=== PATIENT | female | born 1940 | race Caucasian/White ===

== ENCOUNTER 2020-01-03 10:39 | Outpatient (CLI) | payer MEDICARE, OTHER, SELFPAY ==
--- NOTE | 2020-01-03 10:52 | MM_ITS ---
WS: [id number] BILATERAL DIGITAL SCREENING MAMMOGRAPHY WITH CAD CLINICAL INFORMATION: SCREEN HISTORY: Screening mammogram. No current complaints. COMPARISON: . TECHNIQUE: Bilateral CC and MLO views. FINDINGS: The breasts are composed of heterogeneous fibroglandular density tissue, which can limit the detectio n of small underlying mass lesions. No suspicious mass, asymmetry, calcifications, or architectural d istortion. No evidence of malignancy. Stable punctate and lucent centered calcifications. MM/[id number] IMPRESSION: BI-RADS: 2-Benign FOLLOW UP: 1 Year Follow-up Recommend return to annual screening mammography.
== END 2020-01-03 10:40 | disposition home or self-care (01) ==
LOC: RADSHAW 10:49
PROVIDERS: PCP Family Medicine; Visit Provider Family Medicine
DX: Z12.31 Encounter for screening mammogram for malignant neoplasm of breast (principal)
CPT/HCPCS: 77067

== ENCOUNTER → 2020-08-07 14:48 | Outpatient (BNVA) | payer MEDICARE, OTHER, SELFPAY | PROVIDERS: PCP Family Medicine; Visit Provider Nurse Practitioner Family | DX: R30.0 Dysuria (principal); B37.3 Candidiasis of vulva and vagina; B37.2 Candidiasis of skin and nail | CPT/HCPCS: 81000 ==

== ENCOUNTER → 2020-08-12 14:44 | Outpatient (BNVA) | payer MEDICARE, OTHER, SELFPAY | PROVIDERS: PCP Nurse Practitioner Family; Visit Provider Nurse Practitioner Family | DX: M79.602 Pain in left arm (principal) | CPT/HCPCS: 73030; 73080; 73110 ==

== ENCOUNTER → 2020-08-16 09:47 | Outpatient (BNVA) | payer MEDICARE, OTHER, SELFPAY | PROVIDERS: PCP Nurse Practitioner Family; Visit Provider Nurse Practitioner Family | DX: M25.522 Pain in left elbow (principal) | CPT/HCPCS: 73080 ==

== ENCOUNTER → 2020-08-21 14:17 | Outpatient (BNVA) | payer MEDICARE, OTHER, SELFPAY | PROVIDERS: PCP Nurse Practitioner Family; Visit Provider Family Medicine | DX: M25.522 Pain in left elbow (principal); M19.022 Primary osteoarthritis, left elbow | CPT/HCPCS: 73080 ==

== ENCOUNTER → 2020-08-26 11:18 | Outpatient (BNVA) | payer MEDICARE, OTHER, SELFPAY | PROVIDERS: PCP Nurse Practitioner Family; Visit Provider Specialist | DX: M19.022 Primary osteoarthritis, left elbow (principal); M25.522 Pain in left elbow | CPT/HCPCS: 73080 ==

== ENCOUNTER → 2020-09-10 12:02 | Outpatient (BNVA) | payer MEDICARE, OTHER, SELFPAY | PROVIDERS: PCP Nurse Practitioner Family; Visit Provider Nurse Practitioner Family | DX: K52.9 Noninfective gastroenteritis and colitis, unspecified (principal); R19.7 Diarrhea, unspecified | CPT/HCPCS: 80053; 85025; 87506 ==

== ENCOUNTER → 2020-09-16 14:28 | Outpatient (BNVA) | payer MEDICARE, OTHER, SELFPAY | PROVIDERS: PCP Nurse Practitioner Family; Visit Provider Nurse Practitioner Family | DX: K52.9 Noninfective gastroenteritis and colitis, unspecified (principal) | CPT/HCPCS: 82272 ==

== ENCOUNTER → 2020-11-22 11:00 | Outpatient (BNVA) | payer MEDICARE, OTHER, SELFPAY | PROVIDERS: PCP Nurse Practitioner Family; Visit Provider Nurse Practitioner Family | DX: R39.11 Hesitancy of micturition (principal); I10 Essential (primary) hypertension; F41.9 Anxiety disorder, unspecified; M79.604 Pain in right leg; M79.605 Pain in left leg; E03.9 Hypothyroidism, unspecified; Z13.6 Encounter for screening for cardiovascular disorders | CPT/HCPCS: 80053; 80061; 81000; 84443; 85025 ==

== ENCOUNTER → 2020-12-25 12:09 | Outpatient (BNVA) | payer MEDICARE, OTHER, SELFPAY | PROVIDERS: PCP Nurse Practitioner Family; Visit Provider Nurse Practitioner Family | DX: R39.11 Hesitancy of micturition (principal); I10 Essential (primary) hypertension; F41.9 Anxiety disorder, unspecified; M79.604 Pain in right leg; M79.605 Pain in left leg; E03.9 Hypothyroidism, unspecified; Z13.6 Encounter for screening for cardiovascular disorders; R07.89 Other chest pain | CPT/HCPCS: 80053; 84484; 85025 ==

== ENCOUNTER → 2021-01-17 11:36 | Outpatient (BNVA) | payer MEDICARE, OTHER, SELFPAY | PROVIDERS: PCP Nurse Practitioner Family; Visit Provider Nurse Practitioner Family | DX: J02.9 Acute pharyngitis, unspecified (principal); R50.9 Fever, unspecified; Z11.52 Encounter for screening for COVID-19 | CPT/HCPCS: 87071; 87635; 87880 ==

== ENCOUNTER → 2021-05-09 11:23 | Outpatient (BNVA) | payer MEDICARE, OTHER, SELFPAY | PROVIDERS: PCP Nurse Practitioner Family; Visit Provider Nurse Practitioner Family | DX: Z20.822 Contact with and (suspected) exposure to COVID-19 (principal) | CPT/HCPCS: 87635 ==

== ENCOUNTER → 2021-06-16 14:12 | Outpatient (BNVA) | payer MEDICARE, OTHER, SELFPAY | PROVIDERS: PCP Nurse Practitioner Family; Visit Provider Nurse Practitioner Family | DX: E03.9 Hypothyroidism, unspecified (principal); R01.1 Cardiac murmur, unspecified; R06.2 Wheezing; G47.9 Sleep disorder, unspecified | CPT/HCPCS: 80053; 80061; 84443; 85025 ==

== ENCOUNTER 2021-06-25 14:33 | Outpatient (CLI) | payer MEDICARE, OTHER, SELFPAY ==
--- NOTE | 2021-06-25 14:45 | USCV_ITS ---
Diana Dewitt Age: 81 Gender: F : 1940 Exam Date: 06/25/2021 14:59 Ordering Phys: Constance PhilippeP-Dominique Technologist: [place] [facility] [place]: murmur BP: 124 / 76 HR: 75 Rhythm: Sinus Technical Quality: MEASUREMENTS (Male / Female) Normal Values 2D ECHO LV Diastolic Diameter PLAX 3.9 cm 4.2 - 5.9 / 3.9 - 5.3 cm LV Systolic Diameter PLAX 2.4 cm IVS Diastolic Thickness 1.1 cm 0.6 - 1.0 / 0.6 - 0.9 cm IVS Systolic Thickness 1.4 cm LVPW Diastolic Thickness 1.1 cm 0.6 - 1.0 / 0.6 - 0.9 cm LVPW Systolic Thickness 1.6 cm LVOT Diameter 2.0 cm LV Ejection Fraction 2D Teich 70.0 % LV Ejection Fraction MOD 2C 72.0 % LV Ejection Fraction 2C AL 69.9 % LA Diameter 3.8 cm Aorta at Sinotubular Diameter 2.6 cm M-MODE Aortic Annulus Diameter 3.1 cm LA Ao Ratio MM 1.3 MV E Point Septal Separation 1.5 cm DOPPLER AV Peak Velocity 346.0 cm/s LVOT Peak Velocity 104.0 cm/s AV Area Cont Eq vti 1.0 cm squared AV Area Cont Eq pk 1.0 cm squared MV Area PHT 5.0 cm squared Mitral E to A Ratio 1.3 MV E' Velocity 110.5 cm/s Mitral E to MV E' Ratio 27.0 Mitral E to LV E' Lateral Ratio 30.9 Mitral E to LV E' Septal Ratio 24.0 TR Peak Velocity 295.3 cm/s TR Peak Gradient 34.9 mmHg TV Peak E Velocity 83.0 cm/s Right Atrial Pressure 3.0 mmHg Pulmonary Artery Systolic Pressu 37.9 mmHg PV Peak Velocity 95.0 cm/s RV Acceleration Time 0.1 s FINDINGS Left Ventricle Normal left ventricular size. LV systolic function is normal with EF of 55-60%. No regional wall motion abnormalities. Diastolic function is normal Right Ventricle The right ventricle is normal in size and function. Right Atrium The right atrium is normal in size. Left Atrium The left atrium is normal in size. Mitral Valve Severe mitral annular calcification is seen. Mild to moderate mitral stenosis with mean gradient across mitral valve of 4.9mmHg. There is mild mitral regurgitation. Aortic Valve Aortic valve is thickened and calcified. Moderate aortic stenosis with aortic valve area of 1.2cm2 and mean gradient across the aortic valve of 17mmHg. There is moderate aortic regurgitation. Tricuspid Valve Structurally normal tricuspid valve without significant stenosis, Mild tricuspid regurgitation. Insufficient TR jet to calculate RVSP Pulmonic Valve Structurally normal pulmonic valve without significant stenosis. There is no pulmonic regurgitation. Pericardium Normal pericardium without effusion. Aorta Normal ascending aorta dimension. CONCLUSIONS LV systolic function is normal with EF 55 to 60%. Diastolic function is normal. Severe mitral annular calcification is seen. Mild to moderate mitral stenosis with mean gradient across mitral valve of 4.9 mmHg. Mild mitral regurgitation. Aortic valve is thickened and calcified. Moderate aortic stenosis with aortic valve area 1.2 cm squared and mean gradient across the valve of 17 mmHg. Moderate aortic regurgitation. Mild tricuspid regurgitation. Compared to prior echocardiogram from 11/06/2014, mitral stenosis is now present. Aortic regurgitation has progressed and is now moderate. Patient also now has moderate aortic stenosis. Darrius Turner MD (Electronically Signed) Final Date: 25 June 2021 18:35 S
== END 2021-06-25 14:34 | disposition home or self-care (01) ==
LOC: RAD 14:34
PROVIDERS: PCP Nurse Practitioner Family; Visit Provider Nurse Practitioner Family
DX: I08.2 Rheumatic disorders of both aortic and tricuspid valves (principal); R01.1 Cardiac murmur, unspecified
CPT/HCPCS: 93306

== ENCOUNTER 2021-07-10 13:56 | Outpatient (CLI) | payer MEDICARE, OTHER, SELFPAY ==
--- NOTE | 2021-07-10 14:12 | MM_ITS ---
WS: [id number] BILATERAL 3D TOMOSYNTHESIS DIGITAL SCREENING MAMMOGRAPHY WITH CAD CLINICAL INFORMATION: SCREENING HISTORY: Screening mammogram. No current complaints. COMPARISON: January 03, 2020 TECHNIQUE: Bilateral CC and MLO views. FINDINGS: Scattered fibroglandular densities bilaterally. Punctate and lucent centered calcifications. A few se cretory calcifications. Stable calcifications upper outer LEFT breast. No suspicious focal mass, asym metry, calcifications, or architectural distortion. No evidence of malignancy. MM/[place] [id number] IMPRESSION: BI-RADS: 2-Benign FOLLOW UP: 1 Year Follow-up Recommend return to annual screening mammography.
== END 2021-07-10 13:57 | disposition home or self-care (01) ==
LOC: RAD 13:59
PROVIDERS: PCP Nurse Practitioner Family; Visit Provider Nurse Practitioner Family
DX: Z12.31 Encounter for screening mammogram for malignant neoplasm of breast (principal)
CPT/HCPCS: 77063; 77067

== ENCOUNTER 2021-07-12 06:26 | Emergency (ER) | payer MEDICARE, OTHER, SELFPAY ==
[2021-07-12 06:32] VITALS: BP 140/64; PULSE 76; RESP 18; TEMP 36.8; O2SAT 96; BMI 29.0
[2021-07-12 06:41] VITALS: PULSE 74
--- NOTE | 2021-07-12 06:48 | W.ED.EXTPRO ---
HPI - Extremity Problem General: Chief complaint: Extremity Injury, Upper Stated complaint: left arm pain partial numbness Time Seen by Provider: 07/12/21 06:48 Source: patient Mode of arrival: EMS Limitations: no limitations History of Present Illness: 81-year-old female presents to the emergency room with complaints of left arm and left facial numbness that began around 430 this morning and woke her up. She has not had pain like this before she has no known history of coronary disease he has some con commitment chest discomfort. She has no known history of coronary disease not previously had any stress test or angiograms. Onset (ago): minute(s) Pain Consistency: constant Location: left and upper extremity Quality: aching and other (numbness) Radiation: distal Relieving factors: nothing Exacerbating factors: nothing Associated symptoms: Reports chest pain; Deny arthralgias, fever(s), myalgias, rash or short of breath Review of Systems Const: Denies: fever(s) ENMT: Denies: throat pain, ear or mastoid pain, nasal discharge or nasal congestion Card: Reports: chest pain; Denies: palpitations, irregular heart rhythm, edema, swelling of feet/ankles, lightheadedness, syncope or dyspnea on exertion Resp: Denies: dyspnea, productive cough or non-productive cough GI: Denies: abdominal pain, nausea, vomiting, hematemesis, coffee ground emesis, diarrhea, constipation, bloating, hematochezia or melena : Denies: flank pain, difficulty voiding, dysuria, urinary frequency or urinary urgency Skin/Breast: Denies: rash PFSH ED PFSH: Medical History Amira infection GERD (gastroesophageal reflux disease) Hypothyroid Surgical History History of hysterectomy Family History Father No problems noted. Family/Other Diabetes Chronic kidney disease (CKD) Social History Smoking and tobacco status: never smoked Second hand smoke exposure: No Smoking risk assessment/counseling performed?: No Alcohol intake: never Desire information about alcohol rehabilitation?: No Counseling given: No Desire information about substance/drug rehabilitation?: No Counseling given: No Adopted: No Caregiver/support person: No Lives independently: Yes Household members: spouse Housing: House Marital status: Number of children: 0 service: No Physical Exam Const: GENERAL APPEARANCE: cooperative and comfortable ORIENTATION/CONSCIOUSNESS: Yes awake, Yes oriented to person, Yes oriented to place and Yes oriented to time HENMT: COMMON NORMALS: normocephalic, atraumatic and hearing grossly normal bilaterally HEAD & SCALP: normocephalic and atraumatic Neck/C-Spine: COMMON NORMALS: no JVD Resp: COMMON NORMALS: normal respiratory effort, No retractions, No use of accessory muscles and clear to auscultation bilaterally AUSCULTATION: clear to auscultation bilaterally Cardio: COMMON NORMALS: no JVD, regular rate, regular rhythm and No murmurs present (Cardio) RATE: regular rate RHYTHM: regular rhythm GI: COMMON NORMALS: Soft to palpation and No hepatosplenomegaly present AUSCULTATION: Yes normoactive bowel sounds PALPATION: Yes Soft to palpation, No Tenderness to palpation present (GI), No Guarding due to palpation present (GI) and Yes No hepatosplenomegaly present Extremity: COMMON NORMALS: normal to inspection, capillary refill normal, no clubbing, cyanosis or edema, no calf tenderness and no pedal edema Neuro: SENSORIUM/ORIENTATION: Yes oriented to person, Yes oriented to place and Yes oriented to time Skin: COMMON NORMALS: no rashes or lesions noted GENERAL SKIN EXAM: no rashes or lesions noted Course Vital Signs: Vital signs: Vital Signs Temperature 98.2 F 07/12/21 06:32 Pulse Rate 75 07/12/21 09:09 Respiratory Rate 20 H 07/12/21 09:09 Blood Pressure 138/69 07/12/21 09:09 Pulse Oximetry 95 07/12/21 09:09 MDM - Extremity (Nontraumatic) Medical Decision Making CT head negative. Neuro exam normal no sign of stroke. Patient has no further symptoms EKG and troponins are normal. Will discharge home blood pressure is mildly elevated will add isosorbide mononitrate 30 mg daily and asked her to take baby aspirin daily set her up for an outpatient Lexiscan sestamibi stress test Medical Records I reviewed the patient's medical records. Lab Data I reviewed the patient's lab results. : 07/12/21 06:40 07/12/21 07:[address] 07/12/21 06:49 IMPRESSION: No acute intracranial abnormality. Humerus X-Ray 07/12/21 07:00 IMPRESSION: No acute findings. Laboratory Results WBC 5.0 10^3/uL (4.0-10.0) 07/12/21 06:40 RBC 4.04 10^6/uL (4.1-5.3) L 07/12/21 06:40 Hgb 12.4 g/dL (11.5-15.3) 07/12/21 06:40 Hct 37.1 % (37.0-47.0) 07/12/21 06:40 MCV 91.8 fl (81-99) 07/12/21 06:40 MCH 30.7 pg (28.0-34.0) 07/12/21 06:40 MCHC 33.4 g/dL (30.0-36.0) 07/12/21 06:40 RDW 11.9 % (12.1-15.1) L 07/12/21 06:40 Plt Count 342 10^3/cmm (130-400) 07/12/21 06:40 MPV 9.3 fL (7.4-10.4) 07/12/21 06:40 Neut % (Auto) 39.3 % 07/12/21 06:40 Lymph % (Auto) 41.2 % 07/12/21 06:40 [place] % (Auto) 11.7 % 07/12/21 06:40 Eos % (Auto) 7.0 % 07/12/21 06:40 Baso % (Auto) 0.8 % 07/12/21 06:40 Neut # (Auto) 1.98 10^3/uL (1.8-7.7) 07/12/21 06:40 Lymph # (Auto) 2.1 10^3/uL (0.8-4.8) 07/12/21 06:40 [place] # (Auto) 0.6 10^3/uL (0.2-0.9) 07/12/21 06:40 Eos # (Auto) 0.4 10^3/uL (0.0-0.8) 07/12/21 06:40 Baso # (Auto) 0.0 10^3/uL (0.0-0.1) 07/12/21 06:40 Nucleated RBC % (auto) 0 % 07/12/21 06:40 Nucleated RBCs # 0.0 /100WBC 07/12/21 06:40 Sodium 141 mmol/L (136-145) 07/12/21 07:27 Potassium 4.1 mmol/L (3.5-5.1) 07/12/21 07:27 Chloride 103 mmol/L (98-107) 07/12/21 07:27 Carbon Dioxide 27 mmol/L (22-29) 07/12/21 07:27 Anion Gap 15.1 (5-19) 07/12/21 07:27 BUN 9 mg/dL (8-23) 07/12/21 07:27 Creatinine 0.6 mg/dL (0.5-0.9) 07/12/21 07:27 GFR Calculation Not Reportable 07/12/21 07:27 Glucose 130 mg/dL (65-115) H 07/12/21 07:27 Calculated Osmolality 292 mOsm/kg (285-295) 07/12/21 07:27 Calcium 9.4 mg/dL (8.5-10.5) 07/12/21 07:27 Troponin T Baseline 10 ng/L (0-10) 07/12/21 07:27 Troponin T 120 Minute 8.30 ng/L (0-10) 07/12/21 09:34 Delta Troponin T -1.7 ABS# (0-10) L 07/12/21 09:34 Discharge Plan Discharge Patient Disposition: Home Clinical Impression: Atypical chest pain Condition: Stable Prescriptions: New isosorbide mononitrate 30 mg tablet extended release 24 hr 30 mg PO DAILY Qty: 30 0RF No Action levothyroxine 100 mcg tablet 100 mcg PO DAILY 0RF mupirocin 2 % ointment 1 applic topical BID Qty: 15 0RF levalbuterol tartrate [Xopenex HFA] 45 mcg/actuation HFA aerosol inhaler 2 inh inhalation Q6H Qty: 15 0RF prednisone 20 mg tablet 20 mg PO DAILY Qty: 3 0RF nystatin 100,000 unit/gram powder 1 applic topical TID 30 Days Qty: 60 5RF nitroglycerin 0.4 mg tablet, sublingual 0.4 mg sublingual Q5M PRN (Reason: chest pain) Qty: 30 2RF Rx Instructions: do not exceed 3 doses per episode pantoprazole [Protonix] 40 mg tablet,delayed release (DR/EC) 40 mg PO DAILY Qty: 30 0RF melatonin 10 mg capsule 10 mg PO BEDTIME Qty: 30 5RF Senior Probiotic 15 billion cell capsule 15,000 mmu cells PO DAILY Qty: 30 5RF Rx Instructions: administer with a meal Discharge Orders: Discharge ED (Routine); Ordered 07/12/21 Ordered By: Adria Houser Referrals: Constance Philippe FNP-C [Primary Care Provider] - Discharge Diet: Usual diet Discharge Activity: Limit activity as instructed Patient Instructions: Opioid Safety Activity Restrictions/Additional Instructions: His media relations manager will call to set up an outpatient Antoni sesgrabielmibi stress test Coding Level of Care Code ED Training And Development Director for Laci Fwchristopher Exam Comprehensive
--- NOTE | 2021-07-12 06:49 | CTR_ITS ---
PROCEDURE INFORMATION: Exam: CT Head Without Contrast Exam date and time: 07/12/2021 7:17 AM Age: 81 years old Clinical indication: Injury or trauma; Fall; Blunt trauma (contusions or hematomas); Without loss of consciousness; Additional info: Arm numbness TECHNIQUE: Imaging protocol: Computed tomography of the head without contrast. Radiation optimization: All CT scans at this facility use at least one of these dose optimization techniques: automated exposure control; mA and/or kV adjustment per patient size (includes targeted exams where dose is matched to clinical indication); or iterative reconstruction. COMPARISON: No relevant prior studies available. RADIATION DOSE METRICS: Total DLP (mGy-cm): 770.75 FINDINGS: Brain: No hemorrhage. No edema, mass effect or midline shift. Periventricular and deep white matter hypodensities compatible with chronic microvascular ischemic changes. Cerebral ventricles: No ventriculomegaly. Paranasal sinuses: Visualized sinuses are unremarkable. No fluid levels. Mastoid air cells: No mastoid effusion. Bones/joints: No acute fracture. Soft tissues: Unremarkable. CT/CT head wo con* [id number] IMPRESSION: No acute intracranial abnormality.
--- NOTE | 2021-07-12 06:50 | ECG_ITS ---
[facility] Test Date: 2021-07-12 Pat Name: Diana Dewitt Department: Room: Gender: Female Plc Programmer: : 1940 Requested By: Adria Hernandes Order Number: [id number] Leila MD: Paramjit Nieto M.D. Measurements Intervals [place] Rate: 71 P: 54 MT: 152 QRS: 48 QRSD: 81 T: 68 QT: 397 QTc: 433 Interpretive Statements SINUS RHYTHM WITH OCCASIONAL SUPRAVENTRICULAR PREMATURE COMPLEXES No previous ECG available for comparison Electronically Signed On 07-12-2021 11:33:03 CDT by Paramjit Nieto M.D. [email or web address] point mature adult care unitii4bpromedica [facility].[employer]/store/Ov/[id number]
--- NOTE | 2021-07-12 07:00 | XRR_ITS ---
PROCEDURE INFORMATION: Exam: XR Left Humerus Exam date and time: 07/12/2021 7:08 AM Age: 81 years old Clinical indication: Pain; Upper arm; Left TECHNIQUE: Imaging protocol: XR Left humerus. Views: 2 or more views. COMPARISON: No relevant prior studies available. FINDINGS: Bones/joints: No acute fracture. No dislocation. Soft tissues: No edema. XR/[id number] IMPRESSION: No acute findings.
[2021-07-12 07:01] LABS: Basophils % 0.8 %; Eosinophils # 0.4 10^3/uL (0.0-0.8); Hematocrit 37.1 % (37.0-47.0); Hemoglobin 12.4 g/dL (11.5-15.3); Lymphocytes # 2.1 10^3/uL (0.8-4.8); Lymphocytes % 41.2 %; Mean Corpuscular HGB Conc 33.4 g/dL (30.0-36.0); Mean Corpuscular Hemoglobin 30.7 pg (28.0-34.0); Mean Corpuscular Volume 91.8 fl (81-99); Mean Platelet Volume 9.3 fL (7.4-10.4); Monocytes # 0.6 10^3/uL (0.2-0.9); Monocytes % 11.7 %; Neutrophils # 1.98 10^3/uL (1.8-7.7); Neutrophils % 39.3 %; Nucleated Red Blood Cells % 0 %; Platelet Count 342 10^3/cmm (130-400); Red Blood Count 4.04 10^6/uL (4.1-5.3); Red Cell Distribution Width 11.9 % (12.1-15.1)
[2021-07-12 07:40] VITALS: PULSE 81; RESP 29; O2SAT 97
[2021-07-12 07:53] LABS: Anion Gap 15.1 (5-19); Blood Urea Nitrogen 9 mg/dL (8-23); Calcium 9.4 mg/dL (8.5-10.5); Carbon Dioxide 27 mmol/L (22-29); Chloride 103 mmol/L (98-107); Glucose 130 mg/dL (65-115); Osmolality Calculated 292 mOsm/kg (285-295); Potassium 4.1 mmol/L (3.5-5.1); Sodium 141 mmol/L (136-145)
[2021-07-12 07:54] LABS: Troponin(5th) Baseline 10 ng/L (0-10)
--- NOTE | 2021-07-12 08:58 | ECG_ITS ---
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 Measurements Intervals [place] Rate: 69 P: 64 AK: 158 QRS: 57 QRSD: 84 T: 71 QT: 404 QTc: 433 Interpretive Statements SINUS RHYTHM Compared to ECG 07/12/2021 06:36:00 No significant changes Electronically Signed On 07-12-2021 11:38:05 CDT by Paramjit Nieto M.D. [email or web address] daughters medical centerOrthodatapromedica flower hospital.[employer]/store/OM/[id number]
[2021-07-12 09:09] VITALS: BP 138/69; PULSE 75; RESP 20; O2SAT 95
[2021-07-12 10:48] LABS: Troponin 5 2HR Delta -1.7 ABS# (0-10)
[2021-07-12 11:40] VITALS: PULSE 83; RESP 16; O2SAT 96
--- NOTE | 2021-07-14 13:00 | DCPLANNER ---
Addendum entered by Maryanne Pantoja 12/26/21 13:26: Patient had a stress test scheduled - patient did attend appointment. Original Note: customer success manager had message to schedule an outpatient stress test for patient. customer success manager spoke with patient to confirm that she still wanted to have the test ordered and to confirm who she sees for her primary care. Patient stated that she did want the stress test ordered and that she sees Constance Philippe for primary care. customer success manager faxed signed order to centralized scheduling, who will call patient with appointment information.
== END 2021-07-12 11:36 | disposition home or self-care (01) ==
PROVIDERS: Emergency Provider Family Medicine; PCP Nurse Practitioner Family
DX: R07.89 Other chest pain (principal)
CPT/HCPCS: 36415; 70450; 73060; 80048; 84484; 85025; 93005; 99284

== ENCOUNTER → 2021-07-17 13:50 | Outpatient (BNVA) | payer MEDICARE, OTHER, SELFPAY | PROVIDERS: PCP Nurse Practitioner Family; Visit Provider Internal Medicine Cardiovascular Disease | DX: Z09 Encounter for follow-up examination after completed treatment for conditions other than malignant neoplasm (principal); I35.2 Nonrheumatic aortic (valve) stenosis with insufficiency; I05.0 Rheumatic mitral stenosis; R07.89 Other chest pain | CPT/HCPCS: 99203; 99213 ==

== ENCOUNTER 2021-08-18 11:30 | Outpatient (CLI) | payer MEDICARE, OTHER, SELFPAY ==
--- NOTE | 2021-08-18 12:45 | USCV_ITS ---
Diana Dewitt Age: 81 Gender: F : 1940 Exam Date: 08/18/2021 12:09 Ordering Phys: Constance Philippe NURSING STUDENT-C Technologist: Apryl Ingram Exam Location: [facility] [place] Indication: DIZZINESS AND GIDDINESS Risk Factors: Unknown Previous Vascular Surgery: None Right Brachial BP: / Left Brachial BP: / Right Left Velocity (cm/s) Spectral Plaque Velocity (cm/s) Spectral Plaque Syst/Diast Broadening Syst/Diast Broadening 110.30/25.40 Prox CCA 83.10 / 23.30 92.60/ 20.90 Mid CCA 80.80 / 16.30 71.70/ 16.50 Distal CCA 71.50 / 17.90 62.80/ 16.50 Prox ICA 80.00 / 18.60 71.70/ 25.40 Mid ICA 86.20 / 21.80 82.70/ 29.80 Distal ICA 92.40 / 31.10 86.00 ECA 90.10 0.89 ICA/CCA 1.14 Antegrade Vertebral Antegrade 55.10/ 12.10 cm/s 67.60/ 23.30 cm/s Bi Subclavian Bi 94.00 104.0 0 FINDINGS Comparison:. 02/06/16. No significant elevation of systolic or diastolic velocities. Waveforms are normal. Mild diffuse carotid atherosclerosis. CONCLUSIONS Bilateral ICA stenosis less than 50%. No interval change in stenosis since prior exam. Dr. Lucero Leblanc DO (Electronically Signed) Final Date: 18 Aug 2021 14:09 S
== END 2021-08-18 11:31 | disposition home or self-care (01) ==
LOC: RAD 11:31
PROVIDERS: PCP Nurse Practitioner Family; Visit Provider Nurse Practitioner Family
DX: R42 Dizziness and giddiness (principal); G45.9 Transient cerebral ischemic attack, unspecified; R20.0 Anesthesia of skin
CPT/HCPCS: 93880

== ENCOUNTER → 2021-10-06 11:07 | Outpatient (BNVA) | payer MEDICARE, OTHER, SELFPAY | PROVIDERS: PCP Nurse Practitioner Family; Visit Provider Internal Medicine Cardiovascular Disease | DX: R07.9 Chest pain, unspecified (principal); I35.2 Nonrheumatic aortic (valve) stenosis with insufficiency; I05.0 Rheumatic mitral stenosis; E03.9 Hypothyroidism, unspecified; K21.9 Gastro-esophageal reflux disease without esophagitis | CPT/HCPCS: 93005; 99214 ==

== ENCOUNTER → 2021-10-20 15:12 | Outpatient (BNVA) | payer MEDICARE, OTHER, SELFPAY | PROVIDERS: PCP Nurse Practitioner Family; Visit Provider Nurse Practitioner Family | DX: R04.0 Epistaxis (principal) | CPT/HCPCS: 85025 ==

== ENCOUNTER 2021-12-25 07:42 | Outpatient (CLI) | payer MEDICARE, OTHER, SELFPAY ==
[2021-12-25 08:29] VITALS: BMI 28.1
--- NOTE | 2021-12-25 08:32 | ECG_ITS ---
[facility] Test Date: 2021-12-25 Pat Name: Diana Dewitt Department: Room: Gender: Female Training Executive: : 1940 Requested By: Vasu White Order Number: [id number] Leila MD: Ema Sol M.D. Interpretive Statements NAME OF STUDY: LEXISCAN SESTAMIBI STRESS TEST INDICATION: Chest Pain PROCEDURE: At the baseline, the blood pressure was 137/63 mmHg with a heart rate of 67 bpm. The electrocardiogram showed normal sinus rhythm, normal axis with normal ST and T's. The Lexiscan was infused over a period of 20 seconds. A total of 0.4 milligrams of Lexiscan was infused. The stress phase was continued for a total of 5 minutes. Heart rate at the end of the stress phase was 90 beats per minute with a blood pressure of 135/61 mmHg. The EKG at the peak infusion revealed sinus rhythm with no significant ST-T wave changes. The study was terminated due to protocol completion. Sestamibi was injected 20 seconds after the Lexiscan infusion. Blood pressure at the end of the recovery phase was 145/61 mmHg with a heart rate of 84 beats per minute. CONCLUSION: 1. No significant EKG changes with the LexiScan infusion. 2. No LexiScan induced chest pain or cardiac arrhythmia. 3. Normal blood pressure and heart rate response. 4. Sestamibi/sestamibi perfusion scan pending; see separate report. RESULTS TO DR WHITE Electronically Signed On 12-26-2021 11:44:06 CDT by Ema Sol M.D. [email or web address]/store/OM/[id number]
--- NOTE | 2021-12-25 08:33 | NMCV_ITS ---
NM odin perf SPECT r/s* [id number] Diana Dewitt Age: 81 Gender: F : 1940 Exam Date: 12/25/2021 09:30 Ordering Phys: Vasu Goldman MD ([email or web address]) Technologist: PATRICK Tobin Exam Location: [facility] Indications: CHEST PAIN STRESS TEST Please see separate stress test report in [facility] for full findings IMAGE PROTOCOL Rest/Stress 1 Lexiscan Day Radiopharmaceutical Dose (mCi) Administration Site Administered by Rest: Tc-99m 10.6 IV PATRICK Carmichael Sestamibi Stress:Tc-99m 32.3 IV PATRICK Carmichael Sestamibi Rest: 25-Dec-2021 60 Discovery 630 Stress: 25-Dec-2021 30 Discovery 630 0.4mg Lexiscan. Images obtained in supine and prone position. SPECT RESULTS Technical Quality: Excellent Raw Data Analysis: Normal Image Corrections: No attenuation or motion correction applied Summed Stress Score: 1 Summed Rest Score: 0 Summed Difference Score: 1 PERFUSION FINDINGS SPECT images demonstrate homogeneous tracer distribution throughout the myocardium. FUNCTIONAL RESULTS (calculated via Gated SPECT) Stress Image LV EF (%): 81 Stress EDV (mL):74 TID: 1.09 Stress ESV (mL):14 FUNCTIONAL FINDINGS: The left ventricle is normal in size. Transient Ischemia Dilatation of 1.1. There is normal left ventricular systolic function. The left ventricular ejection fraction is normal with a value of 81%. There is normal left ventricular wall thickening. IMPRESSIONS 1. Myocardial perfusion imaging is normal. 2. Overall left ventricular systolic function is normal without regional wall motion abnormalities, LVEF=81%. 3. EKG portion of the study will be reported separately. Ema Sol MD (Electronically Signed) Final Date: 25 December 2021 13:05 S
[2021-12-25] MEDS: regadenoson 0.4 Mg/5 ml Syringe IVP (10:01)
[2021-12-25 10:21] VITALS: BP 142/68; PULSE 68
== END 2021-12-25 07:43 | disposition home or self-care (01) ==
LOC: CDL 07:44
PROVIDERS: PCP Nurse Practitioner Family; Visit Provider Internal Medicine Cardiovascular Disease
DX: R07.9 Chest pain, unspecified (principal)
CPT/HCPCS: 78452; 93017; A9500; J2785

== ENCOUNTER → 2022-01-26 12:01 | Outpatient (BNVA) | payer MEDICARE, OTHER, SELFPAY | PROVIDERS: PCP Nurse Practitioner Family; Visit Provider Nurse Practitioner Family | DX: E03.9 Hypothyroidism, unspecified (principal); I10 Essential (primary) hypertension; F41.9 Anxiety disorder, unspecified; R04.0 Epistaxis; R07.9 Chest pain, unspecified | CPT/HCPCS: 80053; 80061; 84443; 85025 ==

== ENCOUNTER → 2022-04-20 11:51 | Outpatient (BNVA) | payer MEDICARE, SELFPAY | PROVIDERS: PCP Nurse Practitioner Family; Visit Provider Nurse Practitioner Family | DX: R14.0 Abdominal distension (gaseous) (principal); E03.9 Hypothyroidism, unspecified; R19.7 Diarrhea, unspecified; R14.3 Flatulence | CPT/HCPCS: 74018; 80053; 80061; 84443; 85025 ==

== ENCOUNTER → 2022-05-26 10:38 | Outpatient (BNVA) | payer MEDICARE, SELFPAY | PROVIDERS: PCP Nurse Practitioner Family; Visit Provider Internal Medicine Cardiovascular Disease | DX: I35.2 Nonrheumatic aortic (valve) stenosis with insufficiency (principal); E03.9 Hypothyroidism, unspecified; R03.0 Elevated blood-pressure reading, without diagnosis of hypertension | CPT/HCPCS: 99214 ==

== ENCOUNTER → 2022-05-26 13:05 | Outpatient (BNVA) | payer MEDICARE, SELFPAY | PROVIDERS: PCP Nurse Practitioner Family; Visit Provider Surgery | DX: R14.0 Abdominal distension (gaseous) (principal); R11.0 Nausea; R19.7 Diarrhea, unspecified | CPT/HCPCS: 99203 ==

== ENCOUNTER → 2022-06-01 13:48 | Outpatient (BNVA) | payer MEDICARE, SELFPAY | PROVIDERS: PCP Nurse Practitioner Family; Visit Provider Nurse Practitioner Family | DX: R14.0 Abdominal distension (gaseous) (principal); R19.7 Diarrhea, unspecified | CPT/HCPCS: 87506 ==

== ENCOUNTER 2022-06-26 11:44 | Outpatient (CLI) | payer MEDICARE, SELFPAY ==
--- NOTE | 2022-06-26 12:45 | USCV_ITS ---
Diana Dewitt Age: 82 Gender: F : 1940 Exam Date: 06/26/2022 13:04 Ordering Phys: Vasu Goldman MD ([email or web address]) Technologist: ROBIN Exam Location: [facility] [place] Indication: ASA/MS, SHORTNESS OF BREATH BP: 141 / 76 HR: 70 Rhythm: Sinus Technical Quality: Adequate MEASUREMENTS (Male / Female) Normal Values 2D ECHO LVOT Diameter 2.0 cm LV Ejection Fraction MOD 2C 74.6 % LV Ejection Fraction 2C AL 76.2 % LA Diameter 3.6 cm LA Width 3.5 cm LA Height 4.1 cm RA Width 3.4 cm RA Height 4.1 cm Aorta at Sinotubular Diameter 2.0 cm IVC Diameter 1.7 cm M-MODE Aortic Annulus Diameter 2.5 cm LA Ao Ratio MM 1.6 MV E Point Septal Separation 1.1 cm DOPPLER AV Peak Velocity 327.2 cm/s LVOT Peak Velocity 113.0 cm/s AV Area Cont Eq vti 0.9 cm squared AV Area Cont Eq pk 1.1 cm squared MV Peak Velocity 193.0 cm/s MV Area PHT 1.8 cm squared Mitral E to A Ratio 1.2 MV E' Velocity 91.5 cm/s Mitral E to MV E' Ratio 21.0 Mitral E to LV E' Lateral Ratio 25.6 Mitral E to LV E' Septal Ratio 17.8 TR Peak Velocity 232.4 cm/s TR Peak Gradient 21.6 mmHg TR Mean Velocity 194.4 cm/s TR Mean Gradient 17.7 mmHg TR Velocity Time Integral 79.4 cm TV Peak E Velocity 39.0 cm/s Right Atrial Pressure 3.0 mmHg Pulmonary Artery Systolic Pressu 24.6 mmHg PV Peak Velocity 179.0 cm/s RV Acceleration Time 0.1 s RV Ejection Time 0.2 s RV AcT/ET 0.5 FINDINGS Left Ventricle Normal left ventricular size and systolic function, EF 73 %. Mild left ventricular hypertrophy. No regional wall motion abnormalities. Right Ventricle The right ventricle is normal in size and function. Right Atrium The right atrium is normal in size. Left Atrium Mildly increased left atrial size. Mitral Valve Thickened mitral valve. Moderate mitral annular calcification. Mild mitral valve stenosis. Mitral valve mean gradient is 7.8 mmHg. The valve area is currently to be 1.55cm squared by pressure half-time. Aortic Valve Severe low gradient aortic valve stenosis, mean gradient 27 mmHg, OMAR 0.85cm squared. Mild aortic valve regurgitation. Peak velocity of 3.8 mm/s with a peak gradient of 55 mmHg. Tricuspid Valve Mild tricuspid valve regurgitation. Estimated pulmonary artery peak systolic pressure 25 mmHg Pulmonic Valve No gross abnormalities noted Pericardium No pericardial effusion. Aorta Normal aortic annulus size. IVC Normal inferior vena cava. CONCLUSIONS Normal left ventricular size and systolic function, EF 73 %. Mild left ventricular hypertrophy. No regional wall motion abnormalities. Mild mitral valve stenosis. Mitral valve mean gradient is 7.8 mmHg. The valve area is currently to be 1.55cm squared by pressure half-time. Severe low gradient aortic valve stenosis, mean gradient 27 mmHg, OMAR 0.85cm squared. Mild aortic valve regurgitation. Peak velocity of 3.8 mm/s with a peak gradient of 55 mmHg. Mildly increased left atrial size. Mild tricuspid valve regurgitation. Estimated pulmonary artery peak systolic pressure 25 mmHg. There is no pericardial effusion. There are no intracardiac masses. Compared to the study from 06/25/2021, there is some worsening of the aortic valve stenosis. Dr Vasu Goldman MD [facility] (Electronically Signed) Final Date: 27 June 2022 15:41 S
== END 2022-06-26 11:45 | disposition home or self-care (01) ==
LOC: RAD 11:49
PROVIDERS: PCP Nurse Practitioner Family; Visit Provider Internal Medicine Cardiovascular Disease
DX: R06.02 Shortness of breath (principal); I08.3 Combined rheumatic disorders of mitral, aortic and tricuspid valves
CPT/HCPCS: 93306; 99214

== ENCOUNTER 2022-07-02 10:16 | Outpatient (CLI) | payer MEDICARE, SELFPAY ==
--- NOTE | 2022-07-02 10:27 | CTR_ITS ---
PROCEDURE INFORMATION: Exam: CT Abdomen And Pelvis With Contrast Exam date and time: 07/02/2022 11:38 AM Age: 82 years old Clinical indication: Abdominal pain; Localized; Prior surgery; Surgery type: Hysterectomy; Patient HX: Lower abd pain, gas and bloating after eating; Additional info: Lower abdominal pain TECHNIQUE: Imaging protocol: Computed tomography of the abdomen and pelvis with contrast. Radiation optimization: All CT scans at this facility use at least one of these dose optimization techniques: automated exposure control; mA and/or kV adjustment per patient size (includes targeted exams where dose is matched to clinical indication); or iterative reconstruction. Contrast material: OMNI 350; Contrast volume: 100 ml; Contrast route: INTRAVENOUS (IV); REPORTING DATA: Count of CT and Cardiac NM exams in prior 12 months: This patient has received 2 known CTs and 0 known cardiac nuclear medicine studies in the 12 months prior to the current study. COMPARISON: CT abdomen pelvis w con* [id number] 12/01/2018 2:32 PM RADIATION DOSE METRICS: Total DLP (mGy-cm): 465.73 FINDINGS: Lungs: Lung bases are clear. Liver: The liver is normal. Gallbladder and bile ducts: The gallbladder is normal. There is no biliary dilation. Pancreas: There is moderate atrophy of the pancreas. Spleen: The spleen is unremarkable. Adrenal glands: The adrenal glands are unremarkable. Kidneys and ureters: The kidneys are unremarkable. No hydronephrosis or stones. No ureteral dilation. Stomach and bowel: The stomach is unremarkable. The small bowel is nondilated. There is luminal decompression without wall thickening in the proximal ascending colon. The remainder of the ascending and transverse colon is mildly stool distended. The descending and sigmoid colon are decompressed. The rectum is unremarkable. There is no sign of colitis. Appendix: The appendix is absent. Distended appendiceal stump containing stool is unchanged in appearance since 12/01/2018. Intraperitoneal space: There is no free air or significant intraperitoneal free fluid. Vasculature: There is moderate aortic atherosclerotic disease. The portal, splenic and superior mesenteric veins are patent. Lymph nodes: There is no lymphadenopathy in the retroperitoneum, mesentery, pelvis or inguinal regions. Urinary bladder: The urinary bladder is unremarkable. Reproductive: The uterus is absent. There is no adnexal mass or large cyst. Bones/joints: There is moderate degenerative disease in the lumbar spine. The pelvis and hips are unremarkable. Soft tissues: The abdominal wall is intact. CT/CT abdomen pelvis w con* [id number] IMPRESSION: 1. No acute findings. 2. Incidental findings above.
[2022-07-02] MEDS: iohexol 350 mg/mL 500 mL Btl (per mL) IV (10:42)
[2022-07-02] MEDS: iohexol 350 mg/mL 500 mL Btl (per mL) PO (10:42)
== END 2022-07-02 10:17 | disposition home or self-care (01) ==
PROVIDERS: PCP Nurse Practitioner Family; Visit Provider Internal Medicine
DX: R10.30 Lower abdominal pain, unspecified (principal)
CPT/HCPCS: 74177; Q9967

== ENCOUNTER 2022-07-16 12:18 | Outpatient (CLI) | payer MEDICARE, SELFPAY ==
--- NOTE | 2022-07-16 | ECG_ITS ---
[facility] Test Date: 2022-07-16 Pat Name: Diana Dewitt Department: Room: Gender: Female Falafel Cart Cook: Judy Mohr : 1940 Requested By: Vasu Goldman Order Number: [id number] Leila MD: Vasu Goldman M.D. Interpretive Statements NAME OF STUDY: DOBUTAMINE STRESS ECHOCARDIOGRAM INDICATION: Aortic Stenosis, FINDINGS: 1. At the baseline, the patient's blood pressure was 115/60 with a heart rate of 72 per minute. The electrocardiogram showed normal sinus rhythm with normal ST-Ts. The chest examination revealed normal breath sounds with no rales or rhonchi. The CVS examination revealed normal heart sounds with no S3 or S4. 2. The Dobutamine was infused over 15 minutes and 12 seconds . The peak dobutamine infusion was 10 mics per KG per minute. The maximum heart rate obtained was 112 per minute. The patient attained 80% of the maximum predicted heart rate. The blood pressure at the end of the infusion was 108/52 mmHg. Patient did not have any chest pain or any significant electrocardiogram changes with the Dobutamine infusion. The physical examination remained unchanged. No arrhythmias were seen on the monitor. Echocardiogram was performed at the baseline and at each stage of the dobutamine fusion. The flow across the LV outflow tract, cardiac output, gradient across the aortic valve, aortic valve area etc. were measured at each stage. CONCLUSIONS: 1. Normal electrocardiogram response to Dobutamine infusion. 2. No dobutamine induced chest pain or cardiac arrhythmia. 3. Please see separate report for echocardiographic response to dobutamine infusion Electronically Signed On 07-26-2022 13:29:48 CDT by Vasu Goldman M.D. [id number]
[2022-07-16 12:49] VITALS: BMI 28.1
--- NOTE | 2022-07-16 12:51 | USCV_ITS ---
Diana Dewitt Age: 82 Gender: F : 1940 Exam Date: 07/16/2022 13:29 Ordering Phys: Vasu White MD ([email or web address]) Technologist: Andie Singh [place]am Location[place] [facility] [place] Indication: AORTIC STENOSIS Rhythm: Atrial fibrillation Patient History: AORTIC STENOSIS Cardiac Medications: LONG ACTING NITRATE Medications in past 24 hours: NONE Contrast: Total Dose (mL): Stress Results Protocol: Pharmacologic Peak Dose (???g/kg/min): 10 Duration (min:sec): 15:12 Atropine:(mg) Target HR: 119 Double Product: [id number] Resting HR: 105 Resting BP: 115 / 60 Peak HR: 112 Peak BP: 145 / 75 Max Predicted HR: 140 80 % Max Predicted HR Stress Summary: PER DR WHITE PROTOCOL BP Response: NORMAL Reason for Termination: PROTOCOL COMPLETE Cardiac Symptoms: NONE ECG Analysis Resting EKG: Please see separate report Stress EKG: Please see separate report Arrhythmia: Please see separate report MEASUREMENTS (Male/Female) Normal Values 2D ECHO LVOT Diameter 2.0 cm LV Ejection Fraction MOD 2C 58.8 % LV Ejection Fraction 2C AL 59.4 % LA Diameter 3.6 cm Aorta at Sinotubular Diameter 2.1 cm DOPPLER AV Peak Velocity 300.2 cm/s LVOT Peak Velocity 142.8 cm/s AV Area Cont Eq vti 1.4 cm squared AV Area Cont Eq pk 1.5 cm squared FINDINGS The baseline aortic valve velocity was 2.53 m/s with a peak gradient of 27 and a mean gradient of 16.5. The valve area was 1.17 cm squared. The LV ejection fraction was 59%. With a peak dobutamine infusion, the valve velocity of 3.23 m/s with a peak gradient of 41 and a mean gradient of 21 mmHg. The valve area is 1.86 cm squared. The stroke-volume index was 55 mL/m squared The baseline echocardiogram will normal LV size and ejection fraction. At the peak dobutamine infusion-10 mics per KG per minute, there was good augmentation of all the segments with no dobutamine induced wall motion abnormalities CONCLUSIONS 1. Normal flow low gradient aortic valve stenosis 2. Normal echocardiographic response to dobutamine infusion suggesting no significant coronary ischemia(patient attained 80% maximum relative heart rate) 3. For the EKG response to relative infusion, please see separate report Dr Vasu White MD [facility] (Electronically Signed) Final Date: 17 July 2022 17:03 S
[2022-07-16] MEDS: DOBUTtamine 200 MG in sodium chloride 0.9% 34 ML IV (13:40)
[2022-07-16 14:09] VITALS: BP 135/69; PULSE 68
== END 2022-07-16 12:19 | disposition home or self-care (01) ==
PROVIDERS: PCP Nurse Practitioner Family; Visit Provider Internal Medicine Cardiovascular Disease
DX: I35.0 Nonrheumatic aortic (valve) stenosis (principal); I48.91 Unspecified atrial fibrillation
CPT/HCPCS: 36415; 93017; 93350; J1250; J7050

== ENCOUNTER 2022-09-16 11:33 | Outpatient (CLI) | payer MEDICARE, SELFPAY ==
--- NOTE | 2022-09-16 11:41 | MM_ITS ---
WS: [id number] Bilateral screening 3D tomosynthesis digital mammogram, 09/16/2022 Clinical Data: SCREENING Comparison: 07/10/2021, 01/03/2020, 08/02/2018, 07/19/2018, 06/28/2017, 05/27/2016, 07/02/2015, 10/31/2014, 02/2014, 10/07/2012, 08/04/2011, 07/03/2010, 05/15/2009, 02/08/2008. Findings: The breast parenchymal pattern shows heterogeneous density. No spiculated masses or clustered calcifi cations are seen. There are no secondary signs of carcinoma. There are scattered benign calcification s in both breasts. MM/[place] [id number] Impression: 1. Negative bilateral mammogram unchanged. 2. Recommend annual screening mammograms. BIRADS: 1-Negative FOLLOW UP: 1 Year Follow-up The CAD checkering machine operator was used.
== END 2022-09-16 11:34 | disposition home or self-care (01) ==
LOC: RAD 11:36
PROVIDERS: PCP Nurse Practitioner Family; Visit Provider Nurse Practitioner Family
DX: Z12.31 Encounter for screening mammogram for malignant neoplasm of breast (principal)
CPT/HCPCS: 77063; 77067

== ENCOUNTER 2022-10-05 11:41 | Outpatient (CLI) | payer MEDICARE, SELFPAY ==
--- NOTE | 2022-10-05 11:50 | XR_ITS ---
WS: [id number] RIGHT ANKLE: 3 VIEW(S) TECHNIQUE: AP, oblique(s) and lateral. HISTORY: R ankle truamatic fall COMPARISON: None available. Nondisplaced acute fracture involving the distal fibula. Distal tibia is intact. Mild narrowing of the tibiotalar joint. Moderate soft tissue edema surrounding the ankle, greatest laterally. XR/XR ankle RT min 3V* [id number] IMPRESSION: 1. Nondisplaced acute distal fibula fracture. 2. Moderate soft tissue edema laterally.
== END 2022-10-05 11:42 | disposition home or self-care (01) ==
PROVIDERS: PCP Nurse Practitioner Family; Visit Provider Nurse Practitioner Family
DX: S82.831A Other fracture of upper and lower end of right fibula, initial encounter for closed fracture (principal); X58.XXXA Exposure to other specified factors, initial encounter; R60.0 Localized edema; M25.571 Pain in right ankle and joints of right foot
CPT/HCPCS: 73610

== ENCOUNTER → 2022-10-07 10:04 | Outpatient (BNVA) | payer MEDICARE, SELFPAY | PROVIDERS: PCP Nurse Practitioner Family; Visit Provider Podiatrist Foot & Ankle Surgery | DX: S82.831A Other fracture of upper and lower end of right fibula, initial encounter for closed fracture (principal); W19.XXXA Unspecified fall, initial encounter; Y92.009 Unspecified place in unspecified non-institutional (private) residence as the place of occurrence of the external cause | CPT/HCPCS: 99203 ==

== ENCOUNTER → 2022-11-04 15:00 | Outpatient (BNVA) | payer MEDICARE, SELFPAY | PROVIDERS: PCP Nurse Practitioner Family; Visit Provider Podiatrist Foot & Ankle Surgery | DX: S82.831A Other fracture of upper and lower end of right fibula, initial encounter for closed fracture (principal); W19.XXXA Unspecified fall, initial encounter; Y92.009 Unspecified place in unspecified non-institutional (private) residence as the place of occurrence of the external cause | CPT/HCPCS: 73610; 99213 ==

== ENCOUNTER → 2022-11-23 13:41 | Outpatient (BNVA) | payer MEDICARE, SELFPAY | PROVIDERS: PCP Nurse Practitioner Family; Visit Provider Podiatrist Foot & Ankle Surgery | DX: S82.831A Other fracture of upper and lower end of right fibula, initial encounter for closed fracture (principal); W19.XXXA Unspecified fall, initial encounter; Y92.009 Unspecified place in unspecified non-institutional (private) residence as the place of occurrence of the external cause; Z46.89 Encounter for fitting and adjustment of other specified devices | CPT/HCPCS: 73610; 97760; 99213; L1902 ==

== ENCOUNTER 2022-11-23 14:57 | Outpatient (CLI) | payer MEDICARE, SELFPAY | END 2022-11-23 14:58 | disposition home or self-care (01) | LOC: SPT 14:58 | PROVIDERS: PCP Nurse Practitioner Family; Visit Provider Podiatrist Foot & Ankle Surgery | DX: Z46.89 Encounter for fitting and adjustment of other specified devices (principal); S82.831D Other fracture of upper and lower end of right fibula, subsequent encounter for closed fracture with routine healing; W19.XXXD Unspecified fall, subsequent encounter; Z98.890 Other specified postprocedural states | CPT/HCPCS: 97760; 99213; L1902 ==

== ENCOUNTER → 2022-12-01 13:18 | Outpatient (BNVA) | payer MEDICARE, SELFPAY | PROVIDERS: PCP Nurse Practitioner Family; Visit Provider Internal Medicine Cardiovascular Disease | DX: I35.2 Nonrheumatic aortic (valve) stenosis with insufficiency (principal); I05.0 Rheumatic mitral stenosis; E03.9 Hypothyroidism, unspecified; Z87.898 Personal history of other specified conditions; Z87.891 Personal history of nicotine dependence | CPT/HCPCS: 99214 ==

== ENCOUNTER → 2022-12-07 12:55 | Outpatient (BNVA) | payer MEDICARE, SELFPAY | PROVIDERS: PCP Nurse Practitioner Family; Visit Provider Podiatrist Foot & Ankle Surgery | DX: S82.831A Other fracture of upper and lower end of right fibula, initial encounter for closed fracture (principal); W19.XXXA Unspecified fall, initial encounter; Y92.009 Unspecified place in unspecified non-institutional (private) residence as the place of occurrence of the external cause | CPT/HCPCS: 73610; 99213 ==

== ENCOUNTER 2022-12-24 12:00 | Observation (INO) | payer MEDICARE, SELFPAY ==
[2022-12-24] VITALS (7 sets, daily range): BP systolic 108–167; BP diastolic 57–92; PULSE 69–96; RESP 17–23; TEMP 36.6–37.2; O2SAT 90–97
--- NOTE | 2022-12-24 12:04 | XR_ITS ---
WS: [id number] Exam: XR chest 1V portable [id number] Date/Time of Exam: 12/24/2022 12:21 PM Reason For Exam: weakness Comparison 03/30/2013. The lungs are fully expanded. There are chronic interstitial changes noted bilaterally. No consolidat ing infiltrates. No pleural effusion. Normal cardiomediastinal silhouette. IMPRESSION: 1. Chronic interstitial changes. No acute process noted.
--- NOTE | 2022-12-24 12:25 | ECG_ITS ---
[facility] Test Date: 2022-12-24 Pat Name: Diana Dewitt Department: Room: Gender: Female Criminal Researcher: : 1940 Requested By: Stevo Damon Order Number: [id number] Leila MD: Paramjit Nieto M.D. Measurements Intervals [place] Rate: 75 P: 59 CO: 154 QRS: 64 QRSD: 77 T: 72 QT: 364 QTc: 407 Interpretive Statements SINUS RHYTHM Compared to ECG 07/12/2021 09:01:41 No significant changes Electronically Signed On 12-24-2022 19:25:34 CDT by Paramjit Nieto M.D. [id number]
[2022-12-24 12:38] LABS: Basophils # 0.1 10^3/uL (0.0-0.1); Basophils % 0.9 %; Eosinophils # 0.2 10^3/uL (0.0-0.8); Eosinophils % 3.7 %; Lymphocytes # 1.1 10^3/uL (0.8-4.8); Lymphocytes % 19.8 %; Mean Corpuscular HGB Conc 33.3 g/dL (30-55); Mean Corpuscular Hemoglobin 30.3 pg (27-33); Mean Corpuscular Volume 90.9 fl (85-98); Mean Platelet Volume 8.7 fL (7.4-10.4); Monocytes # 0.6 10^3/uL (0.2-0.9); Monocytes % 10.7 %; Neutrophils # 3.63 10^3/uL (1.8-7.7); Neutrophils % 64.7 %; Nucleated Red Blood Cells % 0 %; Platelet Count 373 10^3/cmm (157-399); Red Blood Count 4.29 10^6/uL (3.85-5.65); Red Cell Distribution Width 11.9 % (12.1-15.1); White Blood Count 5.61 10^3/uL (3.29-11.43)
[2022-12-24 12:55] LABS: Alanine Aminotransferase 7 U/L (0-33); Albumin Level 4.4 g/dL (3.5-5.2); Alkaline Phosphatase 102 U/L (35-105); Anion Gap 13.2 (5-19); Aspartate Amino Transferase 16 U/L (0-32); Blood Urea Nitrogen 13 mg/dL (8-23); Calcium 9.1 mg/dL (8.5-10.5); Carbon Dioxide 28 mmol/L (22-29); Chloride 101 mmol/L (98-107); Globulin 3.1 g/dL (1.3-4.6); Glucose 116 mg/dL (65-115); Osmolality Calculated 287 mOsm/kg (285-295); Potassium 4.2 mmol/L (3.5-5.1); Sodium 138 mmol/L (136-145); Total Bilirubin 0.6 mg/dL (0.15-1.2); Total Protein 7.5 g/dL (6.6-8.7)
[2022-12-24 13:35] LABS: Add Urine Microscopic? YES; Bilirubin Urine Neg (Negative); Blood Urine Neg (Negative); Glucose Urine UA Norm (Normal); Ketones Urine Negative (Negative); Leukocyte Esterase Urine 2+ (Negative); Nitrate Urine Negative (Negative); Protein Urine Neg (Negative); Specific Gravity, Urine 1.015 (1.005-1.030); Urine Appearance Hazy (CLEAR); Urine Color Yellow (Yellow); Urobilinogen Urine Norm (Negative); pH Urine 5 (5-7)
[2022-12-24 13:36] LABS: RBC Urine 0-4 /hpf (0-2)
[2022-12-24 13:36] LABS: NT Pro B Type Natriuretic Pept 983 pg/mL (0-450)
[2022-12-24 13:37] LABS: Add Urine Culture? Yes; Bacteria Urine TRACE /hpf; Squamous Epithelial Cell Urine 0-4 /hpf (0-5); WBC Urine 25-40 /hpf (0-5)
--- NOTE | 2022-12-24 13:57 | W.ED.SOB ---
HPI - SOB/Dyspnea General: Chief Complaint: Shortness of Breath/Dyspnea Stated Complaint: low bp, sob, sent from clinic Time Seen by Provider: 12/24/22 12:58 History of Present Illness: HPI Narrative: 82-year-old female with complex medical history including hypertension, mood disorder, heart murmur due to aortic stenosis, hypothyroidism and GERD presents emergency room with shortness of breath on and off for about 2 months. Patient noticed increased shortness of breath today while she was seeing a local physician. Patient was sent to the emergency room for evaluation and treatment. Patient reveals symptoms with exertion. Patient has any cough, coughing up blood or vomiting blood. No calf tenderness or leg swelling. Patient with some chills but denies any dysuria, hematuria or urine frequency. No known sick contacts or recent foreign travel. Associated symptoms: Deny abdominal pain, chest pain, diaphoresis, fever(s), nausea, palpitations, polydipsia, polyuria or vomiting Review of Systems General: Reports: 10 or more systems reviewed and unremarkable except in HPI and below Const: Reports: chills; Denies: fever(s), body aches, change in appetite, change in weight, fatigue, malaise or diaphoresis Eyes: Denies: change in vision, blurry vision, blind spots, photophobia, eye discomfort, eye discharge, eye redness or yellow eyes Card: Denies: chest pain, palpitations or irregular heart rhythm GI: Denies: abdominal pain, nausea, vomiting, coffee ground emesis, dysphagia, early satiety, diarrhea or constipation Skin/Breast: Denies: rash, pruritus, erythema, skin pain, skin tenderness or skin swelling Endo: Denies: polyuria, polydipsia, tired all the time, cold intolerance, excessive sweating, flushing, hot flashes or deepening of the voice PFS ED PFSH: Medical History Anxiety 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 Family/Other Diabetes Chronic kidney disease (CKD) Bleeding disorder Aunt CAD (coronary artery disease) Aunt - heart valve x 2 Cancer Dementia Grandfather Dementia Mother Cancer Lung disease Denies family history of Clotting disorder Suicide Anesthesia complication Stroke Social History Smoking and tobacco status: never smoked Second hand smoke exposure: No Smoking risk assessment/counseling performed?: No Alcohol intake: never Desire information about alcohol rehabilitation?: No Counseling given: No Substance/Drug Use: never Desire information about substance/drug rehabilitation?: No Counseling given: No Adopted: No Caregiver/support person: No Lives independently: Yes Household members: spouse Housing: House Marital status: Number of children: 0 service: No Physical Exam Const: COMMON NORMALS: no acute distress, average body habitus, patient oriented x3, no limitations, healthy appearing, alert and well nourished Eye: COMMON NORMALS: Equal, round and reactive pupils present, EOMs intact bilaterally, conjunctivae normal, no scleral icterus, no papilledema, normal visual magaña by confrontation and fundi normal bilaterally CONJUNCTIVA: Yes conjunctivae normal PUPIL: Yes Equal, round and reactive pupils present DIRECT OPHTHALMOSCOPY: Yes no papilledema and Yes fundi normal bilaterally Chest: COMMONS NORMALS: normal inspection of the chest, normal palpation of entire chest wall, normal inspection of the breasts and normal palpation of the breasts Breast/axilla inspection: Yes normal inspection of the breasts BREAST/AXILLA PALPATION: Yes normal palpation of the breasts Resp: COMMON NORMALS: normal respiratory effort, No retractions, No use of accessory muscles, clear to auscultation bilaterally and percussion normal AUSCULTATION: clear to auscultation bilaterally PERCUSSION: percussion normal Cardio: COMMON NORMALS: regular rate and S1 normal heart sound present RATE: regular rate HEART SOUNDS: S1 normal heart sound present and Murmur heart sound present Extremity: COMMON NORMALS: normal to inspection, full ROM, capillary refill normal, no joint enlargement, no clubbing, cyanosis or edema, no calf tenderness and no pedal edema Neuro: COMMON NORMALS: patient oriented x3 SENSORIUM/ORIENTATION: Yes alert Skin: COMMON NORMALS: no rashes or lesions noted, no wounds, turgor normal, no jaundice, no petechiae and no mottling GENERAL SKIN EXAM: no rashes or lesions noted and turgor normal Course Reevaluation(s): Reevaluation #1: Upon evaluation patient appeared to be stable without any acute distress. Consultations: Consultation #1: Discussed patient with the hospitalist. Will admit patient for further evaluation and treatment. Vital Signs: Vital signs: Vital Signs Temperature 98.0 F 12/24/22 12:14 Pulse Rate 73 12/24/22 14:35 Respiratory Rate 17 12/24/22 12:14 Blood Pressure 130/69 12/24/22 14:35 Pulse Oximetry 97 12/24/22 14:35 Oxygen Delivery Me thod Room Air 12/24/22 14:35 MDM - SOB/Dyspnea Medical Decision Making Patient made comfortable emergency room. Patient extensive work-up to include CBC, CMP, chest x-ray, troponin. Review old records including echocardiogram done in June of this year. I discussed lab finding and disposition plan with patient and family. Discussed patient with hospitalist. Differential Diagnosis Likely acute exacerbation of chronic obstructive airways disease, congestive heart failure, community acquired pneumonia, asthma with exacerbation and pulmonary embolism Lab Data 12/24/22 12:33 12/24/22 12:33 Labs/Radiology: Laboratory Results WBC 5.61 10^3/uL (3.29-11.43) 12/24/22 12:33 RBC 4.29 10^6/uL (3.85-5.65) 12/24/22 12:33 Hgb 13.00 g/dL (11.27-16.99) 12/24/22 12:33 Hct 39.0 % (36-47) 12/24/22 12:33 MCV 90.9 fl (85-98) 12/24/22 12:33 MCH 30.3 pg (27-33) 12/24/22 12:33 MCHC 33.3 g/dL (30-55) 12/24/22 12:33 RDW 11.9 % (12.1-15.1) L 12/24/22 12:33 Plt Count 373 10^3/cmm (157-399) 12/24/22 12:33 MPV 8.7 fL (7.4-10.4) 12/24/22 12:33 Neut % (Auto) 64.7 % 12/24/22 12:33 Lymph % (Auto) 19.8 % 12/24/22 12:33 [place] % (Auto) 10.7 % 12/24/22 12:33 Eos % (Auto) 3.7 % 12/24/22 12:33 Baso % (Auto) 0.9 % 12/24/22 12:33 Neut # (Auto) 3.63 10^3/uL (1.8-7.7) 12/24/22 12:33 Lymph # (Auto) 1.1 10^3/uL (0.8-4.8) 12/24/22 12:33 [place] # (Auto) 0.6 10^3/uL (0.2-0.9) 12/24/22 12:33 Eos # (Auto) 0.2 10^3/uL (0.0-0.8) 12/24/22 12:33 Baso # (Auto) 0.1 10^3/uL (0.0-0.1) 12/24/22 12:33 Nucleated RBC % (auto) 0 % 12/24/22 12:33 Nucleated RBCs # 0.0 /100WBC 12/24/22 12:33 Sodium 138 mmol/L (136-145) 12/24/22 12:33 Potassium 4.2 mmol/L (3.5-5.1) 12/24/22 12:33 Chloride 101 mmol/L (98-107) 12/24/22 12:33 Carbon Dioxide 28 mmol/L (22-29) 12/24/22 12:33 Anion Gap 13.2 (5-19) 12/24/22 12:33 BUN 13 mg/dL (8-23) 12/24/22 12:33 Creatinine 0.7 mg/dL (0.5-0.9) 12/24/22 12:33 GFR Calculation Not Reportable 12/24/22 12:33 Glucose 116 mg/dL (65-115) H 12/24/22 12:33 Calculated Osmolality 287 mOsm/kg (285-295) 12/24/22 12:33 Lactic Acid 1.0 mmol/L (0.5-2.2) 12/24/22 12:33 Calcium 9.1 mg/dL (8.5-10.5) 12/24/22 12:33 Magnesium 2.0 mg/dL (1.7-2.3) 12/24/22 12:33 Total Bilirubin 0.6 mg/dL (0.15-1.2) 12/24/22 12:33 AST 16 U/L (0-32) 12/24/22 12:33 ALT 7 U/L (0-33) 12/24/22 12:33 Alkaline Phosphatase 102 U/L (35-105) 12/24/22 12:33 Troponin T Baseline 8 ng/L (0-10) 12/24/22 12:33 Troponin T 120 Minute 8.64 ng/L (0-10) 12/24/22 14:42 Delta Troponin T 0.64 ABS# (0-10) 12/24/22 14:42 NT-Pro-B Natriuret Pep 983 pg/mL (0-450) H 12/24/22 12:33 Total Protein 7.5 g/dL (6.6-8.7) 12/24/22 12:33 Albumin 4.4 g/dL (3.5-5.2) 12/24/22 12:33 Globulin 3.1 g/dL (1.3-4.6) 12/24/22 12:33 Urine Color Yellow (Yellow) 12/24/22 13:17 Urine Appearance Hazy (CLEAR) A 12/24/22 13:17 Urine pH 5 (5-7) 12/24/22 13:17 Ur Specific [place] 1.015 (1.005-1.030) 12/24/22 13:17 Urine Protein Neg (Negative) 12/24/22 13:17 Urine Glucose (UA) Norm (Normal) 12/24/22 13:17 Urine Ketones Negative (Negative) 12/24/22 13:17 Urine Blood Neg (Negative) 12/24/22 13:17 Urine Nitrate Negative (Negative) 12/24/22 13:17 Urine Bilirubin Neg (Negative) 12/24/22 13:17 Urine Urobilinogen Norm mg/dL (Negative) 12/24/22 13:17 Ur Leukocyte Esterase 2+ (Negative) H 12/24/22 13:17 Urine RBC 0-4 /hpf (0-2) H 12/24/22 13:17 Urine WBC 25-40 /hpf (0-5) H 12/24/22 13:17 Ur Squamous Epith Cells 0-4 /hpf (0-5) H 12/24/22 13:17 Amorphous Sediment Not Reportable 12/24/22 13:17 Urine Bacteria Trace /hpf (NONE) 12/24/22 13:17 Coronavirus 229E (PCR) Not detected (NOT DETECT) 12/24/22 13:19 SARS-CoV-2 (PCR) Not detected (NOT DETECT) 12/24/22 13:19 EKG Data EKG 2: Interpretation: Sinus rhythm rate of [address] or T wave elevation. Computer Generated Interpretation: Sinus rhythm rate of [address] changes. TX interval 169 QT 396 Discharge Plan Discharge Patient Disposition: Placed in Observation Admit Provider: Shaun Bermudez Clinical Impression: Aortic insufficiency with aortic stenosis, Acute dyspnea, UTI (urinary tract infection) Coding Level of Care Code ED Finance Business Partner for Laci Dalton
--- NOTE | 2022-12-24 14:06 | ECG_ITS ---
[facility] Test Date: 2022-12-24 Pat Name: Diana Dewitt Department: Room: Gender: Female Hyperion Essbase Developer: : 1940 Requested By: Tirso Hallman Order Number: [id number] Reading MD: Paramjit Nieto M.D. Measurements Intervals [place] Rate: 70 P: 63 WV: 169 QRS: 64 QRSD: 81 T: 67 QT: 396 QTc: 428 Interpretive Statements SINUS RHYTHM Compared to ECG 12/24/2022 12:25:33 No significant changes Electronically Signed On 12-24-2022 19:25:50 CDT by Paramjit Nieto M.D. [id number]
[2022-12-24] MEDS: levofloxacin-dextrose 5 % 500 MG/100 ML PREMIX 100 MG IV (14:31)
[2022-12-24] MEDS: FUROsemide 10 mg/mL SDV 2mL 20 MG IVP (14:32)
[2022-12-24 14:44] LABS: Troponin(5th) Baseline 8 ng/L (0-10)
[2022-12-24 15:19] LABS: Adenovirus Not Detected (NOT DETECT); Chlamydia Pneumoniae Not Detected (NOT DETECT); Coronavirus 229E,HKU1,NL63,OC4 Not Detected (NOT DETECT); Human Metapneumovirus Not Detected (NOT DETECT); Human Rhinovirus/Enterovirus Not Detected (NOT DETECT); Influenza A Not Detected (NOT DETECT); Influenza A H1 Not Detected (NOT DETECT); Influenza A H1-2009 Not Detected (NOT DETECT); Influenza A H3 Not Detected (NOT DETECT); Influenza B Not Detected (NOT DETECT); Mycoplasma Pneumoniae Not Detected (NOT DETECT); Parainfluenza Virus Type 1 Not Detected (NOT DETECT); Parainfluenza Virus Type 2 Not Detected (NOT DETECT); Parainfluenza Virus Type 3 Not Detected (NOT DETECT); Parainfluenza Virus Type 4 Not Detected (NOT DETECT); Respiratory Syncytial Virus A Not Detected (NOT DETECT); Respiratory Syncytial Virus B Not Detected (NOT DETECT); SARS-COV-2 Not Detected (NOT DETECT)
[2022-12-24 15:30] LABS: Troponin 5 2HR 8.64 ng/L (0-10); Troponin 5 2HR Delta 0.64 ABS# (0-10)
--- NOTE | 2022-12-24 15:52 | PM.HP ---
Providers/Chief Complaint Admitting Physician: Shaun Bermudez Primary Care Provider: RACHELE Maki Chief Complaint: low bp, sob, sent from clinic History of Present Illness Diana Dewitt is a 82 year old female with history of aortic stenosis, severe low-flow aortic stenosis on TTE in June, had dobutamine stress echo in July, no cardiac ischemia, normal flow gradient aortic stenosis, normally follows with Dr. Goldman. Came in due to progressive exertional dyspnea, now getting winded/out of energy even while talking, at rest she does okay. At PCP office today blood pressure noted low down to 90 systolic. Denies orthopnea. Denies peripheral edema. In ER chest x-ray with some chronic interstitial changes. She has some minimal cough. NT proBNP 983. In ER also noted abnormal UA suggestive of UTI. Given a dose of Levaquin. COVID-19 PCR panel negative. No chest pain with exertion. Some left-sided chest wall discomfort laying on the left side. Review of Systems Const: Denies: fever(s), chills, body aches or malaise Eyes: Denies: change in vision ENMT: Denies: throat pain, oral sores or ear or mastoid pain Card: Reports: dyspnea on exertion; Denies: edema or pre-syncope Resp: Reports: non-productive cough; Denies: productive cough, change in phlegm color or hemoptysis GI: Denies: abdominal pain, nausea, vomiting, diarrhea, constipation, hematochezia or melena : Denies: flank pain, urinary frequency or hematuria Musc: Denies: back pain, joint swelling or joint redness Skin/Breast: Denies: rash or new lesions Neuro: Denies: headache(s), numbness in extremities, weakness in extremities, dizziness, confusion or seizure-like activity Medications/Allergies Home Medications Medication Instructions Recorded Confirmed Last Taken Type ketoconazole 2 % topical cream 1 applic topical BID #30 grams 11/06/21 12/24/22 Unknown Rx polyethylene glycol 3350 17 17 g PO DAILY #510 grams 04/30/22 12/24/22 Unknown Rx gram/dose oral powder (Miralax) amlodipine 2.5 mg tablet 2.5 mg PO DAILY #90 tabs 06/26/22 12/24/22 12/24/22 Rx isosorbide mononitrate 30 mg 30 mg PO DAILY #90 tabs 07/27/22 12/24/22 12/24/22 Rx tablet,extended release 24 hr fluoxetine 20 mg capsule 20 mg PO DAILY #30 caps 09/24/22 12/24/22 12/24/22 Rx levothyroxine 100 mcg tablet 100 mcg PO DAILY #30 tabs 09/24/22 12/24/22 12/24/22 Rx ASO to the right #1 ea 11/23/22 12/24/22 Unknown Rx loratadine 10 mg capsule 10 mg PO DAILY 12/24/22 12/24/22 12/24/22 History nitroglycerin 0.4 mg sublingual 0.4 mg sublingual Q5M PRN Chest 12/24/22 12/24/22 Unknown History tablet (Nitrostat) Pain Allergies Allergy/AdvReac Type Severity Reaction Status Date / Time albuterol Allergy ADR/ALGY-Pa Verified 12/24/22 12:18 lpitations cefaclor [From Ceclor] Allergy ALGY-Difficulty Verified 12/24/22 12:18 Breathing nitrofurantoin Allergy ADR-Irritab Verified 12/24/22 12:18 [From Macrobid] le Sulfa (Sulfonamide Allergy ADR-Agitate Verified 12/24/22 12:18 Antibiotics) d Penicillins AdvReac Intermediate Shakes and Verified 12/24/22 12:18 chills PFSH Acute PFSH: Medical History Anxiety 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 Family/Other Diabetes Chronic kidney disease (CKD) Bleeding disorder Aunt CAD (coronary artery disease) Aunt - heart valve x 2 Cancer Dementia Grandfather Dementia Mother Cancer Lung disease Denies family history of Clotting disorder Suicide Anesthesia complication Stroke Social History Smoking and tobacco status: never smoked Second hand smoke exposure: No Smoking risk assessment/counseling performed?: No Alcohol intake: never Desire information about alcohol rehabilitation?: No Counseling given: No Substance/Drug Use: never Desire information about substance/drug rehabilitation?: No Counseling given: No Adopted: No Caregiver/support person: No Lives independently: Yes Household members: spouse Housing: House Marital status: Number of children: 0 service: No Vitals/I&O/Wt Last Vital Signs Temp 98.0 F 12/24/22 12:14 Pulse 96 12/24/22 15:34 Resp 17 12/24/22 12:14 BP 167/65 12/24/22 15:34 Pulse Ox 95 12/24/22 15:34 O2 Del Method Room Air 12/24/22 15:34 Weight last 48 hrs Weight 77.111 kg Physical Exam Const: COMMON NORMALS: patient oriented x3 and alert GENERAL APPEARANCE: cooperative ORIENTATION/CONSCIOUSNESS: Yes awake HENMT: COMMON NORMALS: oropharynx normal Neck/C-Spine: COMMON NORMALS: no JVD Resp: COMMON NORMALS: normal respiratory effort and clear to auscultation bilaterally AUSCULTATION: clear to auscultation bilaterally Cardio: COMMON NORMALS: no JVD, regular rhythm, S1 normal heart sound present and S2 normal heart sound present RHYTHM: regular rhythm HEART SOUNDS: S1 normal heart sound present, S2 normal heart sound present and Murmur heart sound present systolic GI: COMMON NORMALS: Normal to inspection, nondistended, normoactive bowel sounds present, Soft to palpation and non-tender PALPATION: Yes Soft to palpation Extremity: COMMON NORMALS: no joint enlargement and no pedal edema Neuro: COMMON NORMALS: patient oriented x3 and moves all extremities SENSORIUM/ORIENTATION: Yes alert Skin: COMMON NORMALS: no rashes or lesions noted GENERAL SKIN EXAM: no rashes or lesions noted Data 12/24/22 12:33 12/24/22 12:33 A&P Assessment and plan (1) Exertional dyspnea: Progressive exertional dyspnea, currently severe, gets short of breath even while speaking. Affecting her functional capacity. Trace if any peripheral edema, no orthopnea. Some interstitial pulm changes on chest x-ray. Reviewed chemistry, renal function, BNP -983. Some mild dry cough. History of aortic stenosis, severe, low gradient stenosis noted on TTE in June, does not appear as bad on stress echo in July. However, discussed with her consideration of possible progression. She is a former smoker, has not smoked in over 30 years, denies history of known lung disease. Reviewed chest x-ray, reviewed COVID-19 PCR panel, noted negative. Obtain D-dimer. Obtain limited TTE, assess aortic valve, assess LV function, pericardial effusion, etc. Discussed with cardiology, appreciate consultation with regards to concern for progression of aortic valve stenosis. With appearance of some decompensation of diastolic CHF, received Lasix in ER, for now continue Lasix as per discussion with cardiology, continue IV Lasix 20 mg IV daily, monitor CRISTINO, weights. Monitor electrolytes, at risk of electro abnormality, at risk of arrhythmia, monitor on telemetry. Complete troponin KG series, baseline troponin noted normal. On my interpretation of EKG I do not see signs of AMI. (2) UTI (urinary tract infection): Received Levaquin in ER. Mild cough. Some interstitial changes seen on chest x-ray, some possibility of atypical pneumonia, although less likely. We will continue with Levaquin for now to give coverage for both. Follow-up urine culture. (3) Goals of care, counseling/discussion: She would want attempted resuscitation in case of cardiopulmonary arrest. Would not want to be kept on life support in case he was not recovering. Otherwise would want to make it to help support and be part of her daughter's life. Plan Aortic stenosis GERD Hypothyroidism: Continue thyroxine Constipation: Continue bowel regimen Prior cardiac documentation reviewed. ER documentation reviewed, discussed with ER physician and home sales service professional. Attestations Medical Necessity Statement*: Place in observation for additional assessment of progressive/now severe exertional intolerance/dyspnea. In a lady of advanced age with aortic stenosis, additional underlying comorbidities, concern for decompensation of diastolic CHF. UTI. Diagnoses Exertional dyspnea R06.09 UTI (urinary tract infection) N39.0 Goals of care, counseling/discussion Z71.89
--- NOTE | 2022-12-24 16:25 | PC.NURSE ---
Patient up to the restroom at this time. Patient taken back to room and placed on monitors. No further needs noted.
--- NOTE | 2022-12-24 17:10 | USCV_ITS ---
Diana Dewitt Age: 82 Gender: F : 1940 Exam Date: 12/24/2022 18:13 Ordering Phys: Shaun Bermudez MD Technologist: LISSETTE Exam Location: [facility] – [place] Indication: SOB, LUO, weakness x 2 months. hx , hx MS, last echo 06/26/22 BP: 145 / 92 HR: 67 Rhythm: Sinus Technical Quality: Adequate MEASUREMENTS (Male / Female) Normal Values 2D ECHO LV Diastolic Diameter PLAX 2.3 cm 4.2 - 5.9 / 3.9 - 5.3 cm LV Systolic Diameter PLAX 1.6 cm IVS Diastolic Thickness 1.4 cm 0.6 - 1.0 / 0.6 - 0.9 cm IVS Systolic Thickness 1.8 cm LVPW Diastolic Thickness 1.8 cm 0.6 - 1.0 / 0.6 - 0.9 cm LVPW Systolic Thickness 1.4 cm LVOT Diameter 2.1 cm LV Ejection Fraction 2D Teich 60.6 % LV Ejection Fraction MOD 2C 72.0 % LV Ejection Fraction 2C AL 71.7 % LA Diameter 3.7 cm LA Width 5.3 cm LA Height 5.3 cm RA Width 3.1 cm RA Height 3.5 cm Aorta at Sinotubular Diameter 2.7 cm IVC Diameter 1.5 cm M-MODE Aortic Annulus Diameter 3.1 cm LA Ao Ratio MM 1.2 MV E Point Septal Separation 2.2 cm DOPPLER AV Peak Velocity 287.0 cm/s LVOT Peak Velocity 121.0 cm/s AV Area Cont Eq vti 1.6 cm squared AV Area Cont Eq pk 1.5 cm squared MV Peak Velocity 248.0 cm/s MV Area PHT 1.7 cm squared Mitral E to A Ratio 1.4 MV E' Velocity 121.0 cm/s Mitral E to MV E' Ratio 41.4 Mitral E to LV E' Lateral Ratio 37.5 Mitral E to LV E' Septal Ratio 47.2 TR Peak Velocity 289.5 cm/s TR Peak Gradient 33.5 mmHg TV Peak E Velocity 46.0 cm/s Right Atrial Pressure 10.0 mmHg Pulmonary Artery Systolic Pressu 43.5 mmHg PV Peak Velocity 111.0 cm/s RV Acceleration Time 0.1 s RV Ejection Time 0.4 s RV AcT/ET 0.3 FINDINGS Left Ventricle Normal left ventricular size and systolic function, EF 71 %. Moderate left ventricular hypertrophy. No regional wall motion abnormalities. Right Ventricle The right ventricle is normal in size and function. Right Atrium The right atrium is normal in size. Left Atrium Mildly increased left atrial size. Mitral Valve Thickened mitral valve. Moderate mitral annular calcification. Mild mitral valve stenosis. Aortic Valve Mild aortic valve stenosis, mean gradient 18 mmHg, OMAR 1.6 cm squared. Moderate aortic valve calcification. Tricuspid Valve Mild tricuspid valve regurgitation. Estimated pulmonary artery peak systolic pressure 47 mmHg Pulmonic Valve Pulmonic valve not well visualized. Pericardium Normal pericardium without effusion. Aorta Normal ascending aorta dimension. IVC The inferior vena cava appears normal. CONCLUSIONS Normal left ventricular size and systolic function, EF 71 %. Moderate left ventricular hypertrophy. No regional wall motion abnormalities. Mildly increased left atrial size. Mild aortic valve stenosis, mean gradient 18 mmHg, OMAR 1.6 cm squared. Moderate aortic valve calcification. Mild tricuspid valve regurgitation. Estimated pulmonary artery peak systolic pressure 47 mmHg. Compared to the study from 06/26/2022, there may not be a significant change Dr Vasu Goldman MD [facility] (Electronically Signed) Final Date: 25 December 2022 14:05 S
--- NOTE | 2022-12-24 18:31 | P.CONIM_ITS ---
Providers/Reason For Consult Consulting Physician/Specialty*: Shahla Goldman MD/cardiology Reason for Consult*: Patient with shortness of breath and aortic valve disease Requesting Physician: Dr. Bermudez Attending Physician: Shaun Bermudez Primary Care Provider: RACHELE Maki History of Present Illness History of Present Illness Diana Dewitt is a 82 year old female, is admitted to hospital emergency room, where she presented with complaints of progressive shortness of breath and generalized weakness. This patient is known to have possibly moderate aortic valve stenosis and mild mitral stenosis. She has a history of atypical chest pain and had an unremarkable Myocardial perfusion imaging. House is known to have high blood pressure. She had a recent fracture of the right fibula for which she was on a cast for a while followed by wearing a brace. Now she is off the brace and started walking more. She started experiencing the shortness of breath with exertion. She also was finding it difficult to carry a conversation because of the shortness of breath. the symptoms are progressively getting worse. she also was found to have a low blood pressure in the primary care provider's office today. For these complaints, she was evaluated in the emergency room and subsequently got admitted. she seems to think that she may have a low-grade fever. Also has a dry cough. She has been compliant with her medications. No abdominal pain or any dysuria. However she was found to have some features of UTI in the emergency room. She has been having pain on the left side of the chest especially when she tries to lie on that side. She seems to think that this is related to arthritis. Review of Systems Narrative: CONSTITUTIONAL:Possible low-grade fever, generalized weakness EYES: No blurring of vision or other visual disturbances lately. ENT: No hoarseness of voice, auditory disturbances or sore throat. CARDIOVASCULAR: As mentioned above. RESPIRATORY: Shortness of breath as mentioned above GASTROINTESTINAL: No hematemesis or melena. GENITOURINARY: No dysuria or hematuria. INTEGUMENTARY: No skin rashes or history of skin cancer. NEURO: No transient ischemic attacks or amaurosis. PSYCHIATRIC: No history of psychosis or major depression. HEMATOLOGIC: No bleeding disorders or significant anemia. ENDOCRINE: No history of polyuria or polydipsia. MUSCULOSKELETAL: as mentioned above ALLERGY/IMMUNOLOGY: As mentioned above. Medications/Allergies Home Medications Medication Instructions Recorded Confirmed Last Taken Type ketoconazole 2 % topical cream 1 applic topical BID #30 grams 11/06/21 12/24/22 Unknown Rx polyethylene glycol 3350 17 17 g PO DAILY #510 grams 04/30/22 12/24/22 Unknown Rx gram/dose oral powder (Miralax) amlodipine 2.5 mg tablet 2.5 mg PO DAILY #90 tabs 06/26/22 12/24/22 12/24/22 Rx isosorbide mononitrate 30 mg 30 mg PO DAILY #90 tabs 07/27/22 12/24/22 12/24/22 Rx tablet,extended release 24 hr fluoxetine 20 mg capsule 20 mg PO DAILY #30 caps 09/24/22 12/24/22 12/24/22 Rx levothyroxine 100 mcg tablet 100 mcg PO DAILY #30 tabs 09/24/22 12/24/22 12/24/22 Rx ASO to the right #1 ea 11/23/22 12/24/22 Unknown Rx loratadine 10 mg capsule 10 mg PO DAILY 12/24/22 12/24/22 12/24/22 History nitroglycerin 0.4 mg sublingual 0.4 mg sublingual Q5M PRN Chest 12/24/22 12/24/22 Unknown History tablet (Nitrostat) Pain pantoprazole 40 mg tablet,delayed 40 mg PO DAILY 12/24/22 12/24/22 12/23/22 History release (Protonix) Allergies Allergy/AdvReac Type Severity Reaction Status Date / Time albuterol Allergy ADR/ALGY-Pa Verified 12/24/22 12:18 lpitations cefaclor [From Ceclor] Allergy ALGY-Difficulty Verified 12/24/22 12:18 Breathing nitrofurantoin Allergy ADR-Irritab Verified 12/24/22 12:18 [From Macrobid] le Sulfa (Sulfonamide Allergy ADR-Agitate Verified 12/24/22 12:18 Antibiotics) d Penicillins AdvReac Intermediate Shakes and Verified 12/24/22 12:18 chills PFSH Acute PFSH: Medical History Anxiety 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 Family/Other Diabetes Chronic kidney disease (CKD) Bleeding disorder Aunt CAD (coronary artery disease) Aunt - heart valve x 2 Cancer Dementia Grandfather Dementia Mother Cancer Lung disease Denies family history of Clotting disorder Suicide Anesthesia complication Stroke Social History Smoking and tobacco status: never smoked Second hand smoke exposure: No Smoking risk assessment/counseling performed?: No Alcohol intake: never Desire information about alcohol rehabilitation?: No Counseling given: No Substance/Drug Use: never Desire information about substance/drug rehabilitation?: No Counseling given: No Adopted: No Caregiver/support person: No Lives independently: Yes Household members: spouse Housing: House Marital status: Number of children: 0 service: No Vitals/I&O/Wt Last Vital Signs Temp 98 F 12/24/22 17:10 Pulse 72 12/24/22 17:10 Resp 17 12/24/22 12:14 BP 145/92 12/24/22 17:10 Pulse Ox 97 12/24/22 17:10 O2 Del Method Room Air 12/24/22 17:10 12/24/22 12/24/22 12/24/22 06:59 14:59 22:59 Intake Total 100 / 100 Balance 100 / 100 Weight last 48 hrs Weight 170 lb Physical Exam Narrative: GENERAL: The patient is alert and oriented times three. Not in any acute distress. HEENT: No significant pallor, icterus or lymphadenopathy.Oral cavity: There are no mucous membrane lesions. NECK: Trachea appears to be central. No masses noted. No JVD or thyromegaly appreciated. RESPIRATORY: Chest is symmetrical. No intercostals muscle retraction or any accessory muscle activation. There is no chest wall tenderness. Breath sounds are heard bilaterally. No rales or rhonchi heard. No evidence of any consolidation. BREASTS: Deferred. HEART: The heart sounds are normal. No S3 or S4. No significant murmurs. No pericardial rub ABDOMEN: No vessel pulsations or distention. No tenderness. No organomegaly appreciated. Bowel sounds are normally heard. : Deferred. RECTAL: Deferred. LYMPHATIC: No lymphadenopathy noted in the neck. EXTREMITIES: No edema or cyanosis. No clubbing. MUSCULOSKELETAL: No acute joint deformities or swelling SKIN: There are no significant rashes or ecchymosis NEUROPSYCHIATRIC: The patient is alert and oriented x3. Appears to be in a good mood. No tremors or rigidity noted. Data 12/24/22 12:33 12/24/22 12:33 Other Labs: Laboratory Last Values WBC 5.61 10^3/uL (3.29-11.43) 12/24/22 12:33 RBC 4.29 10^6/uL (3.85-5.65) 12/24/22 12:33 Hgb 13.00 g/dL (11.27-16.99) 12/24/22 12:33 Hct 39.0 % (36-47) 12/24/22 12:33 MCV 90.9 fl (85-98) 12/24/22 12:33 MCH 30.3 pg (27-33) 12/24/22 12:33 MCHC 33.3 g/dL (30-55) 12/24/22 12:33 RDW 11.9 % (12.1-15.1) L 12/24/22 12:33 Plt Count 373 10^3/cmm (157-399) 12/24/22 12:33 MPV 8.7 fL (7.4-10.4) 12/24/22 12:33 Neut % (Auto) 64.7 % 12/24/22 12:33 Lymph % (Auto) 19.8 % 12/24/22 12:33 [place] % (Auto) 10.7 % 12/24/22 12:33 Eos % (Auto) 3.7 % 12/24/22 12:33 Baso % (Auto) 0.9 % 12/24/22 12:33 Neut # (Auto) 3.63 10^3/uL (1.8-7.7) 12/24/22 12:33 Lymph # (Auto) 1.1 10^3/uL (0.8-4.8) 12/24/22 12:33 [place] # (Auto) 0.6 10^3/uL (0.2-0.9) 12/24/22 12:33 Eos # (Auto) 0.2 10^3/uL (0.0-0.8) 12/24/22 12:33 Baso # (Auto) 0.1 10^3/uL (0.0-0.1) 12/24/22 12:33 Nucleated RBC % (auto) 0 % 12/24/22 12:33 Nucleated RBCs # 0.0 /100WBC 12/24/22 12:33 D-Dimer 0.80 ug/mLFEU (0-0.59) H 12/24/22 12:32 Sodium 138 mmol/L (136-145) 12/24/22 12:33 Potassium 4.2 mmol/L (3.5-5.1) 12/24/22 12:33 Chloride 101 mmol/L (98-107) 12/24/22 12:33 Carbon Dioxide 28 mmol/L (22-29) 12/24/22 12:33 Anion Gap 13.2 (5-19) 12/24/22 12:33 BUN 13 mg/dL (8-23) 12/24/22 12:33 Creatinine 0.7 mg/dL (0.5-0.9) 12/24/22 12:33 GFR Calculation Not Reportable 12/24/22 12:33 Glucose 116 mg/dL (65-115) H 12/24/22 12:33 Calculated Osmolality 287 mOsm/kg (285-295) 12/24/22 12:33 Lactic Acid 1.0 mmol/L (0.5-2.2) 12/24/22 12:33 Calcium 9.1 mg/dL (8.5-10.5) 12/24/22 12:33 Magnesium 2.0 mg/dL (1.7-2.3) 12/24/22 12:33 Total Bilirubin 0.6 mg/dL (0.15-1.2) 12/24/22 12:33 AST 16 U/L (0-32) 12/24/22 12:33 ALT 7 U/L (0-33) 12/24/22 12:33 Alkaline Phosphatase 102 U/L (35-105) 12/24/22 12:33 Troponin T Baseline 8 ng/L (0-10) 12/24/22 12:33 Troponin T 120 Minute 8.64 ng/L (0-10) 12/24/22 14:42 Delta Troponin T 0.64 ABS# (0-10) 12/24/22 14:42 NT-Pro-B Natriuret Pep 983 pg/mL (0-450) H 12/24/22 12:33 Total Protein 7.5 g/dL (6.6-8.7) 12/24/22 12:33 Albumin 4.4 g/dL (3.5-5.2) 12/24/22 12:33 Globulin 3.1 g/dL (1.3-4.6) 12/24/22 12:33 Urine Color Yellow (Yellow) 12/24/22 13:17 Urine Appearance Hazy (CLEAR) A 12/24/22 13:17 Urine pH 5 (5-7) 12/24/22 13:17 Ur Specific [place] 1.015 (1.005-1.030) 12/24/22 13:17 Urine Protein Neg (Negative) 12/24/22 13:17 Urine Glucose (UA) Norm (Normal) 12/24/22 13:17 Urine Ketones Negative (Negative) 12/24/22 13:17 Urine Blood Neg (Negative) 12/24/22 13:17 Urine Nitrate Negative (Negative) 12/24/22 13:17 Urine Bilirubin Neg (Negative) 12/24/22 13:17 Urine Urobilinogen Norm mg/dL (Negative) 12/24/22 13:17 Ur Leukocyte Esterase 2+ (Negative) H 12/24/22 13:17 Urine RBC 0-4 /hpf (0-2) H 12/24/22 13:17 Urine WBC 25-40 /hpf (0-5) H 12/24/22 13:17 Ur Squamous Epith Cells 0-4 /hpf (0-5) H 12/24/22 13:17 Amorphous Sediment Not Reportable 12/24/22 13:17 Urine Bacteria Trace /hpf (NONE) 12/24/22 13:17 Coronavirus 229E (PCR) Not detected (NOT DETECT) 12/24/22 13:19 SARS-CoV-2 (PCR) Not detected (NOT DETECT) 12/24/22 13:19 CXR: My impression: Borderline cardiac silhouette. Chronic interstitial changes. No acute pathology noted EKG 1: My Interpretation: The EKG showed a normal sinus rhythm with a normal ST Ts. A&P Assessment and plan (1) SOB (shortness of breath): The etiology of her shortness of breath is not clear at this time. Patient has some features of diastolic heart failure. This could be contributing factor. Possibility of PE causing this ulcer is a consideration. This needs to be further evaluated. No evidence of myocardial injury. (2) Aortic insufficiency with aortic stenosis: The echocardiogram today revealed mild to moderate aortic valve stenosis. Mild mitral stenosis. The valve lesions may not explain the symptoms that she has. (3) Mitral stenosis: Appears to be mild. (4) Benign essential HTN: Currently the blood pressures are stage II Plan Other problems are 1. UTI 2. Recent fracture of the fibula patient may be carefully treated with IV diuretics. A CTA of the chest to rule out PE would be appropriate. Possibility of pneumonia cannot be excluded but my clinical suspicion may be low Based on the clinical progress, further recommendations will be made. Thank you for the opportunity to evaluate this patient and make these recommendations Consult Attestations Medical Necessity Statement: Patient requires continued hospital stay for close monitoring and further manag ement Coding Level of Care Code Acute Code for Chg Fwd Diagnoses SOB (shortness of breath) R06.02 Aortic insufficiency with aortic stenosis I35.2 Mitral stenosis I05.0 Benign essential HTN I10
--- NOTE | 2022-12-24 18:45 | CTR_ITS ---
PROCEDURE INFORMATION: Exam: CTA Chest With Contrast Exam date and time: 12/24/2022 9:02 PM Age: 82 years old Clinical indication: Other: Rios, exertional intolerance TECHNIQUE: Imaging protocol: Computed tomographic angiography of the chest with contrast. Exam focused on the arteries. 3D rendering (Not supervised by radiologist): MIP and/or 3D reconstructed images were created by the technologist. Radiation optimization: All CT scans at this facility use at least one of these dose optimization techniques: automated exposure control; mA and/or kV adjustment per patient size (includes targeted exams where dose is matched to clinical indication); or iterative reconstruction. Contrast material: OMNI 350; Contrast volume: 80 ml; Contrast route: INTRAVENOUS (IV); REPORTING DATA: Count of CT and Cardiac NM exams in prior 12 months: This patient has received 2 known CTs and 0 known cardiac nuclear medicine studies in the 12 months prior to the current study. COMPARISON: CR XR chest 1V portable [id number] 12/24/2022 12:30 PM RADIATION DOSE METRICS: Total DLP (mGy-cm): 383.15 FINDINGS: Pulmonary arteries: Normal. No pulmonary emboli. Aorta: Unremarkable. No aortic aneurysm. No aortic dissection. Lungs: Emphysematous changes. Bilateral dependent atelectasis. Pleural spaces: Unremarkable. No pneumothorax. No pleural effusion. Heart: Cardiomegaly. Coronary arteries: Coronary artery atherosclerotic calcifications. Lymph nodes: Scattered prominent mediastinal lymph nodes measuring up to 12 mm short axis, nonspecific. Bones/joints: Unremarkable. No acute fracture. Soft tissues: Unremarkable. CT/CT angio chest PE protcl [id number] IMPRESSION: 1. Negative for pulmonary embolus. 2. Scattered prominent mediastinal lymph nodes measuring up to 12 mm short axis, nonspecific. 3. Cardiomegaly. 4. Coronary artery atherosclerotic calcifications. 5. Emphysematous changes. 6. Bilateral dependent atelectasis.
[2022-12-24] MEDS: enoxaparin 40 mg/0.4 mL Syringe SUBCUT (18:48)
[2022-12-24] MEDS: ketoconazole Cream 15 gm 1 APPLIC TOPICAL (20:55)
[2022-12-24] MEDS: iohexol 350 mg/mL 500 mL Btl (per mL) IV (21:08)
[2022-12-25] VITALS (7 sets, daily range): BP systolic 125–133; BP diastolic 58–68; PULSE 66–82; RESP 17–18; TEMP 36.4–37; O2SAT 91–93
[2022-12-25] MEDS: acetaminophen 325 mg Tablet 650 MG PO (05:07)
[2022-12-25 05:23] LABS: Eosinophils # 0.2 10^3/uL (0.0-0.8); Eosinophils % 5.5 %; Hematocrit 37.2 % (36-47); Lymphocytes # 1.2 10^3/uL (0.8-4.8); Lymphocytes % 28.1 %; Mean Corpuscular HGB Conc 32.8 g/dL (30-55); Mean Corpuscular Volume 91.6 fl (85-98); Mean Platelet Volume 9.1 fL (7.4-10.4); Monocytes # 0.6 10^3/uL (0.2-0.9); Monocytes % 14.7 %; Neutrophils % 50.5 %; Nucleated Red Blood Cells % 0 %; Platelet Count 331 10^3/cmm (157-399); Red Blood Count 4.06 10^6/uL (3.85-5.65); Red Cell Distribution Width 11.8 % (12.1-15.1); White Blood Count 4.16 10^3/uL (3.29-11.43)
[2022-12-25 05:49] LABS: Anion Gap 13.6 (5-19); Blood Urea Nitrogen 16 mg/dL (8-23); Carbon Dioxide 29 mmol/L (22-29); Chloride 102 mmol/L (98-107); Creatinine Clr Calc Pharmacy 60.4205; Glucose 100 mg/dL (65-115); Osmolality Calculated 291 mOsm/kg (285-295); Potassium 4.6 mmol/L (3.5-5.1); Sodium 140 mmol/L (136-145)
[2022-12-25] MEDS: fluoxetine 20 mg Capsule PO (08:32)
[2022-12-25] MEDS: levothyroxine 100 mcg Tablet PO (08:32)
[2022-12-25] MEDS: isosorbide mononitrate ER 30 mg Tablet PO (08:32)
[2022-12-25] MEDS: FUROsemide 10 mg/mL SDV 2mL 20 MG IVP (08:32)
[2022-12-25] MEDS: polyethylene glycol 3350 Pkt 17 gm PO (08:39)
--- NOTE | 2022-12-25 09:33 | PC.CHAP ---
Pastoral Care Encounter/Spiritual Assessment Type of Contact [] Declined sports announcer visit [] Patient/Family/Request visit [] Outpatient visit [] Follow-up visit [] Physician referral [] Code/Alert [x] Routine visit [] Staff referral [] Actively dying [] Patient sleeping [] Family support [] [] Out of room [] Palliative care [] [] Receiving care in room [] Pre-surgical visit [] Trauma [] Long length of stay [] ICU visit [] Other: Relational/Emotional Strength [x] Patient feels connected with others/family/visitors/staff [] Distress [] Loneliness/isolation [] Abandonment Spirituality of Patient [x] Person of Tia [] Attends Roman Catholic of their Tia [x] Believes in Prayer [] Reads Bible or Restorationism materials [] There are Spiritual issues to be addressed [place] Automatic Interventions [x] Prayer [x] Active listening [x] Non-anxious presence [] Spiritual/emotional support [] Crisis/trauma care [] Spiritual counseling [] Bereavement support [] Provided bereavement packet [] Provided Bible/devotional materials [] Provided toy/stuffed animal, coloring book to patient or family member [] Provided Communion [] Anointing/[place] [] Salvation [x] Completed spiritual assessment [] Other: Impact on Illness or Injury [] Angry [] Fearful [] Anxious [] Often cries [] Exhaustion [] Unable to work [] Unable to attend judaism [] Unable to walk/stand [] Unable to read [] Unable to drive [] Unable to eat/drink [] Unable to sleep [] Unable to be with family [] Patient intubated [] Other: Summary Time spent with patient 5 min
--- NOTE | 2022-12-25 13:39 | P.PN_ITS ---
Subjective Subjective: Patient had a CTA of the chest yesterday and was found to have no evidence of pulmonary embolism. Her shortness of breath has responded to diuretic. She is feeling much better. She is wanting to go home. Medications: Medication Review Details: Current Medications Acetaminophen (Acetaminophen 325 Mg Tablet) 650 mg PO Q6H PRN PRN Reason: Mild/Mod Pain Or Temp >/= 101 Last Admin: 12/25/22 05:07 Dose: 650 mg Enoxaparin Sodium (Enoxaparin 40 Mg/0.4 Ml Syringe) 40 mg SUBCUT Q24H [facility] Last Admin: 12/24/22 18:48 Dose: 40 mg Fluoxetine HCl (Fluoxetine 20 Mg Capsule) 20 mg PO DAILY [facility] Last Admin: 12/25/22 08:32 Dose: 20 mg Furosemide (Furosemide 10 Mg/Ml Sdv 2ml) 20 mg IVP BREAKFAST [facility] Last Admin: 12/25/22 08:32 Dose: 20 mg Levofloxacin/Dextrose (Levaquin-D5w) 500 mg in 100 mls @ 100 mls/hr IV Q24H [facility]; Protocol Isosorbide Mononitrate (Isosorbide Mononitrate Er 30 Mg Tablet) 30 mg PO DAILY [facility] Last Admin: 12/25/22 08:32 Dose: 30 mg Ketoconazole (Ketoconazole Cream 15 Gm) 1 applic TOPICAL BID [facility] Last Admin: 12/24/22 20:55 Dose: 1 applic Levothyroxine Sodium (Levothyroxine 100 Mcg Tablet) 100 mcg PO DAILY [facility] Last Admin: 12/25/22 08:32 Dose: 100 mcg Nitroglycerin (Nitroglycerin 0.4 Mg Sublingual Tablet) 0.4 mg SUBLINGUAL Q5M PRN PRN Reason: Chest Pain Ondansetron HCl (Ondansetron 2 Mg/Ml Sdv 2 Ml) 4 mg IVP Q8H PRN PRN Reason: vomiting, or N/V if npo Polyethylene Glycol (Polyethylene Glycol 3350 Pkt 17 Gm) 17 gm PO DAILY [facility] Last Admin: 12/25/22 08:39 Dose: 17 gm Vitals/I&O/Wt Last Vital Signs Temp 97.6 F 12/25/22 11:31 Pulse 75 12/25/22 11:31 Resp 17 12/25/22 04:00 BP 129/58 12/25/22 11:31 Pulse Ox 92 12/25/22 11:31 O2 Del Method Room Air 12/25/22 11:31 12/24/22 12/25/22 12/25/22 22:59 06:59 14:59 Intake Total 340 / 340 480 / 820 720 / 720 Balance 340 / 340 480 / 820 720 / 720 Weight last 48 hrs Weight 172 lb 6.4 oz Weight 170 lb Physical Exam Narrative: GENERAL: The patient is alert and oriented times three. Not in any acute distress. HEENT: No significant pallor, icterus or lymphadenopathy.Oral cavity: There are no mucous membrane lesions. NECK: Trachea appears to be central. No masses noted. No JVD or thyromegaly appreciated. RESPIRATORY: Chest is symmetrical. No intercostals muscle retraction or any accessory muscle activation. There is no chest wall tenderness. Breath sounds are heard bilaterally. No rales or rhonchi heard. No evidence of any consolidation. BREASTS: Deferred. HEART: The heart sounds are normal. No S3 or S4. No significant murmurs. No pericardial rub ABDOMEN: No vessel pulsations or distention. No tenderness. No organomegaly appreciated. Bowel sounds are normally heard. : Deferred. RECTAL: Deferred. LYMPHATIC: No lymphadenopathy noted in the neck. EXTREMITIES: No edema or cyanosis. No clubbing. MUSCULOSKELETAL: No acute joint deformities or swelling SKIN: There are no significant rashes or ecchymosis NEUROPSYCHIATRIC: The patient is alert and oriented x3. Appears to be in a good mood. No tremors or rigidity noted. Data 12/25/22 04:42 12/25/22 04:42 Other Labs: Laboratory Last Values WBC 4.16 10^3/uL (3.29-11.43) 12/25/22 04:42 RBC 4.06 10^6/uL (3.85-5.65) 12/25/22 04:42 Hgb 12.20 g/dL (11.27-16.99) 12/25/22 04:42 Hct 37.2 % (36-47) 12/25/22 04:42 MCV 91.6 fl (85-98) 12/25/22 04:42 MCH 30.0 pg (27-33) 12/25/22 04:42 MCHC 32.8 g/dL (30-55) 12/25/22 04:42 RDW 11.8 % (12.1-15.1) L 12/25/22 04:42 Plt Count 331 10^3/cmm (157-399) 12/25/22 04:42 MPV 9.1 fL (7.4-10.4) 12/25/22 04:42 Neut % (Auto) 50.5 % 12/25/22 04:42 Lymph % (Auto) 28.1 % 12/25/22 04:42 [place] % (Auto) 14.7 % 12/25/22 04:42 Eos % (Auto) 5.5 % 12/25/22 04:42 Baso % (Auto) 1.0 % 12/25/22 04:42 Neut # (Auto) 2.10 10^3/uL (1.8-7.7) 12/25/22 04:42 Lymph # (Auto) 1.2 10^3/uL (0.8-4.8) 12/25/22 04:42 [place] # (Auto) 0.6 10^3/uL (0.2-0.9) 12/25/22 04:42 Eos # (Auto) 0.2 10^3/uL (0.0-0.8) 12/25/22 04:42 Baso # (Auto) 0.0 10^3/uL (0.0-0.1) 12/25/22 04:42 Nucleated RBC % (auto) 0 % 12/25/22 04:42 Nucleated RBCs # 0.0 /100WBC 12/25/22 04:42 D-Dimer 0.80 ug/mLFEU (0-0.59) H 12/24/22 12:32 Sodium 140 mmol/L (136-145) 12/25/22 04:42 Potassium 4.6 mmol/L (3.5-5.1) 12/25/22 04:42 Chloride 102 mmol/L (98-107) 12/25/22 04:42 Carbon Dioxide 29 mmol/L (22-29) 12/25/22 04:42 Anion Gap 13.6 (5-19) 12/25/22 04:42 BUN 16 mg/dL (8-23) 12/25/22 04:42 Creatinine 0.8 mg/dL (0.5-0.9) 12/25/22 04:42 GFR Calculation Not Reportable 12/25/22 04:42 Glucose 100 mg/dL (65-115) 12/25/22 04:42 Calculated Osmolality 291 mOsm/kg (285-295) 12/25/22 04:42 Lactic Acid 1.0 mmol/L (0.5-2.2) 12/24/22 12:33 Calcium 9.0 mg/dL (8.5-10.5) 12/25/22 04:42 Magnesium 2.0 mg/dL (1.7-2.3) 12/25/22 04:42 Total Bilirubin 0.6 mg/dL (0.15-1.2) 12/24/22 12:33 AST 16 U/L (0-32) 12/24/22 12:33 ALT 7 U/L (0-33) 12/24/22 12:33 Alkaline Phosphatase 102 U/L (35-105) 12/24/22 12:33 Troponin T Baseline 8 ng/L (0-10) 12/24/22 12:33 Troponin T 120 Minute 8.64 ng/L (0-10) 12/24/22 14:42 Delta Troponin T 0.64 ABS# (0-10) 12/24/22 14:42 Troponin T Hi Sens 6Hr 9.20 ng/L (0-10) 12/24/22 20:27 Troponin T Hi Sens 6Hr Delta 1.20 ng/L (0-12) 12/24/22 20:27 NT-Pro-B Natriuret Pep 983 pg/mL (0-450) H 12/24/22 12:33 Total Protein 7.5 g/dL (6.6-8.7) 12/24/22 12:33 Albumin 4.4 g/dL (3.5-5.2) 12/24/22 12:33 Globulin 3.1 g/dL (1.3-4.6) 12/24/22 12:33 Urine Color Yellow (Yellow) 12/24/22 13:17 Urine Appearance Hazy (CLEAR) A 12/24/22 13:17 Urine pH 5 (5-7) 12/24/22 13:17 Ur Specific [place] 1.015 (1.005-1.030) 12/24/22 13:17 Urine Protein Neg (Negative) 12/24/22 13:17 Urine Glucose (UA) Norm (Normal) 12/24/22 13:17 Urine Ketones Negative (Negative) 12/24/22 13:17 Urine Blood Neg (Negative) 12/24/22 13:17 Urine Nitrate Negative (Negative) 12/24/22 13:17 Urine Bilirubin Neg (Negative) 12/24/22 13:17 Urine Urobilinogen Norm mg/dL (Negative) 12/24/22 13:17 Ur Leukocyte Esterase 2+ (Negative) H 12/24/22 13:17 Urine RBC 0-4 /hpf (0-2) H 12/24/22 13:17 Urine WBC 25-40 /hpf (0-5) H 12/24/22 13:17 Ur Squamous Epith Cells 0-4 /hpf (0-5) H 12/24/22 13:17 Amorphous Sediment Not Reportable 12/24/22 13:17 Urine Bacteria Trace /hpf (NONE) 12/24/22 13:17 Coronavirus 229E (PCR) Not detected (NOT DETECT) 12/24/22 13:19 SARS-CoV-2 (PCR) Not detected (NOT DETECT) 12/24/22 13:19 A&P Assessment and plan (1) SOB (shortness of breath): Most likely from the diastolic heart failure. Currently she seems to be feeling much better. (2) Aortic insufficiency with aortic stenosis: The echocardiogram today revealed mild to moderate aortic valve stenosis. Mild mitral stenosis. We will continue on the current management. (3) Mitral stenosis: Appears to be mild. We will have a follow-up evaluation next year. (4) Benign essential HTN: The blood pressure seems to be under control. Plan Other problems are 1. UTI 2. Recent fracture of the fibula If the patient condition remained stable, may be discharged home today. May go home with a low-dose of Lasix 20 mg p.o. daily with potassium 8 milliequivalents p.o. daily Attestations Medical Necessity Statement*: Possible discharge home today Coding Level of Care Code 71710 Diagnoses SOB (shortness of breath) R06.02 Aortic insufficiency with aortic stenosis I35.2 Mitral stenosis I05.0 Benign essential HTN I10
--- NOTE | 2022-12-25 13:41 | PM.DCS ---
Discharge Providers Date of Admission: 12/24/22 14:12 Date of Discharge: December 25, 2022 Attending Provider at Admission: Shaun Bermudez Attending Provider at Discharge: Shaun Bermudez Primary Care Provider: RACHELE Maki Diagnoses at Discharge Discharge Diagnosis (1) SOB (shortness of breath): Status: Acute (2) Aortic insufficiency with aortic stenosis: Status: Acute (3) Mitral stenosis: Status: Acute (4) Benign essential HTN: Status: Acute Reason for Visit Reason for Visit: low bp, sob, sent from clinic Brief History: Diana Dewitt is a 82 year old female with history of aortic stenosis, severe low-flow aortic stenosis on TTE in June, had dobutamine stress echo in July, no cardiac ischemia, normal flow gradient aortic stenosis, normally follows with Dr. Goldman.? Came in due to progressive exertional dyspnea, now getting winded/out of energy even while talking, at rest she does okay.? At PCP office today blood pressure noted low down to 90 systolic.? Denies orthopnea.? Denies peripheral edema.? In ER chest x-ray with some chronic interstitial changes.? She has some minimal cough.? NT proBNP 983.? In ER also noted abnormal UA suggestive of UTI.? Given Levaquin. COVID-19 PCR panel negative. Hospital Course Hospital Course With concern for possible worsening of aortic stenosis previously noted severe, was reassessed by TTE, seen by cardiology. Recently with some immobilization, cast, some abnormality of D-dimer underwent assessment by CTA chest which showed no PE, no focal consolidation. Found to have emphysema, with prior smoking history, suspected undiagnosed COPD. Does report intermittent wheezing. Incidentally noted intrathoracic lymphadenopathy. Please follow-up. She did receive appears there was a component of diastolic CHF for which she received Lasix yesterday and this morning, with improvement in respiratory symptoms. No recurrence of hypotension noted in the hospital with concern for hypotension at outpatient office visit. Amlodipine and Imdur were held in the hospital. She is asked to discontinue amlodipine for now, continue to monitor blood pressures at home, hold Imdur in case of soft blood pressure. Repeat echocardiogram showed moderate aortic stenosis, and as per cardiology evaluation not likely contributing to her recent significant dyspnea. This likely may have been combination of both some fluid overload, but caution with diuresis given aortic stenosis, risk of hypotension, as well as appears undiagnosed COPD from prior smoking. She is started on albuterol, Spiriva as well. Once she is back to baseline please refer for pulmonary function testing. Short course of Levaquin for both UTI, please follow-up urine culture, as well as mild exacerbation of suspected undiagnosed COPD. Physical Exam Const: COMMON NORMALS: patient oriented x3 and alert GENERAL APPEARANCE: cooperative ORIENTATION/CONSCIOUSNESS: Yes awake HENMT: COMMON NORMALS: oropharynx normal Neck/C-Spine: COMMON NORMALS: no JVD Resp: COMMON NORMALS: normal respiratory effort and clear to auscultation bilaterally AUSCULTATION: clear to auscultation bilaterally Cardio: COMMON NORMALS: no JVD, regular rhythm, S1 normal heart sound present, S2 normal heart sound present and No murmurs present (Cardio) RHYTHM: regular rhythm HEART SOUNDS: S1 normal heart sound present, S2 normal heart sound present and Murmur heart sound present systolic GI: COMMON NORMALS: Normal to inspection, nondistended, normoactive bowel sounds present, Soft to palpation and non-tender PALPATION: Yes Soft to palpation Extremity: COMMON NORMALS: no joint enlargement and no pedal edema Neuro: COMMON NORMALS: patient oriented x3 and moves all extremities SENSORIUM/ORIENTATION: Yes alert Skin: COMMON NORMALS: no rashes or lesions noted GENERAL SKIN EXAM: no rashes or lesions noted Discharge Data Studies Completed and Pending Completed Studies During Hospitalization Category Date Time Status CTA chest [CT angio chest PE protcl [id number]] Routine Cat Scan 12/24/22 18:45 Completed XR chest 1V portable [id number] Stat Exams 12/24/22 12:04 Completed Pending at discharge Category Date Time Status Basic Metabolic Panel AM LABS Lab 12/26/22 04:00 Ordered Basic Metabolic Panel AM LABS Lab 12/27/22 04:00 Ordered Urine Culture Stat Lab 12/24/22 13:17 Received CV. echo limited [id number] Routine Ultrasound 12/24/22 17:10 Taken Radiology Impressions Chest CTA 12/24/22 18:45 IMPRESSION: 1. Negative for pulmonary embolus. 2. Scattered prominent mediastinal lymph nodes measuring up to 12 mm short axis, nonspecific. 3. Cardiomegaly. 4. Coronary artery atherosclerotic calcifications. 5. Emphysematous changes. 6. Bilateral dependent atelectasis. Laboratory Results WBC 4.16 10^3/uL (3.29-11.43) 12/25/22 04:42 RBC 4.06 10^6/uL (3.85-5.65) 12/25/22 04:42 Hgb 12.20 g/dL (11.27-16.99) 12/25/22 04:42 Hct 37.2 % (36-47) 12/25/22 04:42 MCV 91.6 fl (85-98) 12/25/22 04:42 MCH 30.0 pg (27-33) 12/25/22 04:42 MCHC 32.8 g/dL (30-55) 12/25/22 04:42 RDW 11.8 % (12.1-15.1) L 12/25/22 04:42 Plt Count 331 10^3/cmm (157-399) 12/25/22 04:42 MPV 9.1 fL (7.4-10.4) 12/25/22 04:42 Neut % (Auto) 50.5 % 12/25/22 04:42 Lymph % (Auto) 28.1 % 12/25/22 04:42 [place] % (Auto) 14.7 % 12/25/22 04:42 Eos % (Auto) 5.5 % 12/25/22 04:42 Baso % (Auto) 1.0 % 12/25/22 04:42 Neut # (Auto) 2.10 10^3/uL (1.8-7.7) 12/25/22 04:42 Lymph # (Auto) 1.2 10^3/uL (0.8-4.8) 12/25/22 04:42 [place] # (Auto) 0.6 10^3/uL (0.2-0.9) 12/25/22 04:42 Eos # (Auto) 0.2 10^3/uL (0.0-0.8) 12/25/22 04:42 Baso # (Auto) 0.0 10^3/uL (0.0-0.1) 12/25/22 04:42 Nucleated RBC % (auto) 0 % 12/25/22 04:42 Nucleated RBCs # 0.0 /100WBC 12/25/22 04:42 D-Dimer 0.80 ug/mLFEU (0-0.59) H 12/24/22 12:32 Sodium 140 mmol/L (136-145) 12/25/22 04:42 Potassium 4.6 mmol/L (3.5-5.1) 12/25/22 04:42 Chloride 102 mmol/L (98-107) 12/25/22 04:42 Carbon Dioxide 29 mmol/L (22-29) 12/25/22 04:42 Anion Gap 13.6 (5-19) 12/25/22 04:42 BUN 16 mg/dL (8-23) 12/25/22 04:42 Creatinine 0.8 mg/dL (0.5-0.9) 12/25/22 04:42 GFR Calculation Not Reportable 12/25/22 04:42 Glucose 100 mg/dL (65-115) 12/25/22 04:42 Calculated Osmolality 291 mOsm/kg (285-295) 12/25/22 04:42 Lactic Acid 1.0 mmol/L (0.5-2.2) 12/24/22 12:33 Calcium 9.0 mg/dL (8.5-10.5) 12/25/22 04:42 Magnesium 2.0 mg/dL (1.7-2.3) 12/25/22 04:42 Total Bilirubin 0.6 mg/dL (0.15-1.2) 12/24/22 12:33 AST 16 U/L (0-32) 12/24/22 12:33 ALT 7 U/L (0-33) 12/24/22 12:33 Alkaline Phosphatase 102 U/L (35-105) 12/24/22 12:33 Troponin T Baseline 8 ng/L (0-10) 12/24/22 12:33 Troponin T 120 Minute 8.64 ng/L (0-10) 12/24/22 14:42 Delta Troponin T 0.64 ABS# (0-10) 12/24/22 14:42 Troponin T Hi Sens 6Hr 9.20 ng/L (0-10) 12/24/22 20:27 Troponin T Hi Sens 6Hr Delta 1.20 ng/L (0-12) 12/24/22 20:27 NT-Pro-B Natriuret Pep 983 pg/mL (0-450) H 12/24/22 12:33 Total Protein 7.5 g/dL (6.6-8.7) 12/24/22 12:33 Albumin 4.4 g/dL (3.5-5.2) 12/24/22 12:33 Globulin 3.1 g/dL (1.3-4.6) 12/24/22 12:33 Urine Color Yellow (Yellow) 12/24/22 13:17 Urine Appearance Hazy (CLEAR) A 12/24/22 13:17 Urine pH 5 (5-7) 12/24/22 13:17 Ur Specific [place] 1.015 (1.005-1.030) 12/24/22 13:17 Urine Protein Neg (Negative) 12/24/22 13:17 Urine Glucose (UA) Norm (Normal) 12/24/22 13:17 Urine Ketones Negative (Negative) 12/24/22 13:17 Urine Blood Neg (Negative) 12/24/22 13:17 Urine Nitrate Negative (Negative) 12/24/22 13:17 Urine Bilirubin Neg (Negative) 12/24/22 13:17 Urine Urobilinogen Norm mg/dL (Negative) 12/24/22 13:17 Ur Leukocyte Esterase 2+ (Negative) H 12/24/22 13:17 Urine RBC 0-4 /hpf (0-2) H 12/24/22 13:17 Urine WBC 25-40 /hpf (0-5) H 12/24/22 13:17 Ur Squamous Epith Cells 0-4 /hpf (0-5) H 12/24/22 13:17 Amorphous Sediment Not Reportable 12/24/22 13:17 Urine Bacteria Trace /hpf (NONE) 12/24/22 13:17 Coronavirus 229E (PCR) Not detected (NOT DETECT) 12/24/22 13:19 SARS-CoV-2 (PCR) Not detected (NOT DETECT) 12/24/22 13:19 Vitals Last Vital Signs Temp 97.6 F 12/25/22 11:31 Pulse 75 12/25/22 11:31 Resp 17 12/25/22 04:00 BP 129/58 12/25/22 11:31 Pulse Ox 92 12/25/22 11:31 O2 Del Method Room Air 12/25/22 11:31 Discharge Plan Discharge Patient Disposition: Home Condition: Stable Prescriptions: New levofloxacin 500 mg tablet 500 mg PO DAILY 4 Days Qty: 4 0RF levalbuterol tartrate 45 mcg/actuation HFA aerosol inhaler 1 inh inhalation Q6H PRN (Reason: shortness of breath or wheezing) Qty: 15 2RF Spiriva Respimat 1.25 mcg/actuation mist 2 inh inhalation DAILY Qty: 4 0RF Continued ketoconazole 2 % cream 1 applic topical BID Qty: 30 3RF Rx Instructions: Apply to affected areas in skin folds x3 weeks then prn for flares (DME) ASO to the right See Rx Instructions .Route .MEDSUPPLY Qty: 1 0RF Rx Instructions: As directed polyethylene glycol 3350 [Miralax] 17 gram/dose powder 17 g PO DAILY Qty: 510 5RF isosorbide mononitrate 30 mg tablet extended release 24 hr 30 mg PO DAILY Qty: 90 3RF Hold Instructions: Home Medication placed on hold at Doctor's office fluoxetine 20 mg capsule 20 mg PO DAILY Qty: 30 2RF levothyroxine 100 mcg tablet 100 mcg PO DAILY Qty: 30 2RF Nitrostat 0.4 mg Tablet, Sublingual 0.4 mg SUBLINGUAL Q5M PRN (Reason: Chest Pain) Rx Instructions: do not exceed 3 doses per episode loratadine 10 mg Capsule 10 mg PO DAILY Protonix 40 mg Tablet,Delayed Release (Dr/Ec) 40 mg PO DAILY Discontinued amlodipine 2.5 mg tablet 2.5 mg PO DAILY Qty: 90 3RF Discharge Orders: Discharge Order (Routine); Ordered 12/25/22 Ordered By: Shaun Bermudez Referrals: Constance Philippe FNP-C [Primary Care Provider] - 4-7 days Estefani Fox FNP [Nurse Practitioner] - 1 week Discharge Diet: Cardiac Patient Instructions: Albuterol (By breathing), Levofloxacin (By mouth) (Levaquin, Levaquin Leva-yenifer), Levalbuterol (By breathing) (Xopenex, Xopenex HFA, Xopenex Pediatric), Tiotropium (By breathing), Urinary Tract Infection in Women (GEN), Emphysema (GEN), COPD (Chronic Obstructive Pulmonary Disease) (GEN) Activity Restrictions/Additional Instructions: Follow-up with your primary doctor regarding emphysema, suspected COPD, please have your primary doctor refer you for pulmonary function testing once you recover from acute condition. It is suspected that your lung condition/suspected undiagnosed COPD is contributing more to your shortness of breath than aortic heart valve. Continue follow-up with cardiology regarding aortic valve, with noted moderate stenosis without worsening. Follow-up with your primary doctor for assessment after urinary tract infection, complete antibiotic course. Please have your primary doctor follow-up urine culture which is pending. Monitor your blood pressures 3 times daily. Please do not continue amlodipine for now, with noted low blood pressure in the outpatient office, we have not seen this in the hospital, however, amlodipine and Imdur were not given in the hospital. Moderate aortic stenosis may put you at risk of softer blood pressure, which can also make you feel more tired. Avoid very low blood pressures. Hold Imdur in case your blood pressure is less than 110 mmHg top number (systolic) or 60 mmHg bottom number. Follow-up with your primary provider regarding incidentally seen lymph nodes in your chest. Return to the hospital in case of any worsening or new concerning symptoms. Discharge Attestations Time Spent in Discharge Care*: greater than 30 min Quality Metrics Clinical Quality Measures [ No reported AMI, CVA or VTE this stay] Coding Level of Care Code 19794 Total time (in minutes) for Discharge: 45 Diagnoses SOB (shortness of breath) R06.02 Aortic insufficiency with aortic stenosis I35.2 Mitral stenosis I05.0 Benign essential HTN I10
== END 2022-12-25 15:31 | disposition home or self-care (01) ==
LOC: ER 14:11 → CSU 15:35
PROVIDERS: Emergency Medicine; Admitting Provider Internal Medicine; Emergency Provider Family Medicine; PCP Nurse Practitioner Family; Visit Provider Internal Medicine
DX: R06.02 Shortness of breath (principal); I35.2 Nonrheumatic aortic (valve) stenosis with insufficiency; I05.0 Rheumatic mitral stenosis; I10 Essential (primary) hypertension; N39.0 Urinary tract infection, site not specified; S82.409D Unspecified fracture of shaft of unspecified fibula, subsequent encounter for closed fracture with routine healing; X58.XXXD Exposure to other specified factors, subsequent encounter; I25.10 Atherosclerotic heart disease of native coronary artery without angina pectoris; E03.9 Hypothyroidism, unspecified; Z87.891 Personal history of nicotine dependence; Z85.828 Personal history of other malignant neoplasm of skin
CPT/HCPCS: 36415; 71045; 71275; 80048; 80053; 81001; 81015; 83605; 83735; 83880; 84484; 85025; 85378; 87086; 87635; 93005; 93308; 96365; 96372; 96375; 96376; 99285; G0378; J1650; J1940; J1956; Q9967

== ENCOUNTER → 2023-01-08 09:42 | Outpatient (BNVA) | payer MEDICARE, SELFPAY | PROVIDERS: PCP Family Medicine; Visit Provider Nurse Practitioner Family | DX: I35.0 Nonrheumatic aortic (valve) stenosis (principal); Z87.891 Personal history of nicotine dependence | CPT/HCPCS: 99213 ==

== ENCOUNTER → 2023-01-28 14:36 | Outpatient (BNVA) | payer MEDICARE, SELFPAY | PROVIDERS: PCP Family Medicine; Visit Provider Dermatology | DX: L73.8 Other specified follicular disorders (principal); D23.112 Other benign neoplasm of skin of right lower eyelid, including canthus; L81.4 Other melanin hyperpigmentation; D18.01 Hemangioma of skin and subcutaneous tissue; L30.4 Erythema intertrigo | CPT/HCPCS: 99214 ==

== ENCOUNTER → 2023-06-10 09:27 | Outpatient (BNVA) | payer MEDICARE, SELFPAY | PROVIDERS: PCP Family Medicine; Visit Provider Internal Medicine Cardiovascular Disease | DX: I35.2 Nonrheumatic aortic (valve) stenosis with insufficiency (principal); I10 Essential (primary) hypertension; R42 Dizziness and giddiness; E03.9 Hypothyroidism, unspecified | CPT/HCPCS: 99214 ==

== ENCOUNTER → 2023-07-08 14:22 | Outpatient (BNVA) | payer MEDICARE, SELFPAY | PROVIDERS: PCP Family Medicine; Visit Provider Internal Medicine Cardiovascular Disease | DX: R07.9 Chest pain, unspecified (principal); Z79.01 Long term (current) use of anticoagulants; R06.02 Shortness of breath; R53.83 Other fatigue; I32 Pericarditis in diseases classified elsewhere; I10 Essential (primary) hypertension; R00.2 Palpitations | CPT/HCPCS: 36415; 83880; 84443; 85025; 93005; 99214 ==

== ENCOUNTER → 2023-07-14 09:30 | Outpatient (BNVA) | payer MEDICARE, SELFPAY | PROVIDERS: PCP Family Medicine; Visit Provider Internal Medicine Cardiovascular Disease | DX: R06.02 Shortness of breath (principal); I49.1 Atrial premature depolarization; I49.3 Ventricular premature depolarization | CPT/HCPCS: 93246 ==

== ENCOUNTER 2023-07-27 10:37 | Outpatient (CLI) | payer MEDICARE, SELFPAY ==
[2023-07-27 11:27] LABS: Blood Urea Nitrogen 13 mg/dL (8-23); Carbon Dioxide 26 mmol/L (22-29); Chloride 104 mmol/L (98-107); Glucose 186 mg/dL (65-115); NT Pro B Type Natriuretic Pept 686 pg/mL (0-450); Osmolality Calculated 293 mOsm/kg (285-295); Sodium 139 mmol/L (136-145)
== END 2023-07-27 10:38 | disposition home or self-care (01) ==
PROVIDERS: PCP Family Medicine; Visit Provider Internal Medicine Cardiovascular Disease
DX: R06.00 Dyspnea, unspecified (principal); I10 Essential (primary) hypertension
CPT/HCPCS: 36415; 80048; 83880

== ENCOUNTER → 2023-09-14 13:00 | Outpatient (BNVA) | payer MEDICARE, SELFPAY | PROVIDERS: PCP Family Medicine; Visit Provider Nurse Practitioner Family | DX: L57.0 Actinic keratosis (principal); L30.4 Erythema intertrigo; L91.8 Other hypertrophic disorders of the skin; D23.112 Other benign neoplasm of skin of right lower eyelid, including canthus; L73.8 Other specified follicular disorders | CPT/HCPCS: 17000; 99214 ==

== ENCOUNTER 2023-09-23 10:45 | Outpatient (CLI) | payer MEDICARE, SELFPAY ==
--- NOTE | 2023-09-23 10:51 | MM_ITS ---
WS: [id number] BILATERAL SCREENING DIGITAL TOMOSYNTHESIS MAMMOGRAM WITH CAD HISTORY: SCREENING COMPARISON: 09/16/2022, 07/10/2021 Bilateral CC and MLO views with tomosynthesis and synthetic mammography submitted. Computer aided det ection analyzed. Breast composition: The breasts are heterogeneously dense, which may obscure small masses. No suspici ous masses, microcalcifications or architectural distortion. Benign calcifications and nodules in eac h breast. MM/[place] [id number] IMPRESSION: BI-RADS: 2-Benign FOLLOW UP: 1 Year Follow-up
== END 2023-09-23 10:46 | disposition home or self-care (01) ==
LOC: RAD 10:48
PROVIDERS: PCP Family Medicine; Visit Provider Family Medicine
DX: Z12.31 Encounter for screening mammogram for malignant neoplasm of breast (principal); R92.333 Mammographic heterogeneous density, bilateral breasts; R92.1 Mammographic calcification found on diagnostic imaging of breast; D24.2 Benign neoplasm of left breast; D24.1 Benign neoplasm of right breast
CPT/HCPCS: 77063; 77067

== ENCOUNTER → 2024-01-03 14:27 | Outpatient (BNVA) | payer MEDICARE, SELFPAY | PROVIDERS: PCP Family Medicine; Visit Provider Nurse Practitioner Family | DX: I35.2 Nonrheumatic aortic (valve) stenosis with insufficiency (principal); I10 Essential (primary) hypertension; Z87.891 Personal history of nicotine dependence | CPT/HCPCS: 99214 ==

== ENCOUNTER 2024-07-05 06:00 | Outpatient (CLI) | payer MEDICARE, SELFPAY | END 2024-07-05 06:01 | disposition home or self-care (01) | LOC: LAB 07-11 13:43 | PROVIDERS: PCP Family Medicine; Visit Provider Internal Medicine Cardiovascular Disease | DX: R07.9 Chest pain, unspecified (principal); R93.1 Abnormal findings on diagnostic imaging of heart and coronary circulation; R07.89 Other chest pain; I35.2 Nonrheumatic aortic (valve) stenosis with insufficiency; R53.83 Other fatigue; I10 Essential (primary) hypertension; R06.09 Other forms of dyspnea | CPT/HCPCS: 36415; 80048; 83880; 93005; 99214 ==

== ENCOUNTER 2024-08-15 12:47 | Outpatient (CLI) | payer MEDICARE, SELFPAY ==
--- NOTE | 2024-08-15 12:45 | USCV_ITS ---
Diana Dewitt Age: 84 Gender: F : 1940 Exam Date: 08/15/2024 13:01 Ordering Phys: Vasu Goldman MD ([email or web address]) Technologist: Exam Location: [facility] [place] Indication: as ai mr BP: 120 / 72 HR: 75 Rhythm: Sinus Technical Quality: Adequate MEASUREMENTS (Male / Female) Normal Values 2D ECHO LV Diastolic Diameter PLAX 4.0 cm 4.2 - 5.9 / 3.9 - 5.3 cm IVS Diastolic Thickness 1.3 cm 0.6 - 1.0 / 0.6 - 0.9 cm IVS Systolic Thickness 1.7 cm LVPW Diastolic Thickness 1.3 cm 0.6 - 1.0 / 0.6 - 0.9 cm LVPW Systolic Thickness 1.7 cm LVOT Diameter 2.0 cm LV Ejection Fraction 2D Teich 65.9 % LV Ejection Fraction MOD 4C 71.6 % LV Ejection Fraction MOD 2C 70.9 % LV Ejection Fraction 2C AL 71.3 % LA Diameter 3.8 cm RA Systolic Volume 4C AL 27.9 ml RA Systolic Volume 4C MOD 25.8 ml LA Sys Volume AL 54.2 cm cubed LA Sys Volume Index AL 30.3 cm cubed/m squared Aorta at Sinotubular Diameter 3.4 cm M-MODE LA Ao Ratio MM 1.3 AV Cusp Separation MM 0.8 cm DOPPLER AV Peak Velocity 341.7 cm/s LVOT Peak Velocity 98.0 cm/s AV Area Cont Eq vti 1.1 cm squared AV Area Cont Eq pk 0.9 cm squared MV Peak Velocity 234.0 cm/s MV Area PHT 1.9 cm squared Mitral E to A Ratio 1.1 TV Peak Velocity 254.0 cm/s TR Peak Velocity 279.0 cm/s TR Peak Gradient 31.1 mmHg TV Peak E Velocity 63.0 cm/s PV Peak Velocity 183.0 cm/s FINDINGS Left Ventricle Mild to moderate concentric left ventricular hypertrophy.normal left ventricular size and systolic function, EF 71%.Grade II/IV diastolic dysfunction, moderately elevated filling pressures. Right Ventricle The right ventricle is normal in size and function. Right Atrium The right atrium is normal in size. Left Atrium Mildly increased left atrial size. Mitral Valve Moderate to heavy mitral annular calcification. Mild mitral valve stenosis with a valve area 1.9 cm squared and a mean gradient of 9 mm ofHg. Aortic Valve Moderate aortic valve stenosis, mean gradient 23.7 mmHg, OMAR 1.1 cm squared. Peak velocity of 3.3 m/s with a peak gradient of 43.87 mmHg.mild aortic valve regurgitation. Tricuspid Valve Trace tricuspid valve regurgitation. Estimated pulmonary artery peak systolic pressure 34 mmHg Pulmonic Valve Pulmonic valve not well visualized. Pericardium No pericardial effusion. Aorta Normal aortic annulus size. IVC Inferior vena cava not visualized. CONCLUSIONS Mild to moderate concentric left ventricular hypertrophy.normal left ventricular size and systolic function, EF 71%.Grade II/IV diastolic dysfunction, moderately elevated filling pressures. Mildly increased left atrial size. Mild mitral valve stenosis with a valve area 1.9 cm squared and a mean gradient of 9 mm ofHg. Moderate to heavy mitral annular calcification. Moderate aortic valve stenosis, mean gradient 23.7 mmHg, OMAR 1.1 cm squared. Peak velocity of 3.3 m/s with a peak gradient of 43.87 mmHg. Mild aortic valve regurgitation Trace tricuspid valve regurgitation. Estimated pulmonary artery peak systolic pressure 34 mmHg. There is no pericardial effusion. There are no intracardiac masses. Compared to the study from 12/24/2022, there is some worsening of the aortic valve stenosis Dr Vasu Goldman MD [facility] (Electronically Signed) Final Date: 20 Aug 2024 08:23 S
== END 2024-08-15 12:48 | disposition home or self-care (01) ==
LOC: RAD 12:49
PROVIDERS: PCP Family Medicine; Visit Provider Internal Medicine Cardiovascular Disease
DX: R06.09 Other forms of dyspnea (principal); R93.1 Abnormal findings on diagnostic imaging of heart and coronary circulation; I05.0 Rheumatic mitral stenosis; I35.0 Nonrheumatic aortic (valve) stenosis; I35.1 Nonrheumatic aortic (valve) insufficiency
CPT/HCPCS: 36415; 80048; 83880; 93005; 93306; 99214

== ENCOUNTER 2024-10-29 09:13 | Inpatient (IN) | payer MEDICARE, SELFPAY ==
[2024-10-29] VITALS (11 sets, daily range): BP systolic 121–152; BP diastolic 65–81; PULSE 77–101; RESP 15–19; TEMP 36.4–36.8; O2SAT 90–97; BMI 30.4
--- OUTSIDE RECORDS SUMMARY | 2024-10-29 09:19 | XMS_ITS | Patient Health Record ---
Author Organization [facility] Address [address] [place] [address] Care Team Providers Care Technical Operations Specialist Name Role Phone Asa Rodriguez Primary Care Provider Allergies Allergen (clinical drug ingredient) Drug/Non Drug Allergy documented on EMR Reaction Allergy Type Onset Date Status albuterol Albuterol Unknown Drug Allergy Active cefaclor Cefaclor Unknown Drug Allergy Active nitrofurantoin Nitrofurantoin Unknown Drug Allergy Active Penicillin Unknown Drug Allergy Active sulfacetamide Sulfacetamide Unknown Drug Allergy Active Reason For Referral No Information Medications Medication SIG (Take, Route, Frequency, Duration) Notes Start Date End Date Status Melatonin 1 MG Tablet 1 tablet at bedtim e as needed Orally Once a day Active Nitroglycerin 0.4 MG Tablet Sublingual as directed Sublingual Activ e Ketoconazole 2 % Cream 1 application Ext ernally Once a day Active Levothyroxine Sodium 100 MCG Tablet 1 tablet in the morning on an empty stomach Orally Once a day Active Vitamin C 500 MG Capsule as directed Orally Active Aspirin 81 81 MG Tablet Delayed Release 1 tablet Orally Once a day Active Polyethylene Glycol 3350 Liquid as directed Active Triamcinolone Acetonide 0.1 % Cream 1 application Externally Two times a Week Active Furosemide 20 MG Tablet 1 tablet Orally Once a day Active Isosorbide Mononitrate ER 30 MG Tablet Extended Release 24 Hour 1 tablet in the morning Orally Once a day Active Fluoxetine 20 MG Capsule 1 capsule Orall y Once a day Active Social History Tobacco Use: Social History Observation Description Date Details (start date - stop date) Never Smoker NA - NA Social History Drugs/Alcohol: Social Info Question Answer Notes Alcohol Screen (Audit-C) Did you have a drink containing alcohol in the past year? No Points 0 Interpretation Negative Tobacco Use: Social Info Question Answer Notes xTobacco Use/Smoking Are you a nonsmoker Problems Problem Type SNOMED Code ICD Code Onset Dates Problem Status W/U Status Risk Notes Problem Lower abdominal pain (50158992) Lower abdominal pain (R10.30) Active confirmed Problem Obstipation (308801317) Obstipation (K59.00) Active confirmed Problem Chronic constipation with overflow incontinence (K59.09) Active confirmed Plan Of Treatment No Information Insurance Providers Payer Name Payer Address Payer Phone Subscriber Number Group Number Insured Name Patient Relationship to Insured Coverage Start Date Coverage End Date [facility] [employer] [address] [address] [place] [phone] [id number] Diana Dewitt Self - patient is the insured [place] Medicare [address] [place] [phone] [id number] Diana Dewitt Self - patient is the insured Medical (General) History Medical History History ICD Code Anxiety F41.9 GERD (gastroesophageal reflux disease) K 21.9 Hypothyroid E03.9 Amira infection B37.9 Surgical History Surgery Date(Month/Year) both feet hysterectomy tonsilectomy caterak surgery Hospitalization History Reason Date(Month/Year) see surgical hx
--- OUTSIDE RECORDS SUMMARY | 2024-10-29 09:20 | XMS_ITS | Patient Health Record ---
Author Organization [facility] Address [address] [place], [place] [id number] Care Team Providers Care Glass Carrier Name Role Phone Vin Vieyra MD Unavailable [phone] Abdirahman Smalls DO Unavailable Unavailable Allergies Allergen (clinical drug ingredient) Drug/Non Drug Allergy documented on EMR Reaction Allergy Type Onset Date Status Sulfa (uncoded) Unknown Allergy Acti ve Ceclor Unknown Drug Allergy Active moxifloxacin Avelox Unknown Drug Allergy Acti ve Reason For Referral No Information Medications Medication SIG (Take, Route, Frequency, Duration) Notes Start Date End Date Status Caltrate 600 with D (obsolete) 600 mg-400 intl units 1 tab(s) orally 2 times a day for 30 day(s) Active Centrum Silver Therapeutic Multiple Vitamins with Minerals 1 tab(s) orally once a day for 30 day(s) Active levothyroxine 88 mcg (0.088 mg) 1 tab(s) orally once a day for 30 day(s) Active acetaminophen 500 mg 1 cap(s) orally BID for 3 day(s) Active Premarin 0.45 mg 1 tab(s) orally once a day for 21 day(s) Active alfentanil 500 mcg/ml 1-2 ml intravenous may repeat PRN for procedural anxiety/ pain 08/13/2008 Active raNITIdine 150 mg 1 cap(s) orally 2 ti mes a day for 30 day(s) Active FLUoxetine 20 mg 1 cap(s) orally once a day for 30 day(s) Active lovastatin 20 mg 1 tab(s) orally once a day for 30 day(s) Active fentanyl 50 mcg/ml 1-2 ml intravenous m ay repeat PRN for procedural anxiety/ pain 08/13/2008 Active docusate sodium 100 mg 2 cap(s) orally 2 times a day for 30 day(s) Active midazolam 1 mg/ml 1-2 mg intravenous m ay repeat PRN for procedural anxiety 08/13/2008 Active glucosamine 1000 mg 2 cap(s) orally BID for 30 day(s) Active aspirin 81 mg 1 tab(s) orally once a day for 30 day(s) Active Plan Of Treatment No Information Insurance Providers Payer Name Payer Address Payer Phone Subscriber Number Group Number Insured Name Patient Relationship to Insured Coverage Start Date Coverage End Date [employer] Part B Claims Department [address] [address] [place] [address] [id number] Diana Dewitt Self - patient is the insured [employer] [facility] Claims Dept [address] [place] [address] [phone] [id number] Diana Dewitt Self - patient is the insured Medical (General) History Medical History History ICD Code Chronic pain syndrome Rheumatic fever (history of) DJD-right knee Hypothyroid Neck pain Surgical History Surgery Date(Month/Year) Hysterectomy-complete Feet Tonsillectomy Teeth extraction Left breast biopsy Hospitalization History Reason Date(Month/Year) Pneumonia Irregular heart beats Numbness in face
--- OUTSIDE RECORDS SUMMARY | 2024-10-29 09:20 | XMS_ITS | Data Portability ---
Author Organization MARSHALL Tucker [facility] Address [address] [place] [address] [address] [place] [address] Care Team Providers Care Etiquette Coach Name Role Phone JUSTINE BACK Primary Care Provider [phone] Assessment No assessment recorded. Plan of Treatment Reminders Order Date Submit Date Provider Last Modified By Organization Details Last Modified Time Details Appointments RECHECK 15 2024 02:30P Huma Back MD Not available Not available Not available Lab urinalysi s, dipstick 2024 025 [email or web address] [facility] ([facility]), [address] [place], [address], 05/17/2024 12:17:57 culture, urine 2024 025 COM DEV [facility], [address] [place] [address], [facility] [address] [place], [address], 05/19/2024 00:03:24 CMP, serum or plasma 2023 024 [facility], [address] [facility] [address], [address], [place], [address], 03/27/2024 13:56:08 lipid panel, blood 2023 024 [facility], [address], [address], [place], [address], 03/27/2024 13:56:10 CBC 2023 024 [facility], [address], [address], [place], [address], 03/27/2024 12:39:55 thyrotrop in, QN, serum or plasma 2023 024 [email or web address] [facility], [address], [address], [place], [address], 04/10/2024 09:56:57 Referral None recorded. Procedures None recorded. Surgeries None recorded. Imaging None recorded. Medication Orders levalbute rol HFA 45 mcg/actua tion aerosol inhaler 2024 025 [facility] #[id number], [address], [address], [place], [address], 09/25/2024 17:51:47 fluoxetin e 20 mg capsule 2024 025 [facility] #[id number], [address], [address], [place], [address], 07/19/2024 14:39:28 fosfomyci n trometham ine 3 gram oral packet 2024 025 [facility] #[id number], [address], [address], [place], [address], 05/17/2024 11:39:40 doxycycli ne hyclate 100 mg capsule 2023 025 [facility] #[id number], [address], [address], [place], [address], 05/17/2024 11:09:41 Patient TargetsNo targets recorded. Patient Instructions Encounter Date Encounter Id Patient Instructions Last Modified By Organization Details Last Modified Time 09/25/2024 [id number] discussed possible mammograms. SHe has never had an abnormal mammogram. WIll hold off on more mammograms at this time. [email or web address] Not available 09/25/2024 17:45:10 Reason for Referral None Reported. Results Created Date Observation Date Name Description Value Unit Range Abnormal Flag Note LastModifiedBy Organization Detail LastModifiedTime 03/01/20 24 03/01/2024 SARS CoV 2 RNA, QL, nasop haryn x COVID negati ve Not Available [facility] ([facility]) [address] [place], [address], 03/01/2024 11:25:32 03/27/20 24 03/27/2024 CBC WBC 4.4 x10 4.0-10 .5 Not Available [facility] [address] [facility] [address], [place], [address], 03/27/2024 12:39:55 03/27/2003/27/2024 CBC RBC 4.06 x10 3.50-5 .50 Not Available [facility] [address] [facility], [place], [address], 03/27/2024 12:39:55 03/27/20 24 03/27/2024 CBC HGB 12.3 g/dL 12.0-1 6.0 Not Available [facility] [address] [facility] [address], [place], [address], 03/27/2024 12:39:55 03/27/20 24 03/27/2024 CBC HCT 36.3 % 37.0-4 7.0 low Not Available [facility] [address] [facility], [place], [address], 03/27/2024 12:39:55 03/27/20 24 03/27/2024 CBC MCV 89.4 fL 80.0-9 9.9 Not Available [facility] [address] [facility] Mire [facility], [place], [address], 03/27/2024 12:39:55 03/27/20 24 03/27/2024 CBC MCH 30.2 pg 27.0-3 2.0 Not Available [facility] [address] [facility], [place], [address], 03/27/2024 12:39:55 03/27/20 24 03/27/2024 CBC MCHC 33.8 g/dL 32.0-3 6.0 Not Available [facility] [address] [facility] [address], [place], [address], 03/27/2024 12:39:55 03/27/20 24 03/27/2024 CBC RDW 13.1 % 11.5-1 4.5 Not Available [facility] [address] [facility] [address], [place], [address], 03/27/2024 12:39:55 03/27/20 24 03/27/2024 CBC plt 276.2 x10 140.0- 451.0 Not Available [facility] [address] [facility] [address], [place], [address], 03/27/2024 12:39:55 03/27/20 24 03/27/2024 CBC lymphocytes % 30.2 % 20.0-5 0.0 Not Available [facility] [address] [facility] [address], [place], [address], 03/27/2024 12:39:55 03/27/20 24 03/27/2024 CBC granulcytes % 48.4 % 30.0-7 0.0 Not Available [facility] [address] [facility] [address], [place], [address], 03/27/2024 12:39:55 03/27/20 24 03/27/2024 CBC monocytes % 14.7 % 2.0-16 .0 Not Available [facility] [address] [facility], [place], [address], 03/27/2024 12:39:55 03/27/20 24 03/27/2024 CBC granulcytes# 2.1 x10 Not Beatrice ilable [facility] [address] [facility], [place], [address], 03/27/2024 12:39:55 03/27/20 24 03/27/2024 CBC lymphocytes # 1.3 x10 Not Available [facility] [address] [address], [place], [address], 03/27/2024 12:39:55 03/27/20 24 03/27/2024 CBC monocytes # 0.6 x10 Not Avai lable [facility] [address] [address], [place], [address], 03/27/2024 12:39:55 03/27/20 24 03/27/2024 CMP (FEMA LE) glucose 116.0 mg/dL 60.0-9 9.0 high Not Available [facility] [address] [address], [place], [address], 03/27/2024 13:56:08 03/27/20 24 03/27/2024 CMP (FEMA LE) BUN (blood urea nitrogen) 10.0 mg/dL 10.0-2 6.0 Not Available [facility] [address] [address], [place], [address], 03/27/2024 13:56:08 03/27/20 24 03/27/2024 CMP (FEMA LE) creatinine (serum) 0.7 mg/dL 0.4-1. 5 Not Available [facility] [address] [facility] [address] [address], [place], [address], 03/27/2024 13:56:08 03/27/20 24 03/27/2024 CMP (FEMA LE) BUN/creatini ne ratio 14.29 ratio Not Available [facility] [address], [place], [address], 03/27/2024 13:56:08 03/27/20 24 03/27/2024 CMP (FEMA LE) eGFR calculated 85.4 Not Available [facility] [address] [facility], [place], [address], 03/27/2024 13:56:08 03/27/20 24 03/27/2024 CMP (FEMA LE) total protein 7.8 g/dL 6.0-8. 5 Not Available [facility] [address] [facility], [place], [address], 03/27/2024 13:56:08 03/27/20 24 03/27/2024 CMP (FEMA LE) total bilirubin 0.7 mg/dL 0.2-1. 3 Not Available [facility] [address] [facility], [place], [address], 03/27/2024 13:56:08 03/27/20 24 03/27/2024 CMP (FEMA LE) albumin 4.4 g/dL 3.5-5. 5 Not Available [facility] [address] [facility], [place], [address], 03/27/2024 13:56:08 03/27/20 24 03/27/2024 CMP (FEMA LE) globulin 3.4 calc Not Available [facility] [address] [facility] Dai [facility], [place], [address], 03/27/2024 13:56:08 03/27/20 24 03/27/2024 CMP (FEMA LE) AST (SGOT) 31.0 U/L 0.0-46 .0 Not Available [facility] [address] [facility], [place], [address], 03/27/2024 13:56:08 03/27/20 24 03/27/2024 CMP (FEMA LE) altv (SGPT) 19.0 U/L 13.0-6 9.0 normal Not Available [facility] [address] [facility], [place], [address], 03/27/2024 13:56:08 03/27/20 24 03/27/2024 CMP (FEMA LE) A/G ratio 1.3 ratio Not Available [facility] [address] [facility], [place], [address], 03/27/2024 13:56:08 03/27/20 24 03/27/2024 CMP (FEMA LE) ALP phos 76.0 U/L 30.0-1 40.0 normal Not Available [facility] [address] [facility], [place], [address], 03/27/2024 13:56:08 03/27/20 24 03/27/2024 CMP (FEMA LE) calcium 9.1 mg/dL 8.4-10 .5 Not Available [facility] [address] [facility], [place], [address], 03/27/2024 13:56:08 03/27/20 24 03/27/2024 CMP (FEMA LE) sodium 136.0 mmol/ L 136.0- 145.0 Not Available [facility] [address] [facility], [place], [address], 03/27/2024 13:56:08 03/27/20 24 03/27/2024 CMP (FEMA LE) potassium 4.1 mmol/ L 3.5-5. 1 Not Available [facility] [address] [facility], [place], [address], 03/27/2024 13:56:08 03/27/20 24 03/27/2024 CMP (FEMA LE) chloride 98.0 mmol/ L 98.0-1 10.0 normal Not Available [facility] [address] [facility], [place], [address], 03/27/2024 13:56:08 03/27/20 24 03/27/2024 CMP (FEMA LE) C02 29.0 mmol/ L 22.0-3 1.0 Not Available [facility] [address] [facility], [place], [address], 03/27/2024 13:56:08 03/27/20 24 03/27/2024 CMP (FEMA LE) anion gap 9.0 calc Not Available [facility] [address] [facility] [address], [place], [address], 03/27/2024 13:56:08 03/27/20 24 03/27/2024 CMP (FEMA LE) osmolality 281.1 calc Not Available [facility] [address] [facility], [place], [address], 03/27/2024 13:56:08 03/27/20 24 03/27/2024 LIPID PROFI LE (FEMA LE) cholesterol 191.0 mg/dL 0.0-20 0.0 Not Available [facility] [address] [facility], [place], [address], 03/27/2024 13:56:10 03/27/20 24 03/27/2024 LIPID PROFI LE (FEMA LE) trig 175.0 mg/dL 0.0-15 0.0 high Not Available [facility] [address] [facility], [place], [address], 03/27/2024 13:56:10 03/27/20 24 03/27/2024 LIPID PROFI LE (FEMA LE) HDL - direct 36.0 mg/dL >40.0 low Not Available [facility] [address] [facility], [place], [address], 03/27/2024 13:56:10 03/27/20 24 03/27/2024 LIPID PROFI LE (FEMA LE) VLDL - direct 35.0 mg/dL Not Available [facility] [address] [facility], [place], [address], 03/27/2024 13:56:10 03/27/20 24 03/27/2024 LIPID PROFI LE (FEMA LE) LDL - direct 120.0 mg/dL 0.0-13 0.0 Not Available [facility] [address] [facility], [place], [address], 03/27/2024 13:56:10 03/27/20 24 03/28/2024 TSH TSH 2.50 mIU/L 0.40-4 .50 normal Not Available [facility] [address] [place], [address], 03/28/2024 11:13:54 05/17/19 25 05/18/2024 CULTU RE, URINE , ROUTI NE culture, urine, routine SEE NOTE CULTU RE, URINE , ROUTI NE Micro Numbe r: [id number] Test Statu s: Final Speci men Sourc e: Urine Speci men Quali ty: Adequ ate Resul t: Less than 10,00 0 CFU/m L of singl e Gram negat claude organ ism isola jermain. No furth er testi ng will be perfo rmed. If clini eliud indic ated, recol lecti on using a metho d to minim ize conta minat ion, with promp t trans akira to Urine Cultu re Trans port Tube, is recom farzaneh d. Not Available [facility] [address] [place], [address], 05/19/2024 00:03:24 05/17/19 25 05/17/2024 urina lysis , dipst ick Leukocytes Large Not Available [facility] [address] [place], [address], 05/17/2024 11:11:30 05/17/19 25 05/17/2024 urina lysis , dipst ick Nitrite negati ve Not Available [facility] ([facility]) [address] [place], [address], 05/17/2024 11:11:30 05/17/19 25 05/17/2024 urina lysis , dipst ick Urobilinogen .2 Not Available [facility] ([facility]) [address] [place], [address], 05/17/2024 11:11:30 05/17/19 25 05/17/2024 urina lysis , dipst ick Protein Negati ve Not Available [facility] ([facility]) [address] [place], [address], 05/17/2024 11:11:30 05/17/19 25 05/17/2024 urina lysis , dipst ick pH 5.5 Not Available [facility]) [address] [place], [address], 05/17/2024 11:11:30 05/17/19 25 05/17/2024 urina lysis , dipst ick Blood Modera te Not Available [facility] ([facility]) [address] [place], [address], 05/17/2024 11:11:30 05/17/19 25 05/17/2024 urina lysis , dipst ick Specific [place] 1.015 Not Available [facility] ( [facility]) [address] [place], [address], 05/17/2024 11:11:30 05/17/19 25 05/17/2024 urina lysis , dipst ick Ketone Negati ve Not Available [facility] ([facility]) [address] [place], [address], 05/17/2024 11:11:30 05/17/19 25 05/17/2024 urina lysis , dipst ick Bilirubin Negati ve Not Available [facility] ([facility]) [address] [place], [address], 05/17/2024 11:11:30 05/17/19 25 05/17/2024 urina lysis , dipst ick Glucose Negati ve Not Available [facility] ([facility]) [address] [place], [address], 05/17/2024 11:11:30 05/17/19 25 05/17/2024 urina lysis , dipst ick Appearance Slight ly Cloudy Not Available [facility] ([facility]) [address] [place], [address], 05/17/2024 11:11:30 05/17/19 25 05/17/2024 urina lysis , dipst ick Color Yellow Not Available [facility] ([facility]) [address] [place], [address], 05/17/2024 11:11:30 Result Notes None recorded. Problems Name Problem SNOMED Code Status Onset Date Resolution Date Notes Provider Name and Address Organization Details Recorded Time Graves' disease 277289449 Active 2020 Graves' Disease ; 021 12:37PM by Lincoln Guerrero , Office Visit; Promote d; acuity set as *; GRACE hubbard [facility] 17:26:26 Hypothyroidis m 59043025 Active 2022 GRACE hubbard [facility] 17:26:26 Essential hypertension 11402459 [facility] 2022 [facility] 17:26:26 Chronic obstructive pulmonary disease 35060244 Active 2022 [facility] 17:26:26 Moderate aortic valve stenosis 167323122 Active 2022 [facility] 17:26:26 Chronic systolic heart failure 368768657 Active 2022 GRACE TORI [facility] 5 17:26:26 Cardiac arrhythmia 528667571 Active 2023 [facility] 17:26:26 Generalized anxiety disorder 03725553 Active 2023 GRACE TORI [facility] 5 17:26:26 Allergic asthma 528375993 Active 2023 GRACE TORI [facility] 5 17:26:26 Contusion of multiple sites 670171629 Active 2024 GRACE TORI [facility] 5 17:26:26 Chronic low back pain 346521880 Active 2024 Justine Back MD [address] [place] [address], [address] [place] [address], L.L.C. 5 17:41:28 Problem Notes None recorded. Medical Equipment None Reported. Allergies Allergen ID Allergen Name Allergen Category Reaction Reaction Severity Criticality Documentation Date Start Date Code Code System Note Provider Name and Address Organization Details Recorded Time 48449 amoxicill in medicatio n diarrhea Not available Not available 11/07/2022 723 RxNorm React ion: Diarr hea; Comme nt: Recor ded 09/24 12:37 PM by Megea n Frazi er, Offic e Visit ; Promo jermain; Signi fican ce: *; Reaso n: Drug aller gy; ; Not Available [facility] 3 12:36:35 35075 Avelox medicatio n rash Not available Not available 11/07/2022 52648 6 RxNorm React ion: Rash, Laryn geal spasm ; Comme nt: Recor ded 09/24 12:37 PM by Megea n Frazi er, Offic e Visit ; Promo jermain; Signi fican ce: *; ; Not Available [facility] 3 02:27:03 61004 nitrofura ntoin medicatio n Not available Not available Not available 11/07/2022 7454 RxNorm Comme nt: Recor ded 09/24 12:37 PM by Megea n Frazi er, Offic e Visit ; Promo jermain; Signi fican ce: *; Reaso n: Drug aller gy; ; Not Available [facility] 3 02:27:03 26212 Substance with sulfonami de structure and antibacte rial mechanism of action (substanc e) medicatio n Not available Not available Not available 11/07/2022 05628 8003 SNOMED Comme nt: Recor ded 09/24 12:37 PM by Megea n Frazi er, Offic e Visit ; Promo jermain; Signi fican ce: *; ; Not Available [facility] 3 02:27:03 79054 albuterol sulfate medicatio n Not available Not available Not available 11/07/2022 18218 3 RxNorm Comme nt: Recor ded 09/24 12:37 PM by Megea n Frazi er, Offic e Visit ; Promo jermain; Signi fican ce: *; Reaso n: Drug aller gy; ; Not Available [facility] 3 02:27:03 96202 Ceclor medicatio n Not available Not available Not available 11/07/2022 48258 5 RxNorm Comme nt: Recor ded 09/24 12:37 PM by Megea n Frazi er, Offic e Visit ; Promo jermain; Signi fican ce: *; ; Not Available [facility] 3 02:27:03 Medications Name Sig Start Date Stop Date Status Note LastModified by Organization Details LastModified Time promethaz ine-DM 6.25 mg-15 mg/5 mL oral syrup TAKE ONE TO TWO TEASPOON FULS ( 5 TO 10 ML'S ) BY MOUTH EVERY 6 HOURS NEEDED FOR COUGH 01/01 completed Not Available Not Available Not Available doxycycli ne hyclate 100 mg capsule Take 1 capsule twice a day by oral route for 7 days. 05/17 completed Not Available Not Available Not Available cefuroxim e axetil 250 mg tablet TAKE 1 TABLET BY MOUTH EVERY 12 HOURS FOR 5 DAYS 10/04 completed Not Available Not Available Not Available clindamyc in HCl 300 mg capsule TAKE 1 CAPSULE BY MOUTH THREE TIMES A DAY FOR 7 DAYS 11/23 completed Not Available Not Available Not Available albuterol sulfate 2.5 mg/3 mL (0.083 %) solution for nebulizat ion USE 1 VIAL VIA NEBULIZE R EVERY 4 HOURS NEEDED FOR 30 DAYS. 09/25 completed Not Available Not Available Not Available cetirizin e 10 mg tablet TAKE 1 TABLET BY MOUTH EVERY DAY FOR 30 DAYS 11/01 completed Not Available Not Available Not Available azithromy elizabeth 250 mg tablet TAKE 2 TABLETS BY MOUTH TODAY, THEN TAKE 1 TABLET DAILY FOR 4 DAYS DIRECTED 03/27 completed Not Available Not Available Not Available fosfomyci n trometham ine 3 gram oral packet TAKE 1 PACKET DAILY BY MOUTH FOR 1 DAY active Not Available Not Available No t Available prednison e 20 mg tablet TAKE ONE TABLET BY MOUTH TWICE DAILY 01/01 completed Not Available Not Available Not Available isosorbid e mononitra te ER 30 mg tablet,ex tended release 24 hr TAKE 1 TABLET BY MOUTH EVERY DAY active Not Available Not Available No t Available Doc-Q-Lac e 100 mg capsule daily 11/13 completed 0; Recorded 09/25/19 21 12:37PM by Lincoln Guerrero, Office Visit; Not Available Not Available Not Available amlodipin e 2.5 mg tablet TAKE 1 TABLET BY MOUTH TWICE A DAY NEEDED FOR BLOOD PRESSURE ABOVE 145 SYSTOLIC active Not Available Not Available No t Available triamcino lone acetonide 0.1 % topical cream as needed 12/24 completed vo RM/CC; 9; Recorded 07/31/19 21 11:12AM by Cherie Ellington LPN (Authori randa through Justine Back MD), Refill Request; Refill Quantity : 30; Gram; Not Available Not Available Not Available levothyro xine 75 mcg tablet TAKE 1 TABLET EVERY DAY BY MOUTH FOR 90 DAYS, FOR THYROID DISORDER . active Not Available Not Available No t Available levothyro xine 100 mcg tablet TAKE 1 TABLET BY MOUTH EVERY DAY 08/23 completed Not Available Not Available Not Available isosorbid e dinitrate 30 mg tablet Take 1 tablet every day by oral route. 01/01 completed Not Available Not Available Not Available potassium chloride ER 8 mEq tablet,ex tended release TAKE 1 TABLET BY MOUTH EVERY DAY active Not Available Not Available No t Available Nitrostat 0.4 mg sublingua l tablet Place by sublingu al route. active Not Available Not Available No t Available meclizine 25 mg tablet TAKE ONE TABLET BY MOUTH TWICE DAILY NEEDED FOR DIZZINES S 01/01 completed Not Available Not Available Not Available pantopraz ole 40 mg tablet,de layed release TAKE 1 TABLET BY MOUTH EVERY DAY active Not Available Not Available No t Available erythromy elizabeth 5 mg/gram (0.5 %) eye ointment APPLY 3 TIMES PER DAY DIRECTED 03/17 completed Not Available Not Available Not Available triamcino lone acetonide 0.1 % topical ointment APPLY TOPICALL Y TO THE AFFECTED AREA TWICE DAILY 01/01 completed Not Available Not Available Not Available fluoxetin e 10 mg capsule TAKE 1 CAPSULE BY MOUTH EVERY DAY 09/25 completed Not Available Not Available Not Available mupirocin 2 % topical ointment APPLY TOPICALL Y TO THE AFFECTED AREA TWICE DAILY 03/01 completed Not Available Not Available Not Available furosemid e 20 mg tablet TAKE 1 TABLET BY MOUTH EVERY DAY active Not Available Not Available No t Available levofloxa elizabeth 500 mg tablet TAKE 1 TABLET BY MOUTH EVERY 24 HOURS FOR 5 DAYS 03/17 completed Not Available Not Available Not Available albuterol sulfate HFA 90 mcg/actua tion aerosol inhaler TAKE 2 PUFFS BY MOUTH EVERY 4 HOURS 09/25 completed Not Available Not Available Not Available ketoconaz ole 2 % topical cream USE TWICE DAILY TO AFFECTED AREAS IN SKIN FOLDS NEEDED FOR FLARES. active Not Available Not Available No t Available fluoxetin e 20 mg capsule TAKE 1 CAPSULE BY MOUTH EVERY DAY active Not Available Not Available No t Available levalbute rol HFA 45 mcg/actua tion aerosol inhaler INHALE 2 PUFFS BY MOUTH EVERY 6 HOURS active Not Available Not Available No t Available loratadin e daily 12/24 completed 0; Recorded 09/25/19 12:37PM by Lincoln Guerrero, Office Visit; Not Available Not Available Not Available Vitamin B-12 daily 11/13 completed 0; Recorded 09/25/19 12:37PM by Lincoln Guerrero, Office Visit; Not Available Not Available Not Available nystatin two times daily, as needed 12/24 completed vo RM/CC; 9; Recorded 07/31/19 11:14AM by Cherie Ellington LPN (Authori randa through Justine Back MD), Refill Request; Refill Quantity : 30; Gram; Not Available Not Available Not Available Flonase as needed 12/24 completed 0; Recorded 09/25/19 12:37PM by Lincoln Guerrero, Office Visit; Not Available Not Available Not Available vitamin E daily 11/13 completed 0; Recorded 09/25/19 12:37PM by Lincoln Guerrero, Office Visit; Not Available Not Available Not Available B Complex Super daily 12/24 completed 0; Recorded 09/25/19 12:37PM by Lincoln Guerrero, Office Visit; Not Available Not Available Not Available Fish Oil daily 11/13 completed 0; Recorded 09/25/19 12:37PM by Lincoln Guerrero, Office Visit; Not Available Not Available Not Available Aspirin EC daily 11/13 completed 0; Recorded 09/25/19 12:37PM by Lincoln Guerrero, Office Visit; Not Available Not Available Not Available amlodipin e 2.5MG TABLET DAILY 12/24 completed Not Available Not Available Not Available Multivita mins daily 12/24 completed 0; Recorded 09/25/19 12:37PM by Lincoln Guerrero, Office Visit; Not Available Not Available Not Available [facility] Levothyro xine Sodium daily 12/24 completed RM/CC; 9; Recorded 06/24/19 9:37AM by Cherie Ellington LPN (Authori randa through Justine Back MD), Refill Request; Refill Quantity : 30; Tablet; Not Available Not Available Not Available Vitamin-C DAILY 11/13 completed 0; Recorded 09/25/19 12:37PM by Lincoln Guerrero, Office Visit; Not Available Not Available Not Available Mucinex 1,200 mg tablet, extended release TAKE ONE TABLET BY MOUTH TWICE DAILY 01/01 completed Not Available Not Available Not Available Gavilax 17 gram/dose oral powder MIX 17 GRAMS ACCORDIN G TO DIRECTIO NS AND DRINK BY MOUTH DAILY 01/01 completed Not Available Not Available Not Available levothyro xine 100 mcg capsule Take 1 capsule every day by oral route. 01/01 completed Not Available Not Available Not Available loratadin e 10 mg capsule Take by oral route as needed. active Not Available Not Available No t Available melatonin 10 mg capsule TAKE ONE CAPSULE BY MOUTH DAILY 01/01 completed Not Available Not Available Not Available Incruse Ellipta 62.5 mcg/actua tion powder for inhalatio n 1 puff daily 10/04 completed Not Available Not Available Not Available Spiriva Respimat 1.25 mcg/actua tion solution for inhalatio n INHALE 2 PUFFS BY MOUTH EVERY DAY 2023 active Not Available Not Available Not Avai lable Vitals Date Recorded Body height Body mass index (BMI) Body weight Oxygen saturation Oxygen saturation in Arterial blood by Pulse oximetry Heart rate Respiratory rate Body temperature Systolic And Diastolic Provider Name and Address Organization Details Last Updated DateTime 5 170.18 cm 29.1 kg/m2 24296.1 8 g 95 % 95 % 86 /min 16 /min 98.2 [degF] 160/70 mm[Hg] Jocelyn Palacio [facility] 5 11:14:30 Date Recorded Body height Body mass index (BMI) Body weight Respiratory rate Oxygen saturation Oxygen saturation in Arterial blood by Pulse oximetry Heart rate Body temperature Systolic And Diastolic Provider Name and Address Organization Details Last Updated DateTime 5 170.18 cm 29.5 kg/m2 64001.1 7 g 17 /min 95 % 95 % 94 /min 97.9 [degF] 128/70 mm[Hg] JAMES AREVALO [facility] 5 10:56:09 Date Recorded Body height Body mass index (BMI) Body weight Oxygen saturation Oxygen saturation in Arterial blood by Pulse oximetry Heart rate Systolic And Diastolic Provider Name and Address Organization Details Last Updated DateTime 5 170.18 cm 29 kg/m2 78751.5 9 g 95 % 95 % 86 /min 130/68 mm[Hg] GRACE VALLE [facility] 5 14:14:12 Date Recorded Body height Body mass index (BMI) Body weight Heart rate Systolic And Diastolic Provider Name and Address Organization Details Last Updated DateTime 09/25/2024 170.18 cm 29 kg/m2 12006.59 g 82 /min 148/68 mm[Hg] ASIF SOTO [facility] 5 17:06:18 Date Recorded Body height Body mass index (BMI) Body weight Oxygen saturation Oxygen saturation in Arterial blood by Pulse oximetry Heart rate Systolic And Diastolic Provider Name and Address Organization Details Last Updated DateTime 4 170.18 cm 29 kg/m2 80526.5 9 g 95 % 95 % 80 /min 132/60 mm[Hg] GRACE VALLE [facility] 4 11:32:51 Social History Question Answer Notes LastModified by Organizat ion Details LastModified Time Tobacco Smoking Status Never Smoker GRACE hubbard [facility] 11/13/2022 16:03:07 What Was The Date Of Your Most Recent Tobacco Screening? 09/25/2024 [email or web address] Information not available 09/25/2024 Sex: Unknown Functional Status Question Answer Note LastModified by Organizat ion Details LastModified Time Do you use any illicit or recreational drugs? No [email or web address] Information not available 11/13/2022 What is your level of alcohol consumption? None [email or web address] Information not available 11/13/2022 Mental Status None recorded. Family History Relationship Description Onset Age of this Age Resolved Age Notes LastModified by Organization Details LastModified Time Father No current problems or disability [email or web address] Not available 09/10 17:08:05 Mother No current problems or disability [email or web address] Not available 09/10 17:08:05 Medical History No medical history recorded. Gynecological HistoryNo gynecological history recorded. Obstetrics History GPAL:G 0 P 0 0 0 0 Immunizations Vaccine Type Date Status Note Provider Nam e and Address Organization Details Recorded Time Influenza, split virus, trivalent, preservative 7 completed GRACE hubbard [facility] 03/17/2023 13:55:10 Influenza, split virus, trivalent, preservative 6 completed GRACE hubbard [facility] 03/17/2023 13:55:10 zoster recombinant 3 completed GRACE hubbard [facility] 03/17/2023 13:55:10 zoster recombinant 2 completed GRACE hubbard [facility] 03/17/2023 13:55:10 Influenza, high-dose, quadrivalent, PF 2 completed GRACE hubbard [facility] 03/17/2023 13:55:10 COVID-19, mRNA, LNP-S, PF, 100 mcg/0.5mL dose or 50 mcg/0.25mL dose 2 completed GRACE hubbard [facility] 03/17/2023 13:55:10 COVID-19, mRNA, LNP-S, PF, 100 mcg/0.5mL dose or 50 mcg/0.25mL dose 1 completed [facility] 03/17/2023 13:55:10 COVID-19, mRNA, LNP-S, PF, 100 mcg/0.5mL dose or 50 mcg/0.25mL dose 1 completed [facility] 03/17/2023 13:55:10 COVID-19, mRNA, LNP-S, bivalent, PF, 50 mcg/0.5 mL or 25mcg/0.25 mL dose 2 completed [facility] 03/17/2023 13:55:10 pneumococcal polysaccharide PPV23 9 completed [facility] 03/17/2023 13:55:10 Pneumococcal conjugate PCV 13 2 completed [facility] 03/17/2023 13:55:10 Pneumococcal conjugate PCV 13 6 completed [facility] 03/17/2023 13:55:10 COVID-19, mRNA, LNP-S, PF, 50 mcg/0.5 mL 3 completed [facility] 03/17/2023 13:55:10 COVID-19, mRNA, LNP-S, PF, 50 mcg/0.5 mL 4 completed [facility] 03/27/2024 11:22:57 Influenza, high-dose, trivalent, PF 4 completed GRACE VALLE [facility] 03/27/2024 11:22:58 RSV, recombinant, protein subunit RSVpreF, adjuvant reconstituted, 0.5 mL, PF 4 completed Not Available [facility] 09/25/2024 16:07:33 Influenza, adjuvanted, quadrivalent, PF 3 completed GRACE VALLE [facility] [place] 01/04/2023 09:20:20 Past Encounters Encounter ID Performer Location Encounter Start Date Encounter Closed Date Diagnosis/Indication Diagnosis SNOMED-CT Code Diagnosis ICD10 Code Diagnosis Note [id number] Justine Back MD [facility] ([facility]) [address] [place] [address] [id number] 11/13/2022 14:14:21 11/13/2022 17:14:37 Active or passive immunization 584395440 Z23 Adult heal th examination 145551725 Z00.00 Hypothyroidism 02591154 E03.9 Essential hypertension 54370004 I10 [id number] RACHELE JUNG [facility] ([facility]) [address] [place] [address] [id number] 5 12/24/2022 11:40:28 12/24/2022 13:27:22 Muscle weakness 55124384 M62.81 Dyspnea on exertion 6084 5006 R06.09 Chest pain 77646283 R07. 9 Due to chest pain, increased SOB, and new onset weakness, patient being referred to ED today for further evaluation . Patient is agreeable to go. Will go via private vehicle driven by daughter Andie. Report was called to [facility] ED by QUENTIN Belcher and spoke with LEA Hahn. [id number] Justine Back MD [facility] ([facility]) [address] [place] [address] [id number] 5 01/01/2023 16:18:09 01/01/2023 17:57:05 Acute urinary tract infection 997730133 N39.0 Chronic ob structive pulmonary disease 85360407 J44.9 Moderate a ortic valve stenosis 053998097 I35.0 moderate to severe aortic stenosis. Followed by Cardiology (Dr. Goldman). Chronic sy stolic heart failure 599545159 I50.22 [id number] RACHELE JUNG [facility] ([facility]) [address] [place] [address] [id number] 5 02/24/2023 12:46:08 04/19/2023 14:41:43 Hordeolum externum of lower eyelid of right eye 2754300305 05712 H00.012 Start eye ointment three times daily today. Encouraged good hand hygiene. Can use warm compresses for comfort. If worsening condition or no improvemen t in 5-7 days, return for further evaluation . If severe eye pain occurs, go to ED. Patient verbalized understand ing. [id number] QUENTIN LEWIS [facility] ([facility]) [address] [place] [address] [id number] 5 03/03/2023 11:22:05 03/03/2023 14:38:59 Acute urinary tract infection 945973576 N39.0 Patient has taken this in the past for infection. Will contact her with culture results. [id number] Justine Back MD [facility] ([facility]) [address] [place] [address] [id number] 5 03/17/2023 13:47:10 03/17/2023 14:34:40 Hypothyroidism 95472944 E03.9 Depressive disorder 3548 9007 F32.9 Essential hypertension 29625732 I10 Chronic ob structive pulmonary disease 81398109 J44.9 stable. [id number] Justine Back MD [facility] ([facility]) [address] [place] [address] [id number] 5 07/21/2023 14:40:15 07/21/2023 16:03:16 Hypothyroidism 80558674 E03.9 recent TSH was low at 0.22 done at [facility]. Chronic ob structive pulmonary disease 50730103 J44.9 stable. Cardiac arrhythmia 69218 7007 I49.9 Allergic rhinitis 802726 04 J30.9 Generalize d anxiety disorder 67528529 F41.1 Moderate a ortic valve stenosis 004515150 I35.0 moderate to severe aortic stenosis. Followed by Cardiology (Dr. Goldman). Had recent fluid retention and on Furosemide . [id number] Justine Back MD [facility] ([facility]) [address] [place] [address] [id number] 5 08/24/2023 14:13:56 08/24/2023 17:18:30 Dysuria 56741909 R30.0 Chronic ob structive pulmonary disease 88244089 J44.9 stable. Chronic sy stolic heart failure 711618513 I50.22 Essential hypertension 86697302 I10 Generalize d anxiety disorder 99255245 F41.1 [id number] Justine Back MD [facility] ([facility]) [address] [place] [address] 5 10/05/2023 14:56:13 10/06/2023 12:59:28 Chronic obstructive pulmonary disease 63406193 J44.9 stable. Allergic asthma 53459341 6 J45.909 Essential hypertension 02745201 I10 Generalize d anxiety disorder 46750967 F41.1 stable. [id number] Justine Back MD [facility] ([facility]) [address] [place] [address] 5 11/02/2023 15:48:10 11/02/2023 16:34:29 Acute pharyngitis 986887483 J02.9 Pain of le ft temporomandibular joint 5807119862 1617516 M26.622 possibly due to poor fitting dentures. She has an upcoming appt. with a dentist. [id number] Justine Back MD [facility] ([facility]) [address] [place] [address] 5 11/24/2023 14:09:07 11/26/2023 11:42:05 Pain of left temporomandibular joint 8549192327 4658413 M26.622 This pain is resolved. Chronic ob structive pulmonary disease 63506668 J44.9 stable. Generalize d anxiety disorder 91464384 F41.1 stable. Hypothyroidism 30583644 E03.9 stable Cardiac arrhythmia 36725 7007 I49.9 Essential hypertension 40912603 I10 Chronic sy stolic heart failure 600358472 I50.22 [id number] QUENTIN MONSIVAIS [facility] ([facility]) [address] [place] [address] [id number] 5 03/01/2024 11:01:03 03/02/2024 14:32:48 Fever 145193387 R50.9 Acute bact erial bronchitis 297508356 J20.9 Discussed use of otc medication s for symptom management .Push oral fluids and rest.If you develop fever, sob, or start feeling worse then return for re-evaluat ion. [id number] Justine Back MD [facility] ([facility]) [address] [place] [address] [id number] 5 03/27/2024 10:55:08 03/28/2024 11:23:42 Hypothyroidism 52818331 E03.9 stable Chronic ob structive pulmonary disease 12329307 J44.9 stable. Acute bronchitis 8511127 2 J20.9 Essential hypertension 60886225 I10 [id number] QUENTIN GAY [facility] ([facility]) [address] [place] [address] [id number] 5 05/17/2024 11:04:22 05/17/2024 13:54:22 Dysuria 65263054 R30.0 Discussed to take antibiotic as prescribed until completedU rine culture ordered - will notify of any resultsEdu cated patient on increasing PO fluids of water, decreasing caffeine (coffee) and sugary drinks.Dis cussed if developmen t of abdominal pain, flank pain, fever, vomiting, worsening symptoms return to walk-in, PCP or ED for re-evaluat ion. Return to clinic if any changes, any worsening, any concernsPa tient verbalized understand ing of plan. [id number] Shaun Bolaños MD [facility] ([facility]) [address] [place] [address] [id number] 5 06/15/2024 10:47:50 06/15/2024 11:44:00 Contusion of multiple sites 370167365 T07.XXXA Patient has multiple contusions . No significan t evidence of severe injury patient reassured. Discussed conservati ve care including ice/heat and relative rest. Recommend following up with PCP if symptoms are not improving. Fall in home 86577027 Y9 2.292 [id number] Justine Back MD [facility] ([facility]) [address] [place] [address] [id number] 5 07/19/2024 14:01:06 07/20/2024 08:15:52 Chronic obstructive pulmonary disease 26244235 J44.9 stable. Essential hypertension 82972936 I10 stable. Moderate a ortic valve stenosis 848774412 I35.0 moderate to severe aortic stenosis. Followed by Cardiology (Dr. Goldman). Generalize d anxiety disorder 13527001 F41.1 A little worse. [id number] Justine Back MD [facility] ([facility]) [address] [place] [address] [id number] 5 09/25/2024 16:04:47 09/26/2024 08:47:34 Fall in home 94211132 W19.XXXA Y92.009 She has a bruising of left buttocks area. Will observe for now. Chronic low back pain 27 3117515 M54.50 G89.29 stable Allergic asthma 82442504 6 J45.909 switch to levalbuter ol for better tolerance. Chronic ob structive pulmonary disease 75254666 J44.9 stable. Essential hypertension 13736140 I10 stable. Moderate a ortic valve stenosis 770957558 I35.0 moderate to severe aortic stenosis. Followed by Cardiology (Dr. Goldman). Nonsurgica l at this time. Health Concerns Section Related Observation LastModified by Organization Detai ls LastModified Time None Recorded Concern Status LastModified by Organization Details LastModified Time None Recorded Advance Directives Directive None Recorded Payers Insurance Date Sequence Insurance Name Policy Number Policy Slater Covered Member ID Slater Member ID Guarantor Name 05/17/2024 1 [employer] (MEDICARE REPLACEMENT/A DVANTAGE - PPO) [id number] Diana Dewitt [id number] Diana Dewitt 09/23/2024 1 [id number] - [place]) [id number] Diana Dewitt [id number] Diana Dewitt 05/17/[address] [facility] (MEDICARE REPLACEMENT/A DVANTAGE - PPO) [id number] Diana Dewitt [id number] Diana Dewitt 05/17/2024 1 [place] Diana Dewitt [id number] Diana Dewitt Notes Date Note Type Note Provider Name and Address Organization Details Recorded Time 4 text/html COPDReported bypatient.Onset/Timing:inte rmittent Duration:chronic Associated Symptoms:dyspnea during exertion;coughing up sputumCoughReported bypatient.Quality:productiv e Severity:mild Duration:intermittent Associated Symptoms:no chills;fever(low grade.);nasal dischargeHypertension IM/FMReported bypatient.Quality:here for check-up Onset/Timing:gradual onset Alleviating Factors:medication Associated Symptoms:no shortness of breath; no palpitations; no chest painHypothyroidReported bypatient.Reason for Visit:general check-up Associated Symptoms:no weakness; no lightheadedness Treatment:taking medication as prescribed Justine Back MD [address] [place] [address], [phone], [facility] 03/27/2024 11:56:57 5 text/html walk in patientpatient is here today for urinary frequency, fatigue, and urgency that started a couple of days ago QUENTIN GAY [address] [place] [address], [phone], [facility], [facility] 05/17/2024 13:49:05 5 text/html Joint PainReported bypatient.Quality:dull Timing:constant Context:trauma Aggravating factors:movement/positionin g Patient states Wednesday she tripped and fell over a metal bucket. She landed on her left side. Her left ribs are sore. Her left thigh is sore and has two large bruises. Area on her leg is swollen. Shaun Bolaños MD [address] [place] [address], [phone], [facility] 06/18/2024 17:30:44 5 text/html COPDReported bypatient.Onset/Timing:inte rmittent Duration:chronic Associated Symptoms:dyspnea;dyspnea during exertion;wheezing;chest tightnessSleep ProblemsReported bypatient.Insomnia:difficul ty falling asleep;awakening in the middle of the night; naps Onset/Timing:gradual onset Prescribed Sleep Medications:not taking medication to help sleep Has been having some episodes to where her head feels heavy and she has to lay down.Also has been getting a heavy chest when you lay down.Has not been able to sleep the last few nights.Has noticed that her heart beats louder than usual, notices when she lays down. Justine Back MD [address] [place] [address], [phone], [facility], [place] 07/19/2024 14:41:48 text/html Back PainReported bypatient.Location:lumbar Quality:dull Severity:unchanged Associated Symptoms:no fever; no weakness; no numbness; no tingling; no shortness of breath uJstine Back MD [address] [place], [phone], [facility], [place] 09/25/2024 17:54:16 OBGyn Episode No OBEpisode recorded.
--- NOTE | 2024-10-29 09:28 | XRR_ITS ---
PROCEDURE INFORMATION: Exam: XR Chest Exam date and time: 10/29/2024 9:44 AM Age: 84 years old Clinical indication: Pre-operative exam; Respiratory screening exam; Pre op clearance; Lt hip pain post fall TECHNIQUE: Imaging protocol: Radiologic exam of the chest. Views: 1 view. COMPARISON: CT angio chest PE protcl [id number] 12/24/2022 9:02 PM FINDINGS: Lungs: Diffuse interstitial opacities may reflect a component of congestion versus infectious/inflammatory process. No lobar consolidation. Pleural spaces: Unremarkable. No pleural effusion. No pneumothorax. Heart/Mediastinum: Unremarkable. No cardiomegaly. Bones/joints: Unremarkable. XR/XR chest 1V portable [id number] IMPRESSION: As above.
--- NOTE | 2024-10-29 09:28 | XRR_ITS ---
PROCEDURE INFORMATION: Exam: XR Left Femur Exam date and time: 10/29/2024 9:44 AM Age: 84 years old Clinical indication: Left; Lt hip pain post fall TECHNIQUE: Imaging protocol: Radiologic exam of the left femur. Views: 2 views. COMPARISON: CT abdomen pelvis w con* [id number] 07/02/2022 11:38 AM FINDINGS: Bones/joints: Angulated left femoral neck fracture. Fracture noted of the remaining femur. Moderate degenerative changes of the left knee joint. No dislocation. Soft tissues: Unremarkable. Vasculature: Vascular calcifications XR/XR femur LT min 2V* [id number] IMPRESSION: As above
--- NOTE | 2024-10-29 09:28 | XRR_ITS ---
PROCEDURE INFORMATION: Exam: XR Pelvis Exam date and time: 10/29/2024 9:44 AM Age: 84 years old Clinical indication: Left hip; Lt hip pain post fall TECHNIQUE: Imaging protocol: Radiologic exam of the pelvis. Views: 1 or 2 view. COMPARISON: CT abdomen pelvis w con* [id number] 07/02/2022 11:38 AM FINDINGS: Bones/joints: Left femoral neck fracture. No dislocation . Diffusely decreased bone mineralization. Mild degenerative changes of the right hip joint. Enthesopathic changes of the greater trochanter Soft tissues: Unremarkable. XR/XR pelvis 1-2V* [id number] IMPRESSION: As above
--- NOTE | 2024-10-29 09:45 | W.ED.EXTPRO ---
HPI - Extremity Problem General: Chief complaint: Extremity Injury, Lower Stated complaint: left hip pain s/p fall Time Seen by Provider: 10/29/24 09:23 History of Present Illness: This patient is an 84 year old presenting by EMS with hip pain after a fall. She reports that she was outside trying to get a limb out of a weedy area so she could mow it. She pulled on the limb and it broke, causing her to fall onto her left hip. She is unable to move her leg and couldn't get up. She was with another woman who called 911. She only complains of left hip pain currently. She is not on a blood thinner. She says that she sees Dr. Goldman because of a valve problem. She denies other medical problems. She also fell several months ago and hit her tail bone. She says that she had just gotten back to where she was able to walk without a cane. Related Data Home Medications ?Medication ?Instructions ?Recorded ?Confirmed loratadine 10 mg capsule 10 mg PO DAILY 12/24/22 10/29/24 pantoprazole 40 mg tablet,delayed 40 mg PO DAILY 12/24/22 10/29/24 release (Protonix) levothyroxine 75 mcg tablet 75 mcg PO QAM 07/05/24 10/29/24 amlodipine 2.5 mg tablet 2.5 mg PO BID 10/29/24 10/29/24 fluoxetine 20 mg capsule 20 mg PO DAILY 10/29/24 10/29/24 levalbuterol tartrate 45 2 puff inhalation Q6H 10/29/24 10/29/24 mcg/actuation aerosol inhaler Previous Rx's ?Medication ?Instructions ?Recorded ketoconazole 2 % topical cream 1 applic topical BID #30 grams 11/06/21 ASO to the right #1 ea 11/23/22 furosemide 20 mg tablet (Lasix) 20 mg PO DAILY #90 tabs 06/01/24 isosorbide mononitrate 30 mg 30 mg PO DAILY #90 tabs 06/01/24 tablet,extended release 24 hr potassium chloride 8 mEq 8 meq PO DAILY #90 tabs 06/20/24 tablet,extended release Allergies Allergy/AdvReac Type Severity Reaction Status Date / Time albuterol Allergy ADR/ALGY-Pa Verified 07/05/24 11:40 lpitations cefaclor (From Ceclor) Allergy ALGY-Difficulty Verified 07/05/24 11:40 Breathing nitrofurantoin (From Allergy ADR-Irritab Verified 07/05/24 11:40 Macrobid) le Sulfa (Sulfonamide Allergy ADR-Agitate Verified 07/05/24 11:40 Antibiotics) d Penicillins AdvReac Intermediate Shakes and Verified 07/05/24 11:40 chills PFSH ED PFSH: Medical History (Updated 10/29/24 @ 18:17 by Jennifer Bales MD) Anxiety Former smoker History of nonmelanoma skin cancer Mitral stenosis TTE 12/24/22: mild Aortic insufficiency with aortic stenosis GERD (gastroesophageal reflux disease) Amira infection Hypothyroid Surgical History Hx of tonsillectomy History of bunionectomy History of hysterectomy Family History Father No problems noted. Family/Other Diabetes Chronic kidney disease (CKD) Bleeding disorder Aunt CAD (coronary artery disease) Aunt - heart valve x 2 Cancer Dementia Grandfather Dementia Mother Cancer Lung disease Denies family history of Clotting disorder Suicide Anesthesia complication Stroke Social History Smoking and tobacco/nicotine status: former use of tobacco/nicotine Second hand smoke exposure: No Alcohol intake: never Substance/Drug Use: never Adopted: No Caregiver/support person: No Lives independently: Yes Household members: spouse Housing: House Marital status: Number of children: 0 service: No Physical Exam Const: COMMON NORMALS: no acute distress, patient oriented x3, no limitations and alert GENERAL APPEARANCE: cooperative and comfortable HENMT: HEAD & SCALP: normal to inspection FACE & SINUS: normal facial exam Eye: GENERAL EYE: appearance normal, both eyes and all related structures Neck/C-Spine: COMMON NORMALS: supple and no meningeal signs Chest: COMMONS NORMALS: normal inspection of the chest Resp: COMMON NORMALS: normal respiratory effort, No use of accessory muscles and clear to auscultation bilaterally AUSCULTATION: clear to auscultation bilaterally Cardio: COMMON NORMALS: regular rate and regular rhythm RATE: regular rate RHYTHM: regular rhythm HEART SOUNDS: Murmur heart sound present systolic Location: left sternal border and right sternal border Intensity: IV/ Characteristics: blowing GI: COMMON NORMALS: Normal to inspection, nondistended, normoactive bowel sounds present, Soft to palpation and non-tender INSPECTION: Yes normal to inspection AUSCULTATION: Yes normoactive bowel sounds PALPATION: Yes Soft to palpation Back/Pelvis: COMMON NORMALS: thoracic and lumbar spine normal to inspection Extremity: NARRATIVE EXTREMITY EXAM: Left hip is held flexed - painful to palpation around the entire joint. She complains of numbness in the entire leg but she says she thinks that is due to the pain medicine the paramedics gave her. Neuro: COMMON NORMALS: patient oriented x3, moves all extremities, no focal motor deficits and no sensory deficits noted SENSORIUM/ORIENTATION: Yes alert MENINGEAL SIGNS: Yes no meningeal signs Psych: COMMON NORMALS: mental status grossly normal, cooperative and normal affect Skin: COMMON NORMALS: no rashes or lesions noted and turgor normal GENERAL SKIN EXAM: no rashes or lesions noted and turgor normal Course Vital Signs: Vital signs: Vital Signs Temperature 97.5 F L 10/29/24 09:23 Pulse Rate 101 H 10/29/24 16:57 Respiratory Rate 16 10/29/24 14:32 Blood Pressure 147/81 10/29/24 16:57 Pulse Oximetry 93 10/29/24 16:57 Oxygen Delivery Me thod Nasal Cannula 10/29/24 16:57 Oxygen Flow Rate 3 10/29/24 16:57 MDM - Extremity (Nontraumatic) Medical Decision Making Fall and hip pain - likely fractured. Xray - left femoral neck fracture - somewhat displaced. CXR with interstitial markings suggesting fluid overload. BNP was added and was somewhat elevated. I spoke to Dr. Morris who will plan for surgery probably tomorrow. I spoke with the hospitalist who will admit her and get a cardiology consult prior to surgery. Lab Data 10/29/24 10:02 10/29/24 10:02 Radiology Impressions Chest X-Ray 10/29/24 09:28 IMPRESSION: As above. Femur X-Ray 10/29/24 09:28 IMPRESSION: As above Pelvis X-Ray 10/29/24 09:28 IMPRESSION: As above Laboratory Results WBC 5.50 10^3/uL (3.29-11.43) 10/29/24 10:02 RBC 3.84 10^6/uL (3.85-5.65) L 10/29/24 10:02 Hgb 11.70 g/dL (11.27-16.99) 10/29/24 10:02 Hct 34.5 % (36-47) L 10/29/24 10:02 MCV 89.8 fl (85-98) 10/29/24 10:02 MCH 30.5 pg (27-33) 10/29/24 10:02 MCHC 33.9 g/dL (30-55) 10/29/24 10:02 RDW 12.3 % (12.1-15.1) 10/29/24 10:02 Plt Count 278 10^3/cmm (157-399) 10/29/24 10:02 MPV 8.9 fL (7.4-10.4) 10/29/24 10:02 Neut % (Auto) 80.0 % 10/29/24 10:02 Lymph % (Auto) 9.6 % 10/29/24 10:02 Gosper % (Auto) 7.5 % 10/29/24 10:02 Eos % (Auto) 2.0 % 10/29/24 10:02 Baso % (Auto) 0.4 % 10/29/24 10:02 Neut # (Auto) 4.40 10^3/uL (1.8-7.7) 10/29/24 10:02 Lymph # (Auto) 0.5 10^3/uL (0.8-4.8) L 10/29/24 10:02 Gosper # (Auto) 0.4 10^3/uL (0.2-0.9) 10/29/24 10:02 Eos # (Auto) 0.1 10^3/uL (0.0-0.8) 10/29/24 10:02 Baso # (Auto) 0.0 10^3/uL (0.0-0.1) 10/29/24 10:02 Nucleated RBC % (auto) 0 % 10/29/24 10:02 Nucleated RBCs # 0.0 /100WBC 10/29/24 10:02 PT 14.70 SECONDS (12.1-14.9) 10/29/24 10:02 INR 1.07 (0.8-1.2) 10/29/24 10:02 APTT 32.8 SECONDS (23.9-36.7) 10/29/24 10:02 Sodium 133 mmol/L (136-145) L 10/29/24 10:02 Potassium 3.7 mmol/L (3.5-5.1) 10/29/24 10:02 Chloride 97 mmol/L (98-107) L 10/29/24 10:02 Carbon Dioxide 26 mmol/L (22-29) 10/29/24 10:02 Anion Gap 13.7 (5-19) 10/29/24 10:02 BUN 7 mg/dL (8-23) L 10/29/24 10:02 Creatinine 0.7 mg/dL (0.5-0.9) 10/29/24 10:02 GFR Calculation Not Reportable 10/29/24 10:02 Glucose 140 mg/dL (65-115) H 10/29/24 10:02 Calculated Osmolality 276 mOsm/kg (285-295) L 10/29/24 10:02 Calcium 8.7 mg/dL (8.5-10.5) 10/29/24 10:02 Total Bilirubin 0.6 mg/dL (0.15-1.2) 10/29/24 10:02 AST 23 U/L (0-32) 10/29/24 10:02 ALT 17 U/L (0-33) 10/29/24 10:02 Alkaline Phosphatase 134 U/L (35-105) H 10/29/24 10:02 NT-Pro-B Natriuret Pep 1064 pg/mL (0-450) H 10/29/24 10:02 Total Protein 6.9 g/dL (6.6-8.7) 10/29/24 10:02 Albumin 3.8 g/dL (3.5-5.2) 10/29/24 10:02 Globulin 3.1 g/dL (1.3-4.6) 10/29/24 10:02 Blood Type O Positive 10/29/24 10:02 Rho(D) Type Rh positive 10/29/24 10:02 Antibody Screen Negative 10/29/24 10:02 All radiology interpretation(s) finalized by discharge Discharge Plan Discharge Patient Disposition: Admitted As Inpatient Admit Provider: Rhona,Patience C Clinical Impression: Fracture of femoral neck, left, Aortic stenosis, CHF (congestive heart failure) Condition: Stable Coding Level of Care Code ED Line Supply for Laci Dalton
[2024-10-29] MEDS: morphine 4 mg/mL SDV 1 mL IVP ×2 (10:00→14:32)
[2024-10-29 10:14] LABS: Hematocrit 34.5 % (36-47); Hemoglobin 11.70 g/dL (11.27-16.99); Mean Corpuscular HGB Conc 33.9 g/dL (30-55); Mean Corpuscular Hemoglobin 30.5 pg (27-33); Mean Corpuscular Volume 89.8 fl (85-98); Nucleated Red Blood Cells % 0 %; Platelet Count 278 10^3/cmm (157-399); Red Blood Count 3.84 10^6/uL (3.85-5.65); White Blood Count 5.50 10^3/uL (3.29-11.43)
[2024-10-29 10:26] LABS: INR 1.07 (0.8-1.2); Prothrombin Time 14.70 SECONDS (12.1-14.9)
[2024-10-29 10:34] LABS: Alanine Aminotransferase 17 U/L (0-33); Albumin Level 3.8 g/dL (3.5-5.2); Alkaline Phosphatase 134 U/L (35-105); Anion Gap 13.7 (5-19); Aspartate Amino Transferase 23 U/L (0-32); Blood Urea Nitrogen 7 mg/dL (8-23); Calcium 8.7 mg/dL (8.5-10.5); Carbon Dioxide 26 mmol/L (22-29); Chloride 97 mmol/L (98-107); Creatinine Clr Calc Pharmacy 59.8974; Globulin 3.1 g/dL (1.3-4.6); Glucose 140 mg/dL (65-115); Osmolality Calculated 276 mOsm/kg (285-295); Potassium 3.7 mmol/L (3.5-5.1); Sodium 133 mmol/L (136-145); Total Protein 6.9 g/dL (6.6-8.7)
[2024-10-29 10:45] LABS: Partial Thromboplastin Time 32.8 SECONDS (23.9-36.7)
[2024-10-29 11:24] LABS: NT Pro B Type Natriuretic Pept 1064 pg/mL (0-450)
--- NOTE | 2024-10-29 13:24 | PC.NURSE ---
patient asked for nurse to call and update her daughter of her condition and admission. attempted to call daughter with no answer.
--- NOTE | 2024-10-29 15:05 | PM.HP ---
Providers/Chief Complaint Admitting Physician: Saundra Melgoza MD admitted during the day Primary Care Provider: Jose C Back MD Chief Complaint: left hip pain s/p fall History of Present Illness Diana Dewitt is a 84 year old female who is basically very healthy and had just sustained a mechanical fall to the left hip fracturing the femoral neck. Patient was brought to the emergency room for care and optimization. She had been in excruciating pain. Emergency room doctor had called the orthopedics who will be following through with repair of the fractured lip. Orthopedics will like to have the patient admitted by the hospitalist and we will plan on doing a repair of the left hip fracture in another day or 2. Patient was not going to be going for surgery today. And tomorrow is a possibility but not very clear. Patient does have moderate aortic stenosis with near valve area of 1.1. Patient also was noted to have pulmonary vascular congestion at presentation labeled as CHF but no symptomatology no complaints of chest pain no shortness of breath. I have discussed patient with Dr. Taylor today because I would like cardiology to be on the case on a patient who is going to be undergoing surgical procedure and with a moderate aortic stenosis with a valve area of 1.1. He will come the consult. Review of Systems Narrative: Generally patient upon being evaluated 10 organ systems were unremarkable except for musculoskeletal region because of fracture from a mechanical fall to the left hip. Otherwise unremarkable. Medications/Allergies Home Medications ?Medication ?Instructions ?Recorded ?Confirmed ?Last Taken ?Type ketoconazole 2 % topical cream 1 applic topical BID #30 grams 11/06/21 10/29/24 Unknown Rx ASO to the right #1 ea 11/23/22 10/29/24 Unknown Rx loratadine 10 mg capsule 10 mg PO DAILY 12/24/22 10/29/24 10/29/24 History pantoprazole 40 mg tablet,delayed 40 mg PO DAILY 12/24/22 10/29/24 10/29/24 History release (Protonix) furosemide 20 mg tablet (Lasix) 20 mg PO DAILY #90 tabs 06/01/24 10/29/24 10/29/24 07:00 Rx isosorbide mononitrate 30 mg 30 mg PO DAILY #90 tabs 06/01/24 10/29/24 10/29/24 07:00 Rx tablet,extended release 24 hr potassium chloride 8 mEq 8 meq PO DAILY #90 tabs 06/20/24 10/29/24 10/29/24 Rx tablet,extended release levothyroxine 75 mcg tablet 75 mcg PO QAM 07/05/24 10/29/24 10/29/24 05:00 History amlodipine 2.5 mg tablet 2.5 mg PO BID 10/29/24 10/29/24 10/29/24 07:00 History fluoxetine 20 mg capsule 20 mg PO DAILY 10/29/24 10/29/24 10/29/24 07:00 History levalbuterol tartrate 45 2 puff inhalation Q6H 10/29/24 10/29/24 Unknown History mcg/actuation aerosol inhaler Allergies Allergy/AdvReac Type Severity Reaction Status Date / Time albuterol Allergy ADR/ALGY-Pa Verified 07/05/24 11:40 lpitations cefaclor (From Ceclor) Allergy ALGY-Difficulty Verified 07/05/24 11:40 Breathing nitrofurantoin (From Allergy ADR-Irritab Verified 07/05/24 11:40 Macrobid) le Sulfa (Sulfonamide Allergy ADR-Agitate Verified 07/05/24 11:40 Antibiotics) d Penicillins AdvReac Intermediate Shakes and Verified 07/05/24 11:40 chills PFSH Acute PFSH: Medical History (Updated 10/29/24 @ 22:26 by Saundra Melgoza MD) Anxiety Former smoker History of nonmelanoma skin cancer Mitral stenosis TTE 12/24/22: mild Aortic insufficiency with aortic stenosis GERD (gastroesophageal reflux disease) Amira infection Hypothyroid Surgical History Hx of tonsillectomy History of bunionectomy History of hysterectomy Family History Father No problems noted. Family/Other Diabetes Chronic kidney disease (CKD) Bleeding disorder Aunt CAD (coronary artery disease) Aunt - heart valve x 2 Cancer Dementia Grandfather Dementia Mother Cancer Lung disease Denies family history of Clotting disorder Suicide Anesthesia complication Stroke Social History Smoking and tobacco/nicotine status: former use of tobacco/nicotine Second hand smoke exposure: No Alcohol intake: never Substance/Drug Use: never Adopted: No Caregiver/support person: No Lives independently: Yes Household members: spouse Housing: House Marital status: Number of children: 0 service: No Vitals/I&O/Wt Last Vital Signs Temp 97.5 F L 10/29/24 09:23 Pulse 88 10/29/24 14:39 Resp 16 10/29/24 14:32 BP 121/74 10/29/24 14:39 Pulse Ox 97 10/29/24 14:39 O2 Del Method Nasal Cannula 10/29/24 14:39 O2 Flow Rate 2 10/29/24 14:39 Weight last 48 hrs Weight 82.554 kg Physical Exam Narrative: HEENT normocephalic/atraumatic neck neck is supple cardiovascular heart is regular lungs are pretty much clear abdomen soft nontender nondistended unremarkable extremities are significant for a left hip pain and tenderness. There is no swelling much in the area. Neurology no focality patient is pretty much very pleasant but has been in much apparent distress with left hip pain patient is being treated with Dilaudid. She Data 10/29/24 10:02 10/29/24 10:02 A&P Assessment and plan 1. CHF (congestive heart failure): CHF is likely secondary to moderate aortic stenosis patient is asymptomatic patient is on room air with no issues no complaint of shortness of breath no chest pain. Patient is undergoing a vascular surgery will like to have cardiology on consult because of aortic stenosis. Dr. Lemon has been consulted 2. Aortic stenosis: Patient had moderate aortic stenosis with valve area of 1.1 - Keep patient euvolemic 3. Fracture of femoral neck, left: Patient sustained femoral neck fracture through a mechanical fall that is accidental. 4. Accident due to mechanical fall without injury: 5. Left hip pain: PDMP PDMP Reviewed: Last Reviewed 10/29/24 22:29 by Saundra Melgoza MD Attestations Medical Necessity Statement*: Patient need at least 2 midnights to allow optimization of care with a fractured hip and a history of aortic stenosis undergoing surgery. Cardiology consulted to be on the case. Coding Level of Care Code 76233 Diagnoses CHF (congestive heart failure) I50.9 Aortic stenosis I35.0 Fracture of femoral neck, left S72.002A Accident due to mechanical fall without injury W19.XXXA Left hip pain M25.552 Time Spent (min) 30
--- NOTE | 2024-10-29 18:33 | PC.NURSE ---
PATIENT ATE APPROX 50% OF DINNER TRAY AND DRANK SMALL ORANGE JUICE.
[2024-10-30] VITALS (10 sets, daily range): BP systolic 104–157; BP diastolic 59–83; PULSE 75–124; RESP 16–26; TEMP 36.6–37.2; O2SAT 92–98
--- NOTE | 2024-10-30 02:30 | ECG_ITS ---
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 Measurements Intervals [place] Rate: 132 P: 221 RI: 187 QRS: 79 QRSD: 94 T: 60 QT: 289 QTc: 429 Interpretive Statements SINUS TACHYCARDIA MODERATE ST DEPRESSION [0.05+ mV ST DEPRESSION] Compared to ECG 07/05/2024 12:31:15 ST (T wave) deviation now present Sinus rhythm no longer present Electronically Signed On 10-30-2024 17:00:41 CDT by Vasu Goldman M.D. [email or web address]
--- NOTE | 2024-10-30 02:30 | XRR_ITS ---
PROCEDURE INFORMATION: Exam: XR Chest Exam date and time: 10/30/2024 2:40 AM Age: 84 years old Clinical indication: Shortness of breath; SOB with hypoxia TECHNIQUE: Imaging protocol: Radiologic exam of the chest. Views: 1 view. COMPARISON: CR XR chest 1V portable [id number] 10/29/2024 9:44 AM FINDINGS: Lungs: Increased bilateral mid and lower lung zone interstitial opacities. Pleural spaces: Unremarkable. No pleural effusion. No pneumothorax. Heart/Mediastinum: Unremarkable. No cardiomegaly. Bones/joints: Unremarkable. XR/XR chest 1V portable [id number] IMPRESSION: Worsened interstitial edema.
[2024-10-30] MEDS: FUROsemide 10 mg/mL SDV 2mL 20 MG IVP (02:56)
[2024-10-30 03:08] LABS: Troponin(5th) Baseline 8 ng/L (0-10)
[2024-10-30 05:05] LABS: Troponin 5 2HR 13.80 ng/L (0-10); Troponin 5 2HR Delta 5.80 ABS# (0-10)
--- NOTE | 2024-10-30 05:43 | ECG_ITS ---
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 Measurements Intervals [place] Rate: 105 P: 67 DE: 167 QRS: 76 QRSD: 90 T: 62 QT: 353 QTc: 468 Interpretive Statements SINUS TACHYCARDIA ABNORMAL RHYTHM ECG Compared to ECG 10/30/2024 02:30:26 ST (T wave) deviation no longer present Electronically Signed On 10-30-2024 17:13:48 CDT by Vasu Goldman M.D. [id number]
[2024-10-30] MEDS: morphine 4 mg/mL SDV 1 mL 2 MG IVP (05:54)
--- NOTE | 2024-10-30 08:48 | ECG_ITS ---
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 Measurements Intervals [place] Rate: 75 P: 48 MO: 150 QRS: 61 QRSD: 88 T: 66 QT: 409 QTc: 457 Interpretive Statements SINUS RHYTHM MINIMAL ST DEPRESSION [0.025+ mV ST DEPRESSION] Compared to ECG 10/30/2024 05:43:26 ST (T wave) deviation now present Sinus tachycardia no longer present Electronically Signed On 10-30-2024 17:12:01 CDT by Vasu Goldman M.D. [email or web address] [id number]
[2024-10-30] MEDS: FUROsemide 10 mg/mL SDV 4mL 40 MG IVP ×2 (09:06→22:10)
[2024-10-30 09:17] LABS: Troponin 5 6HR 13.97 ng/L (0-10); Troponin 5 6HR Delta 5.97 ng/L (0-12)
--- NOTE | 2024-10-30 12:44 | P.CONIM_ITS ---
<Statement entered by Keyana Lemon MD - 10/30/24 21:33> Patient was evaluated and cared for in conjunction with an advanced practice practitioner. I personally examined the patient and reviewed the chart and all pertinent data including imaging, telemetry, and laboratory results. I discussed the patient in detail with the advanced practice practitioner. Please see their note for complete H&P testing result and agreed upon plan of care for the patient. 84-year-old female past medical history significant for valvular disorder including moderate aortic valve stenosis presented with hip fracture and volume overload status we have been asked to assess her perioperative risk. Currently denies any chest pain. Patient was diuresed overnight for pulmonary edema. GENERAL: Patient is alert, awake and oriented x3. HEART: Regular S1 and S2.2/6 systolic murmur, rub or gallop. LUNGS: Clear to auscultate bilaterally. CENTRAL NERVOUS SYSTEM: Grossly nonfocal. EXTREMITIES: Lower extremities with out edema bilaterally. Assessment and plan Preop clearance for left hip surgery Moderate aortic valve stenosis CHF with diastolic heart failure acute on chronic decompensated Patient appeared to be in decompensated state of heart failure, continue IV diuresis with 40 mg IV once a day Repeat echocardiogram to assess mitral and aortic valve along with LV function Patient will be moderate to high risk for surgery in the setting of fixed valvular abnormality which requires close hemodynamic monitoring preferably with [place] catheter to assess hemodynamics and need for diuresis versus IV fluid volume during surgery. However requiring and given patient status of hip fracture once achieved euvolemia hopefully by tomorrow patient can proceed with surgery under moderate risk for anesthesia and surgery. Providers/Reason For Consult 2 Consulting Physician/Specialty*: Dr Slime Lemon, cardiology Reason for Consult*: preoperative assessment, moderate aortic stenosis Requesting Physician: Dr Teresita Morris Attending Physician: Saundra Melgoza MD Primary Care Provider: Jose C Bcak MD History of Present Illness History of Present Illness Diana Dewitt is a 84 year old female with past medical history of moderate aortic stenosis (mean gradient 23 mmHg, OMAR 1.1 cm?, peak velocity 3.3 m/s, peak gradient 43 mmHg), mild aortic regurgitation, mild mitral stenosis (valve area 1.9 cm? mean gradient 9 mmHg), decreased exercise tolerance and dyspnea on exertion. She presented to the emergency room yesterday by EMS due to a fall onto her left hip resulting in a fracture of the femoral neck. Surgery is tentatively planned for tomorrow, pending optimization of the patient for surgery. On admission her chest x-ray showed possible diffuse pulmonary congestion versus infectious or inflammatory process, which worsened overnight requiring diuresis with IV Lasix. Troponin series: 8-> 13-> 13. Most recent echocardiogram was August of this year. Her BNP is monitored periodically, usually ranging 600-700, this admission increased to 1064. Normal renal function. No chest pain. Review of Systems 2 Const: Denies: fever(s), chills, change in weight, fatigue or diaphoresis Eyes: Denies: change in vision ENMT: Denies: epistaxis Card: Reports: chest pain (heaviness); Denies: palpitations, irregular heart rhythm, edema, syncope, pre-syncope, dyspnea on exertion, orthopnea or leg pain with exertion Resp: Denies: dyspnea, productive cough or wheezing GI: Denies: nausea, vomiting, hematemesis, hematochezia or melena : Denies: hematuria Musc: Denies: extremity swelling Dequan/Lymph: Denies: easy bruising or easy bleeding Medications/Allergies Home Medications ?Medication ?Instructions ?Recorded ?Confirmed ?Last Taken ?Type ketoconazole 2 % topical cream 1 applic topical BID #3 0 grams 11/06/21 10/29/24 Unknown Rx ASO to the right #1 ea 11/23/22 10/29/24 Unkn own Rx loratadine 10 mg capsule 10 mg PO DAILY 12/24/22/10/29/24 History pantoprazole 40 mg tablet,delayed 40 mg PO DAILY 12/2410/29/24 10/29/24 History release (Protonix) furosemide 20 mg tablet (Lasix) 20 mg PO DAILY #90 tab s 06/01/24 10/29/24 10/29/24 07:00 Rx isosorbide mononitrate 30 mg 30 mg PO DAILY #90 tabs 0 06/01/24 10/29/24 10/29/24 07:00 Rx tablet,extended release 24 hr potassium chloride 8 mEq 8 meq PO DAILY #90 tabs 06/1010/29/24 10/29/24 Rx tablet,extended release levothyroxine 75 mcg tablet 75 mcg PO QAM 07/05/2410/29/24 05:00 History fluoxetine 20 mg capsule 20 mg PO DAILY 10/29/24 07/2 010/29/24 07:00 History levalbuterol tartrate 45 2 puff inhalation Q6H 10/29/24 Unknown History mcg/actuation aerosol inhaler amlodipine 2.5 mg tablet 2.5 mg PO BID #90 tabs 10/30 Unknown Rx Allergies Allergy/AdvReac Type Severity Reaction Status Date / Time albuterol Allergy ADR/ALGY-Pa Verified 07/05/24 11:40 lpitations cefaclor (From Ceclor) Allergy ALGY-Difficulty Verified 07/05/24 11:40 Breathing nitrofurantoin (From Allergy ADR-Irritab Verified 07/05/24 11:40 Macrobid) le Sulfa (Sulfonamide Allergy ADR-Agitate Verified 07/05/24 11:40 Antibiotics) d Penicillins AdvReac Intermediate Shakes and Verified 07/05/24 11:40 chills Current Medications Generic Name Dose Route Start Last Admin Trade Name Freq PRN Reason Stop Dose Admin Acetaminophen 650 mg 10/30/24 02:32 10/30/24 04:08 Acetaminophen 325 Mg Tablet PO 650 mg Q4H PRN Administration MILD PAIN OR INCREASE TEMP PFSH Acute 2 PFSH: Medical History Anxiety Former smoker History of nonmelanoma skin cancer Mitral stenosis TTE 12/24/22: mild Aortic insufficiency with aortic stenosis GERD (gastroesophageal reflux disease) Amira infection Hypothyroid Surgical History Hx of tonsillectomy History of bunionectomy History of hysterectomy Family History Father No problems noted. Family/Other Diabetes Chronic kidney disease (CKD) Bleeding disorder Aunt CAD (coronary artery disease) Aunt - heart valve x 2 Cancer Dementia Grandfather Dementia Mother Cancer Lung disease Denies family history of Clotting disorder Suicide Anesthesia complication Stroke Social History Smoking and tobacco/nicotine status: former use of tobacco/nicotine Second hand smoke exposure: No Alcohol intake: never Substance/Drug Use: never Adopted: No Caregiver/support person: No Lives independently: Yes Household members: spouse Housing: House Marital status: Number of children: 0 service: No Vitals/I&O/Wt Last Vital Signs Temp 97.8 F 10/30/24 12:02 Pulse 85 10/30/24 12:02 Resp 17 10/30/24 12:02 BP 122/69 10/30/24 12:02 Pulse Ox 98 10/30/24 12:02 O2 Del Method Nasal Cannula 10/30/24 12:02 O2 Flow Rate 4 10/30/24 09:05 FiO2 40 10/30/24 03:45 10/29/24 10/30/24 10/30/24 22:59 06:59 14:59 Intake Total 60 / 60 Output Total 1650 / 1650 Balance -1650 / -1650 60 / 60 Weight last 48 hrs Weight 191 lb 8 oz Weight 189 lb 0.5 oz Weight 182 lb Physical Exam 2 Const: COMMON NORMALS: no acute distress and patient oriented x3 GENERAL APPEARANCE: cooperative and comfortable ORIENTATION/CONSCIOUSNESS: Yes awake, Yes oriented to person, Yes oriented to place and Yes oriented to time Chest: COMMONS NORMALS: normal inspection of the chest and normal palpation of entire chest wall CHEST: Yes Symmetrical chest wall rise Resp: COMMON NORMALS: normal respiratory effort, No retractions, No use of accessory muscles and clear to auscultation bilaterally EFFORT & INSPECTION: Yes symmetric chest movement AUSCULTATION: clear to auscultation bilaterally Cardio: COMMON NORMALS: regular rate, regular rhythm, S2 normal heart sound present, No gallops present (Cardio), No clicks present (Cardio) and No rub (Cardio) RATE: regular rate RHYTHM: regular rhythm HEART SOUNDS: S2 normal heart sound present and Murmur heart sound present systolic Location: right sternal border Intensity: III/ PERIPHERAL PULSES: radial pulses present Extremity: COMMON NORMALS: no pedal edema Neuro: COMMON NORMALS: patient oriented x3 and moves all extremities S ENSORIUM/ORIENTATION: Yes oriented to person, Yes oriented to place and Yes oriented to time Data 10/29/24 10:02 10/29/24 10:02 A&P Assessment and plan 1. Aortic insufficiency with aortic stenosis: 2. Mitral stenosis: 3. Benign essential HTN: 4. CHF (congestive heart failure): 5. Fracture of femoral neck, left: 6. Acute dyspnea: Plan: Echocardiogram has just been completed. Once it has been read we can make a determination on cardiac risk assessment for tomorrow's planned procedure. She would benefit from [place] catheter placement during surgery to assess volume status in real time. The chest pressure could be related to the need to have a bowel movement, as she is also asking for the bedpan, reporting pressure in her bowels. Will reassess after she has had a chance to use the bedpan. She does not appear volume overloaded currently, she did have a one-time dose of Lasix this morning and is over a liter negative currently. Blood pressure normotensive at this time without antihypertensive medication. PDMP PDMP Reviewed: Not Reviewed Coding Level of Care Code Acute Code for Chg Fwd Diagnoses Aortic insufficiency with aortic stenosis I35.2 Mitral stenosis I05.0 Benign essential HTN I10 CHF (congestive heart failure) I50.9 Fracture of femoral neck, left S72.002A Acute dyspnea R06.00
--- NOTE | 2024-10-30 12:54 | USCV_ITS ---
Diana Dewitt Age: 84 Gender: F : 1940 Exam Date: 10/30/2024 13:46 Ordering Phys: Estefani Fox Technologist: [place] [facility] [place]: pre op as BP: 108 / 66 HR: 88 Rhythm: Sinus Technical Quality: Adequate MEASUREMENTS (Male / Female) Normal Values 2D ECHO LV Diastolic Diameter PLAX 3.5 cm 4.2 - 5.9 / 3.9 - 5.3 cm IVS Diastolic Thickness 1.3 cm 0.6 - 1.0 / 0.6 - 0.9 cm IVS Systolic Thickness 1.5 cm LVPW Diastolic Thickness 1.2 cm 0.6 - 1.0 / 0.6 - 0.9 cm LVPW Systolic Thickness 1.8 cm LVOT Diameter 2.0 cm LV Ejection Fraction 2D Teich 60.9 % LV Ejection Fraction MOD 4C 51.1 % LV Ejection Fraction MOD 2C 57.3 % LV Ejection Fraction 2C AL 57.9 % LA Diameter 3.8 cm RA Systolic Volume 4C AL 52.4 ml RA Systolic Volume 4C MOD 51.1 ml Aorta at Sinotubular Diameter 2.8 cm M-MODE LA Ao Ratio MM 1.2 AV Cusp Separation MM 1.3 cm DOPPLER AV Peak Velocity 347.0 cm/s LVOT Peak Velocity 99.0 cm/s AV Area Cont Eq vti 0.8 cm squared AV Area Cont Eq pk 0.9 cm squared FINDINGS Left Ventricle Right Ventricle Right Atrium Left Atrium Mitral Valve Aortic Valve Tricuspid Valve Pulmonic Valve Pericardium Aorta IVC CONCLUSIONS Limited echocardiogram performed to assess LV systolic function and aortic stenosis. LV systolic function is normal with EF of 55-60%. No regional wall motion abnormalities are seen. Aortic valve is thickened and calcified. Doppler signals are suboptimal. However findings consistent with severe aortic stenosis with aortic valve area of 0.84 cm squared and mean gradient of 31 mmHg. Darrius Turner MD (Electronically Signed) Final Date: 30 October 2024 16:54 S
--- NOTE | 2024-10-30 13:53 | PM.CONSULT ---
Providers/Reason For Consult Consulting Physician/Specialty*: Teresita Morris MD Reason for Consult*: Left subcapital hip fracture, displaced Requesting Physician: Dr. Jennifer Bales Attending Physician: Saundra Melgoza MD Primary Care Provider: Jose C Back MD History of Present Illness History of Present Illness Diana Dewitt is a 84 year old female who presented to the emergency department after a fall at home. The patient was brought to the department by EMS, and she reported that she was outside trying to get a limb out of the way the area so she could mow it. She pulled on the limb, and it broke, and this caused her to fall onto her left hip. She was unable to move her leg. She was there with a shop clerk who called 911[address] She [address] Goldman because of aortic stenosis but denies other medical problems. Patient was admitted to the hospital under the hospitalist team. She will have to be evaluated and optimized for surgery. Review of Systems Narrative: Generally patient upon being evaluated 10 organ systems were unremarkable except for musculoskeletal region because of fracture from a mechanical fall to the left hip. Otherwise unremarkable. Const: Denies: fever(s), chills, change in weight, fatigue or diaphoresis Eyes: Denies: change in vision or photophobia ENMT: Denies: epistaxis Card: Reports: chest pain (heaviness); Denies: palpitations, irregular heart rhythm, edema, syncope, pre-syncope, dyspnea on exertion, orthopnea or leg pain with exertion Resp: Denies: dyspnea, productive cough or wheezing GI: Denies: nausea, vomiting, hematemesis, hematochezia or melena : Denies: hematuria Musc: Denies: extremity swelling or joint warmth Dequan/Lymph: Denies: easy bruising or easy bleeding All/Imm: Denies: acute wheezing Medications/Allergies Home Medications ?Medication ?Instructions ?Recorded ?Confirmed ?Last Taken ?Type ketoconazole 2 % topical cream 1 applic topical BID #30 grams 11/06/21 10/29/24 Unknown Rx ASO to the right #1 ea 11/23/22 10/29/24 Unknown Rx loratadine 10 mg capsule 10 mg PO DAILY 12/24/22 10/29/24 10/29/24 History pantoprazole 40 mg tablet,delayed 40 mg PO DAILY 09/10/29/24 10/29/24 History release (Protonix) furosemide 20 mg tablet (Lasix) 20 mg PO DAILY #90 tabs 06/01/24 10/29/24 10/29/24 07:00 Rx isosorbide mononitrate 30 mg 30 mg PO DAILY #90 tabs 06/01/24 10/29/24 10/29/24 07:00 Rx tablet,extended release 24 hr potassium chloride 8 mEq 8 meq PO DAILY #90 tabs 06/20/24 10/29/24 10/29/24 Rx tablet,extended release levothyroxine 75 mcg tablet 75 mcg PO QAM 07/05/24 10/29/24 10/29/24 05:00 History fluoxetine 20 mg capsule 20 mg PO DAILY 10/29/24 10/29/24 10/29/24 07:00 History levalbuterol tartrate 45 2 puff inhalation Q6H 10/29/24 10/29/24 Unknown History mcg/actuation aerosol inhaler amlodipine 2.5 mg tablet 2.5 mg PO BID #90 tabs 10/30/24 Unknown Rx Allergies Allergy/AdvReac Type Severity Reaction Status Date / Time albuterol Allergy ADR/ALGY-Pa Verified 07/05/24 11:40 lpitations cefaclor (From Ceclor) Allergy ALGY-Difficulty Verified 07/05/24 11:40 Breathing nitrofurantoin (From Allergy ADR-Irritab Verified 07/05/24 11:40 Macrobid) le Sulfa (Sulfonamide Allergy ADR-Agitate Verified 07/05/24 11:40 Antibiotics) d Penicillins AdvReac Intermediate Shakes and Verified 07/05/24 11:40 chills Current Medications Generic Name Dose Route Start Last Admin Trade Name Freq PRN Reason Stop Dose Admin Acetaminophen 650 mg 10/30/24 02:32 10/30/24 04:08 Acetaminophen 325 Mg Tablet PO 650 mg Q4H PRN Administration MILD PAIN OR INCREASE TEMP PFSH Acute PFSH: Medical History Anxiety Former smoker History of nonmelanoma skin cancer Mitral stenosis TTE 12/24/22: mild Aortic insufficiency with aortic stenosis GERD (gastroesophageal reflux disease) Amira infection Hypothyroid Surgical History Hx of tonsillectomy History of bunionectomy History of hysterectomy Family History Father No problems noted. Family/Other Diabetes Chronic kidney disease (CKD) Bleeding disorder Aunt CAD (coronary artery disease) Aunt - heart valve x 2 Cancer Dementia Grandfather Dementia Mother Cancer Lung disease Denies family history of Clotting disorder Suicide Anesthesia complication Stroke Social History Smoking and tobacco/nicotine status: former use of tobacco/nicotine Second hand smoke exposure: No Alcohol intake: never Substance/Drug Use: never Adopted: No Caregiver/support person: No Lives independently: Yes Household members: spouse Housing: House Marital status: Number of children: 0 service: No Dietary Habits: Current diet type/program: regular Caffeine: No Safety: Seatbelt use: always Helmet use: No Drive intoxicated or ride with intoxicated 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 Vitals/I&O/Wt Last Vital Signs Temp 97.8 F 10/30/24 12:02 Pulse 85 10/30/24 12:02 Resp 17 10/30/24 12:02 BP 122/69 10/30/24 12:02 Pulse Ox 98 10/30/24 12:02 O2 Del Method Nasal Cannula 10/30/24 12:02 O2 Flow Rate 4 10/30/24 09:05 FiO2 40 10/30/24 03:45 10/29/24 10/30/24 10/30/24 22:59 06:59 14:59 Intake Total 60 / 60 Output Total 1650 / 1650 Balance -1650 / -1650 60 / 60 Weight last 48 hrs Weight 191 lb 8 oz Weight 189 lb 0.5 oz Weight 182 lb Physical Exam Const: COMMON NORMALS: no acute distress, average body habitus, patient oriented x3 and alert GENERAL APPEARANCE: cooperative and comfortable ORIENTATION/CONSCIOUSNESS: Yes awake HENMT: COMMON NORMALS: normocephalic and atraumatic HEAD & SCALP: normocephalic and atraumatic Eye: GENERAL EYE: appearance normal, both eyes and all related structures Chest: COMMONS NORMALS: normal inspection of the chest Resp: COMMON NORMALS: normal respiratory effort EFFORT & INSPECTION: Yes able to speak in complete sentences and Yes symmetric chest movement Extremity: LEFT LOWER EXTREMITY: Yes hip joint (No significant ecchymosis, shortening of the extremity) Left hip: Yes inspection ( No significant swelling), Yes ROM (Not evaluated secondary to fracture) and Yes neurovascular exam (Intact distally to motor and sensory function) Neuro: COMMON NORMALS: patient oriented x3 SENSORIUM/ORIENTATION: Yes alert Psych: COMMON NORMALS: mental status grossly normal APPEARANCE: Yes grossly normal ATTITUDE: Yes calm and Yes engaged ATTENTION/CONCENTRATION: Yes attention grossly intact Skin: COMMON NORMALS: no rashes or lesions noted GENERAL SKIN EXAM: no rashes or lesions noted Data 10/29/24 10:02 10/29/24 10:02 Xray Ortho: My impression: I have personally interpreted the patient's x-rays. The patient had an AP pelvis without further imaging of her hip. She also had left femur imaging however. AP pelvis demonstrates a 100% displaced subcapital hip fracture. There is no evidence of fracture further into the femoral canal. 4 view imaging of the patient's left hip also demonstrates 100% displacement of the subcapital hip fracture. Again, there is no evidence of other fractures of concern. Overall findings are consistent with 100% displaced subcapital hip fracture. A&P Assessment and plan 1. Closed subcapital fracture of left femur, initial encounter: This 84-year-old woman fell while working in her yard. She was brought to the emergency department via EMS, and there, she was found to have a left subcapital hip fracture with 100% displacement. Patient has a medical history as noted above which precludes her from going directly to the surgical suite and till she has cardiac evaluation and clearance. Patient was seen in her room with her family. Discussion was undertaken regarding the need for prosthetic hip surgery in the form of hemiarthroplasty. Risks and complications were discussed with her. These will be discussed with her again in the morning prior to surgery. Decision was made to proceed with bipolar hip arthroplasty and this will be scheduled for her. 2. Aortic valve stenosis: 3. Mitral stenosis: 4. Aortic insufficiency with aortic stenosis: PDMP PDMP Reviewed: Not Reviewed Consult Attestations Medical Necessity Statement: Patient remained in hospital and is undergoing cardiac workup to include an echocardiogram prior to proceeding with hemiarthroplasty of the left hip. Coding Level of Care Code Acute Code for Chg Fwd Diagnoses Closed subcapital fracture of left femur, initial encounter S72.012A Encounter type: initial encounter Fracture type: closed Aortic valve stenosis I35.0 Mitral stenosis I05.0 Aortic insufficiency with aortic stenosis I35.2
[2024-10-30] MEDS: oxyCODONE 5 mg IR Tab/Cap PO ×2 (14:07→17:53)
--- NOTE | 2024-10-30 15:37 | PC.NURSE ---
5lb [place] traction placed left leg per Dr. Morris. Pt tolerating well
--- NOTE | 2024-10-30 16:15 | XRR_ITS ---
PROCEDURE INFORMATION: Exam: XR Chest Exam date and time: 10/30/2024 4:34 PM Age: 84 years old Clinical indication: Cardiovascular condition or disease; Congestive heart failure (chf); Cause unknown; Type unknown TECHNIQUE: Imaging protocol: Radiologic exam of the chest. Views: 1 view. COMPARISON: CR (CHEST, ) 10/30/2024 2:40 AM FINDINGS: Lungs: There is persistent diffuse interstitial pulmonary edema, not significantly changed. No dense focal consolidation is seen. Pleural spaces: No significant pleural effusion. No pneumothorax. Heart/Mediastinum: The cardiac silhouette is normal in size. There is mild prominence of the azygos vein. Bones/joints: Intact. Other findings: None. XR/XR chest 1V portable [id number] IMPRESSION: Persistent diffuse interstitial pulmonary edema, not significantly changed.
--- NOTE | 2024-10-30 20:26 | P.PN_ITS ---
Subjective 2 Subjective: Patient is doing well with cheerful disposition this morning. Vitals/I&O/Wt Last Vital Signs Temp 97.8 F 10/30/24 20:24 Pulse 113 H 10/30/24 20:24 Resp 16 10/30/24 20:24 BP 157/74 10/30/24 20:24 Pulse Ox 93 10/30/24 20:24 O2 Del Method Nasal Cannula 10/30/24 20:24 O2 Flow Rate 2 10/30/24 20:24 FiO2 40 10/30/24 03:45 10/30/24 10/30/24 10/30/24 06:59 14:59 22:59 Intake Total 60 / 60 120 / 180 Output Total 1650 / 1650 1100 / 1100 Balance -1650 / -1650 60 / 60 -980 / -920 Weight last 48 hrs Weight 86.863 kg Weight 85.743 kg Weight 82.554 kg Physical Exam 2 Narrative: Generally patient is doing okay with more energy this morning. HEENT normocephalic atraumatic neck neck is supple cardiovascular heart rate is regular lungs are pretty much clear abdomen soft nontender nondistended unremarkable extremities intact no edema has good pulses neurology has no focality lab studies lab studies reviewed and noted. Data 10/29/24 10:02 10/29/24 10:02 A&P Assessment and plan 1. Closed subcapital fracture of left femur, initial encounter: 2. Left hip pain: 3. Accident due to mechanical fall without injury: 4. CHF (congestive heart failure): 5. Aortic stenosis: Plan: Assessment and plan 1. CHF (congestive heart failure): CHF is likely secondary to moderate aortic stenosis patient is asymptomatic patient is on room air with no issues no complaint of shortness of breath no chest pain. Patient is undergoing a vascular surgery will like to have cardiology on consult because of aortic stenosis. Dr. Lemon has been consulted and on the case Patient lung seem to be clear at this morning and had received an additional 40 mg of IV Lasix one-time Repeat chest x-ray today did not show any pulmonary edema. I am very comfortable for patient to go for surgery tomorrow. Cardiology also on the case and seen the patient. 2. Aortic stenosis: Patient had moderate aortic stenosis with valve area of 1.1 - Keep patient euvolemic 3. Fracture of femoral neck, left: Patient sustained femoral neck fracture through a mechanical fall that is accidental. 4. Accident due to mechanical fall without injury: 5. Left hip pain: PDMP PDMP Reviewed: Last Reviewed 10/29/24 22:29 by Saundra Melgoza MD Attestations Medical Necessity Statement*: Patient need at least 2 midnights to allow optimization of care with a fractured hip and a history of aortic stenosis undergoing surgery. Cardiology consulted to be on the case. PDMP PDMP Reviewed: Last Reviewed 10/29/24 22:29 by Saundra Melgoza MD Attestations 2 Medical Necessity Statement*: Patient need at least 2 more days yet to have surgery and does have aortic stenosis moderate along with a CHF that is being optimized prior to surgery. Coding Level of Care Code 91111 Diagnoses Closed subcapital fracture of left femur, initial encounter S72.012A Encounter type: initial encounter Fracture type: closed Left hip pain M25.552 Accident due to mechanical fall without injury W19.XXXA CHF (congestive heart failure) I50.9 Aortic stenosis I35.0
[2024-10-31] VITALS (11 sets, daily range): BP systolic 111–140; BP diastolic 63–79; PULSE 93–116; RESP 14–27; TEMP 36.4–37.8; O2SAT 92–97
[2024-10-31] MEDS: oxyCODONE 5 mg IR Tab/Cap PO (07:59)
[2024-10-31 13:21] LABS: Alanine Aminotransferase 10 U/L (0-33); Albumin Level 3.7 g/dL (3.5-5.2); Alkaline Phosphatase 111 U/L (35-105); Anion Gap 15.2 (5-19); Aspartate Amino Transferase 20 U/L (0-32); Blood Urea Nitrogen 12 mg/dL (8-23); Calcium 8.9 mg/dL (8.5-10.5); Carbon Dioxide 29 mmol/L (22-29); Chloride 94 mmol/L (98-107); Creatinine Clr Calc Pharmacy 59.9587; Globulin 3.3 g/dL (1.3-4.6); Glucose 121 mg/dL (65-115); Osmolality Calculated 279 mOsm/kg (285-295); Potassium 4.2 mmol/L (3.5-5.1); Sodium 134 mmol/L (136-145); Total Protein 7.0 g/dL (6.6-8.7)
--- NOTE | 2024-10-31 14:34 | P.PN_ITS ---
<Statement entered by Keyana Lemon MD - 11/06/24 14:35> Patient was evaluated and cared for in conjunction with an advanced practice practitioner. I personally examined the patient and reviewed the chart and all pertinent data including imaging, telemetry, and laboratory results. I discussed the patient in detail with the advanced practice practitioner. Please see their note for complete H&P testing result and agreed upon plan of care for the patient. Subjective 2 Subjective: Patient was seen this morning. The chest pressure has resolved with diuresis. She now appears optimized for planned orthopedic procedure this afternoon. Echocardiogram obtained yesterday revealed LVEF 55 to 60%, suboptimal Doppler signals however consistent with severe aortic stenosis mean gradient 31 mmHg and valve area 0.84 cm?. Vitals/I&O/Wt Last Vital Signs Temp 97.8 F 10/31/24 11:00 Pulse 97 10/31/24 11:00 Resp 15 10/31/24 11:00 BP 111/67 10/31/24 11:00 Pulse Ox 95 10/31/24 11:00 O2 Del Method Nasal Cannula 10/31/24 11:00 O2 Flow Rate 3 10/31/24 11:00 FiO2 40 10/30/24 03:45 10/30/24 10/31/24 10/31/24 22:59 06:59 14:59 Intake Total 120 / 180 Output Total 1650 / 3100 1450 / 3100 Balance -1530 / -2920 -1450 / -2920 Weight last 48 hrs Weight 190 lb Weight 191 lb 8 oz Weight 189 lb 0.5 oz Physical Exam 2 Const: COMMON NORMALS: no acute distress and patient oriented x3 GENERAL APPEARANCE: cooperative and comfortable ORIENTATION/CONSCIOUSNESS: Yes awake, Yes oriented to person, Yes oriented to place and Yes oriented to time Chest: COMMONS NORMALS: normal inspection of the chest and normal palpation of entire chest wall CHEST: Yes Symmetrical chest wall rise Resp: COMMON NORMALS: normal respiratory effort, No retractions, No use of accessory muscles and clear to auscultation bilaterally EFFORT & INSPECTION: Yes symmetric chest movement AUSCULTATION: clear to auscultation bilaterally Cardio: COMMON NORMALS: regular rate, regular rhythm, S2 normal heart sound present, No gallops present (Cardio), No clicks present (Cardio) and No rub (Cardio) RATE: regular rate RHYTHM: regular rhythm HEART SOUNDS: S2 normal heart sound present and Murmur heart sound present systolic Location: right sternal border Intensity: III/ PERIPHERAL PULSES: radial pulses present Extremity: COMMON NORMALS: no pedal edema Neuro: COMMON NORMALS: patient oriented x3 and moves all extremities S ENSORIUM/ORIENTATION: Yes oriented to person, Yes oriented to place and Yes oriented to time Data 10/29/24 10:02 10/31/24 12:44 A&P Assessment and plan 1. Aortic insufficiency with aortic stenosis: 2. Mitral stenosis: 3. Benign essential HTN: 4. CHF (congestive heart failure): 5. Fracture of femoral neck, left: Plan: She is optimized for planned procedure this afternoon. Her perioperative risk remains moderate. [place] catheterization for monitoring recommended during perioperative period. PDMP PDMP Reviewed: Not Reviewed Attestations 2 Medical Necessity Statement*: per hospitalist and orthopedic surgery Coding Level of Care Code Acute Code for [facility] Fwd Diagnoses Aortic insufficiency with aortic stenosis I35.2 Mitral stenosis I05.0 Benign essential HTN I10 CHF (congestive heart failure) I50.9 Fracture of femoral neck, left S72.002A
[2024-10-31] MEDS: acetaminophen 1,000 MG/100 ML PIGGYBACK 400 MG IV ×2 (16:18→23:49)
--- NOTE | 2024-10-31 16:37 | PM.MISC ---
Miscellaneous Note Purpose of Documentation: Preop discussion Note: Patient is seen once again in the preoperative holding area. She was seen yesterday afternoon, and surgical discussion was undertaken. Her family member was in the room at the time. Today, she is there by her self in the preoperative holding area. Once again surgical discussion is undertaken regarding risks, complications and plans. Consents are signed and questions are answered.
[2024-10-31] MEDS: tranexamic acid 1,000 mg/10mL SDV 1000 MG XX (17:25)
--- NOTE | 2024-10-31 17:55 | P.PN_ITS ---
Subjective 2 Subjective: Patient in no apparent distress on rounds Case discussed about surgery patient is ready anesthesia orthopedics have both spoken to me and they have also spoken with cardiology regarding this case. Patient is with severe aortic stenosis the rate limiting step is avoiding much blood loss and avoiding much IV fluid. Chest x-ray done last night in preparation of this surgery patient had no pulmonary edema and looking good and feeling good this morning. It was been noted that patient had a flash pulmonary edema yesterday today after getting no more than 300 cc of fluid and Lasix 60 mg IV was given total and this cleared the lungs. Patient is not with any IV fluid able to eat and tolerate. Patient should be able to go to intensive care unit postsurgery just for close monitoring of the patient hemodynamically postsurgery. Vitals/I&O/Wt Last Vital Signs Temp 97.6 F 10/31/24 16:20 Pulse 97 10/31/24 16:20 Resp 16 10/31/24 16:20 BP 133/75 10/31/24 16:20 Pulse Ox 97 10/31/24 16:20 O2 Del Method Nasal Cannula 10/31/24 16:20 O2 Flow Rate 3 10/31/24 16:00 FiO2 40 10/30/24 03:45 10/31/24 10/31/24 10/31/24 06:59 14:59 22:59 Intake Total 100 / 100 Output Total 1450 / 3100 Balance -1450 / -2920 100 / 100 Weight last 48 hrs Weight 86.183 kg Weight 86.863 kg Weight 85.743 kg Physical Exam 2 Narrative: Patient status post left femoral neck fracture from mechanical fall. HEENT normocephalic/atraumatic neck neck is supple cardiovascular heart is regular lungs are pretty much clear abdomen soft nontender nondistended unremarkable extremities are significant for a left lower extremity femoral neck fracture with pain. Patient going for surgery. Data 10/29/24 10:02 10/31/24 12:44 A&P Assessment and plan 1. Closed subcapital fracture of left femur, initial encounter: 2. Left hip pain: 3. Accident due to mechanical fall without injury: 4. CHF (congestive heart failure): 5. Aortic stenosis: 6. Fracture of femoral neck, left: PDMP PDMP Reviewed: Last Reviewed 10/31/24 17:57 by Saundra Melgoza MD Attestations 2 Medical Necessity Statement*: Patient is an with left femoral neck fracture and for repair today would need at least 2 more days in the hospital. Patient is also complicated with severe aortic stenosis and care management is important with cardiology on the case Coding Level of Care Code 25469 Diagnoses Closed subcapital fracture of left femur, initial encounter S72.012A Encounter type: initial encounter Fracture type: closed Left hip pain M25.552 Accident due to mechanical fall without injury W19.XXXA CHF (congestive heart failure) I50.9 Aortic stenosis I35.0 Fracture of femoral neck, left S72.002A Time Spent (min) 35
[2024-10-31] MEDS: ceFAZolin 1,000 mg SDV 1000 MG IRRIGATION (17:59)
--- NOTE | 2024-10-31 18:29 | PC.NURSE ---
Discussed ancef irrigation with Mic Trinh, pharmacist. Ok'd to use ancef in irrigation mixed with 1L normal saline.
--- NOTE | 2024-10-31 18:57 | PC.NURSE ---
185 - per hospitalist pt will go from OR to ICU
--- NOTE | 2024-10-31 19:26 | XRR_ITS ---
PROCEDURE INFORMATION: Exam: XR Pelvis Exam date and time: 10/31/2024 7:36 PM Age: 84 years old Clinical indication: Device placement; Other: Lt total hip; Prior surgery; Surgery date: Post-operative (0-2 days); Surgery type: Lt hip; Additional info: S/P bipolar hip arthroplasty, low ap pelvis TECHNIQUE: Imaging protocol: Radiologic exam of the pelvis. Views: 1 or 2 view. COMPARISON: CR XR pelvis 1-2V* [id number] 10/29/2024 9:44 AM FINDINGS: Bones/joints: Status post left hip arthroplasty with no immediate hardware complications. Soft tissues: Unremarkable. XR/XR pelvis 1-2V* [id number] IMPRESSION: Status post left hip arthroplasty with no immediate hardware complications.
--- NOTE | 2024-10-31 19:41 | PM.OP ---
Operative Report Date of procedure: October 31, 2024 Pre-op diagnosis: Left subcapital hip fracture Post-op diagnosis: Left subcapital hip fracture Post-op findings: Comminuted displaced subcapital hip fracture Procedure done: Left bipolar hip arthroplasty Implants: The [place] Insignia hip system with a size 5 standard offset hip stem, Insignia, with a 50 mm universal head bipolar component and a 28 mm +0 ceramic femoral head Specimens removed/disposition: Femoral head, disposed of Pathology: None sent Surgeon: Teresita Morris MD Historical Manuscripts Curator: [facility] operating room technicians Anesthesia: General (Intubated, ASA 4) Estimated blood loss (mL): 100 IV fluids (mL): 300 Urine output (mL): 100 Complications: None Findings: As above Condition: stable Disposition: ICU (Anesthesia and hospitalist decision for aggressive monitoring) Brief History: Diana Dewitt is a 84 year old female who presented to the emergency department after a fall at home. The patient was brought to the department by EMS, and she reported that she was outside trying to get a limb out of the way the area so she could mow it. She pulled on the limb, and it broke, and this caused her to fall onto her left hip. She was unable to move her leg. She was there with a network relations consultant who called 911[address] Goldman because of aortic stenosis but denies other medical problems. Patient was admitted to the hospital under the hospitalist team. Preoperatively, she had a cardiac consult and optimization. The decision was made to proceed with operative intervention. Discussion was undertaken with the patient. Procedure: The patient was brought to the operating theater, and after undergoing adequate general anesthesia, intubated, ASA 4 was transferred to the operating room table. The patient was placed in the full lateral position and held in place with the pegboard. Patient's left lower extremity was draped free and was subsequently prepped and further draped free. A surgical pause was performed prior to commencement of the surgical procedure. During the surgical pause, we confirmed the site and side of surgery as well as availability of equipment. Additionally, we confirmed preoperative surgical markings. X-rays are also reviewed during this time. Following the surgical pause, an incision was made centering over the greater trochanter continuing proximally and distally as necessary to allow access to the hip joint. Dissection continues to skin and soft tissue using scalpel. Incision was obtained using electrocautery. Tensor fascia ryan was identified and incised longitudinally. Sciatic nerve was identified and protected throughout the surgical procedure. A Charnley U retractor was placed with care being taken to protect the sciatic nerve during placement. The hip was internally rotated. Piriformis muscle was then identified, tagged, and subsequently incised from the posterior aspect of the hip joint. The remaining short external rotators were also incised. These were then elevated off the capsule and the capsule was entered in a T-type fashion. Each side of the capsule was then tagged. The proximal femur was brought into an appropriate position of the femoral neck osteotomy was accomplished. This was in appropriate position for placement of the prosthetic component. Femoral head was then removed from the acetabulum utilizing a corkscrew. It was subsequently measured. The appropriate size trial was chosen. This was a size 50 mm which fit nicel into the acetabulum and was felt to be appropriate. Femoral casket coverer was then placed and attention was directed to the proximal femur. Initially, the proximal femur was addressed with a box chisel, and this was followed by a canal finder and subsequently broaches. The hip was broached to a size 5 Insignia broach was noted to fit nicely and have good fit and fill. Therefore this was to be the chosen component. Trial reduction was accomplished with a 50 mm bipolar cup shell and a +0 mm neck length femoral head onto the size 5 Insignia standard broach. With this, the above-noted stabilities were accomplished. This was felt to be appropriate and therefore trial components were removed and the hip was irrigated. Acetabulum was evaluated for any loose bodies or other soft tissues requiring resection. We then prepared for implantation. The hip was stable at 90 degrees of flexion with 80 degrees of internal rotation and 30 degrees of adduction. It was also stable to external rotation and to toe hang. Implants were obtained as noted above. These were impacted into position uneventfully and the hip was reduced following placement of the femoral stem, head, and bipolar component. Following reduction, the hip was placed through a range of motion and found to be stable. Once again the hip was irrigated and suctioned dry and was reduced. We then irrigated the hip further with 20 mL of Betadine mixed into 500 mL of normal saline. This was allowed to remain in the wound for approximately 3 minutes. It was then suctioned dry and irrigated with normal saline. This was suctioned dry again and closure was accomplished with 0 Vicryl in the capsular tissues followed by reattachment of the piriformis with 0 Vicryl. Additionally, the tensor was closed with 0 Vicryl in an interrupted fashion. Subcutaneous tissues were closed with a combination of 0 Vicryl and 2-0 Monocryl STRATAFIX. Skin was closed with 3-0 Monocryl STRATAFIX. This was followed by Fareed Thompson. Patient was placed in an abduction pillow. The patient was returned the Recovery Room in satisfactory condition. There were no complications. The patient will be discharged to the floor for postoperative rehabilitation and pain management. Related Problem List Diagnoses 1. Closed subcapital fracture of left femur, initial encounter:
[2024-10-31] MEDS: chlorhexidine gluconate 0.12% Btl 473 mL 30 ML MUCOUS MEM (20:35)
[2024-10-31 21:10] LABS: Hematocrit 33.2 % (36-47); Hemoglobin 11.30 g/dL (11.27-16.99); Mean Corpuscular HGB Conc 34.0 g/dL (30-55); Mean Corpuscular Hemoglobin 31.0 pg (27-33); Mean Corpuscular Volume 91.0 fl (85-98); Nucleated Red Blood Cells % 0 %; Platelet Count 248 10^3/cmm (157-399); Red Blood Count 3.65 10^6/uL (3.85-5.65); White Blood Count 10.20 10^3/uL (3.29-11.43)
[2024-10-31 21:27] LABS: Alanine Aminotransferase 8 U/L (0-33); Albumin Level 3.8 g/dL (3.5-5.2); Alkaline Phosphatase 106 U/L (35-105); Anion Gap 18.0 (5-19); Aspartate Amino Transferase 27 U/L (0-32); Blood Urea Nitrogen 15 mg/dL (8-23); Calcium 8.5 mg/dL (8.5-10.5); Carbon Dioxide 24 mmol/L (22-29); Chloride 95 mmol/L (98-107); Creatinine Clr Calc Pharmacy 59.9587; Globulin 3.1 g/dL (1.3-4.6); Glucose 166 mg/dL (65-115); Osmolality Calculated 281 mOsm/kg (285-295); Potassium 4.0 mmol/L (3.5-5.1); Sodium 133 mmol/L (136-145); Total Protein 6.9 g/dL (6.6-8.7)
[2024-10-31] MEDS: FUROsemide 10 mg/mL SDV 4mL 40 MG IVP (22:21)
--- NOTE | 2024-10-31 23:27 | PC.NURSE ---
Per Dr Delgado, use patient's cuff pressures for monitoring purposes.
[2024-10-31] MEDS: tranexamic acid 1,000 MG/100 ML PREMIX 600 MG IV (23:44)
[2024-11-01] VITALS (30 sets, daily range): BP systolic 94–127; BP diastolic 46–78; PULSE 77–99; RESP 10–29; TEMP -13.2–36.5; O2SAT 88–99
[2024-11-01 04:53] LABS: Hematocrit 30.8 % (36-47); Hemoglobin 10.40 g/dL (11.27-16.99); Mean Corpuscular HGB Conc 33.8 g/dL (30-55); Mean Corpuscular Hemoglobin 30.2 pg (27-33); Mean Corpuscular Volume 89.5 fl (85-98); Nucleated Red Blood Cells % 0 %; Platelet Count 237 10^3/cmm (157-399); Red Blood Count 3.44 10^6/uL (3.85-5.65); White Blood Count 6.55 10^3/uL (3.29-11.43)
[2024-11-01 05:22] LABS: Anion Gap 17.8 (5-19); Blood Urea Nitrogen 20 mg/dL (8-23); Calcium 8.4 mg/dL (8.5-10.5); Carbon Dioxide 25 mmol/L (22-29); Chloride 98 mmol/L (98-107); Creatinine Clr Calc Pharmacy 59.9587; Glucose 179 mg/dL (65-115); Osmolality Calculated 291 mOsm/kg (285-295); Potassium 3.8 mmol/L (3.5-5.1); Sodium 137 mmol/L (136-145)
[2024-11-01 05:26] LABS: Magnesium 1.9 mg/dL (1.7-2.3)
[2024-11-01] MEDS: acetaminophen 1,000 MG/100 ML PIGGYBACK 400 MG IV ×2 (08:17→16:33)
[2024-11-01] MEDS: mupirocin oint 22 gm 1 APPLIC NASAL ×2 (08:19→17:56)
[2024-11-01] MEDS: chlorhexidine gluconate 0.12% Btl 473 mL 30 ML MUCOUS MEM ×4 (08:20→21:39)
[2024-11-01] MEDS: sennosides-docusate Tablet 2 TAB PO ×2 (08:21→17:56)
[2024-11-01] MEDS: multivitamin therapeutic Tablet 1 TAB PO (08:22)
--- NOTE | 2024-11-01 08:30 | P.PN_ITS ---
<Statement entered by Darrius Turner M.D - 11/04/24 11:02> Patient was cared for in conjunction with an advanced practice practitioner.? I reviewed the chart and all pertinent data including imaging, telemetry, and laboratory results.? I discussed the patient in detail with the advanced practice practitioner.? Please see?their note for progress note, testing results and agreed upon plan of care for the patient. Subjective 2 Subjective: She underwent arthroplasty of the left hip yesterday. She has done well overnight, sitting up in the chair this morning. No chest pain or shortness of breath. Vitals/I&O/Wt Last Vital Signs Temp 8.2 F L 11/01/24 07:30 Pulse 93 11/01/24 14:00 Resp 26 H 11/01/24 12:15 BP 106/63 11/01/24 12:15 Pulse Ox 97 11/01/24 12:15 O2 Del Method Room Air 11/01/24 12:15 O2 Flow Rate 2 11/01/24 08:00 FiO2 40 10/30/24 03:45 11/01/24 11/01/24 11/01/24 06:59 14:59 22:59 Intake Total 200 / 1123.5 1150 / 1150 Output Total 825 / 925 Balance -625 / 198.5 1150 / 1150 Weight last 48 hrs Weight 180 lb 12.465 oz Weight 190 lb Physical Exam 2 Const: COMMON NORMALS: no acute distress and patient oriented x3 GENERAL APPEARANCE: cooperative and comfortable ORIENTATION/CONSCIOUSNESS: Yes awake, Yes oriented to person, Yes oriented to place and Yes oriented to time Chest: COMMONS NORMALS: normal inspection of the chest and normal palpation of entire chest wall CHEST: Yes Symmetrical chest wall rise Resp: COMMON NORMALS: normal respiratory effort, No retractions, No use of accessory muscles and clear to auscultation bilaterally EFFORT & INSPECTION: Yes symmetric chest movement AUSCULTATION: clear to auscultation bilaterally Cardio: COMMON NORMALS: regular rate, regular rhythm, S1 normal heart sound present, S2 normal heart sound present, No gallops present (Cardio), No clicks present (Cardio), No murmurs present (Cardio) and No rub (Cardio) RATE: r egular rate RHYTHM: regular rhythm HEART SOUNDS: S1 normal heart sound present and S2 normal heart sound present PERIPHERAL PULSES: radial pulses present Extremity: COMMON NORMALS: no pedal edema Neuro: COMMON NORMALS: patient oriented x3 and moves all extremities S ENSORIUM/ORIENTATION: Yes oriented to person, Yes oriented to place and Yes oriented to time Urinary Catheter Management: Stearns: Cath Placed During This Visit: yes Reason for Continuing Indwelling Catheter: Accurate Measurement of Urinary Output in Critically Ill Patients Urinary Catheter Date of Insertion: 10/31/24 Data 11/01/24 03:36 11/01/24 03:36 A&P Assessment and plan 1. Aortic insufficiency with aortic stenosis: 2. Mitral stenosis: 3. Benign essential HTN: 4. CHF (congestive heart failure): 5. Fracture of femoral neck, left: Plan: She appears euvolemic, blood pressures are well-controlled, stable from a cardiovascular perspective. We will sign off. PDMP PDMP Reviewed: Not Reviewed Attestations 2 Medical Necessity Statement*: per primary team Coding Level of Care Code Acute Code for [facility] Fwd Diagnoses Aortic insufficiency with aortic stenosis I35.2 Mitral stenosis I05.0 Benign essential HTN I10 CHF (congestive heart failure) I50.9 Fracture of femoral neck, left S72.002A
--- NOTE | 2024-11-01 09:55 | PC.SOCIAL ---
IMM Updated Updated pt on IMM. No questions voiced. Provided pt a copy. Initialed, dated, & timed a copy & placed in chart.
--- NOTE | 2024-11-01 13:46 | P.PN_ITS ---
Subjective 2 Subjective: Patient is seen in her room in the ICU. She is awake alert and oriented. She denies pain. She has been working with physical therapy. Medications: Reviewed: Yes Vitals/I&O/Wt Last Vital Signs Temp 8.2 F L 11/01/24 07:30 Pulse 89 11/01/24 12:15 Resp 26 H 11/01/24 12:15 BP 106/63 11/01/24 12:15 Pulse Ox 97 11/01/24 12:15 O2 Del Method Room Air 11/01/24 12:15 O2 Flow Rate 2 11/01/24 08:00 FiO2 40 10/30/24 03:45 10/31/24 11/01/24 11/01/24 22:59 06:59 14:59 Intake Total 923.5 / 923.5 200 / 1123.5 1150 / 1150 Output Total 100 / 100 825 / 925 Balance 823.5 / 823.5 -625 / 198.5 1150 / 1150 Weight last 48 hrs Weight 180 lb 12.465 oz Weight 190 lb Physical Exam 2 Const: COMMON NORMALS: no acute distress, average body habitus, patient oriented x3 and alert GENERAL APPEARANCE: cooperative and comfortable O RIENTATION/CONSCIOUSNESS: Yes awake HENMT: COMMON NORMALS: normocephalic and atraumatic HEAD & SCALP: n ormocephalic and atraumatic Eye: GENERAL EYE: appearance normal, both eyes and all related structures Chest: COMMONS NORMALS: normal inspection of the chest Resp: COMMON NORMALS: normal respiratory effort EFFORT & INSPECTION: Yes able to speak in complete sentences and Yes symmetric chest movement Extremity: LEFT LOWER EXTREMITY: Yes hip joint (Dressing is dry and intact) Left hip: Yes inspection (No swelling or ecchymosis), Yes palpation (No significant tenderness), Yes ROM (Not evaluated) and Yes neurovascular exam (Intact distally) Neuro: COMMON NORMALS: patient oriented x3 SENSORIUM/ORIENTATION: Yes alert Psych: COMMON NORMALS: mental status grossly normal APPEARANCE: Yes grossly normal ATTITUDE: Yes calm and Yes engaged ATTENTION/CONCENTRATION: Yes attention grossly intact Skin: COMMON NORMALS: no rashes or lesions noted GENERAL SKIN EXAM: no rashes or lesions noted Urinary Catheter Management: Stearns: Cath Placed During This Visit: yes Reason for Continuing Indwelling Catheter: Accurate Measurement of Urinary Output in Critically Ill Patients Urinary Catheter Date of Insertion: 10/31/24 Data 11/01/24 03:36 11/01/24 03:36 A&P Assessment and plan 1. Closed subcapital fracture of left femur, initial encounter: Patient is seen in the ICU following left bipolar hip arthroplasty for closed subcapital displaced hip fracture. She is alert and oriented in the intensive care unit. She is doing well. She has been up to a chair and working with physical therapy. She had an arterial line for monitoring intraoperatively, and this has been discontinued. Plans are being made for her discharge to [facility] and she will likely spend a couple of weeks there rehabilitating to give her optimal recovery potential. From an orthopedic perspective, she is ready for discharge to [facility] when medically appropriate. PDMP PDMP Reviewed: Not Reviewed Attestations 2 Medical Necessity Statement*: Per hospitalist team. Coding Level of Care Code Acute Code for [facility] Fwd Diagnoses Closed subcapital fracture of left femur, initial encounter S72.012A Encounter type: initial encounter Fracture type: closed
--- NOTE | 2024-11-01 19:28 | PC.NURSE ---
shift summary: Pt did very well today. She got out of bed for breakfast to chair. She was up to use BSC and with PT this am. She went back to bed during quiet time. She was back up to chair again for dinner. She has only mentioned pain during the first transfer. She has followed all hip precautions. She has not requested or accepted offers for PRN pain meds. She has had a great appetite , eating all of her meals. Urinary outout of 450 ml noted this shift. BM noted today. VSS. Sinus rhtyhm noted on monitor.
[2024-11-01] MEDS: FUROsemide 10 mg/mL SDV 4mL 40 MG IVP (21:38)
[2024-11-02] VITALS (31 sets, daily range): BP systolic 92–120; BP diastolic 45–73; PULSE 69–98; RESP 14–29; TEMP 36.5–36.6; O2SAT 94–100
--- NOTE | 2024-11-02 00:09 | PC.NURSE ---
Harvey Catheter Order to remove harvey catheter in place. 40 mg lasix due administered at 2137. Order received from Dr. Delgado to leave catheter in until tomorrow.
[2024-11-02] MEDS: multivitamin therapeutic Tablet 1 TAB PO (09:04)
[2024-11-02] MEDS: sennosides-docusate Tablet 2 TAB PO (09:05)
[2024-11-02] MEDS: chlorhexidine gluconate 0.12% Btl 473 mL 30 ML MUCOUS MEM (09:05)
[2024-11-02] MEDS: mupirocin oint 22 gm 1 APPLIC NASAL (09:07)
--- NOTE | 2024-11-02 12:41 | P.DS_ITS ---
Discharge Providers Date of Admission: 10/29/24 11:52 Date of Discharge: November 02, 2024 Attending Provider at Admission: Saundra Melgoza MD Attending Provider at Discharge: Saundra Melgoza MD Consults: Orthopedics Primary Care Provider: Jose C Back MD Diagnoses at Discharge Discharge Diagnosis 1. Nonrheumatic aortic insufficiency with aortic stenosis: 2. Mitral stenosis: 3. Benign essential HTN: 4. CHF (congestive heart failure): 5. Fracture of femoral neck, left: Reason for Visit Reason for Visit: left hip pain s/p fall Hospital Course Hospital Course Diana Dewitt is a 84 year old female who is basically very healthy and had just sustained a mechanical fall to the left hip fracturing the femoral neck. Patient was brought to the emergency room for care and optimization. She had been in excruciating pain. Emergency room doctor had called the orthopedics who will be following through with repair of the fractured lip. Orthopedics will like to have the patient admitted by the hospitalist and we will plan on doing a repair of the left hip fracture in another day or 2. Patient was not going to be going for surgery today. And tomorrow is a possibility but not very clear. Patient does have moderate aortic stenosis with near valve area of 1.1. Patient also was noted to have pulmonary vascular congestion at presentation labeled as CHF but no symptomatology no complaints of chest pain no shortness of breath. I have discussed patient with Dr. Taylor today because I would like cardiology to be on the case on a patient who is going to be undergoing surgical procedure and with a moderate aortic stenosis with a valve area of 1.1. And this valve area was from 2 months ago. Another echocardiogram done on the orion of the surgery showed even worse valve area of 0.84. Cardiology recommended surgery be under hemodynamic monitoring and following through with actually having patient in ICU after surgery all the patient could be transferred wherever she can get this criteria met. Lengthy discussion done between me and anesthesia finally anesthesia took the patient and the patient had intraoperative GOYO during the surgery. The team we assume meticulous and I am very grateful for the anesthesia team. Patient did remarkably well postoperatively. Patient had an A-line with monitoring overnight in ICU and did remarkably well the following morning which was yesterday morning patient was already out of bed before 7 AM on rounds had bowel movement and awaiting physical therapy to walker less than 24 hours after surgery. Patient also ambulated today with physical therapy and had done remarkably well. The prior authorization had come through for discharge of the patient. Discharge order has been placed on the awaiting orthopedics input for an agreement or disagreement for [facility] OT. Patient to follow-up with orthopedics per any length of time okay with the orthopedics and also postop medication concerning hip repair will be also be recommended by the orthopedics. Patient already on full aspirin. Physical Exam Narrative: Generally patient looks well very alert awake very happy and doing okay. HEENT normocephalic atraumatic neck neck is supple cardiovascular heart is regular lungs are pretty much clear abdomen soft nontender nondistended unremarkable extremities are intact no edema has good pulses neurology has no focality lab studies lab studies reviewed and noted. Urinary Catheter Management: Stearns: Cath Placed During This Visit: yes Reason for Continuing Indwelling Catheter: Accurate Measurement of Urinary Output in Critically Ill Patients Urinary Catheter Date of Insertion: 10/31/24 Discharge Data Studies Completed and Pending Completed Studies During Hospitalization Category Date Time Status CXRP [XR chest 1V portable [id number]] Routine Exams 10/30/24 16:15 Completed CXRP [XR chest 1V portable [id number]] Stat Exams 10/30/24 02:30 Completed XR chest 1V portable [id number] Stat Exams 10/29/24 09:28 Completed XR femur LT min 2V* [id number] Stat Exams 10/29/24 09:28 Completed XR pelvis 1-2V* [id number] Stat Exams 10/29/24 09:28 Completed XR pelvis 1-2V* [id number] Urgent Exams 10/31/24 19:26 Completed CV. echo lmt w color Routine Ultrasound 10/30/24 12:54 Completed Pending at discharge Category Date Time Status SARS Covid-2 Antigen Routine Lab 11/02/24 11:42 Uncollected Radiology Impressions Femur X-Ray 10/29/24 09:28 IMPRESSION: As above Chest X-Ray 10/30/24 16:15 IMPRESSION: Persistent diffuse interstitial pulmonary edema, not significantly changed. Pelvis X-Ray 10/31/24 19:26 IMPRESSION: Status post left hip arthroplasty with no immediate hardware complications. Laboratory Results WBC 6.55 10^3/uL (3.29-11.43) 11/01/24 03:36 RBC 3.44 10^6/uL (3.85-5.65) L 11/01/24 03:36 Hgb 10.40 g/dL (11.27-16.99) L 11/01/24 03:36 Hct 30.8 % (36-47) L 11/01/24 03:36 MCV 89.5 fl (85-98) 11/01/24 03:36 MCH 30.2 pg (27-33) 11/01/24 03:36 MCHC 33.8 g/dL (30-55) 11/01/24 03:36 RDW 12.2 % (12.1-15.1) 11/01/24 03:36 Plt Count 237 10^3/cmm (157-399) 11/01/24 03:36 MPV 9.4 fL (7.4-10.4) 11/01/24 03:36 Neut % (Auto) 90.2 % 11/01/24 03:36 Lymph % (Auto) 5.0 % 11/01/24 03:36 [place] % (Auto) 4.1 % 11/01/24 03:36 Eos % (Auto) 0.2 % 11/01/24 03:36 Baso % (Auto) 0.2 % 11/01/24 03:36 Neut # (Auto) 5.91 10^3/uL (1.8-7.7) 11/01/24 03:36 Lymph # (Auto) 0.3 10^3/uL (0.8-4.8) L 11/01/24 03:36 [place] # (Auto) 0.3 10^3/uL (0.2-0.9) 11/01/24 03:36 Eos # (Auto) 0.0 10^3/uL (0.0-0.8) 11/01/24 03:36 Baso # (Auto) 0.0 10^3/uL (0.0-0.1) 11/01/24 03:36 Nucleated RBC % (auto) 0 % 11/01/24 03:36 Nucleated RBCs # 0.0 /100WBC 11/01/24 03:36 PT 14.70 SECONDS (12.1-14.9) 10/29/24 10:02 INR 1.07 (0.8-1.2) 10/29/24 10:02 APTT 32.8 SECONDS (23.9-36.7) 10/29/24 10:02 Sodium 137 mmol/L (136-145) 11/01/24 03:36 Potassium 3.8 mmol/L (3.5-5.1) 11/01/24 03:36 Chloride 98 mmol/L (98-107) 11/01/24 03:36 Carbon Dioxide 25 mmol/L (22-29) 11/01/24 03:36 Anion Gap 17.8 (5-19) 11/01/24 03:36 BUN 20 mg/dL (8-23) 11/01/24 03:36 Creatinine 0.6 mg/dL (0.5-0.9) 11/01/24 03:36 GFR Calculation Not Reportable 11/01/24 03:36 Glucose 179 mg/dL (65-115) H 11/01/24 03:36 Calculated Osmolality 291 mOsm/kg (285-295) 11/01/24 03:36 Calcium 8.4 mg/dL (8.5-10.5) L 11/01/24 03:36 Magnesium 1.9 mg/dL (1.7-2.3) 11/01/24 03:36 Total Bilirubin 1.7 mg/dL (0.15-1.2) H 10/31/24 20:48 AST 27 U/L (0-32) 10/31/24 20:48 ALT 8 U/L (0-33) 10/31/24 20:48 Alkaline Phosphatase 106 U/L (35-105) H 10/31/24 20:48 Troponin T Baseline 8 ng/L (0-10) 10/30/24 02:40 Troponin T 120 Minute 13.80 ng/L (0-10) H 10/30/24 04:38 Delta Troponin T 5.80 ABS# (0-10) 10/30/24 04:38 Troponin T Hi Sens 6Hr 13.97 ng/L (0-10) H 10/30/24 08:40 Troponin T Hi Sens 6Hr Delta 5.97 ng/L (0-12) 10/30/24 08:40 NT-Pro-B Natriuret Pep 1064 pg/mL (0-450) H 10/29/24 10:02 Total Protein 6.9 g/dL (6.6-8.7) 10/31/24 20:48 Albumin 3.8 g/dL (3.5-5.2) 10/31/24 20:48 Globulin 3.1 g/dL (1.3-4.6) 10/31/24 20:48 Blood Type O Positive 10/29/24 10:02 Rho(D) Type Rh positive 10/29/24 10:02 Antibody Screen Negative 10/29/24 10:02 Vitals Last Vital Signs Temp 97.8 F 11/02/24 04:30 Pulse 94 11/02/24 10:00 Resp 29 H 11/02/24 10:00 BP 120/46 11/02/24 10:00 Pulse Ox 94 11/02/24 10:00 O2 Del Method Room Air 11/02/24 07:55 O2 Flow Rate 2 11/02/24 04:30 FiO2 40 10/30/24 03:45 Discharge Plan Discharge Patient Disposition: Home Condition: Stable Prescriptions: New acetaminophen 500 mg Tablet 1,000 mg PO Q8H Qty: 90 0RF aspirin 325 mg Tablet,Delayed Release (Dr/Ec) 325 mg PO DAILY Qty: 30 0RF calcium carbonate 200 mg calcium (500 mg) Tablet,Chewable 1,000 mg PO BID Qty: 30 0RF acetaminophen 325 mg Tablet 650 mg PO Q4H PRN (Reason: Mild Pain Or Increase Temp) Qty: 30 0RF cholecalciferol (vitamin D3) 25 mcg (1,000 unit) Tablet 1,000 unit PO DAILY Qty: 30 0RF polysaccharide iron complex [Ferrex 150] 150 mg iron Capsule 150 mg PO BIDWM Qty: 60 0RF multivitamin with folic acid [Thera] 400 mcg Tablet 1 tab PO DAILY Qty: 30 0RF sennosides-docusate sodium [Stool Softener-Laxative] 8.6-50 mg Tablet 2 tab PO BID Qty: 60 0RF Continued ketoconazole 2 % cream 1 applic topical BID Qty: 30 3RF Rx Instructions: Apply to affected areas in skin folds x3 weeks then prn for flares (DME) ASO to the right See Rx Instructions .Route .MEDSUPPLY Qty: 1 0RF Rx Instructions: As directed levothyroxine 75 mcg tablet 75 mcg PO QAM isosorbide mononitrate 30 mg tablet extended release 24 hr 30 mg PO DAILY Qty: 90 3RF furosemide [Lasix] 20 mg tablet 20 mg PO DAILY Qty: 90 3RF potassium chloride 8 mEq tablet extended release 8 meq PO DAILY Qty: 90 2RF amlodipine 2.5 mg tablet 2.5 mg PO BID Qty: 90 0RF loratadine 10 mg Capsule 10 mg PO DAILY pantoprazole [Protonix] 40 mg Tablet,Delayed Release (Dr/Ec) 40 mg PO DAILY fluoxetine 20 mg capsule 20 mg PO DAILY levalbuterol tartrate 45 mcg/actuation HFA aerosol inhaler 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 Posterior hip precautions. You may shower, and get the dressing wet, but do not submerge your hip in water. Discharge Attestations Time Spent in Discharge Care*: less than 30 min Quality Metrics Clinical Quality Measures [ No reported AMI, CVA or VTE this stay] Coding Level of Care Code Acute Code for Chg Fwd Diagnoses Nonrheumatic aortic insufficiency with aortic stenosis I35.2 Cardiac valve disease etiology: nonrheumatic Mitral stenosis I05.0 Benign essential HTN I10 CHF (congestive heart failure) I50.9 Fracture of femoral neck, left S72.002A
[2024-11-02 15:03] LABS: SARS Covid-2 Antigen Negative (Negative)
--- NOTE | 2024-11-02 15:03 | PC.NURSE ---
Report called to zeeshan Greco RN, patient out of facility with [facility]
--- NOTE | 2024-11-02 15:10 | PC.NURSE ---
unable to get ahold of daughter to notify of transfer
== END 2024-11-02 15:12 | disposition skilled nursing facility (03) | DRG 521 ==
LOC: ER 09:50 → ER IP 13:47 → MEDSURG 19:38 → ICU 10-31 19:13
PROVIDERS: Anesthesiology; Internal Medicine; Specialist; Admitting Provider Internal Medicine; Emergency Provider Emergency Medicine; PCP Family Medicine; Visit Provider Internal Medicine
PROC: 0SRB03A Replacement of Left Hip Joint with Ceramic Synthetic Substitute, Uncemented, Open Approach (ICD-10-PCS; principal; 2024-10-31 15:20)
DX: S72.012A Unspecified intracapsular fracture of left femur, initial encounter for closed fracture (principal); I50.33 Acute on chronic diastolic (congestive) heart failure; I11.0 Hypertensive heart disease with heart failure; I08.0 Rheumatic disorders of both mitral and aortic valves; K21.9 Gastro-esophageal reflux disease without esophagitis; E03.9 Hypothyroidism, unspecified; Z88.3 Allergy status to other anti-infective agents; Z88.0 Allergy status to penicillin; Z88.2 Allergy status to sulfonamides; Z88.8 Allergy status to other drugs, medicaments and biological substances; Z79.899 Other long term (current) drug therapy; Z79.890 Hormone replacement therapy; Z87.891 Personal history of nicotine dependence; Z85.828 Personal history of other malignant neoplasm of skin; Z90.710 Acquired absence of both cervix and uterus; Z83.3 Family history of diabetes mellitus; Z82.49 Family history of ischemic heart disease and other diseases of the circulatory system; Z11.52 Encounter for screening for COVID-19; Z88.1 Allergy status to other antibiotic agents; W19.XXXA Unspecified fall, initial encounter; Y93.H2 Activity, gardening and landscaping; Y92.007 Garden or yard of unspecified non-institutional (private) residence as the place of occurrence of the external cause
CPT/HCPCS: 36415; 51702; 71045; 72170; 73552; 80048; 80053; 83735; 83880; 84484; 85025; 85610; 85730; 86850; 86900; 87426; 93005; 93308; 93325; 94660; 96374; 96375; 96376; 97116; 97161; 97167; 99285; A4216; C1776; J0131; J0666; J0690; J1100; J1885; J1938; J2270; J3010; J3373; J3490; J7030; J7050; J9999; P9045

== ENCOUNTER → 2024-11-17 11:10 | Outpatient (BNVA) | payer MEDICARE, SELFPAY | PROVIDERS: PCP Family Medicine; Visit Provider Nurse Practitioner | DX: Z98.890 Other specified postprocedural states (principal); Z96.642 Presence of left artificial hip joint | CPT/HCPCS: 73502; 99024 ==

== ENCOUNTER → 2024-12-15 11:39 | Outpatient (BNVA) | payer MEDICARE, SELFPAY | PROVIDERS: PCP Family Medicine; Visit Provider Nurse Practitioner | DX: Z98.890 Other specified postprocedural states (principal); Z96.642 Presence of left artificial hip joint | CPT/HCPCS: 73502; 99024 ==

== ENCOUNTER 2024-12-27 10:38 | Emergency (ER) | payer MEDICARE, SELFPAY ==
[2024-12-27] VITALS (7 sets, daily range): BP systolic 102–127; BP diastolic 64–85; PULSE 87–98; RESP 14–21; TEMP 36.6; O2SAT 90–96
--- OUTSIDE RECORDS SUMMARY | 2024-12-27 10:43 | XMS_ITS | Patient Health Record ---
Author Organization [facility] Address [address] [place] [address] Care Team Providers Care Embossing Toolsetter Name Role Phone Asa Rodriguez Primary Care [...] Status Risk Notes Problem Lower abdominal pain (53916504) Lower abdominal pain (R10.30) Active confirmed Problem Obstipation (598817126) Obstipation (K59.00) Active confirmed Problem Constipation (37595792) Chronic constipation with overflow incontinence (K59.09) Active confirmed Plan Of Treatment No Information Insurance Providers Payer Name Payer Address Payer Phone Subscriber Number Group Number Insured Name Patient Relationship to Insured Coverage Start Date Coverage End Date [facility] [employer] [address] [address] [place] [address] [id number] Diana Dewitt Self - patient is the insured [place] Medicare [address] [place] [phone] [id number] Diana Dewitt Self - patient is the insured Medical (General) History Medical History History ICD Code Anxiety F41.9 GERD (gastroesophageal reflux disease) K 21.9 Hypothyroid E03.9 Amira infection B37.9 Surgical History Surgery Date(Month/Year) both feet hysterectomy caterak surgery tonsilectomy Hospitalization History Reason Date(Month/Year) see surgical hx
--- NOTE | 2024-12-27 12:32 | ECG_ITS ---
[email or web address]: 2024-12-27 Pat Name: Diana Dewitt Department: Room: Gender: Female Pals Specialist: : 1940 Requested By: Trevor Back Order Number: [id number] Leila MD: Vasu Goldman M.D. Measurements Intervals [place] Rate: 96 P: 67 UT: 148 QRS: 63 QRSD: 82 T: 64 QT: 357 QTc: 453 Interpretive Statements SINUS RHYTHM WITH OCCASIONAL SUPRAVENTRICULAR PREMATURE COMPLEXES INTERPRETATION BASED ON A DEFAULT AGE OF 40 YEARS Compared to ECG 10/30/2024 08:48:23 ST (T wave) deviation no longer present Electronically Signed On 12-27-2024 13:40:12 CDT by Vasu Goldman M.D. [email or web address]
--- NOTE | 2024-12-27 12:32 | XRR_ITS ---
PROCEDURE INFORMATION: Exam: XR Chest Exam date and time: 12/27/2024 12:37 PM Age: 84 years old Clinical indication: Cardiovascular condition or disease; Congestive heart failure (chf); Cause unknown; Type unknown; Additional info: Chest pain, HX chf TECHNIQUE: Imaging protocol: Radiologic exam of the chest. Views: 1 view. COMPARISON: CR XR chest 1V portable [id number] 10/30/2024 4:34 PM FINDINGS: Lungs: Mild degree of diffuse pulmonary interstitial thickening is present, improved since the prior exam. No focal infiltrate or consolidation. Pleural spaces: Unremarkable. No pleural effusion. No pneumothorax. Heart/Mediastinum: Unremarkable. No cardiomegaly. Bones/joints: Unremarkable. XR/XR chest 1V portable [id number] IMPRESSION: Interval improvement in previously seen interstitial thickening, most likely representing improving pulmonary edema.
[2024-12-27 12:42] LABS: Hematocrit 33.5 % (36-47); Hemoglobin 11.20 g/dL (11.27-16.99); Mean Corpuscular HGB Conc 33.4 g/dL (30-55); Mean Corpuscular Hemoglobin 30.4 pg (27-33); Mean Corpuscular Volume 91.0 fl (85-98); Nucleated Red Blood Cells % 0 %; Platelet Count 381 10^3/cmm (157-399); Red Blood Count 3.68 10^6/uL (3.85-5.65); White Blood Count 5.86 10^3/uL (3.29-11.43)
[2024-12-27 12:57] LABS: INR 1.08 (0.8-1.2); Partial Thromboplastin Time 33.9 SECONDS (23.9-36.7); Prothrombin Time 14.80 SECONDS (12.1-14.9)
[2024-12-27 13:08] LABS: Troponin(5th) Baseline 12 ng/L (0-10)
[2024-12-27] MEDS: alum-mag-hydroxide-sime 30 mL UDC PO (13:08)
[2024-12-27 13:11] LABS: Alanine Aminotransferase 12 U/L (0-33); Albumin Level 4.1 g/dL (3.5-5.2); Alkaline Phosphatase 96 U/L (35-105); Anion Gap 15.2 (5-19); Aspartate Amino Transferase 22 U/L (0-32); Blood Urea Nitrogen 8 mg/dL (8-23); Calcium 9.1 mg/dL (8.5-10.5); Carbon Dioxide 26 mmol/L (22-29); Chloride 98 mmol/L (98-107); Creatinine Clr Calc Pharmacy 59.1823; Globulin 3.0 g/dL (1.3-4.6); Glucose 106 mg/dL (65-115); NT Pro B Type Natriuretic Pept 779 pg/mL (0-450); Osmolality Calculated 279 mOsm/kg (285-295); Potassium 4.2 mmol/L (3.5-5.1); Sodium 135 mmol/L (136-145); Total Protein 7.1 g/dL (6.6-8.7)
--- NOTE | 2024-12-27 13:18 | W.ED.CHESTPA ---
HPI - Chest Pain General: Chief Complaint: Chest Pain Stated Complaint: sob, chest discomfort Time Seen by Provider: 12/27/24 12:30 History of Present Illness: 84-year-old female history of hypertension, severe aortic stenosis not intervened on being followed with Dr. Goldman of cardiology, presenting to the emergency department with nonspecific weakness and intermittent lightheaded dizziness upon standing over the last few weeks, reports that she has had episodes of low blood pressure after taking her prescribed antihypertensive but after discussion with Dr. Goldman over the phone reports it appears that she was taking a as needed antihypertensive on a scheduled basis although unclear from medical home meds list which medication this might be, she does have a prescription for amlodipine twice daily and no other obvious antihypertensives on her current list. She denies active chest pain but reports over the last couple weeks she has had some intermittent substernal chest discomfort and epigastric discomfort associated with increased belching, reports that the symptoms markedly improved when she is able to belch, reports that she was on previously after recovery from her hip fracture in the rehab facility a weight tablet designed for her stomach which helped the symptoms but that she did not think she would need them at home and is not taking it any longer. She denies shortness of breath on exertion or at rest, denies fever, denies cough, denies leg swelling or calf tenderness but does endorse a weight gain, although per flowsheet review appears that she was 89 kg on the fifth and is now down to 84 kg today Related Data Home Medications ?Medication ?Instructions ?Recorded ?Confirmed loratadine 10 mg capsule 10 mg PO DAILY 12/24/22 12/27/24 pantoprazole 40 mg tablet,delayed 40 mg PO DAILY 12/24/22 12/27/24 release (Protonix) levothyroxine 75 mcg tablet 75 mcg PO QAM 07/05/24 12/27/24 fluoxetine 20 mg capsule 20 mg PO DAILY 10/29/24 12/27/24 levalbuterol tartrate 45 2 puff inhalation Q6H PRN 10/29/24 12/27/24 mcg/actuation aerosol inhaler Shortness Of Breath acetaminophen 500 mg tablet 1,000 mg PO Q8H PRN Pain 12/27/24 12/27/24 ondansetron HCl 4 mg tablet 4 mg PO Q4H PRN Nausea 09/17/25 09/17/25 Previous Rx's ?Medication ?Instructions ?Recorded ketoconazole 2 % topical cream 1 applic topical BID #30 grams 11/06/21 ASO to the right #1 ea 11/23/22 furosemide 20 mg tablet (Lasix) 20 mg PO DAILY #90 tabs 06/01/24 isosorbide mononitrate 30 mg 30 mg PO DAILY #90 tabs 06/01/24 tablet,extended release 24 hr potassium chloride 8 mEq 8 meq PO DAILY #90 tabs 06/20/24 tablet,extended release amlodipine 2.5 mg tablet 2.5 mg PO BID #90 tabs 10/30/24 calcium carbonate 1,000 mg (5 x 200 mg calcium (500 11/02/24 mg)) PO BID #30 tabs multivitamin with folic acid 400 1 tab PO DAILY #30 tabs 11/02/24 mcg tablet (Thera) polysaccharide iron complex 150 mg 150 mg PO BIDWM #60 caps 11/02/24 iron capsule (Ferrex) sennosides 8.6 mg-docusate sodium 2 tab PO BID #60 tabs 11/02/24 50 mg tablet (Stool Softener-Laxative) Shower chair #1 ea 11/17/24 Standard Walker #1 ea 11/17/24 pantoprazole 40 mg tablet,delayed 40 mg PO DAILY 4 weeks #30 tabs 12/27/24 release Allergies Allergy/AdvReac Type Severity Reaction Status Date / Time albuterol Allergy ADR/ALGY-Pa Verified 12/27/24 10:50 lpitations cefaclor (From Ceclor) Allergy ALGY-Difficulty Verified 12/27/24 10:50 Breathing nitrofurantoin (From Allergy ADR-Irritab Verified 12/27/24 10:50 Macrobid) le Sulfa (Sulfonamide Allergy ADR-Agitate Verified 12/27/24 10:50 Antibiotics) d Penicillins AdvReac Intermediate Shakes and Verified 12/27/24 10:50 chills PFSH ED PFSH: Medical History History of partial replacement of left hip joint using bipolar prosthesis Date of surgery: October 31, 2024 Surgery: Left bipolar hip arthroplasty. Surgeon: Dr. Teresita Morris MD Anxiety Former smoker History of nonmelanoma skin cancer Mitral stenosis TTE 12/24/22: mild Aortic insufficiency with aortic stenosis GERD (gastroesophageal reflux disease) Amira infection Hypothyroid Surgical History Hx of tonsillectomy History of bunionectomy History of hysterectomy Family History Father No problems noted. Family/Other Diabetes Chronic kidney disease (CKD) Bleeding disorder Aunt CAD (coronary artery disease) Aunt - heart valve x 2 Cancer Dementia Grandfather Dementia Mother Cancer Lung disease Denies family history of Clotting disorder Suicide Anesthesia complication Stroke Social History Smoking and tobacco/nicotine status: former use of tobacco/nicotine Second hand smoke exposure: No Alcohol intake: never Substance/Drug Use: never Adopted: No Caregiver/support person: No Lives independently: Yes Household members: spouse Housing: House Marital status: Number of children: 0 service: No Physical Exam Narrative: EXAM NARRATIVE: Gen: A&Ox4, no acute distress, nontoxic appearing HEENT: Normocephalic, atraumatic, no scleral icterus, external ears normal, moist mucous membranes Neck: Supple, full range of motion, no observable masses Lungs: No Respiratory distress, Lungs clear to auscultation bilaterally no rales, rhonchi, wheezing CV: normal rate and irregular rhythm, no murmur, no pitting edema to lower extremities bilaterally Abdomen: Soft, nondistended, nontender to palpation MSK: No joint swelling, FROM all 4 extremities Skin: No rashes, petechiae, lesions. Normal color per patient. Neuro: Alert and oriented, no slurred speech, sensation and strength grossly intact all 4 extremities Psych: Appropriate for situation. Course Reevaluation(s): Reevaluation #1: Patient with some improvement in her symptoms, currently ambulating with steady gait, hemodynamically stable, troponin flat, no leukocytosis, mild anemia, stable for discharge with follow-up with outpatient cardiology and resumption of GI medication for suspected contribution of gastritis to her chronic chest pain related complaints that are not exertional. Time: 14:49 Vital Signs: Vital signs: Vital Signs Temperature 97.9 F 12/27/24 10:41 Pulse Rate 90 12/27/24 13:30 Respiratory Rate 21 H 12/27/24 13:30 Blood Pressure 122/74 12/27/24 13:42 Pulse Oximetry 91 12/27/24 13:30 Oxygen Delivery Me thod Room Air 12/27/24 13:10 MDM - Chest Pain Medical Decision Making 84-year-old female history hypertension, severe aortic stenosis, recently status post hip replacement, presenting emergency department with some nonspecific lightheadedness and intermittent episodes of hypotension after taking antihypertensives, per her story appears that she may be on a second as needed antihypertensive she cannot name that she has been taking even when her blood pressure is normal, she is on isosorbide, as needed nitro, low-dose amlodipine twice daily. She was most recently seen by her textile stylist in June of this year but was also seen by cardiology preoperatively and postoperatively for her hip fracture given her severe aortic stenosis. She did have an echocardiogram and GOYO performed which did not demonstrate evidence of significant heart failure or regional wall motion abnormalities, she has some associated chest discomfort which appears more or less constant for many months to years, she does associate increased belching and was previously on some sort of GI medication which seem to help the symptoms while in the postoperative rehab facility, we will try GI cocktail, do a cardiac assessment to assess for ACS, arrhythmia, new onset heart failure, reassess for disposition but anticipate recommendation to follow-up with outpatient cardiology for further evaluation of her symptoms. Lab Data Labs with minimal anemia, borderline hyponatremia 135, normal electrolytes otherwise with normal kidney function, troponin minimally elevated 12 repeat stable at 13, proBNP mildly elevated 779 without overt pulmonary edema or evidence of peripheral edema on exam, stable for discharge with PCP and cardiology follow-up 12/27/24 12:33 12/27/24 12:33 Radiology Impressions Chest X-Ray 12/27/24 12:32 IMPRESSION: Interval improvement in previously seen interstitial thickening, most likely representing improving pulmonary edema. Laboratory Results WBC 5.86 10^3/uL (3.29-11.43) 12/27/24 12:33 RBC 3.68 10^6/uL (3.85-5.65) L 12/27/24 12:33 Hgb 11.20 g/dL (11.27-16.99) L 12/27/24 12:33 Hct 33.5 % (36-47) L 12/27/24 12:33 MCV 91.0 fl (85-98) 12/27/24 12:33 MCH 30.4 pg (27-33) 12/27/24 12:33 MCHC 33.4 g/dL (30-55) 12/27/24 12:33 RDW 12.5 % (12.1-15.1) 12/27/24 12:33 Plt Count 381 10^3/cmm (157-399) 12/27/24 12:33 MPV 8.5 fL (7.4-10.4) 12/27/24 12:33 Neut % (Auto) 62.5 % 12/27/24 12:33 Lymph % (Auto) 23.9 % 12/27/24 12:33 [place] % (Auto) 8.5 % 12/27/24 12:33 Eos % (Auto) 4.3 % 12/27/24 12:33 Baso % (Auto) 0.5 % 12/27/24 12:33 Neut # (Auto) 3.66 10^3/uL (1.8-7.7) 12/27/24 12:33 Lymph # (Auto) 1.4 10^3/uL (0.8-4.8) 12/27/24 12:33 [place] # (Auto) 0.5 10^3/uL (0.2-0.9) 12/27/24 12:33 Eos # (Auto) 0.3 10^3/uL (0.0-0.8) 12/27/24 12:33 Baso # (Auto) 0.0 10^3/uL (0.0-0.1) 12/27/24 12:33 Nucleated RBC % (auto) 0 % 12/27/24 12: Nucleated RBCs # 0.0 /100WBC 12/27/24 12:33 PT 14.80 SECONDS (12.1-14.9) 12/27/24 12:33 INR 1.08 (0.8-1.2) 12/27/24 12:33 APTT 33.9 SECONDS (23.9-36.7) 12/27/24 12:33 Sodium 135 mmol/L (136-145) L 12/27/24 12:33 Potassium 4.2 mmol/L (3.5-5.1) 12/27/24 12:33 Chloride 98 mmol/L (98-107) 12/27/24 12:33 Carbon Dioxide 26 mmol/L (22-29) 12/27/24 12:33 Anion Gap 15.2 (5-19) 12/27/24 12:33 BUN 8 mg/dL (8-23) 12/27/24 12:33 Creatinine 0.6 mg/dL (0.5-0.9) 12/27/24 12:33 GFR Calculation Not Reportable 12/27/24 12:33 Glucose 106 mg/dL (65-115) 12/27/24 12:33 Calculated Osmolality 279 mOsm/kg (285-295) L 12/27/24 12:33 Calcium 9.1 mg/dL (8.5-10.5) 12/27/24 12:33 Total Bilirubin 0.7 mg/dL (0.15-1.2) 12/27/24 12:33 AST 22 U/L (0-32) 12/27/24 12:33 ALT 12 U/L (0-33) 12/27/24 12:33 Alkaline Phosphatase 96 U/L (35-105) 12/27/24 12:33 Troponin T Baseline 12 ng/L (0-10) H 12/27/24 12:33 Troponin T 120 Minute 13.78 ng/L (0-10) H 12/27/24 14:11 Delta Troponin T 1.78 ABS# (0-10) 12/27/24 14:11 NT-Pro-B Natriuret Pep 779 pg/mL (0-450) H 12/27/24 12:33 Total Protein 7.1 g/dL (6.6-8.7) 12/27/24 12:33 Albumin 4.1 g/dL (3.5-5.2) 12/27/24 12:33 Globulin 3.0 g/dL (1.3-4.6) 12/27/24 12:33 All radiology interpretation(s) finalized by discharge ED provider radiology interpretation(s): Chest x-ray showing improving interstitial edema compared to prior x-ray performed on October 30, EKG Data EKG 1: I personally reviewed and interpreted this EKG as follows: EKG interpretation date: 12/27/24 EKG interpretation time: 10:45 Interpretation: Sinus rhythm at 96 bpm, occasional PACs, no STEMI, no ectopy, QTc 453 ms EKG 2: I personally reviewed and interpreted this EKG as follows: EKG interpretation date: 12/27/24 EKG interpretation time: 14:12 Interpretation: Sinus rhythm at 78 bpm, no STEMI, no ectopy, normal axis, QTc 428 ms Discharge Plan Discharge Patient Disposition: Home Clinical Impression: Weakness Condition: Stable Prescriptions: New pantoprazole 40 mg tablet,delayed release (DR/EC) 40 mg PO DAILY 28 Days Qty: 30 0RF No Action ketoconazole 2 % cream 1 applic topical BID Qty: 30 3RF Rx Instructions: Apply to affected areas in skin folds x3 weeks then as needed for flares. (DME) ASO to the right See Rx Instructions .Route .MEDSUPPLY Qty: 1 0RF Rx Instructions: As directed levothyroxine 75 mcg tablet 75 mcg PO QAM (DME) Standard Walker See Rx Instructions .Route .MEDSUPPLY Qty: 1 0RF Rx Instructions: Length of need is 99 (DME) Shower chair See Rx Instructions .Route .MEDSUPPLY Qty: 1 0RF Rx Instructions: length of need 99 isosorbide mononitrate 30 mg tablet extended release 24 hr 30 mg PO DAILY Qty: 90 3RF furosemide [Lasix] 20 mg tablet 20 mg PO DAILY Qty: 90 3RF potassium chloride 8 mEq tablet extended release 8 meq PO DAILY Qty: 90 2RF amlodipine 2.5 mg tablet 2.5 mg PO BID Qty: 90 0RF loratadine 10 mg Capsule 10 mg PO DAILY pantoprazole [Protonix] 40 mg Tablet,Delayed Release (Dr/Ec) 40 mg PO DAILY fluoxetine 20 mg capsule 20 mg PO DAILY levalbuterol tartrate 45 mcg/actuation HFA aerosol inhaler 2 puff INHALATION Q6H PRN (Reason: Shortness Of Breath) polysaccharide iron complex [Ferrex 150] 150 mg iron Capsule 150 mg PO BIDWM Qty: 60 0RF calcium carbonate 200 mg calcium (500 mg) Tablet,Chewable 1,000 mg PO BID Qty: 30 0RF sennosides-docusate sodium [Stool Softener-Laxative] 8.6-50 mg Tablet 2 tab PO BID Qty: 60 0RF multivitamin with folic acid [Thera] 400 mcg Tablet 1 tab PO DAILY Qty: 30 0RF ondansetron HCl 4 mg tablet 4 mg PO Q4H PRN (Reason: Nausea) acetaminophen 500 mg tablet 1,000 mg PO Q8H PRN (Reason: Pain) Discharge Orders: Discharge ED (Routine); Ordered 12/27/24 Ordered By: Trevor Back Referrals: Jose C Back MD [Primary Care Provider, Family Practice] Vasu Goldman MD [Physician, Cardiology] Patient Instructions: Patient Portal & Dave Instructions, Weakness (ED) Print Language: Kyrgyz Coding Level of Care Code ED Window Machine Operator for Laci Dalton
[2024-12-27 13:41] LABS: Slide Review Slide Review Perform
--- NOTE | 2024-12-27 14:12 | ECG_ITS ---
[facility] Test Date: 2024-12-27 Pat Name: Diana Dewitt Department: Room: Gender: Female Supervisor Cartography: : 1940 Requested By: Trevor Back Order Number: [id number] Leila MD: Vasu Goldman M.D. Measurements Intervals [place] Rate: 78 P: 65 NE: 169 QRS: 70 QRSD: 81 T: 71 QT: 395 QTc: 451 Interpretive Statements SINUS RHYTHM Compared to ECG 12/27/2024 10:45:00 No significant changes Electronically Signed On 12-27-2024 23:40:23 CDT by Vasu Goldman M.D. [id number] [id number]
[2024-12-27 14:40] LABS: Troponin 5 2HR 13.78 ng/L (0-10); Troponin 5 2HR Delta 1.78 ABS# (0-10)
--- NOTE | 2024-12-27 16:12 | ECG_ITS ---
[facility] Test Date: 2024-12-27 Pat Name: Diana Dewitt Department: Room: Gender: Female Accounts Payable Technician: : 1940 Requested By: Trevor Back Order Number: [id number] Leila MD: Vasu Goldman M.D. Measurements Intervals [place] Rate: 96 P: 67 WI: 148 QRS: 63 QRSD: 82 T: 64 QT: 357 QTc: 453 Interpretive Statements SINUS RHYTHM WITH OCCASIONAL SUPRAVENTRICULAR PREMATURE COMPLEXES INTERPRETATION BASED ON A DEFAULT AGE OF 40 YEARS Compared to ECG 10/30/2024 08:48:23 ST (T wave) deviation no longer present Electronically Signed On 12-27-2024 23:40:26 CDT by Vasu Goldman M.D. [id number]
== END 2024-12-27 15:11 | disposition home or self-care (01) ==
PROVIDERS: Emergency Provider Student in an Organized Health Care Education/Training Program; PCP Family Medicine
DX: R53.1 Weakness (principal); Z87.891 Personal history of nicotine dependence; Z85.828 Personal history of other malignant neoplasm of skin
CPT/HCPCS: 36415; 71045; 80053; 83880; 84484; 85025; 85610; 85730; 93005; 96374; 99285; J3490; J9999

== ENCOUNTER 2024-12-30 08:02 | Inpatient (IN) | payer MEDICARE, SELFPAY ==
[2024-12-30] VITALS (14 sets, daily range): BP systolic 101–139; BP diastolic 53–82; PULSE 91–121; RESP 16–23; TEMP 36.7–37.3; O2SAT 91–98; BMI 29.0; BMI 28.0
--- OUTSIDE RECORDS SUMMARY | 2024-12-30 08:10 | XMS_ITS | Patient Health Record ---
Author Organization [facility] Address [address] [place] [address] Care Team Providers Care Seasonal Clerk Name Role Phone Asa Rodriguez Primary Care [...] Status Risk Notes Problem Lower abdominal pain (72934819) Lower abdominal pain (R10.30) Active confirmed Problem Obstipation (771095330) Obstipation (K59.00) Active confirmed Problem Constipation (69917691) Chronic constipation with overflow incontinence (K59.09) Active confirmed Plan Of Treatment No Information Insurance Providers Payer Name Payer Address Payer Phone Subscriber Number Group Number Insured Name Patient Relationship to Insured Coverage Start Date Coverage End Date [facility] [employer] [address] [address] [place] [phone] [id number] Diana Dewitt Self - patient is the insured [place] Medicare [address] [place] [phone] [id number] Diana Dewitt Self - patient is the insured Medical (General) History Medical History History ICD Code Anxiety F41.9 GERD (gastroesophageal reflux disease) K 21.9 Hypothyroid E03.9 Amira infection B37.9 Surgical History Surgery Date(Month/Year) [place] surgery tonsilectomy hysterectomy both feet Hospitalization History Reason Date(Month/Year) see surgical hx
--- NOTE | 2024-12-30 08:12 | CTR_ITS ---
PROCEDURE INFORMATION: Exam: CTA Chest With Contrast Exam date and time: 12/30/2024 8:49 AM Age: 84 years old Clinical indication: Shortness of breath; Additional info: SOB TECHNIQUE: Imaging protocol: Computed tomographic angiography of the chest with contrast. Exam focused on the arteries. 3D rendering (Not supervised by radiologist): MIP and/or 3D reconstructed images were created by the technologist. Radiation optimization: All CT scans at this facility use at least one of these dose optimization techniques: automated exposure control; mA and/or kV adjustment per patient size (includes targeted exams where dose is matched to clinical indication); or iterative reconstruction. Contrast material: OMNIPAQUE 350; Contrast volume: 61 ml; Contrast route: INTRAVENOUS (IV); COMPARISON: CR XR chest 1V portable [id number] 12/27/2024 12:37 PM , and CTA chest 12/24/2022. RADIATION DOSE METRICS: Total DLP (mGy-cm): 324.25 FINDINGS: Pulmonary arteries: Normal. No pulmonary emboli. Aorta: Unremarkable. No aortic aneurysm. No aortic dissection. Lungs: Hazy ground-glass opacities are present in both lungs which may represent edema or alveolitis. Pleural spaces: Bilateral large pleural effusions are present. Heart: There are calcifications of the mitral valve. There is cardiomegaly. Coronary arteries: There are coronary artery calcifications. Lymph nodes: There are an increased number of lymph nodes in the mediastinum which are normal in size. Bones/joints: There is a fracture through the manubrium with sclerosis. There are degenerative changes of the spine. Soft tissues: Unremarkable. Other findings: CT/CT angio chest PE protcl [id number] IMPRESSION: 1. No evidence of pulmonary embolus or aortic dissection. 2. Bilateral large pleural effusions. 3. Fracture of the sternum with sclerosis. This is new from the prior study. Correlate with history of trauma. 4. Patchy alveolar opacities which may represent edema or alveolitis. 5. Cardiomegaly with mitral valvular calcifications. 6. Increased number of lymph nodes is in the mediastinum without adenopathy. This is unchanged from the prior exam.
--- NOTE | 2024-12-30 08:12 | ECG_ITS ---
[facility] Date: 2024-12-30 Pat Name: Diana Dewitt Department: Room: Gender: Female Nurse Manager: : 1940 Requested By: Stevo Damon Order Number: [id number] Leila MD: Darrius Turner M.D. Measurements Intervals [place] Rate: 111 P: 64 WI: 157 QRS: 66 QRSD: 90 T: 70 QT: 323 QTc: 441 Interpretive Statements SINUS TACHYCARDIA WITH OCCASIONAL SUPRAVENTRICULAR PREMATURE COMPLEXES MODERATE ST DEPRESSION [0.05+ mV ST DEPRESSION] Compared to ECG 12/27/2024 14:12:47 ST (T wave) deviation now present Sinus rhythm no longer present Electronically Signed On 12-30-2024 13:02:57 CDT by Darrius Turner M.D. [id number] [id number]
--- NOTE | 2024-12-30 08:21 | W.ED.CHESTPA ---
HPI - Chest Pain General: Chief Complaint: Chest Pain Stated Complaint: SOB Time Seen by Provider: 12/30/24 08:11 Source: patient Mode of arrival: ambulatory Limitations: no limitations History of Present Illness: 82-year-old female with a history of congestive heart failure she also had hip surgery in October. States she recently got out of senior living home she states that last night started having increasing shortness of breath especially when she laid down. She had some shortness of breath exertion as well along with some aching chest pain she denies any severe pain. She denies any cough or fever patient's pulse ox here is in the 70s she does not wear oxygen at home Associated symptoms: Reports dyspnea; Deny abdominal pain, fever(s), nausea or vomiting Related Data Home Medications ?Medication ?Instructions ?Recorded ?Confirmed loratadine 10 mg capsule 10 mg PO DAILY 12/24/22 12/30/24 levothyroxine 75 mcg tablet 75 mcg PO QAM 07/05/24 12/30/24 fluoxetine 20 mg capsule 20 mg PO DAILY 10/29/24 12/30/24 levalbuterol tartrate 45 2 puff inhalation Q6H PRN 10/29/24 12/30/24 mcg/actuation aerosol inhaler Shortness Of Breath acetaminophen 500 mg tablet 1,000 mg PO Q8H PRN Pain 12/27/24 12/30/24 ondansetron HCl 4 mg tablet 4 mg PO Q4H PRN Nausea 12/27/24 12/30/24 ketoconazole 2 % topical cream 1 applic topical BID PRN Skin 12/30/24 12/30/24 Irritation Previous Rx's ?Medication ?Instructions ?Recorded ASO to the right #1 ea 11/23/22 furosemide 20 mg tablet (Lasix) 20 mg PO DAILY #90 tabs 06/01/24 isosorbide mononitrate 30 mg 30 mg PO DAILY #90 tabs 06/01/24 tablet,extended release 24 hr potassium chloride 8 mEq 8 meq PO DAILY #90 tabs 06/20/24 tablet,extended release amlodipine 2.5 mg tablet 2.5 mg PO BID #90 tabs 10/30/24 calcium carbonate 1,000 mg (5 x 200 mg calcium (500 11/02/24 mg)) PO BID #30 tabs multivitamin with folic acid 400 1 tab PO DAILY #30 tabs 11/02/24 mcg tablet (Thera) polysaccharide iron complex 150 mg 150 mg PO BIDWM #60 caps 11/02/24 iron capsule (Ferrex) sennosides 8.6 mg-docusate sodium 2 tab PO BID #60 tabs 11/02/24 50 mg tablet (Stool Softener-Laxative) Shower chair #1 ea 11/17/24 Standard Walker #1 ea 11/17/24 pantoprazole 40 mg tablet,delayed 40 mg PO DAILY 4 weeks #30 tabs 12/27/24 release Allergies Allergy/AdvReac Type Severity Reaction Status Date / Time albuterol Allergy ADR/ALGY-Pa Verified 12/27/24 10:50 lpitations cefaclor (From Ceclor) Allergy ALGY-Difficulty Verified 12/27/24 10:50 Breathing nitrofurantoin (From Allergy ADR-Irritab Verified 12/27/24 10:50 Macrobid) le Sulfa (Sulfonamide Allergy ADR-Agitate Verified 12/27/24 10:50 Antibiotics) d Penicillins AdvReac Intermediate Shakes and Verified 12/27/24 10:50 chills Review of Systems Const: Denies: fever(s), chills, body aches or change in appetite ENMT: Denies: throat pain or dental pain Card: Reports: chest pain Resp: Reports: dyspnea GI: Denies: abdominal pain, nausea, vomiting or diarrhea : Denies: dysuria Musc: Denies: neck pain or back pain Skin/Breast: Denies: rash Neuro: Denies: headache(s) PFSH ED PFSH: Medical History History of partial replacement of left hip joint using bipolar prosthesis Date of surgery: October 31, 2024 Surgery: Left bipolar hip arthroplasty. Surgeon: Dr. Teresita Morris MD Anxiety Former smoker History of nonmelanoma skin cancer Mitral stenosis TTE 12/24/22: mild Aortic insufficiency with aortic stenosis GERD (gastroesophageal reflux disease) Amira infection Hypothyroid Surgical History Hx of tonsillectomy History of bunionectomy History of hysterectomy Family History Father No problems noted. Family/Other Diabetes Chronic kidney disease (CKD) Bleeding disorder Aunt CAD (coronary artery disease) Aunt - heart valve x 2 Cancer Dementia Grandfather Dementia Mother Cancer Lung disease Denies family history of Clotting disorder Suicide Anesthesia complication Stroke Social History Smoking and tobacco/nicotine status: former use of tobacco/nicotine Second hand smoke exposure: No Alcohol intake: never Substance/Drug Use: never Adopted: No Caregiver/support person: No Lives independently: Yes Household members: spouse Housing: House Marital status: Number of children: 0 service: No Physical Exam Const: COMMON NORMALS: patient oriented x3 HENMT: COMMON NORMALS: normocephalic and atraumatic HEAD & SCALP: normocephalic and atraumatic Eye: COMMON NORMALS: conjunctivae normal CONJUNCTIVA: Yes conjunctivae normal Neck/C-Spine: COMMON NORMALS: full ROM and supple Chest: COMMONS NORMALS: normal inspection of the chest and normal palpation of entire chest wall Resp: COMMON NORMALS: No retractions and No use of accessory muscles AUSCULTATION: rales Cardio: COMMON NORMALS: regular rhythm and No murmurs present (Cardio) RATE: tachycardic RHYTHM: regular rhythm GI: COMMON NORMALS: Normal to inspection, nondistended, normoactive bowel sounds present, Soft to palpation, non-tender and no masses PALPATION: Yes Soft to palpation Extremity: COMMON NORMALS: normal to inspection and full ROM Neuro: COMMON NORMALS: patient oriented x3, moves all extremities and no focal motor deficits Psych: COMMON NORMALS: mental status grossly normal, Normal thought process present and cooperative THOUGHT PROCESS: Normal thought process present Skin: COMMON NORMALS: no rashes or lesions noted and no wounds GENERAL SKIN EXAM: no rashes or lesions noted Course Vital Signs: Vital signs: Vital Signs Temperature 98.1 F 12/30/24 08:11 Pulse Rate 100 12/30/24 10:00 Respiratory Rate 17 12/30/24 10:00 Blood Pressure 127/74 12/30/24 10:00 Pulse Oximetry 94 12/30/24 10:00 Oxygen Delivery Me thod Nasal Cannula 12/30/24 10:00 Oxygen Flow Rate 5 12/30/24 10:00 MDM - Chest Pain Medical Decision Making Patient presents here with shortness of breath she does have a history of CHF CT does show pleural effusions no signs of pulmonary emboli. Troponins here are negative no signs of ACS or dissection. Patient is currently requiring 5 L of oxygen I did speak to hospitalist Dr. Cespedes and will admit. I did go over patient's labs and imaging and informed her that she was going to be admitted for diuresis she understands agrees to plan Medical Records I reviewed the patient's medical records. Lab Data I reviewed the patient's lab results. 12/30/24 08:14 12/30/24 08:14 Radiology Impressions Chest CTA 12/30/24 08:12 IMPRESSION: 1. No evidence of pulmonary embolus or aortic dissection. 2. Bilateral large pleural effusions. 3. Fracture of the sternum with sclerosis. This is new from the prior study. Correlate with history of trauma. 4. Patchy alveolar opacities which may represent edema or alveolitis. 5. Cardiomegaly with mitral valvular calcifications. 6. Increased number of lymph nodes is in the mediastinum without adenopathy. This is unchanged from the prior exam. Laboratory Results WBC 7.08 10^3/uL (3.29-11.43) 12/30/24 08:14 RBC 3.80 10^6/uL (3.85-5.65) L 12/30/24 08:14 Hgb 11.50 g/dL (11.27-16.99) 12/30/24 08:14 Hct 34.8 % (36-47) L 12/30/24 08:14 MCV 91.6 fl (85-98) 12/30/24 08:14 MCH 30.3 pg (27-33) 12/30/24 08:14 MCHC 33.0 g/dL (30-55) 12/30/24 08:14 RDW 12.6 % (12.1-15.1) 12/30/24 08:14 Plt Count 418 10^3/cmm (157-399) H 12/30/24 08:14 MPV 8.6 fL (7.4-10.4) 12/30/24 08:14 Neut % (Auto) 80.3 % 12/30/24 08:14 Lymph % (Auto) 12.0 % 12/30/24 08:14 [place] % (Auto) 5.6 % 12/30/24 08:14 Eos % (Auto) 1.4 % 12/30/24 08:14 Baso % (Auto) 0.4 % 12/30/24 08:14 Neut # (Auto) 5.68 10^3/uL (1.8-7.7) 12/30/24 08:14 Lymph # (Auto) 0.9 10^3/uL (0.8-4.8) 12/30/24 08:14 [place] # (Auto) 0.4 10^3/uL (0.2-0.9) 12/30/24 08:14 Eos # (Auto) 0.1 10^3/uL (0.0-0.8) 12/30/24 08:14 Baso # (Auto) 0.0 10^3/uL (0.0-0.1) 12/30/24 08:14 Nucleated RBC % (auto) 0 % 12/30/24 08:14 Nucleated RBCs # 0.0 /100WBC 12/30/24 08:14 PT 14.20 SECONDS (12.1-14.9) 12/30/24 08:14 INR 1.03 (0.8-1.2) 12/30/24 08:14 Specimen Type Arterial 12/30/24 09:04 Sample Site Radial, right 12/30/24 09:04 ABG pH 7.42 (7.35-7.45) 12/30/24 09:04 ABG pCO2 37.8 mmHg (35-45) 12/30/24 09:04 ABG pO2 62.5 mmHg (80.0-100.0) L 12/30/24 09:04 ABG HCO3 24.3 mmol/L (22-26) 12/30/24 09:04 ABG O2 Saturation 93.4 12/30/24 09:04 ABG Base Excess 0.0 mmol/L (-2.0-2.0) 12/30/24 09:04 Dusty Test Pos 12/30/24 09:04 A-a O2 Gradient 5.3 mmHg (5-10) 12/30/24 09:04 Hematocrit 33.3 % (37-47) L 12/30/24 09:04 Hgb O2 Saturation 90.4 % (95-100) L 12/30/24 09:04 Carboxyhemoglobin 2.5 %THgb (0.4-20.1) 12/30/24 09:04 Methemoglobin 0.7 % (0.4-1.5) 12/30/24 09:04 Total Hemoglobin 10.9 g/dL (12-16) L 12/30/24 09:04 Sodium 126.0 mmol/L (131-143) L 12/30/24 09:04 Potassium 3.4 mmol/L (3.5-5.0) L 12/30/24 09:04 Glucose 144.0 mg/dL (70-115) H 12/30/24 09:04 Ionized Calcium 1.1 mmol/L (1.1-1.4) 12/30/24 09:04 O2 Delivery Device Nc 12/30/24 09:04 O2 Liters/Min 5.0 % 12/30/24 09:04 Poultry Breeder ID [place] 12/30/24 09:04 Sodium 126 mmol/L (136-145) L 12/30/24 08:14 Potassium 3.9 mmol/L (3.5-5.1) 12/30/24 08:14 Chloride 89 mmol/L (98-107) L 12/30/24 08:14 Carbon Dioxide 22 mmol/L (22-29) 12/30/24 08:14 Anion Gap 18.9 (5-19) 12/30/24 08:14 BUN 8 mg/dL (8-23) 12/30/24 08:14 Creatinine 0.7 mg/dL (0.5-0.9) 12/30/24 08:14 GFR Calculation Not Reportable 12/30/24 08:14 Glucose 159 mg/dL (65-115) H 12/30/24 08:14 Calculated Osmolality 264 mOsm/kg (285-295) L 12/30/24 08:14 Calcium 8.9 mg/dL (8.5-10.5) 12/30/24 08:14 Total Bilirubin 0.9 mg/dL (0.15-1.2) 12/30/24 08:14 AST 24 U/L (0-32) 12/30/24 08:14 ALT 14 U/L (0-33) 12/30/24 08:14 Alkaline Phosphatase 97 U/L (35-105) 12/30/24 08:14 Troponin T Baseline 17 ng/L (0-10) H 12/30/24 08:14 Troponin T 120 Minute 15.65 ng/L (0-10) H 12/30/24 09:58 Delta Troponin T -1.35 ABS# (0-10) L 12/30/24 09:58 NT-Pro-B Natriuret Pep 2104 pg/mL (0-450) H 12/30/24 08:14 Total Protein 7.4 g/dL (6.6-8.7) 12/30/24 08:14 Albumin 4.1 g/dL (3.5-5.2) 12/30/24 08:14 Globulin 3.3 g/dL (1.3-4.6) 12/30/24 08:14 All radiology interpretation(s) finalized by discharge EKG Data EKG 1: I personally reviewed and interpreted this EKG as follows: EKG interpretation date: 12/30/24 EKG interpretation time: 08:05 Interpretation: sinus tach hr [address] elevation qrs 90 qtc 389 Discharge Plan Discharge Patient Disposition: Admitted As Inpatient Clinical Impression: Acute exacerbation of congestive heart failure, Pleural effusion, Acute respiratory failure with hypoxia Condition: Stable Coding Level of Care Code ED Chain Hoist Operator for Laci Dalton
[2024-12-30 08:22] LABS: Hematocrit 34.8 % (36-47); Hemoglobin 11.50 g/dL (11.27-16.99); Mean Corpuscular HGB Conc 33.0 g/dL (30-55); Mean Corpuscular Hemoglobin 30.3 pg (27-33); Mean Corpuscular Volume 91.6 fl (85-98); Nucleated Red Blood Cells % 0 %; Platelet Count 418 10^3/cmm (157-399); Red Blood Count 3.80 10^6/uL (3.85-5.65); White Blood Count 7.08 10^3/uL (3.29-11.43)
[2024-12-30 08:31] LABS: INR 1.03 (0.8-1.2); Prothrombin Time 14.20 SECONDS (12.1-14.9)
[2024-12-30 08:37] LABS: Troponin(5th) Baseline 17 ng/L (0-10)
[2024-12-30 08:54] LABS: Alanine Aminotransferase 14 U/L (0-33); Albumin Level 4.1 g/dL (3.5-5.2); Alkaline Phosphatase 97 U/L (35-105); Anion Gap 18.9 (5-19); Aspartate Amino Transferase 24 U/L (0-32); Blood Urea Nitrogen 8 mg/dL (8-23); Calcium 8.9 mg/dL (8.5-10.5); Carbon Dioxide 22 mmol/L (22-29); Chloride 89 mmol/L (98-107); Creatinine Clr Calc Pharmacy 60.3634; Globulin 3.3 g/dL (1.3-4.6); Glucose 159 mg/dL (65-115); NT Pro B Type Natriuretic Pept 2104 pg/mL (0-450); Osmolality Calculated 264 mOsm/kg (285-295); Potassium 3.9 mmol/L (3.5-5.1); Sodium 126 mmol/L (136-145); Total Protein 7.4 g/dL (6.6-8.7)
[2024-12-30] MEDS: iohexol 350 mg/mL 500 mL Btl (per mL) IV (08:54)
[2024-12-30] MEDS: FUROsemide 10 mg/mL SDV 10mL 60 MG IVP (09:14)
[2024-12-30 09:16] LABS: ABG PCO2 37.8 mmHg (35-45); ABG PH Result 7.42 (7.35-7.45); Alveolar-Arterial Oxygen Gradi 5.3 mmHg (5-10); Arterial Blood Gas Hematocrit 33.3 % (37-47); Blood Gas Allen Test Pos; Blood Gas LPM 5.0 %; Blood Gas Operator Identificat WALCI; Blood Gas Sample Site Radial, right; Blood Gas Sample Type Arterial; Carboxyhemoglobin 2.5 %THgb (0.4-20.1); Glucose Level-ABG 144.0 mg/dL (70-115); HCO3 ABG 24.3 mmol/L (22-26); Ionized Calcium Level - ABG 1.1 mmol/L (1.1-1.4); Methemoglobin 0.7 % (0.4-1.5); Oxygen Saturation ABG 93.4; PO2 ABG 62.5 mmHg (80.0-100.0); Potassium Level - ABG 3.4 mmol/L (3.5-5.0); Sodium Level - ABG 126.0 mmol/L (131-143)
--- NOTE | 2024-12-30 10:16 | ECG_ITS ---
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 Measurements Intervals [place] Rate: 100 P: 73 TN: 160 QRS: 62 QRSD: 84 T: 55 QT: 364 QTc: 470 Interpretive Statements SINUS TACHYCARDIA WITH OCCASIONAL SUPRAVENTRICULAR PREMATURE COMPLEXES MINIMAL ST DEPRESSION [0.025+ mV ST DEPRESSION] Compared to ECG 12/30/2024 08:05:38 No significant changes Electronically Signed On 12-30-2024 13:15:17 CDT by Darrius Turner M.D. [email or web address]
[2024-12-30 10:23] LABS: Troponin 5 2HR 15.65 ng/L (0-10)
[2024-12-30 10:33] LABS: Troponin 5 2HR Delta -1.35 ABS# (0-10)
--- NOTE | 2024-12-30 12:16 | XRR_ITS ---
PROCEDURE INFORMATION: Exam: XR Chest Exam date and time: 12/30/2024 1:03 PM Age: 84 years old Clinical indication: Shortness of breath TECHNIQUE: Imaging protocol: Radiologic exam of the chest. Views: 1 view. COMPARISON: CT angio chest PE protcl [id number] 12/30/2024 8:49 AM FINDINGS: Lungs: There is increased interstitial prominence and patchy alveolar opacities in the bases most suspicious for pulmonary edema. Bibasilar opacities are present. Pleural spaces: Bilateral pleural effusions are present greater on the right. Heart/Mediastinum: There is cardiomegaly. Bones/joints: Bony structures appear osteopenic. No fractures are identified. XR/XR chest 1V portable [id number] IMPRESSION: Generalized edema with bibasilar consolidation and pleural effusions.
--- NOTE | 2024-12-30 12:53 | PM.HP ---
Providers/Chief Complaint Admitting Physician: Christine Cespedes MD Primary Care Provider: Jose C Back MD Chief Complaint: SOB History of Present Illness As per the previous retrospective note and the patient Diana Dewitt is a 84 year old female with past medical history of left hip surgery in October 2024, aortic insufficiency with failure aortic stenosis, GERD, hypothyroid and as per the retrospective notes mention about congestive heart failure. Recent echo in October showed ejection fraction of 55 to 60%. she recently got out of senior care home she states that last night started having increasing shortness of breath especially when she laid down reported having orthopnea and PND. She had some shortness of breath exertion as well along with some aching chest pain she denies any severe pain. Patient endorsed having mild sore throat and some low-grade fevers from the last few days. Does not recall any sick contacts and there is no recent travels or any recent vaccinations. The patient is not oxygen dependent but can use oxygen supplementation at home The patient is taking care of her daughter at home. The patient did not endorse having any diarrhea, lower leg swellings dizziness syncope or presyncope. No palpitations, any ear discharge or any rhinorrhea or obvious URTI symptoms. Did not report any history of burning micturition or any decreased urinary output Patient does not smoke no other drugs abuse history and no excessive alcohol intake history Review of Systems General: Reports: 10 or more systems reviewed and unremarkable except in HPI and below Medications/Allergies Home Medications ?Medication ?Instructions ?Recorded ?Confirmed ?Last Taken ?Type ASO to the right #1 ea 11/23/22 12/30/24 Unknown Rx loratadine 10 mg capsule 10 mg PO DAILY 12/24/22 12/30/24 12/30/24 History furosemide 20 mg tablet (Lasix) 20 mg PO DAILY #90 tabs 06/01/24 12/30/24 12/30/24 Rx isosorbide mononitrate 30 mg 30 mg PO DAILY #90 tabs 06/01/24 12/30/24 12/30/24 Rx tablet,extended release 24 hr potassium chloride 8 mEq 8 meq PO DAILY #90 tabs 06/20/24 12/30/24 12/30/24 Rx tablet,extended release levothyroxine 75 mcg tablet 75 mcg PO QAM 07/05/24 12/30/24 12/30/24 History fluoxetine 20 mg capsule 20 mg PO DAILY 10/29/24 12/30/24 12/30/24 History levalbuterol tartrate 45 2 puff inhalation Q6H PRN 10/29/24 12/30/24 Unknown History mcg/actuation aerosol inhaler Shortness Of Breath amlodipine 2.5 mg tablet 2.5 mg PO BID #90 tabs 10/30/24 12/30/24 12/30/24 Rx calcium carbonate 1,000 mg (5 x 200 mg calcium (500 11/02/24 12/30/24 12/30/24 Rx mg)) PO BID #30 tabs multivitamin with folic acid 400 1 tab PO DAILY #30 tabs 11/02/24 12/30/24 12/30/24 Rx mcg tablet (Thera) polysaccharide iron complex 150 mg 150 mg PO BIDWM #60 caps 11/02/24 12/30/24 12/29/24 Rx iron capsule (Ferrex) sennosides 8.6 mg-docusate sodium 2 tab PO BID #60 tabs 11/02/24 12/30/24 12/30/24 Rx 50 mg tablet (Stool Softener-Laxative) Shower chair #1 ea 11/17/24 12/30/24 Unknown Rx Standard Walker #1 ea 11/17/24 12/30/24 Unknown Rx acetaminophen 500 mg tablet 1,000 mg PO Q8H PRN Pain 12/27/24 12/30/24 Unknown History ondansetron HCl 4 mg tablet 4 mg PO Q4H PRN Nausea 12/27/24 12/30/24 Unknown History pantoprazole 40 mg tablet,delayed 40 mg PO DAILY 4 weeks #30 tabs 12/27/24 12/30/24 12/30/24 Rx release ketoconazole 2 % topical cream 1 applic topical BID PRN Skin 12/30/24 12/30/24 Unknown History Irritation Allergies Allergy/AdvReac Type Severity Reaction Status Date / Time albuterol Allergy ADR/ALGY-Pa Verified 12/27/24 10:50 lpitations cefaclor (From Ceclor) Allergy ALGY-Difficulty Verified 12/27/24 10:50 Breathing nitrofurantoin (From Allergy ADR-Irritab Verified 12/27/24 10:50 Macrobid) le Sulfa (Sulfonamide Allergy ADR-Agitate Verified 12/27/24 10:50 Antibiotics) d Penicillins AdvReac Intermediate Shakes and Verified 12/27/24 10:50 chills PFSH Acute PFSH: Medical History (Updated 12/30/24 @ 17:40 by Christine Cespedes MD) History of partial replacement of left hip joint using bipolar prosthesis Date of surgery: October 31, 2024 Surgery: Left bipolar hip arthroplasty. Surgeon: Dr. Teresita Morris MD Anxiety Former smoker History of nonmelanoma skin cancer Mitral stenosis TTE 12/24/22: mild Aortic insufficiency with aortic stenosis GERD (gastroesophageal reflux disease) Amira infection Hypothyroid Surgical History Hx of tonsillectomy History of bunionectomy History of hysterectomy Family History Father No problems noted. Family/Other Diabetes Chronic kidney disease (CKD) Bleeding disorder Aunt CAD (coronary artery disease) Aunt - heart valve x 2 Cancer Dementia Grandfather Dementia Mother Cancer Lung disease Denies family history of Clotting disorder Suicide Anesthesia complication Stroke Social History Smoking and tobacco/nicotine status: former use of tobacco/nicotine Second hand smoke exposure: No Alcohol intake: never Substance/Drug Use: never Adopted: No Caregiver/support person: No Lives independently: Yes Household members: spouse Housing: House Marital status: Number of children: 0 service: No Vitals/I&O/Wt Last Vital Signs Temp 98.1 F 12/30/24 08:11 Pulse 94 12/30/24 12:16 Resp 23 H 12/30/24 12:16 BP 135/69 12/30/24 12:16 Pulse Ox 98 12/30/24 12:16 O2 Del Method Nasal Cannula 12/30/24 12:16 O2 Flow Rate 5 12/30/24 12:16 Weight last 48 hrs Weight 81.193 kg Weight 83.915 kg Physical Exam Narrative: General: Alert and oriented, lying comfortably without any distress, able to speak in full sentences with 3 to 4 L nasal cannula oxygen supplementation and saturating above 90 to 94% HEENT: Normocephalic, atraumatic, grossly unremarkable exam Cardio: normal rate rhythm, normal S1-S2 without any murmurs, rubs, or gallops and JVD normal Respiratory: normal vascular breathing on auscultation with inspiratory crepitations at the bases up to lower mid zone. No wheezes or stridor heard GI: Abdomen soft, nontender, nondistended, normoactive bowel sounds present all 4 quadrants, Neuro: intact cranial nerves motor and sensory and cerebellar/coordination function without any focal neurological deficit Behavior: Appropriate and cooperative Extremities: Adequate palpable pulses, trace pedal edema no cyanosis observed Skin: grossly unremarkable exam Data 12/30/24 08:14 12/30/24 08:14 A&P Assessment and plan 1. Acute respiratory failure with hypoxia: Patient having bilateral pleural effusions at the bases leading to possible acute hypoxemic respiratory failure CT scan of the chest did not show any PE and chest x-ray was done which was compared with the previous one and showed bilateral lower zone consolidations and haziness suggestive of pleural effusion Patient is allergic to cefaclor and penicillin, started on levofloxacin 750 mg daily Send for Pro-Chon Respiratory viral panel and Legionella antibody, if negative then consider de-escalating antibiotics. Oxygen supplementation Possible element of fluid overload and severe aortic stenosis, possible of congestive heart failure as there is documentation of congestive heart failure in retrospective notes IV Lasix 40 mg twice daily 2. Pleural effusion: Possible element of congestive heart failure Oxygen supplementation IV Lasix 40 mg daily 3. Hyponatremia: Patient seems to have dilutional hyponatremia since the serum osmolarity is low and could be an element of SIADH, Patient seems euvolemic. Continue diuresis with Lasix and monitor sodium value Restrict fluid intake 1 to 1.5 L max If the patient drops sodium after diuresis to consider bolus of normal saline, and to send for urine studies including spot sodium, urine osmolarity, serum osmolarity, UA, urine protein, urine microalbumin 4. History of partial replacement of left hip joint using bipolar prosthesis: Continue with OT PT Adequate analgesia 5. Aortic stenosis: Repeat echo Monitor for any chest pain symptoms Imdur 30 mg daily continue telemetry 6. Benign essential HTN: Continue home dose of amlodipine 2.5 mg Patient will be kept on Lasix 40 mg IV twice daily in case his systolic is less than 100 then to hold Lasix dose 7. Anxiety: Continue on fluoxetine 20 mg daily 8. GERD (gastroesophageal reflux disease): Continue PPI 9. Hypothyroid: TSH normal, continue home dose levothyroxine 75 mcg daily 10. Hypomagnesemia: Correction applied and to monitor in the morning 11. Hypokalemia: Correction applied intermittent in the morning PDMP PDMP Reviewed: Not Reviewed Attestations Medical Necessity Statement*: Diana Dewitt's hospital stay will require greater than 2 midnights for management of acute hypoxemic respiratory failure and underlying comorbidities optimization Time Spent in Patient Care: 16 - 35 minutes (>than 50% of time spent in counselling and/or direct pt care on unit). Other Attestations: Patient condition has been discussed at length with the patient/family, I have independently reviewed the chart labs imaging/diagnostics/EKG. the goals of care and code status with the patient/family/NOK/legal outside sales representative, and documented accordingly. The patient/family has been informed about the current condition and further plan of care. Agreed with the plan of care and understood without any language barrier. Every effort was made to ensure accuracy of loop puller. Any obvious errors or omissions should be clarified with the author of the document. Coding Level of Care Code 84914 Diagnoses Acute respiratory failure with hypoxia J96.01 Pleural effusion J90 Hyponatremia E87.1 History of partial replacement of left hip joint using bipolar prosthesis Z96.642 Aortic stenosis I35.0 Benign essential HTN I10 Anxiety F41.9 GERD (gastroesophageal reflux disease) K21.9 Hypothyroid E03.9 Hypomagnesemia E83.42 Hypokalemia E87.6
[2024-12-30] MEDS: FUROsemide 10 mg/mL SDV 4mL 40 MG IVP (13:32)
--- NOTE | 2024-12-30 14:12 | ECG_ITS ---
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 Measurements Intervals [place] Rate: 91 P: 76 RI: 161 QRS: 62 QRSD: 82 T: 61 QT: 395 QTc: 488 Interpretive Statements SINUS RHYTHM WITH OCCASIONAL SUPRAVENTRICULAR PREMATURE COMPLEXES NONSPECIFIC ST & T-WAVE ABNORMALITY INTERPRETATION BASED ON A DEFAULT AGE OF 40 YEARS Compared to ECG 12/30/2024 10:16:34 T-wave abnormality now present Sinus tachycardia no longer present ST (T wave) deviation no longer present Electronically Signed On 12-30-2024 20:23:09 CDT by Vasu Goldman M.D. [id number]
[2024-12-30 15:15] LABS: Troponin 5 6HR 15.37 ng/L (0-10)
[2024-12-30 15:18] LABS: Troponin 5 6HR Delta -1.63 ng/L (0-12)
[2024-12-30 15:27] LABS: Magnesium 1.6 mg/dL (1.7-2.3); Thyroid Stimulating Hormone 3.68 uIU/mL (0.27-4.20)
--- NOTE | 2024-12-30 17:29 | USCV_ITS ---
Diana Dewitt Age: 84 Gender: F : 1940 Exam Date: 12/30/2024 18:03 Ordering Phys: Christine Cespedes MD Technologist: DARWIN [place] [facility] [place]: sob BP: 103 / 71 HR: 96 Rhythm: Sinus Technical Quality: Adequate MEASUREMENTS (Male / Female) Normal Values 2D ECHO LV Diastolic Diameter PLAX 2.8 cm 4.2 - 5.9 / 3.9 - 5.3 cm IVS Diastolic Thickness 1.1 cm 0.6 - 1.0 / 0.6 - 0.9 cm IVS Systolic Thickness 1.3 cm LVPW Diastolic Thickness 1.6 cm 0.6 - 1.0 / 0.6 - 0.9 cm LVPW Systolic Thickness 1.5 cm LVOT Diameter 2.0 cm LV Ejection Fraction 2D Teich 68.5 % LV Ejection Fraction MOD 4C 72.3 % LV Ejection Fraction MOD 2C 68.8 % LV Ejection Fraction 2C AL 69.7 % LA Diameter 4.2 cm RA Systolic Volume 4C AL 37.8 ml RA Systolic Volume 4C MOD 38.0 ml LA Sys Volume AL 49.6 cm cubed LA Sys Volume Index AL 25.1 cm cubed/m squared Aorta at Sinotubular Diameter 2.0 cm IVC Diameter 1.3 cm M-MODE LA Ao Ratio MM 1.8 AV Cusp Separation MM 0.6 cm DOPPLER AV Peak Velocity 353.0 cm/s LVOT Peak Velocity 98.0 cm/s AV Area Cont Eq vti 0.9 cm squared AV Area Cont Eq pk 0.9 cm squared MV Peak Velocity 259.0 cm/s MV Area PHT 6.6 cm squared Mitral E to A Ratio 1.1 TV Peak Velocity 376.0 cm/s TR Peak Velocity 385.0 cm/s TR Peak Gradient 59.3 mmHg TR Mean Velocity 329.0 cm/s TR Mean Gradient 45.1 mmHg TR Velocity Time Integral 89.9 cm PV Peak Velocity 125.3 cm/s RV Ejection Time 0.3 s FINDINGS Left Ventricle Normal LV size and ejection fraction of 69%. Mild concentric left ventricular hypertrophy. Features of grade 3 left- ventricular diastolic dysfunction. Right Ventricle Normal right ventricular size and systolic function. Right Atrium Linear mobile structure on the right atrium-possible chiari network. Left Atrium Moderately increased left atrial size. Mitral Valve Moderate mitral annular calcification. Mild-moderate mitral valve regurgitation. Possibly severe mitral valve stenosis with a peak velocity of 2.6 m/s with a peak gradient of 27 and a mean gradient of 12 mmHg Aortic Valve Severe low gradient aortic valve stenosiss- mean gradient 34.9 mmHg, OMAR 0.92 cm squared. Trace aortic valve regurgitation. Peak velocity 3.53 m/s with a peak gradient of 50 mmHg Tricuspid Valve Mild to moderate tricuspid valve regurgitation. Estimated pulmonary artery peak systolic pressure of 62 mmHg and a mean pressure of 48, consistent with severe pulmonary hypertension Pulmonic Valve Pulmonic valve not well visualized. Pericardium No pericardial effusion. Aorta Normal aortic annulus size. IVC Normal inferior vena cava. CONCLUSIONS Normal LV size and ejection fraction of 69%. Mild concentric left ventricular hypertrophy. Features of grade 3 left- ventricular diastolic dysfunction. Severe low gradient aortic valve stenosiss- mean gradient 34.9 mmHg, OMAR 0.92 cm squared. Trace aortic valve regurgitation. Peak velocity 3.53 m/s with a peak gradient of 50 mmHg. Possibly severe mitral valve stenosis with a peak velocity of 2.6 m/s with a peak gradient of 27 and a mean gradient of 12 mmHg. Moderate mitral annular calcification. Mild-moderate mitral valve regurgitation. Moderately increased left atrial size. Linear mobile structure on the right atrium-possible chiari network. Mild to moderate tricuspid valve regurgitation. Estimated pulmonary artery peak systolic pressure of 62 mmHg and a mean pressure of 48, consistent with severe pulmonary hypertension. There is no pericardial effusion. Compared to the study from 08/15/2024, there seems to be worsening of the aortic and mitral valve stenosis and development of pulmonary hypertension Dr. Cespedes is informed about this finding Dr Vasu Goldman MD [facility] (Electronically Signed) Final Date: 30 December 2024 18:54 S
[2024-12-30] MEDS: magnesium sulfate premix 2 GM/50 ML PIGGYBACK IV (18:00)
[2024-12-30 18:42] LABS: Procalcitonin 0.05 ng/mL (0-0.5)
[2024-12-30] MEDS: levofloxacin-dextrose 5 % 750 MG/150 ML PREMIX 100 MG IV (18:43)
[2024-12-30 22:16] LABS: Coronavirus 229E,HKU1,NL63,OC4 Not Detected (NOT DETECT); Parainfluenza Virus Type 1 Not Detected (NOT DETECT); Parainfluenza Virus Type 2 Not Detected (NOT DETECT); Parainfluenza Virus Type 3 Not Detected (NOT DETECT); Parainfluenza Virus Type 4 Not Detected (NOT DETECT); SARS-COV-2 Not Detected (NOT DETECT)
[2024-12-31] VITALS (16 sets, daily range): BP systolic 100–134; BP diastolic 55–100; PULSE 95–107; RESP 16–27; TEMP 36.3–36.5; O2SAT 91–97
[2024-12-31] MEDS: FUROsemide 10 mg/mL SDV 4mL 40 MG IVP ×3 (00:59→15:29)
[2024-12-31 01:54] LABS: Glucose Urine UA Negative (Normal); Nitrate Urine Negative (Negative); Specific Gravity, Urine 1.021 (1.005-1.030)
[2024-12-31 01:56] LABS: Add Urine Microscopic? YES
[2024-12-31 04:53] LABS: Hematocrit 33.2 % (36-47); Hemoglobin 11.10 g/dL (11.27-16.99); Mean Corpuscular HGB Conc 33.4 g/dL (30-55); Mean Corpuscular Hemoglobin 30.6 pg (27-33); Mean Corpuscular Volume 91.5 fl (85-98); Nucleated Red Blood Cells % 0 %; Platelet Count 401 10^3/cmm (157-399); Red Blood Count 3.63 10^6/uL (3.85-5.65); White Blood Count 6.06 10^3/uL (3.29-11.43)
[2024-12-31 05:19] LABS: Alanine Aminotransferase 14 U/L (0-33); Albumin Level 3.9 g/dL (3.5-5.2); Alkaline Phosphatase 93 U/L (35-105); Anion Gap 19.0 (5-19); Aspartate Amino Transferase 21 U/L (0-32); Blood Urea Nitrogen 11 mg/dL (8-23); Calcium 8.8 mg/dL (8.5-10.5); Carbon Dioxide 27 mmol/L (22-29); Chloride 94 mmol/L (98-107); Creatinine Clr Calc Pharmacy 59.4315; Globulin 3.2 g/dL (1.3-4.6); Glucose 97 mg/dL (65-115); Osmolality Calculated 281 mOsm/kg (285-295); Potassium 4.0 mmol/L (3.5-5.1); Sodium 136 mmol/L (136-145); Total Protein 7.1 g/dL (6.6-8.7)
[2024-12-31 05:20] LABS: Magnesium 2.1 mg/dL (1.7-2.3)
--- NOTE | 2024-12-31 07:46 | PC.NURSE ---
2200- Patient i having frequency and burning with urination. Notified Dr. Sofia and recieved orders for UA. Also requested something to help with the burning, received orders for pyridium 100mg tid prn. 0200- Notified Dr. Sofia that UA had positive WBC and leukoerase. Received orders to give levaquin a little more time and MD will look at possible abx due to patient having allergies.
[2024-12-31] MEDS: multivitamin therapeutic Tablet 1 TAB PO (08:41)
--- NOTE | 2024-12-31 08:46 | P.PN_ITS ---
Subjective 2 Subjective: The patient was seen in the morning and doing much better Still requiring 2 to 3 L oxygen through nasal cannula and saturating above 94% Able to speak in full sentences Vitals/I&O/Wt Last Vital Signs Temp 97.6 F 12/31/24 04:40 Pulse 96 12/31/24 07:41 Resp 16 12/31/24 07:41 BP 132/64 12/31/24 04:40 Pulse Ox 95 12/31/24 07:41 O2 Del Method Nasal Cannula 12/31/24 07:41 O2 Flow Rate 4 12/31/24 07:41 12/30/24 12/31/24 12/31/24 22:59 06:59 14:59 Intake Total 555 / 555 480 / 480 Output Total 1200 / 1200 Balance 555 / 555 -720 / -720 Weight last 48 hrs Weight 79.974 kg Weight 81.193 kg Weight 83.915 kg Physical Exam 2 Narrative: General: Alert and oriented, lying comfortably without any distress, able to speak in full sentences with 3 to 4 L nasal cannula oxygen supplementation and saturating above 90 to 94% HEENT: Normocephalic, atraumatic, grossly unremarkable exam Cardio: normal rate rhythm, ejection systolic murmur heard at the precordium with radiation to carotids as well, rubs, or gallops and JVD normal Respiratory: normal vascular breathing on auscultation with inspiratory crepitations at the bases up to lower mid zone. No wheezes or stridor heard GI: Abdomen soft, nontender, nondistended, normoactive bowel sounds present all 4 quadrants, Neuro: intact cranial nerves motor and sensory and cerebellar/coordination function without any focal neurological deficit Behavior: Appropriate and cooperative Extremities: Adequate palpable pulses, trace pedal edema no cyanosis observed Skin: grossly unremarkable exam Urinary Catheter Management: Stearns: Cath Placed During This Visit: yes Reason for Continuing Indwelling Catheter: Accurate Measurement of Urinary Output in Critically Ill Patients Urinary Catheter Date of Insertion: 12/30/24 Urinary Catheter Time of Insertion: 23:10 Data 12/31/24 02:36 12/31/24 02:36 A&P Assessment and plan 1. Acute respiratory failure with hypoxia: Patient having bilateral pleural effusions at the bases leading to possible acute hypoxemic respiratory failure CT scan of the chest did not show any PE and chest x-ray was done which was compared with the previous one and showed bilateral lower zone consolidations and haziness suggestive of pleural effusion Patient has underlying severe aortic stenosis mitral stenosis and pulmonary hypertension which is the likely cause of her bilateral pleural effusion leading to acute hypoxemic respiratory failure There is no leukocytosis, Pro-Chon is negative Respiratory viral panel is also negative however Legionella antibodies pending For the meantime continue levofloxacin however if Legionella antibody is negative then to discontinue it. Oxygen supplementation 1 dose of 40 Lasix IV stat and to continue IV Lasix 40 mg twice daily since her blood pressure is on the soft side IV Lasix 40 mg twice daily 2. Pleural effusion: Echo showed severe mitral stenosis and aortic stenosis with pulmonary hypertension therefore the likely is of her acute hypoxemic respiratory failure is due to pulmonary congestion secondary to severe valvular disease compromising cardiac output. Oxygen supplementation IV Lasix 40 mg daily 3. Hyponatremia: Resolved, likely dilutional since serum osmolarity was low Restrict fluid intake 1 to 1.5 L max Continue IV Lasix twice daily 4. History of partial replacement of left hip joint using bipolar prosthesis: Continue with OT PT Adequate analgesia 5. Aortic stenosis: Echo was significant for severe aortic and mitral stenosis with pulmonary hypertension Monitor for any chest pain symptoms Imdur 30 mg daily Patient already follow-ups with the cardiology as outpatient and therefore to discharge with cardio follow-up at that time If the patient condition is deteriorating or worsening consider cardiology consult continue telemetry 6. Benign essential HTN: Hold amlodipine home dose that is 2.5 mg twice daily Patient will be kept on Lasix 40 mg IV twice daily in case his systolic is less than 100 then to hold Lasix dose 7. Anxiety: Continue on fluoxetine 20 mg daily 8. GERD (gastroesophageal reflux disease): Continue PPI 9. Acquired hypothyroidism: TSH normal, continue home dose levothyroxine 75 mcg daily 10. Hypomagnesemia: Resolved, correction applied and to monitor in the morning 11. Hypokalemia: Resolved, correction applied intermittent in the morning 12. Asymptomatic bacteriuria: Patient did not voiced any urinary tract symptoms such as burning micturition, suprapubic pain or any flank pain at the time of admission. UA was done and therefore patient has asymptomatic bacteriuria that does not require treatment in her case as per the guidelines considering there is no history of recent urethral mucosal intervention or urological procedure and the patient is also not on any immunosuppressants. However patient is on levofloxacin that is being given for her possible atypical pneumonia, if workup of atypical pneumonia is completed and negative for Legionella antibodies, antibiotics to be discontinued PDMP PDMP Reviewed: Not Reviewed Attestations 2 Medical Necessity Statement*: Diana Dewitt's hospital stay will require greater than 2 midnights for shortness of breath secondary to pleural effusion likely underlying cardiac valvular disease Time Spent in Patient Care: 16 - 35 minutes (>than 50% of time sp ent in counselling and/or direct pt care on unit) . Other Attestations: Patient condition has been discussed at length with the patient/family, I have independently reviewed the chart labs imaging/diagnostics/EKG. the goals of care and code status with the patient/family/NOK/legal logistics service representative, and documented accordingly. The patient/family has been informed about the current condition and further plan of care. Agreed with the plan of care and understood without any language barrier. Every effort was made to ensure accuracy of spider assembler. Any obvious errors or omissions should be clarified with the author of the document. Coding Level of Care Code 97597 Diagnoses Acute respiratory failure with hypoxia J96.01 Pleural effusion J90 Hyponatremia E87.1 History of partial replacement of left hip joint using bipolar prosthesis Z96.642 Aortic stenosis I35.0 Benign essential HTN I10 Anxiety F41.9 GERD (gastroesophageal reflux disease) K21.9 Acquired hypothyroidism E03.9 Hypothyroidism type: acquired Hypomagnesemia E83.42 Hypokalemia E87.6 Asymptomatic bacteriuria R82.71
[2024-12-31] MEDS: alum-mag-hydroxide-sime 30 mL UDC 15 ML PO (09:45)
--- NOTE | 2024-12-31 15:53 | PM.CONSULT ---
Providers/Reason For Consult Consulting Physician/Specialty*: PEDRO Goldman MD/cardiology Reason for Consult*: Patient with multi valvular heart disease/shortness of breath Requesting Physician: Dr. Cespedes Attending Physician: Christine Cespedes MD Primary Care Provider: Jose C Back MD History of Present Illness History of Present Illness Diana Dewitt is a 84 year old female who is admitted to the hospital through the emergency room where she presented with complaints of shortness of breath. Patient was found to have features of congestive heart failure. She had an echocardiogram which revealed a severe low gradient aortic valve stenosis, possibly severe mitral stenosis, severe pulm hypertension and advanced left-ventricular diastolic dysfunction. Cardiology consult is requested for further cardiac evaluation recommendations. 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 She had a recent hip surgery. She has been recuperating in half-way. According the patient, she been having some amount of dyspnea on exertion for the last couple of months. However on the day of admission, the shortness of breath has acutely gotten worse. She did not have any chest pain. However she had some fluttery feeling in the chest. She also been having episodes of dizziness and weakness. No syncopal episode. No fever, chills or cough. No other specific complaints She has significant dyspnea on exertion. No orthopnea or PND. She has a history of atypical chest symptoms. She had a Myocardial perfusion imaging in 2022 and was found to be unremarkable. She has no significant family history for coronary artery disease. No history for smoking abuse or alcohol abuse. Review of Systems Narrative: CONSTITUTIONAL: No fever or chills. EYES: No blurring of vision or other visual disturbances lately. ENT: No hoarseness of voice, auditory disturbances or sore throat. CARDIOVASCULAR: As mentioned above. RESPIRATORY: No significant cough. GASTROINTESTINAL: No hematemesis or melena. GENITOURINARY: No dysuria or hematuria. INTEGUMENTARY: No skin rashes or history of skin cancer. NEURO: No transient ischemic attacks or amaurosis. PSYCHIATRIC: No history of psychosis or major depression. HEMATOLOGIC: No bleeding disorders or significant anemia. ENDOCRINE: No history of polyuria or polydipsia. MUSCULOSKELETAL: Recent hip surgery as mentioned ALLERGY/IMMUNOLOGY: As mentioned above. Medications/Allergies Home Medications ?Medication ?Instructions ?Recorded ?Confirmed ?Last Taken ?Type ASO to the right #1 ea 11/23/22 12/30/24 Unknown Rx loratadine 10 mg capsule 10 mg PO DAILY 12/24/22 12/30/24 12/30/24 History furosemide 20 mg tablet (Lasix) 20 mg PO DAILY #90 tabs 06/01/24 12/30/24 12/30/24 Rx isosorbide mononitrate 30 mg 30 mg PO DAILY #90 tabs 06/01/24 12/30/24 12/30/24 Rx tablet,extended release 24 hr potassium chloride 8 mEq 8 meq PO DAILY #90 tabs 06/20/24 12/30/24 12/30/24 Rx tablet,extended release levothyroxine 75 mcg tablet 75 mcg PO QAM 07/05/24 12/30/24 12/30/24 History fluoxetine 20 mg capsule 20 mg PO DAILY 10/29/24 12/30/24 12/30/24 History levalbuterol tartrate 45 2 puff inhalation Q6H PRN 10/29/24 12/30/24 Unknown History mcg/actuation aerosol inhaler Shortness Of Breath amlodipine 2.5 mg tablet 2.5 mg PO BID #90 tabs 10/30/24 12/30/24 12/30/24 Rx calcium carbonate 1,000 mg (5 x 200 mg calcium (500 11/02/24 12/30/24 12/30/24 Rx mg)) PO BID #30 tabs multivitamin with folic acid 400 1 tab PO DAILY #30 tabs 11/02/24 12/30/24 12/30/24 Rx mcg tablet (Thera) polysaccharide iron complex 150 mg 150 mg PO BIDWM #60 caps 11/02/24 12/30/24 12/29/24 Rx iron capsule (Ferrex) sennosides 8.6 mg-docusate sodium 2 tab PO BID #60 tabs 11/02/24 12/30/24 12/30/24 Rx 50 mg tablet (Stool Softener-Laxative) Shower chair #1 ea 11/17/24 12/30/24 Unknown Rx Standard Walker #1 ea 11/17/24 12/30/24 Unknown Rx acetaminophen 500 mg tablet 1,000 mg PO Q8H PRN Pain 12/27/24 12/30/24 Unknown History ondansetron HCl 4 mg tablet 4 mg PO Q4H PRN Nausea 12/27/24 12/30/24 Unknown History pantoprazole 40 mg tablet,delayed 40 mg PO DAILY 4 weeks #30 tabs 12/27/24 12/30/24 12/30/24 Rx release ketoconazole 2 % topical cream 1 applic topical BID PRN Skin 12/30/24 12/30/24 Unknown History Irritation Allergies Allergy/AdvReac Type Severity Reaction Status Date / Time albuterol Allergy ADR/ALGY-Pa Verified 12/27/24 10:50 lpitations cefaclor (From Ceclor) Allergy ALGY-Difficulty Verified 12/27/24 10:50 Breathing nitrofurantoin (From Allergy ADR-Irritab Verified 12/27/24 10:50 Macrobid) le Sulfa (Sulfonamide Allergy ADR-Agitate Verified 12/27/24 10:50 Antibiotics) d Penicillins AdvReac Intermediate Shakes and Verified 12/27/24 10:50 chills Current Medications Generic Name Dose Route Start Last Admin Trade Name Freq PRN Reason Stop Dose Admin Al Hydrox/Mg Hydrox/Simethicone 15 ml 12/30/24 12:16 12/31/24 09:45 Txes-Tjq-Sszzfnsbo-Noé 30 Ml Udc PO 15 ml Q6H PRN Administration INDIGESTION Enoxaparin Sodium 40 mg 12/30/24 12:30 12/31/24 12:05 Enoxaparin 40 Mg/0.4 Ml Syringe SUBCUT 40 mg Q24H JANETT Administration Fluoxetine HCl 20 mg 12/31/24 09:00 12/31/24 08:41 Fluoxetine 20 Mg Capsule PO 20 mg DAILY JANETT Administration Furosemide 40 mg 12/30/24 13:00 12/31/24 15:29 Furosemide 10 Mg/Ml Sdv 4ml IVP 40 mg Q12H JANETT Administration Levofloxacin/Dextrose 750 mg in 150 mls @ 100 mls/hr 12/30/24 17:45 12/30/24 20:42 Levaquin-D5w IV Infused Q24H JANETT Infusion Protocol Ipratropium Wolbach 0.5 mg 12/30/24 14:00 12/31/24 13:02 Ipratropium 0.5 Mg/2.5 Ml Neb INHALATION 0.5 mg TID.RESP JANETT Administration Isosorbide Mononitrate 30 mg 12/31/24 08:00 12/31/24 08:59 Isosorbide Mononitrate Er 30 Mg Tablet PO 30 mg DAILY JANETT Administration Levalbuterol HCl 1.25 mg 12/30/24 14:00 12/31/24 13:02 Levalbuterol 1.25 Mg/3 Ml Neb INHALATION 1.25 mg Q6H.RESP JANETT Administration Levothyroxine Sodium 75 mcg 12/31/24 06:00 12/31/24 07:14 Levothyroxine 75 Mcg Tablet PO 75 mcg QAM JANETT Administration Multivitamins Therapeutic 1 tab 12/31/24 09:00 12/31/24 08:41 Multivitamin Therapeutic Tablet PO 1 tab DAILY JANETT Administration Pantoprazole Sodium 40 mg 12/31/24 09:00 12/31/24 08:[address] 40 Mg Tablet PO 40 mg DAILY JANETT Administration Phenazopyridine HCl 100 mg 12/30/24 23:29 12/31/24 00:59 Phenazopyridine 100 Mg Tablet PO 100 mg TID PRN Administration DYSURIA Polysaccharide Iron Complex 150 mg 12/30/24 18:00 12/31/24 08:42 Iron Polysaccharide Complex 150 Mg Capsule PO 150 mg BIDWM JANETT Administration PFSH Acute PFSH: Medical History History of partial replacement of left hip joint using bipolar prosthesis Date of surgery: October 31, 2024 Surgery: Left bipolar hip arthroplasty. Surgeon: Dr. Teresita Morris MD Anxiety Former smoker History of nonmelanoma skin cancer Nonrheumatic mitral valve stenosis TTE 12/24/22: mild Aortic insufficiency with aortic stenosis GERD (gastroesophageal reflux disease) Amira infection Hypothyroid Surgical History Hx of tonsillectomy History of bunionectomy History of hysterectomy Family History Father No problems noted. Family/Other Diabetes Chronic kidney disease (CKD) Bleeding disorder Aunt CAD (coronary artery disease) Aunt - heart valve x 2 Cancer Dementia Grandfather Dementia Mother Cancer Lung disease Denies family history of Clotting disorder Suicide Anesthesia complication Stroke Social History Smoking and tobacco/nicotine status: former use of tobacco/nicotine Second hand smoke exposure: No Alcohol intake: never Substance/Drug Use: never Adopted: No Caregiver/support person: No Lives independently: Yes Household members: spouse Housing: House Marital status: Number of children: 0 service: No Vitals/I&O/Wt Last Vital Signs Temp 97.5 F L 12/31/24 12:00 Pulse 100 12/31/24 14:41 Resp 18 12/31/24 14:41 BP 127/65 12/31/24 14:41 Pulse Ox 93 12/31/24 14:41 O2 Del Method Nasal Cannula 12/31/24 13:55 O2 Flow Rate 2 12/31/24 13:55 12/31/24 12/31/24 12/31/24 06:59 14:59 22:59 Intake Total 1020 / 1020 Output Total 1310 / 1310 400 / 1710 Balance -290 / -290 -400 / -690 Weight last 48 hrs Weight 176 lb 5 oz Weight 179 lb Weight 185 lb Physical Exam Narrative: GENERAL: The patient is alert and oriented times three. Not in any acute distress. HEENT: No significant pallor, icterus or lymphadenopathy.Oral cavity: There are no mucous membrane lesions. NECK: Trachea appears to be central. No masses noted. No JVD or thyromegaly appreciated. RESPIRATORY: Chest is symmetrical. No intercostals muscle retraction or any accessory muscle activation. There is no chest wall tenderness. Breath sounds are heard bilaterally. No rales or rhonchi heard. No evidence of any consolidation. BREASTS: Deferred. HEART: The heart sounds are normal. No S3 or S4. Ejection systolic murmur grade 4/6 in the aortic area. Mean diastolic murmur of grade 2 or 6 in the mitral area ABDOMEN: No vessel pulsations or distention. No tenderness. No organomegaly appreciated. Bowel sounds are normally heard. : Deferred. RECTAL: Deferred. LYMPHATIC: No lymphadenopathy noted in the neck. EXTREMITIES: Peripheral pulses are palpable but weak bilaterally MUSCULOSKELETAL: No acute joint deformities or swelling SKIN: There are no significant rashes or ecchymosis NEUROPSYCHIATRIC: The patient is alert and oriented x3. Appears to be in a good mood. No tremors or rigidity noted. Urinary Catheter Management: Stearns: Cath Placed During This Visit: yes Reason for Continuing Indwelling Catheter: Accurate Measurement of Urinary Output in Critically Ill Patients Urinary Catheter Date of Insertion: 12/30/24 Urinary Catheter Time of Insertion: 23:10 Data 01/01/25 04:13 01/01/25 04:13 Other data: The EKG showed a normal sinus rhythm with occasional supraventricular ectopics and occasional nonspecific ST changes. Echocardiogram from 01/07/2025 Normal LV size and ejection fraction of 69%. Mild concentric left ventricular hypertrophy. Features of grade 3 left- ventricular diastolic dysfunction. Severe low gradient aortic valve stenosiss- mean gradient 34.9 mmHg, OMAR 0.92 cm squared. Trace aortic valve regurgitation. Peak velocity 3.53 m/s with a peak gradient of 50 mmHg. Possibly severe mitral valve stenosis with a peak velocity of 2.6 m/s with a peak gradient of 27 and a mean gradient of 12 mmHg. Moderate mitral annular calcification. Mild-moderate mitral valve regurgitation. Moderately increased left atrial size. Linear mobile structure on the right atrium-possible chiari network. Mild to moderate tricuspid valve regurgitation. Estimated pulmonary artery peak systolic pressure of 62 mmHg and a mean pressure of 48, consistent with severe pulmonary hypertension. There is no pericardial effusion. Compared to the study from 08/15/2024, there seems to be worsening of the aortic and mitral valve stenosis and development of pulmonary hypertension Dr. Cespedes is informed about this finding A&P Assessment and plan 1. Acute diastolic heart failure: Patient is a multivalvular heart disease and severe pulmonary pretension artery cardiorenal factors for the heart failure. Hemodynamically she seems to be stable. 2. Severe aortic valve stenosis: Patient has severe low gradient aortic valve stenosis. This coupled with her mitral valve stenosis and pulm hypertension might be the cause for the heart failure. 3. Nonrheumatic mitral valve stenosis: Patient has possibly severe mitral valve stenosis with a mean gradient of 12 mmHg. 4. Severe pulmonary hypertension: The pulm hypertension could be partly reactive. 5. Chest discomfort: Patient chest pain is atypical. Possibility of coronary ischemia causing this is a consideration. However there is no evidence of myocardial injury or any significant ischemic changes. The most recent Myocardial perfusion imaging in 2021 was unremarkable. Plan: ? Reactive airway disease I may discontinue the amlodipine and start her on a low-dose of diltiazem The patient may be treated carefully with diuretics. Discussed with the patient about further management options. She is not wanting to undergo any valve intervention or coronary interventions. So we will try to optimize her medical treatment. Based on the current findings, her overall prognosis is poor. Patient seems understand this well PDMP PDMP Reviewed: Not Reviewed Consult Attestations Medical Necessity Statement: Patient requires continued hospital stay for close monitoring and further management Coding Level of Care Code 80762 Diagnoses Acute diastolic heart failure I50.31 Severe aortic valve stenosis I35.0 Nonrheumatic mitral valve stenosis I34.2 Cardiac valve disease etiology: nonrheumatic Severe pulmonary hypertension I27.20 Chest discomfort R07.89
[2024-12-31] MEDS: levofloxacin-dextrose 5 % 750 MG/150 ML PREMIX 100 MG IV (17:41)
[2025-01-01] VITALS (14 sets, daily range): BP systolic 93–112; BP diastolic 57–67; PULSE 83–105; RESP 16–28; TEMP 36.6–36.7; O2SAT 86–99
[2025-01-01] MEDS: FUROsemide 10 mg/mL SDV 4mL 40 MG IVP (01:56)
[2025-01-01 04:56] LABS: Hematocrit 32.9 % (36-47); Hemoglobin 10.80 g/dL (11.27-16.99); Mean Corpuscular HGB Conc 32.8 g/dL (30-55); Mean Corpuscular Hemoglobin 29.8 pg (27-33); Mean Corpuscular Volume 90.6 fl (85-98); Nucleated Red Blood Cells % 0 %; Platelet Count 375 10^3/cmm (157-399); Red Blood Count 3.63 10^6/uL (3.85-5.65); White Blood Count 5.28 10^3/uL (3.29-11.43)
[2025-01-01 05:18] LABS: Alanine Aminotransferase 13 U/L (0-33); Albumin Level 3.9 g/dL (3.5-5.2); Alkaline Phosphatase 89 U/L (35-105); Anion Gap 17.8 (5-19); Aspartate Amino Transferase 20 U/L (0-32); Blood Urea Nitrogen 13 mg/dL (8-23); Calcium 8.8 mg/dL (8.5-10.5); Carbon Dioxide 29 mmol/L (22-29); Chloride 93 mmol/L (98-107); Creatinine Clr Calc Pharmacy 59.0142; Globulin 3.5 g/dL (1.3-4.6); Glucose 207 mg/dL (65-115); Osmolality Calculated 288 mOsm/kg (285-295); Potassium 3.8 mmol/L (3.5-5.1); Sodium 136 mmol/L (136-145); Total Protein 7.4 g/dL (6.6-8.7)
[2025-01-01] MEDS: multivitamin therapeutic Tablet 1 TAB PO (08:37)
[2025-01-01] MEDS: dilTIAZem ER (12HR) 60 mg Capsule PO ×2 (08:37→16:18)
--- NOTE | 2025-01-01 09:26 | P.PN_ITS ---
Subjective 2 Subjective: Patient is eating breakfast comfortably. She denies using oxygen at home prior to admit. She states she was unable to do anything short of breath just crossing the room. She states she has discussed valve repair with Dr. Goldman and with Dr. Cespedes and declines to seek surgical intervention. She thinks the recovery would be too much and that she has become too weak. She states her went far and his attempts to live which were not successful. Patient states she lives with her niece who is 40 and works. Patient states she is at home most of the time by herself. Vitals/I&O/Wt Last Vital Signs Temp 98.0 F 01/01/25 06:55 Pulse 101 H 01/01/25 08:00 Resp 16 01/01/25 08:00 BP 93/58 01/01/25 06:55 Pulse Ox 93 01/01/25 08:00 O2 Del Method Nasal Cannula 01/01/25 08:00 O2 Flow Rate 1 01/01/25 08:00 12/31/24 01/01/25 01/01/25 22:59 06:59 14:59 Intake Total 510 / 1530 480 / 2010 Output Total 900 / 2210 800 / 3010 Balance -390 / -680 -320 / -1000 Weight last 48 hrs Weight 79.974 kg Weight 81.193 kg Physical Exam 2 Narrative: General well-developed well-nourished female in no acute cardiopulmonary stress she is able to speak in full sentences CV regular rate and rhythm with a 5+/6 systolic ejection murmur best heard at the right upper sternal border she also has murmur heard at the left sternal border and left axilla. This is 3/6 Lungs mildly diminished in bases but good air movement no overt crackles Abdomen positive bowel tones soft Calves no pretibial edema Urinary Catheter Management: Stearns: Cath Placed During This Visit: yes Reason for Continuing Indwelling Catheter: Accurate Measurement of Urinary Output in Critically Ill Patients Urinary Catheter Date of Insertion: 12/30/24 Urinary Catheter Time of Insertion: 23:10 Data 01/01/25 04:13 01/01/25 04:13 A&P Assessment and plan 1. Acute exacerbation of congestive heart failure: Patient with valvular disease and volume overload now diuresed. Changed to oral furosemide dose and monitor response in preparation for discharge tomorrow 2. Acute respiratory failure with hypoxia: Patient has severe aortic stenosis and moderate mitral valve regurgitation left atrium moderately increased in size and she has mild to moderate TR as well as severe pulmonary hypertension. She came in with large pleural effusions with clinical improvement and diuresis about 2 kg Will likely need chronic home O2 now 3. Pleural effusion: Echo showed severe mitral stenosis and aortic stenosis with pulmonary hypertension therefore the likely is of her acute hypoxemic respiratory failure is due to pulmonary congestion secondary to severe valvular disease compromising cardiac output. Oxygen supplementation She was only on furosemide 20 mg daily at home increased to 40 mg p.o. twice daily. Stop IV furosemide increase potassium chloride to 10 mg twice a day Repeat chest x-ray in the morning two-view 4. History of partial replacement of left hip joint using bipolar prosthesis: Patient states she was quite short of breath after her last surgery 5. Aortic stenosis: Echo was significant for severe aortic and mitral stenosis with pulmonary hypertension Monitor for any chest pain symptoms Imdur 30 mg daily Patient already follow-ups with the cardiology as outpatient and therefore to discharge with cardio follow-up at that time If the patient condition is deteriorating or worsening consider cardiology consult continue telemetry 6. Benign essential HTN: Blood pressure is low. Amlodipine was stopped in favor of diltiazem by Dr. Goldman. Heart rate still running around to 100. Stop Imdur 7. Anxiety: Continue on fluoxetine 20 mg daily 8. GERD (gastroesophageal reflux disease): Continue PPI 9. Acquired hypothyroidism: TSH normal, continue home dose levothyroxine 75 mcg daily 10. Hypomagnesemia: Start magnesium oxide 400 mg twice a day with repeat lab in the morning and adjustment for discharge 11. Hypokalemia: Resolved, correction applied intermittent in the morning 12. Asymptomatic bacteriuria: Discontinue IV levofloxacin. Await Legionella antibody 13. Severe pulmonary hypertension: Chronic with valvular disease PDMP PDMP Reviewed: Not Reviewed Attestations 2 Medical Necessity Statement*: Patient switched over to oral diuretic dosing follow-up chest x-ray in the morning and anticipate discharge tomorrow Coding Level of Care Code 81907 Diagnoses Acute exacerbation of congestive heart failure I50.9 Acute respiratory failure with hypoxia J96.01 Pleural effusion J90 History of partial replacement of left hip joint using bipolar prosthesis Z96.642 Aortic stenosis I35.0 Benign essential HTN I10 Anxiety F41.9 GERD (gastroesophageal reflux disease) K21.9 Acquired hypothyroidism E03.9 Hypothyroidism type: acquired Hypomagnesemia E83.42 Hypokalemia E87.6 Asymptomatic bacteriuria R82.71 Severe pulmonary hypertension I27.20 Time Spent (min) 35
--- NOTE | 2025-01-01 09:27 | P.PN_ITS ---
Subjective 2 Subjective: The patient is feeling okay. Still has the shortness of breath with exertion . No chest pain Medications: Medication Review Details: Current Medications Acetaminophen (Acetaminophen 325 Mg Tablet) 650 mg PO Q6H PRN PRN Reason: Mild/Mod Pain Or Temp >/= 101 Hydrocodone Bitart/Acetaminophen (Hydrocodone-Acetaminophen 5-325 Mg Tablet) 1 tab PO Q4H PRN PRN Reason: MODERATE TO SEVERE PAIN Al Hydrox/Mg Hydrox/Simethicone (Uwdl-Qsd-Cqkpzsjnj-Noé 30 Ml Udc) 15 ml PO Q6H PRN PRN Reason: INDIGESTION Last Admin: 12/31/24 09:45 Dose: 15 ml Bisacodyl (Bisacodyl 5 Mg Tablet) 10 mg PO DAILY PRN; Protocol PRN Reason: Constipation (see protocol) Last Admin: 01/01/25 07:00 Dose: 10 mg Denture Adhesive (Efferdent Effervescent) 1 each DENTAL PRN PRN PRN Reason: denture adhesive Diltiazem HCl (Diltiazem Er (12hr) 60 Mg Capsule) 60 mg PO BID [facility] Last Admin: 01/01/25 08:37 Dose: 60 mg Enoxaparin Sodium (Enoxaparin 40 Mg/0.4 Ml Syringe) 40 mg SUBCUT Q24H [facility] Last Admin: 12/31/24 12:05 Dose: 40 mg Fluoxetine HCl (Fluoxetine 20 Mg Capsule) 20 mg PO DAILY [facility] Last Admin: 01/01/25 08:37 Dose: 20 mg Furosemide (Furosemide 40 Mg Tablet) 40 mg PO BID@08,16 [facility] Ipratropium [place] (Ipratropium 0.5 Mg/2.5 Ml Neb) 0.5 mg INHALATION TID.RESP [facility] Last Admin: 01/01/25 08:32 Dose: 0.5 mg Levalbuterol HCl (Levalbuterol 1.25 Mg/3 Ml Neb) 1.25 mg INHALATION Q6H.RESP [facility] Last Admin: 01/01/25 08:32 Dose: 1.25 mg Levothyroxine Sodium (Levothyroxine 75 Mcg Tablet) 75 mcg PO QAM [facility] Last Admin: 01/01/25 06:57 Dose: 75 mcg Magnesium Oxide (Magnesium Oxide 400 Mg Tablet) 400 mg PO BID [facility] Multivitamins Therapeutic (Multivitamin Therapeutic Tablet) 1 tab PO DAILY [facility] Last Admin: 01/01/25 08:37 Dose: 1 tab Ondansetron HCl (Ondansetron 2 Mg/Ml Sdv 2 Ml) 4 mg IVP Q8H PRN PRN Reason: vomiting, or N/V if npo Pantoprazole Sodium (Pantoprazole Dr 40 Mg Tablet) 40 mg PO DAILY [facility] Last Admin: 01/01/25 08:37 Dose: 40 mg Phenazopyridine HCl (Phenazopyridine 100 Mg Tablet) 100 mg PO TID PRN PRN Reason: DYSURIA Last Admin: 12/31/24 00:59 Dose: 100 mg Polysaccharide Iron Complex (Iron Polysaccharide Complex 150 Mg Capsule) 150 mg PO BIDWM [facility] Last Admin: 01/01/25 08:37 Dose: 150 mg Potassium Chloride (Potassium Chloride Er 10 Meq Tablet) 10 meq PO BID [facility] Vitals/I&O/Wt Last Vital Signs Temp 98.0 F 01/01/25 06:55 Pulse 101 H 01/01/25 08:00 Resp 16 01/01/25 08:00 BP 93/58 01/01/25 06:55 Pulse Ox 93 01/01/25 08:00 O2 Del Method Nasal Cannula 01/01/25 08:00 O2 Flow Rate 1 01/01/25 08:00 12/31/24 01/01/25 01/01/25 22:59 06:59 14:59 Intake Total 510 / 1530 480 / 2010 Output Total 900 / 2210 800 / 3010 Balance -390 / -680 -320 / -1000 Weight last 48 hrs Weight 176 lb 5 oz Weight 179 lb Physical Exam 2 Narrative: GENERAL: The patient is alert and oriented times three. Not in any acute distress. HEENT: No significant pallor, icterus or lymphadenopathy.Oral cavity: There are no mucous membrane lesions. NECK: Trachea appears to be central. No masses noted. No JVD or thyromegaly appreciated. RESPIRATORY: Chest is symmetrical. No intercostals muscle retraction or any accessory muscle activation. There is no chest wall tenderness. Breath sounds are heard bilaterally. No rales or rhonchi heard. No evidence of any consolidation. BREASTS: Deferred. HEART: The heart sounds are normal. No S3 or S4. Ejection systolic murmur grade 4/6 in the aortic area. Mean diastolic murmur of grade 2 or 6 in the mitral area ABDOMEN: No vessel pulsations or distention. No tenderness. No organomegaly appreciated. Bowel sounds are normally heard. : Deferred. RECTAL: Deferred. LYMPHATIC: No lymphadenopathy noted in the neck. EXTREMITIES: Peripheral pulses are palpable but weak bilaterally MUSCULOSKELETAL: No acute joint deformities or swelling SKIN: There are no significant rashes or ecchymosis NEUROPSYCHIATRIC: The patient is alert and oriented x3. Appears to be in a good mood. No tremors or rigidity noted. Urinary Catheter Management: Stearns: Cath Placed During This Visit: yes Reason for Continuing Indwelling Catheter: Accurate Measurement of Urinary Output in Critically Ill Patients Urinary Catheter Date of Insertion: 12/30/24 Urinary Catheter Time of Insertion: 23:10 Data 01/01/25 04:13 01/01/25 04:13 Other Labs: Laboratory Last Values WBC 5.28 10^3/uL (3.29-11.43) 01/01/25 04:13 RBC 3.63 10^6/uL (3.85-5.65) L 01/01/25 04:13 Hgb 10.80 g/dL (11.27-16.99) L 01/01/25 04:13 Hct 32.9 % (36-47) L 01/01/25 04:13 MCV 90.6 fl (85-98) 01/01/25 04:13 MCH 29.8 pg (27-33) 01/01/25 04:13 MCHC 32.8 g/dL (30-55) 01/01/25 04:13 RDW 12.6 % (12.1-15.1) 01/01/25 04:13 Plt Count 375 10^3/cmm (157-399) 01/01/25 04:13 MPV 8.9 fL (7.4-10.4) 01/01/25 04:13 Neut % (Auto) 69.6 % 01/01/25 04:13 Lymph % (Auto) 14.2 % 01/01/25 04:13 [place] % (Auto) 11.2 % 01/01/25 04:13 Eos % (Auto) 4.4 % 01/01/25 04:13 Baso % (Auto) 0.4 % 01/01/25 04:13 Neut # (Auto) 3.68 10^3/uL (1.8-7.7) 01/01/25 04:13 Lymph # (Auto) 0.8 10^3/uL (0.8-4.8) 01/01/25 04:13 [place] # (Auto) 0.6 10^3/uL (0.2-0.9) 01/01/25 04:13 Eos # (Auto) 0.2 10^3/uL (0.0-0.8) 01/01/25 04:13 Baso # (Auto) 0.0 10^3/uL (0.0-0.1) 01/01/25 04:13 Nucleated RBC % (auto) 0 % 01/01/25 04:13 Nucleated RBCs # 0.0 /100WBC 01/01/25 04:13 PT 14.20 SECONDS (12.1-14.9) 12/30/24 08:14 INR 1.03 (0.8-1.2) 12/30/24 08:14 Specimen Type Arterial 12/30/24 09:04 Sample Site Radial, right 12/30/24 09:04 ABG pH 7.42 (7.35-7.45) 12/30/24 09:04 ABG pCO2 37.8 mmHg (35-45) 12/30/24 09:04 ABG pO2 62.5 mmHg (80.0-100.0) L 12/30/24 09:04 ABG HCO3 24.3 mmol/L (22-26) 12/30/24 09:04 ABG O2 Saturation 93.4 12/30/24 09:04 ABG Base Excess 0.0 mmol/L (-2.0-2.0) 12/30/24 09:04 Dusty Test Pos 12/30/24 09:04 A-a O2 Gradient 5.3 mmHg (5-10) 12/30/24 09:04 Hematocrit 33.3 % (37-47) L 12/30/24 09:04 Hgb O2 Saturation 90.4 % (95-100) L 12/30/24 09:04 Carboxyhemoglobin 2.5 %THgb (0.4-20.1) 12/30/24 09:04 Methemoglobin 0.7 % (0.4-1.5) 12/30/24 09:04 Total Hemoglobin 10.9 g/dL (12-16) L 12/30/24 09:04 Sodium 126.0 mmol/L (131-143) L 12/30/24 09:04 Potassium 3.4 mmol/L (3.5-5.0) L 12/30/24 09:04 Glucose 144.0 mg/dL (70-115) H 12/30/24 09:04 Ionized Calcium 1.1 mmol/L (1.1-1.4) 12/30/24 09:04 O2 Delivery Device Nc 12/30/24 09:04 O2 Liters/Min 5.0 % 12/30/24 09:04 Knitting Machine Operator Helper ID [place] 12/30/24 09:04 Sodium 136 mmol/L (136-145) 01/01/25 04:13 Potassium 3.8 mmol/L (3.5-5.1) 01/01/25 04:13 Chloride 93 mmol/L (98-107) L 01/01/25 04:13 Carbon Dioxide 29 mmol/L (22-29) 01/01/25 04:13 Anion Gap 17.8 (5-19) 01/01/25 04:13 BUN 13 mg/dL (8-23) 01/01/25 04:13 Creatinine 0.8 mg/dL (0.5-0.9) 01/01/25 04:13 GFR Calculation Not Reportable 01/01/25 04:13 Glucose 207 mg/dL (65-115) H 01/01/25 04:13 Calculated Osmolality 288 mOsm/kg (285-295) 01/01/25 04:13 Calcium 8.8 mg/dL (8.5-10.5) 01/01/25 04:13 Phosphorus 3.3 mg/dL (2.5-4.5) 12/30/24 14:37 Magnesium 2.1 mg/dL (1.7-2.3) 12/31/24 02:36 Total Bilirubin 0.5 mg/dL (0.15-1.2) 01/01/25 04:13 AST 20 U/L (0-32) 01/01/25 04:13 ALT 13 U/L (0-33) 01/01/25 04:13 Alkaline Phosphatase 89 U/L (35-105) 01/01/25 04:13 Troponin T Baseline 17 ng/L (0-10) H 12/30/24 08:14 Troponin T 120 Minute 15.65 ng/L (0-10) H 12/30/24 09:58 Delta Troponin T -1.35 ABS# (0-10) L 12/30/24 09:58 Troponin T Hi Sens 6Hr 15.37 ng/L (0-10) H 12/30/24 14:37 Troponin T Hi Sens 6Hr Delta -1.63 ng/L (0-12) L 12/30/24 14:37 NT-Pro-B Natriuret Pep 2104 pg/mL (0-450) H 12/30/24 08:14 Total Protein 7.4 g/dL (6.6-8.7) 01/01/25 04:13 Albumin 3.9 g/dL (3.5-5.2) 01/01/25 04:13 Globulin 3.5 g/dL (1.3-4.6) 01/01/25 04:13 Procalcitonin 0.05 ng/mL (0-0.5) 12/30/24 14:37 TSH 3.68 uIU/mL (0.27-4.20) 12/30/24 14:37 Urine Color Yellow (Yellow) 12/31/24 01:15 Urine Appearance Cloudy (CLEAR) A 12/31/24 01:15 Urine pH 5.5 (5-7) 12/31/24 01:15 Ur Specific [place] 1.021 (1.005-1.030) 12/31/24 01:15 Urine Protein 1+ (Negative) A 12/31/24 01:15 Urine Glucose (UA) Negative (Normal) 12/31/24 01:15 Urine Ketones Negative (Negative) 12/31/24 01:15 Urine Blood 3+ (Negative) A 12/31/24 01:15 Urine Nitrate Negative (Negative) 12/31/24 01:15 Urine Bilirubin Negative (Negative) 12/31/24 01:15 Urine Urobilinogen 1.0 mg/dL (Negative) 12/31/24 01:15 Ur Leukocyte Esterase 2+ (Negative) A 12/31/24 01:15 Urine RBC 21-50 /hpf (0-2) H 12/31/24 01:15 Urine WBC >100 /hpf (0-5) H 12/31/24 01:15 Ur Squamous Epith Cells 0-5 /hpf (0-5) 12/31/24 01:15 Amorphous Sediment Not Reportable 12/31/24 01:15 Urine Bacteria None seen /hpf (NONE) 12/31/24 01:15 Hyaline Casts 1.65 /lpf 12/31/24 01:15 Adenovirus (PCR) Not detected (NOT DETECT) 12/30/24 17:38 C. pneumoniae DNA (PCR) Not detected (NOT DETECT) 12/30/24 17:38 Coronavirus 229E (PCR) Not detected (NOT DETECT) 12/30/24 17:38 Human Metapneumovir PCR Not detected (NOT DETECT) 12/30/24 17:38 Influenza A (H1) PCR Not detected (NOT DETECT) 12/30/24 17:38 Influ A (H1/09) PCR Not detected (NOT DETECT) 12/30/24 17:38 Influenza A (H3) PCR Not detected (NOT DETECT) 12/30/24 17:38 Influenza Type A (PCR) Not detected (NOT DETECT) 12/30/24 17:38 Influenza Type B (PCR) Not detected (NOT DETECT) 12/30/24 17:38 M. pneumoniae (PCR) Not detected (NOT DETECT) 12/30/24 17:38 Parainfluenza 1 (PCR) Not detected (NOT DETECT) 12/30/24 17:38 Parainfluenza 2 (PCR) Not detected (NOT DETECT) 12/30/24 17:38 Parainfluenza 3 (PCR) Not detected (NOT DETECT) 12/30/24 17:38 Parainfluenza 4 (PCR) Not detected (NOT DETECT) 12/30/24 17:38 RSV Type A (PCR) Not detected (NOT DETECT) 12/30/24 17:38 RSV Type B (PCR) Not detected (NOT DETECT) 12/30/24 17:38 Entero/Rhino (PCR) Not detected (NOT DETECT) 12/30/24 17:38 SARS-CoV-2 (PCR) Not detected (NOT DETECT) 12/30/24 17:38 A&P Assessment and plan 1. Acute diastolic heart failure: Patient is a multivalvular heart disease and severe pulmonary hypertension - other contributing factors for the heart failure. Hemodynamically she seems to be stable. 2. Severe aortic valve stenosis: Patient has severe low gradient aortic valve stenosis. Since the patient is not wanting to undergo any interventional procedures, decided not to subject her for further investigations. 3. Nonrheumatic mitral valve stenosis: Patient has possibly severe mitral valve stenosis with a mean gradient of 12 mmHg. Possibly nonrheumatic. This might be playing a role for the pulmonary hypertension 4. Severe pulmonary hypertension: Estimated pulmonary artery peak systolic pressure of 62 with a mean pressure of 48 mm Hg( Group 2). 5. Chest discomfort: Patient chest pain is atypical. Currently it is resolved. Possibility of coronary ischemia causing this is a consideration. However there is no evidence of myocardial injury or any significant ischemic changes. The most recent Myocardial perfusion imaging in 2021 was unremarkable. Plan: Patient may be kept on the current medications. Continue careful hydration . Disposition as per the primary PDMP PDMP Reviewed: Not Reviewed Attestations 2 Medical Necessity Statement*: Deferred to the primary Coding Level of Care Code 88645 Diagnoses Acute diastolic heart failure I50.31 Severe aortic valve stenosis I35.0 Nonrheumatic mitral valve stenosis I34.2 Cardiac valve disease etiology: nonrheumatic Severe pulmonary hypertension I27.20 Chest discomfort R07.89
--- NOTE | 2025-01-01 10:31 | PC.SOCIAL ---
IMM Updated Updated pt on IMM. No questions voiced. Provided pt a copy. Initialed, dated, & timed a copy & placed in chart.
[2025-01-01] MEDS: guaiFENesin 100 mg/5 mL UDC 10 mL 200 MG PO (22:25)
[2025-01-02] VITALS: BP 109/59; PULSE 78; RESP 18; TEMP 36.6; O2SAT 96
[2025-01-02 02:50] VITALS: PULSE 92; RESP 18; O2SAT 99
[2025-01-02 02:59] VITALS: PULSE 89
[2025-01-02 03:40] VITALS: BP 100/50; PULSE 83; RESP 15; TEMP 36.8; O2SAT 97
[2025-01-02 08:00] VITALS: PULSE 86; RESP 16; O2SAT 97
--- NOTE | 2025-01-02 08:30 | XR_ITS ---
WS: [id number] Exam: XR chest 2V* [id number] Date/Time of Exam: 01/02/2025 8:23 AM Reason For Exam: Follow-up congestive heart failure and aortic stenosis Comparison 12/30/2024. Bilateral interstitial infiltrates are slightly improved. RIGHT basal pleural effusion has resolved. Slight cardiac enlargement unchanged. The mediastinum is normal in contour. Bony structures are intact. No pneumothorax. XR/XR chest 2V* [id number] IMPRESSION: 1. Bilateral interstitial infiltrates slightly improved. Resolved RIGHT basal p leural effusion since prior study.
--- NOTE | 2025-01-02 08:48 | P.PN_ITS ---
Subjective 2 Subjective: She is feeling better, no events noted overnight. She wants to go home. Vitals/I&O/Wt Last Vital Signs Temp 98.3 F 01/02/25 03:40 Pulse 86 01/02/25 08:00 Resp 16 01/02/25 08:00 BP 100/50 01/02/25 03:40 Pulse Ox 97 01/02/25 08:00 O2 Del Method Nasal Cannula 01/02/25 08:00 O2 Flow Rate 2 01/02/25 08:00 01/01/25 01/02/25 01/02/25 22:59 06:59 14:59 Intake Total 480 / 840 120 / 840 Output Total 1300 / 1450 150 / 1450 Balance -820 / -610 -30 / -610 Weight last 48 hrs Weight 174 lb 14.4 oz Physical Exam 2 Const: COMMON NORMALS: no acute distress and patient oriented x3 GENERAL APPEARANCE: cooperative and comfortable ORIENTATION/CONSCIOUSNESS: Yes awake, Yes oriented to person, Yes oriented to place and Yes oriented to time Chest: COMMONS NORMALS: normal inspection of the chest and normal palpation of entire chest wall CHEST: Yes Symmetrical chest wall rise Resp: COMMON NORMALS: normal respiratory effort, No retractions and No use of accessory muscles EFFORT & INSPECTION: Yes symmetric chest movement A USCULTATION: crackles (bases) Laterality: bilateral and posterior Cardio: COMMON NORMALS: regular rate, regular rhythm, S1 normal heart sound present, S2 normal heart sound present, No gallops present (Cardio), No clicks present (Cardio) and No rub (Cardio) RATE: regular rate RHYTHM: regular rhythm HEART SOUNDS: S1 normal heart sound present, S2 normal heart sound present and Murmur heart sound present systolic Location: left sternal border and right sternal border Intensity: III/ PERIPHERAL PULSES: radial pulses present Extremity: COMMON NORMALS: no pedal edema Neuro: COMMON NORMALS: patient oriented x3 and moves all extremities S ENSORIUM/ORIENTATION: Yes oriented to person, Yes oriented to place and Yes oriented to time Urinary Catheter Management: Stearns: Cath Placed During This Visit: yes Reason for Continuing Indwelling Catheter: Accurate Measurement of Urinary Output in Critically Ill Patients Urinary Catheter Date of Insertion: 12/30/24 Urinary Catheter Time of Insertion: 23:10 Data 01/01/25 04:13 01/01/25 04:13 Micro: Microbiology 12/31/24 01:15 Urine Culture - Preliminary Urine,Clean Catch A&P Assessment and plan 1. Acute diastolic heart failure: 2. Severe aortic valve stenosis: 3. Severe pulmonary hypertension: 4. Pleural effusion: Plan: Chest x-ray completed today, right pleural effusion resolved as of imaging today. Some improvement in the bilateral interstitial infiltrates. This correlates with physical exam. She would like to go home, since we are not doing any invasive procedures and chest pain has resolved. She does not have shortness of breath at rest, is able to lie somewhat flat. No lower extremity edema. Would continue Lasix 40 mg twice daily for now, can reduce as an outpatient when infiltrates are improved. She may discharge home if ok with hospitalist service. PDMP PDMP Reviewed: Not Reviewed Attestations 2 Medical Necessity Statement*: possible DC home, per hospitalist Coding Level of Care Code Acute Code for Chg Fwd Diagnoses Acute diastolic heart failure I50.31 Severe aortic valve stenosis I35.0 Severe pulmonary hypertension I27.20 Pleural effusion J90
[2025-01-02] MEDS: dilTIAZem ER (12HR) 60 mg Capsule PO (09:07)
[2025-01-02] MEDS: multivitamin therapeutic Tablet 1 TAB PO (09:07)
[2025-01-02 09:57] VITALS: BP 104/55; PULSE 90; RESP 19; TEMP 37; O2SAT 86
--- NOTE | 2025-01-02 10:14 | P.DS_ITS ---
Discharge Providers Date of Admission: 12/30/24 10:46 Date of Discharge: January 02, 2025 Attending Provider at Admission: Christine Cespedes MD Attending Provider at Discharge: Evan Sofia MD Primary Care Provider: Jose C Back MD Diagnoses at Discharge Discharge Diagnosis 1. Acute diastolic heart failure: Details from hospital stay: Patient was diuresed and pleural effusions resolved. Diuretic regimen was increased to 40 mg oral furosemide twice a day and potassium chloride 10 mg twice a day plus magnesium oxide 400 mg once a day 2. Severe aortic valve stenosis: Details from hospital stay: Patient opts for medical management. In order to allow diuresis with her hypotension I discontinued the Imdur. 3. Severe pulmonary hypertension: Details from hospital stay: Attributable to v valvular disease 4. Pleural effusion: Details from hospital stay: As above resolved Reason for Visit Reason for Visit: SOB Brief History: Diana Dewitt is a 84 year old female with past medical history of left hip surgery in October 2024, aortic insufficiency with failure aortic stenosis, GERD, hypothyroid and as per the retrospective notes mention about congestive heart failure. Recent echo in October showed ejection fraction of 55 to 60%. she recently got out of [facility] home she states that last night started having increasing shortness of breath especially when she laid down reported having orthopnea and PND. She had some shortness of breath exertion as well along with some aching chest pain she denies any severe pain. Patient endorsed having mild sore throat and some low-grade fevers from the last few days. Does not recall any sick contacts and there is no recent travels or any recent vaccinations. The patient is not oxygen dependent but can use oxygen supplementation at home The patient is taking care of her daughter at home. The patient did not endorse having any diarrhea, lower leg swellings dizziness syncope or presyncope. No palpitations, any ear discharge or any rhinorrhea or obvious URTI symptoms. Did not report any history of burning micturition or any decreased urinary output Patient does not smoke no other drugs abuse history and no excessive alcohol intake history Hospital Course Hospital Course Patient has severe worsening of aortic stenosis along with mitral stenosis and severe pulmonary hypertension. Possible and high likely the reason of her shortness of breath and pulmonary congestion is secondary to her compromised left heart function along with pulmonary hypertension. Patient has been provided all the information with the risk and complications and she is well aware without any language barrier. She also deferred any valve surgery in the past and preferred currently to continue with the medical management. She has been thoroughly informed about her current situation and agreed with the plan of care. Patient was seen by Dr. Goldman and patient opted for medical management for her heart. She was diuresed and chest x-ray was performed this morning showing resolution of her pleural effusions. She is doing therapy with decreased dyspnea on exertion compared to admission. She will continue on home health PT OT and [facility] Patient also had dysuria and UTI treated with Levaquin. Urine culture did not grow any specific pathogen patient has some cough I think is related to her lung reexpanding with resolution of her pulmonary edema Physical Exam Narrative: General well-developed well-nourished female in no acute cardiopulmonary stress she is able to speak in full sentences CV regular rate and rhythm with a 5+/6 systolic ejection murmur best heard at the right upper sternal border she also has murmur heard at the left sternal border and left axilla. This is 3/6 Lungs mildly diminished in bases but good air movement trace crackles right base Abdomen positive bowel tones soft Calves no pretibial edema Oropharynx clear of exudate Urinary Catheter Management: Stearns: Cath Placed During This Visit: yes Reason for Continuing Indwelling Catheter: Accurate Measurement of Urinary Output in Critically Ill Patients Urinary Catheter Date of Insertion: 12/30/24 Urinary Catheter Time of Insertion: 23:10 Discharge Data Studies Completed and Pending Completed Studies During Hospitalization Category Date Time Status CT angio chest PE protcl [id number] Stat Cat Scan 12/30/24 08:12 Completed XR chest 1V portable [id number] Routine Exams 12/30/24 12:16 Completed XR chest 2V* [id number] Routine Exams 01/02/25 08:30 Completed CV. echo complete* [id number] Urgent Ultrasound 12/30/24 17:29 Completed Pending at discharge Category Date Time Status BMP [Basic Metabolic Panel] AM LABS Lab 01/03/25 04:00 Ordered Legionella Antibody Urgent Lab 12/30/24 17:28 Received Magnesium AM LABS Lab 01/03/25 04:00 Ordered Urine Culture Routine Lab 12/31/24 01:15 Results Radiology Impressions Chest CTA 12/30/24 08:12 IMPRESSION: 1. No evidence of pulmonary embolus or aortic dissection. 2. Bilateral large pleural effusions. 3. Fracture of the sternum with sclerosis. This is new from the prior study. Correlate with history of trauma. 4. Patchy alveolar opacities which may represent edema or alveolitis. 5. Cardiomegaly with mitral valvular calcifications. 6. Increased number of lymph nodes is in the mediastinum without adenopathy. This is unchanged from the prior exam. Chest X-Ray 01/02/25 08:30 IMPRESSION: 1. Bilateral interstitial infiltrates slightly improved. Resolved RIGHT basal pleural effusion since prior study. Laboratory Results WBC 5.28 10^3/uL (3.29-11.43) 01/01/25 04:13 RBC 3.63 10^6/uL (3.85-5.65) L 01/01/25 04:13 Hgb 10.80 g/dL (11.27-16.99) L 01/01/25 04:13 Hct 32.9 % (36-47) L 01/01/25 04:13 MCV 90.6 fl (85-98) 01/01/25 04:13 MCH 29.8 pg (27-33) 01/01/25 04:13 MCHC 32.8 g/dL (30-55) 01/01/25 04:13 RDW 12.6 % (12.1-15.1) 01/01/25 04:13 Plt Count 375 10^3/cmm (157-399) 01/01/25 04:13 MPV 8.9 fL (7.4-10.4) 01/01/25 04:13 Neut % (Auto) 69.6 % 01/01/25 04:13 Lymph % (Auto) 14.2 % 01/01/25 04:13 [place] % (Auto) 11.2 % 01/01/25 04:13 Eos % (Auto) 4.4 % 01/01/25 04:13 Baso % (Auto) 0.4 % 01/01/25 04:13 Neut # (Auto) 3.68 10^3/uL (1.8-7.7) 01/01/25 04:13 Lymph # (Auto) 0.8 10^3/uL (0.8-4.8) 01/01/25 04:13 [place] # (Auto) 0.6 10^3/uL (0.2-0.9) 01/01/25 04:13 Eos # (Auto) 0.2 10^3/uL (0.0-0.8) 01/01/25 04:13 Baso # (Auto) 0.0 10^3/uL (0.0-0.1) 01/01/25 04:13 Nucleated RBC % (auto) 0 % 01/01/25 04:13 Nucleated RBCs # 0.0 /100WBC 01/01/25 04:13 PT 14.20 SECONDS (12.1-14.9) 12/30/24 08:14 INR 1.03 (0.8-1.2) 12/30/24 08:14 Specimen Type Arterial 12/30/24 09:04 Sample Site Radial, right 12/30/24 09:04 ABG pH 7.42 (7.35-7.45) 12/30/24 09:04 ABG pCO2 37.8 mmHg (35-45) 12/30/24 09:04 ABG pO2 62.5 mmHg (80.0-100.0) L 12/30/24 09:04 ABG HCO3 24.3 mmol/L (22-26) 12/30/24 09:04 ABG O2 Saturation 93.4 12/30/24 09:04 ABG Base Excess 0.0 mmol/L (-2.0-2.0) 12/30/24 09:04 Dusty Test Pos 12/30/24 09:04 A-a O2 Gradient 5.3 mmHg (5-10) 12/30/24 09:04 Hematocrit 33.3 % (37-47) L 12/30/24 09:04 Hgb O2 Saturation 90.4 % (95-100) L 12/30/24 09:04 Carboxyhemoglobin 2.5 %THgb (0.4-20.1) 12/30/24 09:04 Methemoglobin 0.7 % (0.4-1.5) 12/30/24 09:04 Total Hemoglobin 10.9 g/dL (12-16) L 12/30/24 09:04 Sodium 126.0 mmol/L (131-143) L 12/30/24 09:04 Potassium 3.4 mmol/L (3.5-5.0) L 12/30/24 09:04 Glucose 144.0 mg/dL (70-115) H 12/30/24 09:04 Ionized Calcium 1.1 mmol/L (1.1-1.4) 12/30/24 09:04 O2 Delivery Device Nc 12/30/24 09:04 O2 Liters/Min 5.0 % 12/30/24 09:04 Net Repairer ID Carolynn 12/30/24 09:04 Sodium 136 mmol/L (136-145) 01/01/25 04:13 Potassium 3.8 mmol/L (3.5-5.1) 01/01/25 04:13 Chloride 93 mmol/L (98-107) L 01/01/25 04:13 Carbon Dioxide 29 mmol/L (22-29) 01/01/25 04:13 Anion Gap 17.8 (5-19) 01/01/25 04:13 BUN 13 mg/dL (8-23) 01/01/25 04:13 Creatinine 0.8 mg/dL (0.5-0.9) 01/01/25 04:13 GFR Calculation Not Reportable 01/01/25 04:13 Glucose 207 mg/dL (65-115) H 01/01/25 04:13 Calculated Osmolality 288 mOsm/kg (285-295) 01/01/25 04:13 Calcium 8.8 mg/dL (8.5-10.5) 01/01/25 04:13 Phosphorus 3.3 mg/dL (2.5-4.5) 12/30/24 14:37 Magnesium 2.1 mg/dL (1.7-2.3) 12/31/24 02:36 Total Bilirubin 0.5 mg/dL (0.15-1.2) 01/01/25 04:13 AST 20 U/L (0-32) 01/01/25 04:13 ALT 13 U/L (0-33) 01/01/25 04:13 Alkaline Phosphatase 89 U/L (35-105) 01/01/25 04:13 Troponin T Baseline 17 ng/L (0-10) H 12/30/24 08:14 Troponin T 120 Minute 15.65 ng/L (0-10) H 12/30/24 09:58 Delta Troponin T -1.35 ABS# (0-10) L 12/30/24 09:58 Troponin T Hi Sens 6Hr 15.37 ng/L (0-10) H 12/30/24 14:37 Troponin T Hi Sens 6Hr Delta -1.63 ng/L (0-12) L 12/30/24 14:37 NT-Pro-B Natriuret Pep 2104 pg/mL (0-450) H 12/30/24 08:14 Total Protein 7.4 g/dL (6.6-8.7) 01/01/25 04:13 Albumin 3.9 g/dL (3.5-5.2) 01/01/25 04:13 Globulin 3.5 g/dL (1.3-4.6) 01/01/25 04:13 Procalcitonin 0.05 ng/mL (0-0.5) 12/30/24 14:37 TSH 3.68 uIU/mL (0.27-4.20) 12/30/24 14:37 Urine Color Yellow (Yellow) 12/31/24 01:15 Urine Appearance Cloudy (CLEAR) A 12/31/24 01:15 Urine pH 5.5 (5-7) 12/31/24 01:15 Ur Specific [place] 1.021 (1.005-1.030) 12/31/24 01:15 Urine Protein 1+ (Negative) A 12/31/24 01:15 Urine Glucose (UA) Negative (Normal) 12/31/24 01:15 Urine Ketones Negative (Negative) 12/31/24 01:15 Urine Blood 3+ (Negative) A 12/31/24 01:15 Urine Nitrate Negative (Negative) 12/31/24 01:15 Urine Bilirubin Negative (Negative) 12/31/24 01:15 Urine Urobilinogen 1.0 mg/dL (Negative) 12/31/24 01:15 Ur Leukocyte Esterase 2+ (Negative) A 12/31/24 01:15 Urine RBC 21-50 /hpf (0-2) H 12/31/24 01:15 Urine WBC >100 /hpf (0-5) H 12/31/24 01:15 Ur Squamous Epith Cells 0-5 /hpf (0-5) 12/31/24 01:15 Amorphous Sediment Not Reportable 12/31/24 01:15 Urine Bacteria None seen /hpf (NONE) 12/31/24 01:15 Hyaline Casts 1.65 /lpf 12/31/24 01:15 Adenovirus (PCR) Not detected (NOT DETECT) 12/30/24 17:38 C. pneumoniae DNA (PCR) Not detected (NOT DETECT) 12/30/24 17:38 Coronavirus 229E (PCR) Not detected (NOT DETECT) 12/30/24 17:38 Human Metapneumovir PCR Not detected (NOT DETECT) 12/30/24 17:38 Influenza A (H1) PCR Not detected (NOT DETECT) 12/30/24 17:38 Influ A (H1/09) PCR Not detected (NOT DETECT) 12/30/24 17:38 Influenza A (H3) PCR Not detected (NOT DETECT) 12/30/24 17:38 Influenza Type A (PCR) Not detected (NOT DETECT) 12/30/24 17:38 Influenza Type B (PCR) Not detected (NOT DETECT) 12/30/24 17:38 M. pneumoniae (PCR) Not detected (NOT DETECT) 12/30/24 17:38 Parainfluenza 1 (PCR) Not detected (NOT DETECT) 12/30/24 17:38 Parainfluenza 2 (PCR) Not detected (NOT DETECT) 12/30/24 17:38 Parainfluenza 3 (PCR) Not detected (NOT DETECT) 12/30/24 17:38 Parainfluenza 4 (PCR) Not detected (NOT DETECT) 12/30/24 17:38 RSV Type A (PCR) Not detected (NOT DETECT) 12/30/24 17:38 RSV Type B (PCR) Not detected (NOT DETECT) 12/30/24 17:38 Entero/Rhino (PCR) Not detected (NOT DETECT) 12/30/24 17:38 SARS-CoV-2 (PCR) Not detected (NOT DETECT) 12/30/24 17:38 Vitals Last Vital Signs Temp 98.6 F 01/02/25 09:57 Pulse 90 01/02/25 09:57 Resp 19 H 01/02/25 09:57 BP 104/55 01/02/25 09:57 Pulse Ox 86 L 01/02/25 09:57 O2 Del Method Nasal Cannula 01/02/25 08:00 O2 Flow Rate 2 01/02/25 08:00 Discharge Plan Discharge Patient Disposition: Home Condition: Stable Prescriptions: New furosemide 40 mg Tablet 40 mg PO BID@08,16 Qty: 60 0RF polyethylene glycol 3350 [Miralax] 17 gram/dose powder 4 g PO DAILY Qty: 510 0RF diltiazem HCl 60 mg Capsule,Extended Release 12 Hr 60 mg PO BID Qty: 60 0RF potassium chloride [Klor-Con 10] 10 mEq Tablet Extended Release 10 meq PO BID Qty: 60 0RF magnesium oxide 400 mg (241.3 mg magnesium) Tablet 400 mg PO DAILY Qty: 30 0RF docusate sodium 100 mg capsule 100 mg PO BID Qty: 120 0RF Continued (DME) ASO to the right See Rx Instructions .Route .MEDSUPPLY Qty: 1 0RF Rx Instructions: As directed levothyroxine 75 mcg tablet 75 mcg PO QAM (DME) Standard Walker See Rx Instructions .Route .MEDSUPPLY Qty: 1 0RF Rx Instructions: Length of need is 99 (DME) Shower chair See Rx Instructions .Route .MEDSUPPLY Qty: 1 0RF Rx Instructions: length of need 99 loratadine 10 mg Capsule 10 mg PO DAILY ketoconazole 2 % cream 1 applic topical BID PRN (Reason: Skin Irritation) Rx Instructions: Apply to affected areas in skin folds x3 weeks then as needed for flares. fluoxetine 20 mg capsule 20 mg PO DAILY levalbuterol tartrate 45 mcg/actuation HFA aerosol inhaler 2 puff INHALATION Q6H PRN (Reason: Shortness Of Breath) polysaccharide iron complex [Ferrex 150] 150 mg iron Capsule 150 mg PO BIDWM Qty: 60 0RF calcium carbonate 200 mg calcium (500 mg) Tablet,Chewable 1,000 mg PO BID Qty: 30 0RF multivitamin with folic acid [Thera] 400 mcg Tablet 1 tab PO DAILY Qty: 30 0RF ondansetron HCl 4 mg tablet 4 mg PO Q4H PRN (Reason: Nausea) acetaminophen 500 mg tablet 1,000 mg PO Q8H PRN (Reason: Pain) pantoprazole 40 mg tablet,delayed release (DR/EC) 40 mg PO DAILY 28 Days Qty: 30 0RF Changed sennosides-docusate sodium [Stool Softener-Laxative] 8.6-50 mg Tablet 2 tab PO BID PRN (Reason: constipation) Qty: 60 0RF Discontinued isosorbide mononitrate 30 mg tablet extended release 24 hr 30 mg PO DAILY Qty: 90 3RF furosemide [Lasix] 20 mg tablet 20 mg PO DAILY Qty: 90 3RF potassium chloride 8 mEq tablet extended release 8 meq PO DAILY Qty: 90 2RF amlodipine 2.5 mg tablet 2.5 mg PO BID Qty: 90 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 Back is booked out. Duane De La Rosa MD [Physician, Cardiology] - 01/26/25 11:30 am Discharge Diet: Cardiac and Low Salt Discharge Activity: Increase activity as tolerated Patient Instructions: Heart Failure (GEN), Aortic Stenosis (GEN), Opioid Safety, Patient Portal & Dave Instructions Activity Restrictions/Additional Instructions: Weight yourself on arrival at home unclothed and write this down as your dry weight Take your diuretics daily and follow a low-sodium diet If you gain or lose more than 3 pounds of water weight please notify your physician Return for chest pain that persist despite resting for 3 minutes Discharge Attestations Time Spent in Discharge Care*: greater than 30 min Time Spent in Smoking Cessation: Patient is not a smoker Quality Metrics Clinical Quality Measures [ No reported AMI, CVA or VTE this stay] Coding Level of Care Code 24297 Diagnoses Acute diastolic heart failure I50.31 Severe aortic valve stenosis I35.0 Severe pulmonary hypertension I27.20 Pleural effusion J90 Time Spent (min) 40
== END 2025-01-02 11:43 | disposition home health service (06) | DRG 291 ==
LOC: ER 10:48 → CSU 11:10
PROVIDERS: Admitting Provider Student in an Organized Health Care Education/Training Program; Emergency Provider Emergency Medicine; PCP Family Medicine; Visit Provider Internal Medicine
DX: I11.0 Hypertensive heart disease with heart failure (principal); I50.31 Acute diastolic (congestive) heart failure; N39.0 Urinary tract infection, site not specified; E87.1 Hypo-osmolality and hyponatremia; I35.0 Nonrheumatic aortic (valve) stenosis; I27.20 Pulmonary hypertension, unspecified; F41.9 Anxiety disorder, unspecified; K21.9 Gastro-esophageal reflux disease without esophagitis; E03.9 Hypothyroidism, unspecified; E83.42 Hypomagnesemia; E87.6 Hypokalemia
CPT/HCPCS: 36415; 36600; 51702; 71045; 71046; 71275; 80051; 80053; 81001; 82330; 82805; 83735; 83880; 84100; 84145; 84443; 84484; 85025; 85610; 86713; 87086; 87486; 87581; 87633; 93005; 93306; 94640; 94760; 96372; 96374; 97110; 97116; 97161; 97166; 97530; 97535; 99285; J1650; J1938; J1956; J3475; J7614; J7644; J9999

== ENCOUNTER → 2025-01-26 11:10 | Outpatient (BNVA) | payer MEDICARE, SELFPAY | PROVIDERS: PCP Family Medicine; Visit Provider Internal Medicine Cardiovascular Disease | DX: I27.20 Pulmonary hypertension, unspecified (principal); I35.0 Nonrheumatic aortic (valve) stenosis; I50.9 Heart failure, unspecified; Z87.891 Personal history of nicotine dependence; R00.2 Palpitations; I50.31 Acute diastolic (congestive) heart failure; J96.01 Acute respiratory failure with hypoxia; E87.6 Hypokalemia; J90 Pleural effusion, not elsewhere classified | CPT/HCPCS: 36415; 80048; 83735; 85025; 99214 ==

== ENCOUNTER → 2025-02-16 10:08 | Outpatient (BNVA) | payer MEDICARE, SELFPAY | PROVIDERS: PCP Family Medicine; Visit Provider Internal Medicine Cardiovascular Disease | DX: R07.89 Other chest pain (principal); R06.09 Other forms of dyspnea; I35.2 Nonrheumatic aortic (valve) stenosis with insufficiency; I10 Essential (primary) hypertension; R53.83 Other fatigue; Z87.891 Personal history of nicotine dependence | CPT/HCPCS: 99214 ==